=== PATIENT | male | born 1955 | race Caucasian/White ===

== ENCOUNTER → 2017-02-18 | Outpatient (CLI) | payer BC | END | disposition home or self-care (01) | LOC: LABPAT 14:21 | PROVIDERS: ATTEND Orthopaedic Surgery | DX: Z01.812 Encounter for preprocedural laboratory examination (principal) | CPT/HCPCS: 87070 ==

== ENCOUNTER 2017-02-24 07:05 | Inpatient (IN) | payer BC ==
[2017-02-18 17:24] VITALS: BMI 29.4
--- NOTE | 2017-02-23 17:07 | HP ---
DATE OF ADMISSION: Jerrell Johnson is a 62-year-old patient seen with symptomatic left hip osteoarthritis. After having treatment options discussed, he elected to proceed with direct anterior left total hip arthroplasty. Consent was obtained. Medical clearance was provided by Dr. Yeison Patel. Past medical history is osteoarthritis. PAST SURGICAL HISTORY: Left knee arthroscopy. Daily medications: Aleve. ALLERGIES: None reported. SOCIAL HISTORY: Patient denies tobacco use. Physical evaluation of the left hip there is diffuse tenderness about the hip girdle, limited range of motion of left hip with pain. Straight-leg raise is negative, positive hip impingement sign. Distal neurovascular exam is intact. Radiographs of the left hip revealed severe osteoarthritis. IMPRESSION: Left hip osteoarthritis. PLAN: Direct anterior left total hip arthroplasty.
[~2017-02-24 07:05] MED LIST: ACETAMINOPHEN TAB 500 MG TAB PO ONE; DEXAMETHASONE SOD PHOSPHATE 10 MG/ML 1 ML VIAL IV ONE; HYDROmorphone 1 MG/ML 1 ML SYRINGE IVP PRN; MELOXICAM 7.5 MG TAB PO ONE; MIDAZOLAM 2 MG/2 ML VIAL IV PRN; ONDANSETRON 4 MG/2 ML VIAL IVP ONE; Pre Op ABX Message 1 EACH MISC MISCELLANE ONE; SCOPOLAMINE 1.5MG/72HR PATCH TRANSDERM ONE; TRANEXAMIC ACID 1,000 MG in SODIUM CHLORIDE 0.9% 100 ML IVPB ONE; VANCOMYCIN 1,500 MG in SODIUM CHLORIDE 0.9% 250 ML IVPB NR
[2017-02-24] MEDS: LACTATED RINGERS 1,000 ML IV SCH ×2 (07:30→13:18)
[2017-02-24] MEDS ORDERED: ROPIVACAINE 246.25 MG, EPINEPHrine 0.5 MG, KETOROLAC 30 MG, cloNIDine HCL/PF 80 MCG, WA... MISCELLANE ONE ×5 (10:07)
[2017-02-24] MEDS ORDERED: ceFAZolin 3,000 MG in SODIUM CHLORIDE 0.9% IRRIGATIO 3,000 ML IRRIGATION ONE (11:24)
[2017-02-24] MEDS ORDERED: NALOXONE 0.4 MG/ML 1 ML VIAL IV PRN (13:01)
[2017-02-24] MEDS ORDERED: HYDROmorphone 1 MG/ML 1 ML SYRINGE IVP PRN ×3 (13:01)
--- NOTE | 2017-02-24 13:01 | P.OP ---
Date of Procedure: 02/24/17 Preoperative Diagnosis: Left hip osteoarthritis Postoperative Diagnosis: Left hip osteoarthritis Procedure(s) Performed: Direct anterior left total hip arthroplasty Implants: 1. Depuy Corail cementless femoral stem KA size 16 standard collar 2. Depuy pinnacle acetabular shell 60 mm 3. Depuy polyethylene acetabular liner +4 neutral 36 mm ID 60 mm OD 4. Biolox ceramic femoral head +1.5 36 mm Anesthesia: local, spinal Surgeon: Yehuda Harper Facilities Engineering Manager #1: Efraín Hooks Estimated Blood Loss (ml): 300 Pathology: other (Femoral head) Condition: stable Disposition: PACU Indications for Procedure: 62-year-old patient seen with symptomatic left hip osteoarthritis. After having treatment options discussed, he elected to proceed with left total hip arthroplasty. Operative Findings: See description of procedure Description of Procedure: The patient was taken to the operative suite. Patient underwent a spinal anesthetic by the department of anesthesia. Patient was then transferred to the [place] table. Patient was given preoperative IV antibiotics and TXA. Both lower extremities were placed in standard leg spars. The hip was then prepped and draped in the normal sterile orthopedic fashion. A standard anterior incision was made beginning 3 cm lateral and 1 cm distal to the ASIS extending 10 cm. Dissection was then carried down through the subcutaneous soft tissues down to the fascia overlying the tensor fascia brandyn. An incision was now made through the fascia. Careful dissection was taken down exposing the tensor fascia brandyn muscle. A Cobra retractor was now placed along the medial femoral neck and a second one along the lateral femoral neck. The venous circumflex vessels were now identified, cauterized and clipped. We identified the anterior hip capsule. An incision was made through the hip capsule along the lateral border. Tag sutures were then placed along the anterior capsule and lateral capsule. We then performed a capsulotomy. Retractors were now placed around the femoral neck itself. A Cobra retractor was now placed along the anterior acetabulum. Good exposure was now noted of the femoral head/neck complex. Residual labrum was debrided out. We placed the extremity into 3 turns of fine traction. We were then able to introduce a skid in between the femoral head and acetabulum. A placed a awl into the femoral head. We took 2 turns of traction off the extremity. Rotation was now released. The femoral head was then dislocated without difficulty. Additional releasing was performed of the capsule. The head was then reduced. All traction was released. A femoral neck cut was now made with a sagittal saw. It was completed with an osteotome at the lateral neck area. The femoral head was now removed without difficulty. There was advanced osteoarthritis of both the femoral head and acetabulum. The extremity was now rotated to 60 of external rotation. It was locked in position. Residual labrum was now debrided out. Serial reaming was performed of the acetabulum. Once we reached the appropriate size and a trial was position and fit nicely. The appropriate size was now chosen opened and made available. The wound was irrigated with pulse lavage mechanical irrigation. It was introduced into the acetabulum without difficulty. The C-arm/fluoroscopy was now brought into the operative field. We made sure we had a true AP pelvic view. We now under direct C-arm/ fluoroscopy introduced into the acetabular component with appropriate version and inclination. It was well seated and stable. The C-arm was pulled back. An appropriate liner was introduced and clicked into position. It was felt to be stable. At this point retractors were removed. The extremity was now placed into 120 external rotation with no traction. The leg was now dropped to the ground and adducted. Appropriate retractors were now positioned along the proximal femur. We also placed our femoral look into position. Additional capsular releasing was performed to gain access to the proximal femur. We now used a box osteotome. A canal finder was now utilized. Serial broaching was now performed until we reached the appropriate size with good overall rotational stability. Appropriate calcar planing was performed. A trial head/ neck was placed into position. The hip was now reduced. The C-arm/fluoroscopy was brought back into the operative field. A spot film was obtained of the nonoperative hip. A spot film was obtained of the trial components. Overlays were performed, we noted good overall alignment and positioning for determining leg length. The C-arm/fluoroscopy was pulled back. Retractors were repositioned and the hip was dislocated. The leg was again taken down to the ground and adducted. Appropriate retractors were repositioned as well as the femoral hook. All trial components were removed. The femoral implant was opened along with the femoral head. The wound was irrigated with pulse lavage mechanical irrigation. The deep soft tissues were infiltrated local analgesic. The femoral implant was introduced with good purchase and fixation noted. The femoral head was introduced with good positioning and fixation noted. Retractors were now removed. The hip was now reduced. There appeared be good positioning of the hip. The C-arm was brought in confirming good position of the components and a spot film was obtained to document that. A second gram of TXA was given. Bipolar cautery had been utilized intermittently through the procedure for hemostasis. The wound was irrigated copiously with pulse lavage mechanical irrigation. The fascia was repaired with Vicryl suture. The subcutaneous soft tissues were repaired in layers with Vicryl suture. The skin was approximated with pernio/Dermabond. [The drain was connected to Hemovac suction.] Sterile dressings were applied. Patient was then awakened, transferred to a bed and taken to recovery in stable condition. Terence BOWMAN assisted with the procedure.
[2017-02-24] MEDS: HYDROcodone/APAP 7.5-325MG 1 EACH TAB PO PRN (15:44)
--- NOTE | 2017-02-24 16:16 | XR ---
EXAMINATION TYPE: XR Hip Limited single view LT, FL guidance operating room DATE OF EXAM: 02/24/2017 1:02 PM COMPARISON: NONE HISTORY: 62-year-old male anterior left hip replacement FINDINGS: Single intraoperative fluoroscopic image of the left hip showing total hip arthroplasty. FLUOROSCOPY Fluoroscopy time of 28 seconds was used during hip replacement surgery. 1 image/s document/s the pro cedure. IMPRESSION: Intraoperative fluoroscopy during anterior left hip replacement as above.
[2017-02-24] MEDS: traMADol 50 MG TAB PO SCH ×2 (17:38→21:04)
[2017-02-24] MEDS: SENNOSIDES-DOCUSATE SODIUM 1 EACH TAB PO SCH (21:04)
[2017-02-25] MEDS ORDERED: MELATONIN 3 MG TABLET PO PRN (00:27)
[2017-02-25] MEDS: LACTATED RINGERS 1,000 ML IV SCH ×6 (00:42→23:34)
[2017-02-25] MEDS: HYDROcodone/APAP 7.5-325MG 1 EACH TAB PO PRN ×3 (00:43→15:24)
[2017-02-25] MEDS: hydrOXYzine PAMOATE 25 MG CAP PO PRN ×2 (00:43→06:11)
[2017-02-25] MEDS: ONDANSETRON 4 MG/2 ML VIAL IVP PRN (00:53)
[2017-02-25] MEDS ORDERED: SODIUM CHLORIDE 0.9% 1,000 ML IV ONE (07:41)
[2017-02-25 08:05] LABS: Basophils % (A) 0 %; CH 32.3; CHCM 32.9; Eosinophils % (A) 0 %; HCT 36.1 % (39.0-53.0); HDW 2.45; HGB 11.4 gm/dL (13.0-17.5); Luc # (Auto) 0.13; Luc % (Auto) 2; Lymphocytes # (A) 1.6 k/uL (1.0-4.8); Lymphocytes % (A) 20 %; MCH 31.3 pg (25.0-35.0); MCHC 31.7 g/dL (31.0-37.0); MCV 98.6 fL (80.0-100.0); Mean Platelet Volume 6.4; Monocytes # (A) 0.6 k/uL (0-1.0); Monocytes % (A) 7 %; Neutrophils # (A) 5.8 k/uL (1.3-7.7); Neutrophils % (A) 71 %; RBC 3.66 m/uL (4.30-5.90); RDW 13.3 % (11.5-15.5); WBC 8.1 k/uL (3.8-10.6); WBC (Perox) 8.86
[2017-02-25] MEDS: traMADol 50 MG TAB PO SCH ×4 (09:07→23:33)
[2017-02-25] MEDS: ENOXAPARIN 40 MG/0.4 ML SYRINGE SQ SCH (09:08)
[2017-02-25] MEDS: FAMOTIDINE 20 MG TAB PO SCH (09:08)
[2017-02-25] MEDS: MELOXICAM 7.5 MG TAB PO SCH (09:08)
--- NOTE | 2017-02-25 10:36 | CONS ---
DATE OF CONSULTATION: 02/24/2017 REASON FOR CONSULTATION: Medical management requested by Dr. Harper. CONSULTATION: This is a very pleasant 62-year-old patient of Dr. Patel who has undergone a left total hip arthroplasty. Postprocedure, sitting on the bed. No chest pain or shortness of breath. No nausea or vomiting. Did tolerate his supper. Pain is controlled. Patient's chronic stable medical conditions include GERD, osteoarthritis including the ( ) shoulder and right hip, chronic tinnitus. The patient denies any cardiac history. Rather comfortable currently. REVIEW OF SYSTEMS: CONSTITUTIONAL: None. HEENT: None. RESPIRATORY: None. CARDIOVASCULAR: None. GASTROINTESTINAL: Heartburn. GENITOURINARY: None. MUSCULOSKELETAL: Arthritic pain in the right shoulder and right hip, also. DERMATOLOGIC: None. HEMATOLOGIC: None. LYMPHATIC: None. PSYCHIATRY: None. NEUROLOGICAL: None. HEENT: Chronic tinnitus. Past medical history of GERD, osteoarthritis, tinnitus. PAST SURGICAL HISTORY: Skin lesion removed, left knee arthroplasty. SOCIAL HISTORY: The patient smoked on and off for about 24 years; stopped in 1998. Alcohol occasionally. 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 FAMILY HISTORY: Cancer. HOME MEDICATIONS: 1. Protonix 40 mg p.o. daily. 2. Naproxen 440 mg p.o. b.i.d. p.r.n. 3. Zyrtec 10 mg p.o. daily. 4. Tylenol arthritis 2 tablets p.o. as directed p.r.n. ALLERGIES: None. On examination, temperature 97, pulse 93, respirations 14, blood pressure ( ), pulse ox 97% on room air. GENERAL APPEARANCE: Average build, BMI 29.4, sitting on bed, comfortable. EYES: Pupils equal. Conjunctivae normal. HENT: Oral cavity normal. NECK: JVD not raised. Mass not palpable. RESPIRATORY: Effort normal. Lungs are clear. CARDIOVASCULAR: First and second sounds normal. No edema. ABDOMEN: Soft, nontender. Liver and spleen not palpable. LYMPHATIC: No lymph node palpable in the neck or axillae. PSYCHIATRY: Alert and oriented x3. Mood and affect normal. NEUROLOGICAL: Pupils equal. Cranial nerves grossly intact. Power and sensation grossly intact. MUSCULOSKELETAL: Dressing over the left hip. INVESTIGATIONS: No blood work is done. ASSESSMENT: 1. Left total hip arthroplasty for advancing osteoarthritis. 2. Primary osteoarthritis of the right shoulder, right hip. 3. Chronic tinnitus. 4. Gastroesophageal reflux disease. PLAN: Patient's Protonix and ( ) can be resumed. Patient is getting Lovenox for DVT prophylaxis per Dr. Harper and pain is controlled. Care was discussed with the patient. Patient should follow with Dr. Patel upon discharge. Thank you, Dr. Harper.
--- NOTE | 2017-02-25 10:48 | P.PN ---
Subjective Principal diagnosis: Status post left total hip arthroplasty Patient is seen today resting in his hospital chair. He just got up with therapy, he ambulated well. The urinary cath was discontinued. Patient did have a little nausea this morning. His pain is controlled, wrist stiffness in the hip when moving. He denies any headaches, lightheadedness, chest pain, shortness of breath. Objective - Vital Signs Vital signs: Vital Signs Temp 97.1 F L 02/25/17 07:34 Pulse 60 02/25/17 07:34 Resp 16 02/25/17 07:34 BP 98/54 02/25/17 09:13 Pulse Ox 99 02/25/17 07:34 Intake & Output 02/24/17 02/25/17 02/25/17 18:59 06:59 18:59 Intake Total 1751 590 Output Total 550 400 300 Balance 1201 190 -300 Weight 99.79 kg Intake: IV 1751 Oral 590 Output: Urine 250 400 300 Uretheral ([place]) 300 Estimated Blood Loss 300 - Exam Left lower extremity: Incision is clean, dry, and intact. Minimal soft tissue swelling present on the anterior and lateral aspects of the hip. Calf is soft, no tenderness with palpation. Plantar flexion, dorsiflexion, EHL, FHL are intact. Sensory exam to light touch throughout the extremities intact, he does no paresthesias in the bottom of his bilateral feet, this is chronic. Cap refills less than 2 seconds. - Labs CBC & Chem 7: 02/25/17 07:18 Labs: Abnormal Lab Results - Last 24 Hours (Table) 02/25/17 Range/Units 07:18 RBC 3.66 L (4.30-5.90) m/uL Hgb 11.4 L (13.0-17.5) gm/dL Hct 36.1 L (39.0-53.0) % Assessment and Plan Plan: Assessment: 1. Postop day #1 status post left total hip arthroplasty Plan: 1. Pain control, continue use of oral medication 2. Continue work with therapy 3. Daily dressing changes/ice and elevate 4. GI and DVT prophylaxis, continue Lovenox during inpatient stay 5. Medical recommendations 6. Discharge planning: Patient may possibly be discharged home today Time with Patient: Less than 30
[2017-02-25] MEDS: MULTIVITAMINS, THERA 1 EACH TAB PO SCH (13:16)
--- NOTE | 2017-02-25 22:13 | PN ---
DATE OF SERVICE: 02/25/2017 PRESENTING COMPLAINT: Left hip surgery. INTERVAL HISTORY: Patient is status post left total hip arthroplasty this morning. Patient is rather hypertensive and dizzy. I ordered 1 liter of fluid to be bolused. No chest pain or shortness of breath, some pain is present. Review of systems done for constitutional, cardiovascular, GI, pulmonary; relevant findings as above. Current medications are reviewed. On examination, temperature 97.1, pulse 60, respiration 16, blood pressure down to 74/49, pulse ox 99% on room air. GENERAL APPEARANCE: Sitting up, tired -appearing. EYES: Pupils equal. Conjunctivae pale. NECK: JVD not raised. Mass not palpable. RESPIRATORY: Effort normal. Lungs are clear. CARDIOVASCULAR: First and second sounds normal. No edema. ABDOMEN: Soft, nontender. Liver and spleen not palpable. PSYCHIATRY: Alert and oriented x3. Mood and affect normal. INVESTIGATIONS: Hemoglobin 11.4. ASSESSMENT: 1. Left total hip arthroplasty for advancing osteoarthritis. 2. Primary osteoarthritis of right shoulder, right hip. 3. Chronic tinnitus. 4. Gastroesophageal reflux disease. 5. Acute hypertension from blood loss, symptomatic. 6. Acute blood loss anemia as expected from surgery. PLAN: Give patient a bolus of IV fluid, for hypertension, told the patient remain in bed, hemoglobin from this morning, hemoglobin 11.4. We will recheck one tomorrow. Care was discussed with the patient. Will follow.
[2017-02-25] MEDS: SENNOSIDES-DOCUSATE SODIUM 1 EACH TAB PO SCH (23:33)
[2017-02-26] MEDS: HYDROcodone/APAP 7.5-325MG 1 EACH TAB PO PRN (01:45)
[2017-02-26 08:00] LABS: Basophils % (A) 0 %; CH 31.4; CHCM 33.3; Eosinophils % (A) 0 %; HCT 33.9 % (39.0-53.0); HDW 2.48; HGB 11.7 gm/dL (13.0-17.5); Luc # (Auto) 0.14; Luc % (Auto) 2; Lymphocytes # (A) 1.3 k/uL (1.0-4.8); Lymphocytes % (A) 19 %; MCH 32.8 pg (25.0-35.0); MCHC 34.6 g/dL (31.0-37.0); MCV 94.8 fL (80.0-100.0); Mean Platelet Volume 6.5; Monocytes # (A) 0.5 k/uL (0-1.0); Monocytes % (A) 7 %; Neutrophils # (A) 4.9 k/uL (1.3-7.7); Neutrophils % (A) 71 %; RBC 3.57 m/uL (4.30-5.90); RDW 12.8 % (11.5-15.5); WBC 6.9 k/uL (3.8-10.6)
[2017-02-26] MEDS: ONDANSETRON 4 MG/2 ML VIAL IVP PRN (08:56)
[2017-02-26] MEDS: FAMOTIDINE 20 MG TAB PO SCH (08:59)
[2017-02-26] MEDS: MELOXICAM 7.5 MG TAB PO SCH (08:59)
[2017-02-26] MEDS: MULTIVITAMINS, THERA 1 EACH TAB PO SCH (08:59)
[2017-02-26] MEDS: ENOXAPARIN 40 MG/0.4 ML SYRINGE SQ SCH (09:00)
[2017-02-26] MEDS ORDERED: SODIUM CHLORIDE 0.9% 1,000 ML IV ONE ×2 (09:30→09:33)
[2017-02-26] MEDS: traMADol 50 MG TAB PO SCH ×4 (09:31→21:01)
[2017-02-26] MEDS: SODIUM CHLORIDE 0.9% 1,000 ML IV SCH ×3 (09:33→21:01)
--- NOTE | 2017-02-26 11:50 | P.PN ---
Subjective Principal diagnosis: Status post left total hip arthroplasty Patient is seen today resting in his hospital chair. He just got up with therapy, he ambulated well. Patient had another episode of hypotension when first getting out of bed this morning. He denies any headaches, lightheadedness , chest pain, shortness of breath. Objective - Vital Signs Vital signs: Vital Signs Temp 98.5 F 02/26/17 07:00 Pulse 99 02/26/17 07:00 Resp 16 02/26/17 07:00 BP 116/75 02/26/17 09:22 Pulse Ox 95 02/26/17 07:00 Intake & Output 02/25/17 02/26/17 02/26/17 18:59 06:59 18:59 Intake Total 100 Output Total 300 1280 650 Balance -200 -1280 -650 Intake: Intake, IV Titration 100 Amount Sodium Chloride 0.9% 1, 100 000 ml @ 500 mls/hr IV . Q2H ONE Rx#:[id number] Output: Urine 300 1050 650 Uretheral (Salas) 300 450 Post Void Residual 230 - Exam Left lower extremity: Incision is clean, dry, and intact. Minimal soft tissue swelling present on the anterior and lateral aspects of the hip. Calf is soft, no tenderness with palpation. Plantar flexion, dorsiflexion, EHL, FHL are intact. Sensory exam to light touch throughout the extremities intact, he does no paresthesias in the bottom of his bilateral feet, this is chronic. Cap refills less than 2 seconds. - Labs CBC & Chem 7: 02/26/17 07:14 Labs: Abnormal Lab Results - Last 24 Hours (Table) 02/26/17 Range/Units 07:14 RBC 3.57 L (4.30-5.90) m/uL Hgb 11.7 L (13.0-17.5) gm/dL Hct 33.9 L (39.0-53.0) % Assessment and Plan Plan: Assessment: 1. Postop day #2 status post left total hip arthroplasty Plan: 1. Pain control, will decrease oral pain medication with help of improving hypotension episode 2. Continue work with therapy 3. Daily dressing changes/ice and elevate 4. GI and DVT prophylaxis, continue Lovenox during inpatient stay 5. Medical recommendations 6. Discharge planning: Patient will likely be discharged home tomorrow Time with Patient: Less than 30
--- NOTE | 2017-02-26 11:52 | P.DS ---
Providers Date of admission: 02/24/17 07:05 Expected date of discharge: 02/27/17 Attending physician: Yehuda Harper Consults: 02/24/17 13:01 Consult Physician Routine Consulting Provider: Rell Harrington Consult Reason/Comments: Medical management Do you want consulting provider notified?: Yes Primary care physician: [facility] Course: Date of admission: 02/24/2017 Date of discharge: 02/27/2017 Admission diagnosis: Status post left total hip arthroplasty Discharge diagnosis: Same Attending physician: Dr. Harper Surgical procedures: Left total hip arthroplasty Brief history: Patient is a 62-year-old male with a history of with progressive primary left hip osteoarthritis. At this point patient has failed conservative treatment measures and has opted to proceed with a elective total hip arthroplasty. Hospital course: Details of patient's surgery can be found in operative report. Patient tolerated the procedure well and was subsequently transported to orthopedic floor. Patient's orthopeidc and medical care was provided daily. Patient had daily laboratory tests performed for evaluation of overall blood counts. Patient had daily physical therapy to include strengthening range of motion as well as education with walker ambulation. Patient was treated with Lovenox for their postoperative DVT prophylaxis during their inpatient stay. Patient was noted to have a relatively uneventful postoperative course. Patient reported satisfactory pain control with oral pain medications by postoperative day 0. Patient showed satisfactory progress with physical therapy. Patient moved steadily through the program and had no difficulty meeting the goals by postoperative day 3. Given patient's otherwise satisfactory course and having met physical therapy goals, plan is to discharge patient home on postoperative day 3. Discharge condition/disposition: Patient will be discharged home in stable condition. Discharge medications: Instructions are given on resumption of patient's normal daily medications per primary care recommendation, in addition patient will be prescribed [place] 7.5 mg/325 mg, tramadol 50 mg, Colace 100 mg, aspirin 325 mg. Discharge instructions: 1. Wound care and infection precautions, keep incision dry and covered while showering, no lotions, creams, moisturizers. No soaking, tubs, pools, hottubs. Do not scrub over the incision. 2. Weight-bear as tolerated with walker / cane until follow-up. 3. Ice and elevate when necessary. Do not exceed 20 minutes per hour with ice pack. 4. Utilize compression sleeve until seen at first follow up appointment. 5. Visiting nursing care. 6. Home physical therapy . 7. Pain meds and anticoagulants per prescription. 8. Pain medication has potential to cause constipation. Increase oral fluid and fiber intake. Contact primary care provider if you have not had a bowel movement within 48 hours after discharge 9. No anti-inflammatory medication until discussed at first post operative visit, this including Motrin, Aleve, Mobic, Diclofenac. 10. Follow up in office at 2 weeks postop with Terence Hooks PA-C 11. Follow up with your primary care doctor 7-10 days after discharge. 12. Contact [facility] with any questions, . Procedures: Left total hip arthroplasty Patient Condition at Discharge: Good Plan - Discharge Summary New Discharge Prescriptions: Aspirin 325 mg PO BID #60 tab Docusate [Colace] 100 mg PO DAILY #30 capsule HYDROcodone/APAP 7.5-325MG [[place] 7.5] 1 each PO Q6HR PRN #60 tab PRN Reason: Pain traMADol HCl [Ultram] 50 mg PO Q6H PRN #30 tab PRN Reason: Pain Discharge Medication List Pantoprazole Sodium [Protonix] 40 mg PO DAILY 03/29/15 [History] Acetaminophen [Tylenol Arthritis] 2 tab PO DIRECTED PRN 02/18/17 [History] Cetirizine HCl [Zyrtec] 10 mg PO DAILY 02/18/17 [History] Aspirin 325 mg PO BID #60 tab 02/27/17 [Rx] Docusate [Colace] 100 mg PO DAILY #30 capsule 02/27/17 [Rx] HYDROcodone/APAP 7.5-325MG [[place] 7.5] 1 each PO Q6HR PRN #60 tab 02/27/17 [Rx] traMADol HCl [Ultram] 50 mg PO Q6H PRN #30 tab 02/27/17 [Rx] Follow up Appointment(s)/Referral(s): [facility], [NON-STAFF] - As Needed Efraín Hooks PAC [PHYSICIAN [employer]ER] - 2 Weeks Activity/Diet/Wound Care/Special Instructions: Orthopedic Discharge Instructions: 1. Wound care and infection precautions, keep incision dry and covered while showering, no lotions, creams, moisturizers. No soaking, pools, hot tubs. Do not scrub over incision. 2. Weight-bear as tolerated with walker / cane until follow-up. 3. Ice and elevate when necessary. Do not exceed 20 minutes per hour with ice pack. 4. Utilize compression sleeve until seen at first follow up appointment. 5. Visiting nursing care. 6. Home physical therapy. 7. Pain meds and anticoagulants per prescription. 8. Pain medication has potential to cause constipation. Increase oral fluid and fiber intake. Contact primary care provider if you have not had a bowel movement within 48 hours after discharge. 9. No anti-inflammatory medication until discussed at first post operative visit, this including Motrin, Aleve, Mobic, Diclofenac. 10. Follow up in office at 2 weeks postop with Terence Hooks PA-C 11. Follow up with your primary care doctor 7-10 days after discharge. 12. Contact [facility] with any questions, . Discharge Disposition: HOME WITH HOME HEALTH SERVICES
--- NOTE | 2017-02-26 15:18 | PN ---
DATE OF SERVICE: 02/26/2017 CHIEF COMPLAINT: Left hip surgery. INTERVAL HISTORY: Patient is status post left total hip arthroplasty. Patient was hypotensive again this morning. I gave a bolus of fluid, does feel a bit tired. Hemoglobin has been stable. Otherwise some pain in operative site. Did tolerate his meal. Review of systems done for constitutional, cardiovascular, GI, pulmonary; relevant findings as above. Current medications are reviewed. On examination, temperature 98.5, pulse 99, respirations 16, blood pressure 105/71, pulse ox 95% on room air. GENERAL APPEARANCE: Sitting up on a chair. Tired -appearing. EYES: Pupils equal. Conjunctivae normal. NECK: JVD not raised. Mass not palpable. RESPIRATORY: Effort normal. Lungs are clear. CARDIOVASCULAR: First and second sounds normal. No edema. ABDOMEN: Soft, liver and spleen not palpable. PSYCHIATRY: Alert and oriented x3. Mood and affect feels a bit low. INVESTIGATIONS: Hemoglobin 7.7. ASSESSMENT: 1. Left total hip arthroplasty for advancing osteoarthritis. 2. Primary osteoarthritis of the right shoulder and right hip. 3. Chronic tinnitus. 4. Gastroesophageal reflux disease. 5. Acute hypotension from blood loss, symptomatic. 6. Acute blood loss anemia expected from surgery. PLAN: Continue current care. Give patient IV fluids. Patient reassured. Hemoglobin still decent, not for blood transfusion. Care was discussed with the patient.
[2017-02-26] MEDS: LACTATED RINGERS 1,000 ML IV SCH ×3 (16:41→21:44)
[2017-02-26] MEDS: SENNOSIDES-DOCUSATE SODIUM 1 EACH TAB PO SCH (20:34)
[2017-02-27] MEDS: HYDROcodone/APAP 7.5-325MG 1 EACH TAB PO PRN ×3 (00:30→12:00)
[2017-02-27] MEDS: SODIUM CHLORIDE 0.9% 1,000 ML IV SCH (04:01)
[2017-02-27 07:17] VITALS: BP 126/77; PULSE 99; RESP 16; TEMP 98.3
[2017-02-27 07:53] LABS: Basophils % (A) 0 %; CH 32.2; CHCM 33.4; Eosinophils % (A) 1 %; HDW 2.43; HGB 10.1 gm/dL (13.0-17.5); Luc # (Auto) 0.14; Luc % (Auto) 2; Lymphocytes # (A) 1.2 k/uL (1.0-4.8); Lymphocytes % (A) 17 %; MCH 31.5 pg (25.0-35.0); MCHC 32.6 g/dL (31.0-37.0); MCV 96.8 fL (80.0-100.0); Mean Platelet Volume 6.7; Monocytes # (A) 0.5 k/uL (0-1.0); Monocytes % (A) 7 %; Neutrophils # (A) 5.2 k/uL (1.3-7.7); Neutrophils % (A) 74 %; RDW 13.2 % (11.5-15.5); WBC (Perox) 7.03
[2017-02-27] MEDS: MELOXICAM 7.5 MG TAB PO SCH (09:18)
[2017-02-27] MEDS: ENOXAPARIN 40 MG/0.4 ML SYRINGE SQ SCH (09:18)
[2017-02-27] MEDS: FAMOTIDINE 20 MG TAB PO SCH (09:18)
[2017-02-27] MEDS: traMADol 50 MG TAB PO SCH ×2 (09:18→13:51)
--- NOTE | 2017-02-27 09:32 | P.PN ---
Subjective Principal diagnosis: Status post left total hip arthroplasty Patient is seen today resting in his hospital chair. His blood pressure is improved, he's feeling a lot better today. He denies any headaches, lightheadedness, chest pain, shortness of breath. Objective - Vital Signs Vital signs: Vital Signs Temp 98.3 F 02/27/17 07:00 Pulse 99 02/27/17 07:00 Resp 16 02/27/17 07:00 BP 126/77 02/27/17 07:00 Pulse Ox 94 L 02/27/17 07:00 Intake & Output 02/26/17 02/27/17 02/27/17 18:59 06:59 18:59 Output Total 1000 650 Balance -1000 -650 Output: Urine 1000 650 Other: Voiding Method Urinal # Voids 1 - Exam Left lower extremity: Incision is clean, dry, and intact. Minimal soft tissue swelling present on the anterior and lateral aspects of the hip. Calf is soft, no tenderness with palpation. Plantar flexion, dorsiflexion, EHL, FHL are intact. Sensory exam to light touch throughout the extremities intact, he does no paresthesias in the bottom of his bilateral feet, this is chronic. Cap refills less than 2 seconds. - Labs CBC & Chem 7: 02/27/17 06:49 Labs: Abnormal Lab Results - Last 24 Hours (Table) 02/27/17 Range/Units 06:49 RBC 3.20 L (4.30-5.90) m/uL Hgb 10.1 L (13.0-17.5) gm/dL Hct 31.0 L (39.0-53.0) % Assessment and Plan Plan: Assessment: 1. Postop day #3 status post left total hip arthroplasty Plan: 1. Pain control, we'll discharge home on oral medication 2. Continue work with therapy 3. Daily dressing changes/ice and elevate 4. GI and DVT prophylaxis, we'll discharge home on aspirin 325 mg twice a day 5. Medical recommendations 6. Discharge planning: Patient will be discharged home today Time with Patient: Less than 30
[2017-02-27] MEDS: MULTIVITAMINS, THERA 1 EACH TAB PO SCH (12:00)
[2017-02-27] MEDS: LACTATED RINGERS 1,000 ML IV SCH (13:49)
--- NOTE | 2017-02-27 21:25 | PN ---
DATE OF SERVICE: 02/27/2017 PRESENTING COMPLAINT: Left hip surgery. INTERVAL HISTORY: Patient is status post left hip surgery. Hypotension is gone. Symptoms are greatly improved; feeling much better. Happy actually about going home. Pain is controlled. No chest pain. Review of systems done for constitutional, cardiovascular, GI, pulmonary; relevant findings as above. Current medications are reviewed. On examination, temperature 98.3, pulse 99, respiration 16, blood pressure 126/77, pulse ox 94% on room air. GENERAL APPEARANCE: Sitting up. More cheerful today. EYES: Pupils equal. Conjunctivae normal. NECK: JVD not raised. Mass not palpable. RESPIRATORY: Effort normal. Lungs are clear. CARDIOVASCULAR: First and second sounds normal. No edema. ABDOMEN: Soft, nontender. Liver and spleen not palpable. PSYCHIATRY: Alert and oriented x3. Mood and affect normal. INVESTIGATIONS: White count 7. Hemoglobin 10.1. ASSESSMENT: 1. Left total hip arthroplasty for advancing osteoarthritis. 2. Primary osteoarthritis of the right shoulder and right hip. 3. Chronic tinnitus. 4. Gastroesophageal reflux disease. 5. Acute hypotension blood loss, symptomatic. 6. Acute blood loss anemia as expected from surgery. PLAN: Continue current medication and treatment plan. Care was discussed with the patient. Patient should follow up with his family doctor.
--- NOTE | 2017-04-09 22:32 | PN ---
DATE OF SERVICE: 02/25/2017 ADDENDUM/CORRECTION Assessment #5 should read: Acute hypotension from blood loss, symptomatic.
== END 2017-02-27 13:50 | disposition home health service (06) | DRG 470 ==
LOC: 2ORMAIN 07:05 → 3SUR 13:13
PROVIDERS: ADMIT Orthopaedic Surgery; ATTEND Orthopaedic Surgery
PROC: 0SRB04A Replacement of Left Hip Joint with Ceramic on Polyethylene Synthetic Substitute, Uncemented, Open Approach (ICD-10-PCS; principal; 2017-02-24 10:10)
DX: M16.12 Unilateral primary osteoarthritis, left hip (principal); I95.9 Hypotension, unspecified; D62 Acute posthemorrhagic anemia; H93.19 Tinnitus, unspecified ear; Z87.891 Personal history of nicotine dependence; K21.9 Gastro-esophageal reflux disease without esophagitis; M19.011 Primary osteoarthritis, right shoulder; Z79.1 Long term (current) use of non-steroidal anti-inflammatories (NSAID)
CPT/HCPCS: 36415; 73501; 85025; 86850; 86900; 86901; 87070; 88300

== ENCOUNTER → 2019-09-13 | Outpatient (CLI) | payer BC | END | disposition home or self-care (01) | LOC: LABPAT 11:42 | PROVIDERS: ATTEND Orthopaedic Surgery Orthopaedic Surgery of the Spine | DX: Z01.812 Encounter for preprocedural laboratory examination (principal) | CPT/HCPCS: 87070 ==

== ENCOUNTER 2019-09-22 07:32 | Inpatient (IN) | payer BC ==
[2019-09-15 15:25] VITALS: BMI 27.7
[~2019-09-22 07:32] MED LIST changes: -ACETAMINOPHEN TAB 500 MG TAB PO ONE; +BACITRACIN 50,000 UNIT, POLYMYXIN B 500,000 UNIT in SODIUM CHLORIDE 0.9% IRRIGATIO 1,00... IRRIGATION ONE; -DEXAMETHASONE SOD PHOSPHATE 10 MG/ML 1 ML VIAL IV ONE; -HYDROmorphone 1 MG/ML 1 ML SYRINGE IVP PRN; +LIDOCAINE 1% 20 ML VIAL (10MG/ML) FOR IV START INTRADERMA PRN; -MELOXICAM 7.5 MG TAB PO ONE; -MIDAZOLAM 2 MG/2 ML VIAL IV PRN; -Pre Op ABX Message 1 EACH MISC MISCELLANE ONE; -SCOPOLAMINE 1.5MG/72HR PATCH TRANSDERM ONE; -TRANEXAMIC ACID 1,000 MG in SODIUM CHLORIDE 0.9% 100 ML IVPB ONE; -VANCOMYCIN 1,500 MG in SODIUM CHLORIDE 0.9% 250 ML IVPB NR
[2019-09-22] MEDS: LACTATED RINGERS 1,000 ML IV SCH ×2 (08:00→23:22)
[2019-09-22] MEDS ORDERED: NEOSTIGMINE 1 MG/ML 10 ML VIAL ONE (08:25)
[2019-09-22] MEDS ORDERED: PHENYLEPHRINE-0.9% NACL SYG 1 MG/10 ML SYRINGE ONE (08:25)
[2019-09-22] MEDS ORDERED: PROPOFOL 10 MG/ML 20 ML VIAL IV ONE (08:25)
[2019-09-22] MEDS ORDERED: HEPARIN SODIUM,PORCINE 10,000 UNIT/ML 1 ML VIAL ONE (08:25)
[2019-09-22] MEDS ORDERED: ePHEDrine SULFATE/0.9% NACL/PF 50 MG/5 ML SYRINGE IV ONE (08:25)
[2019-09-22] MEDS ORDERED: SUCCINYLCHOLINE CHLORIDE 100 MG/5 ML SYR IV ONE (08:25)
[2019-09-22] MEDS ORDERED: ROCURONIUM BROMIDE 10 MG/ML 10 ML VIAL IV ONE (08:25)
[2019-09-22] MEDS ORDERED: fentaNYL (PF) 50 MCG/ML 2 ML AMP ONE (08:25)
[2019-09-22] MEDS ORDERED: GLYCOPYRROLATE 0.2 MG/ML 2 ML VIAL ONE (08:25)
[2019-09-22] MEDS ORDERED: LIDOCAINE 1% INJ 10MG/ML (20 ML MDV) ONE (08:25)
[2019-09-22] MEDS ORDERED: MIDAZOLAM 2 MG/2 ML VIAL ONE (08:25)
[2019-09-22] MEDS ORDERED: SODIUM CHLORIDE 0.9% IRRIG 1,000 ML BTL IRRIGATION ONE (08:25)
[2019-09-22] MEDS ORDERED: LIDOCAINE 1%-EPI 1:100,000 20 ML VIAL SQ ONE (09:11)
[2019-09-22] MEDS ORDERED: BUPIVACAINE (PF) 0.25% 30 ML VIAL SQ ONE (09:11)
[2019-09-22] MEDS ORDERED: GELATIN SPONGE,ABSORB (SMALL) 1 EACH SPONGE TOPICAL ONE ×2 (09:33)
[2019-09-22] MEDS ORDERED: THROMBIN (BOVINE) 5,000 UNIT VIAL TOPICAL ONE ×2 (09:33)
[2019-09-22] MEDS ORDERED: LACTATED RINGERS 1,000 ML IV ONE ×2 (11:00)
--- NOTE | 2019-09-22 12:26 | XR ---
EXAMINATION TYPE: XR lumbar spine 2 or 3V, FL guidance operating room DATE OF EXAM: 09/22/2019 CLINICAL HISTORY: Low back pain. TECHNIQUE: Fluoroscopy. COMPARISON: None. FINDINGS: Fluoroscopic guidance was provided during pain relief procedure performed by Dr. Boss. A total of 2 minutes and 5 seconds of fluoroscopic time was utilized during the procedure and 6 spot i mages are acquired. Images acquired shows needle localization of the lumbar spine at multiple levels and lumbar spine fusion postsurgical change. IMPRESSION: As Above.
[2019-09-22] MEDS ORDERED: MAGNESIUM HYDROXIDE 2,400 MG/10 ML CUP PO PRN (12:27)
[2019-09-22] MEDS ORDERED: HYDROmorphone 0.5 MG/0.5 ML SYRINGE IVP PRN (12:27)
[2019-09-22] MEDS ORDERED: BENZOCAINE/MENTHOL LOZENG 1 EACH LOZENGE MUCOUS MEM PRN (12:27)
[2019-09-22] MEDS: HYDROmorphone 0.5 MG/0.5 ML SYRINGE IVP PRN ×4 (12:44→13:17)
--- NOTE | 2019-09-22 12:45 | P.OP ---
Date of Procedure: 09/22/19 Preoperative Diagnosis: Spondylolisthesis L3 4 L4 5, lower extremity radiculopathy low back pain, spinal stenosis L3 4 L4 5, degenerative disc disease Postoperative Diagnosis: Same Anesthesia: GETA Pathology: none sent Condition: stable Disposition: PACU Description of Procedure: DESCRIPTION OF PROCEDURE(S): BRIEF OPERATIVE NOTE Preoperative Diagnosis:Spondylolisthesis L3 4 L4 5, degenerative scoliosis, degenerative scoliosis, lower extremity radiculopathy low back pain, spinal stenosis L3 4 L4 5, degenerative disc disease Postoperative Diagnosis:Spondylolisthesis L3 4 L4 5, lower extremity radiculopathy low back pain, spinal stenosis L3 4 L4 5, degenerative disc disease Procedure: Laminectomy and decompression L3 4 L4 5 Minimally invasive Posterior lateral decompression and facet fusion L3 4 L4 5 Minimally invasive Transforaminal lumbar interbody fusion for a 360 fusion L3 4 L4 5 Discectomy for decompression L3 4 L4 5 Placement of interbody graft L3 4 L4 5 Local autogenous bone grafting Harvesting of bone marrow aspirate via the pedicle and vertebral body of L3 Use of Cell Saver Use of bone graft extenders Surgeon: Dr. Boss Plastic Welder: Anastacio Delarosa is present throughout the entire the case persistence during positioning, dissection, exposure, visualization, and all crucial elements of the case as well as closure. Anesthesia: General anesthesia Estimated blood loss: Approximately 450 mL with 200 given back through Cell Saver Complications: None apparent Components implanted: K2M minimally invasive [place] pedicle screw system with 6 screws measuring 6.5 x 50 mm with 2 [place] interbody cages 30 mL of DBX bone fibers 10 mL of bio4 bone graft to supplement the local autogenous bone graft and bone marrow aspirate Disposition: To recovery room in good stable condition. OPERATIVE INDICATIONS The patient has had long-standing issues in their lower back and lower extremities. He's been having worsening symptoms his back and his bilateral lower extremity is worse on the left than the right. His been having severe pain in his back despite aggressive conservative care. Imaging showed spondylolisthesis which was dynamic L3 4 and L4 5 with spinal stenosis and degenerative disc disease which correlated well with his low back and lower extremity symptoms. The patient has been through conservative treatment. We discussed various treatment options including surgery, and the patient wishes to proceed with surgery We discussed the risk, patient's alternatives and benefits of surgery including but not limited to, risk of bleeding risk of infection, ri sk of need for further surgery, risk of decreased, loss of motion, muscle function, malunion nonunion, hardware failure, nerve damage, paralysis, heart attack, blindness and . OPERATIVE SUMMARY After discussing all the risks, patient alternatives and benefits at length, the patient elected to proceed with surgical intervention, signed informed consent, and presented for their procedure. The patient was seen and examined in the preoperative holding area and the surgical site was marked. The patient was given antibiotics and brought to the operating room. The patient was sedated and intubated by anesthesia in standard fashion. The patient was positioned on to the operating room table in a prone position on the appropriate frame which was well-padded and well molded. We were careful to pad any bony prominences and pressure points. We were careful to maintain the patient's cervical spine and good neutral alignment and position throughout. The patient was prepped and draped in a normal standard fashion. An appropriate timeout and keystone protocol performed. We were able to proceed with the surgery. The local wound area was infiltrated with local anesthetic. I was able utilize C-arm guidance to establish appropriate position over the pedicles bilaterally at the appropriate levels at L3 4 and 5. With the appropriate levels confirmed was able to make small stab incisions over the appropriate pedicle sites bilaterally. Utilizing C-arm in his house able to establish a Jamshidi needle over the lateral aspect of the pedicle and advanced the trocar into the pedicle being careful not to breech superiorly inferiorly medially or laterally. Position was confirmed regularly with AP and lateral images on C-arm. I was able to establish the trocar into the pedicle milagros ropriately into the posterior aspect of the vertebral body bilaterally at the appropriate levels. This was done at each of the pedicle positions and each of the vertebrae. At L3 on the right I withdrew approximately 30 mL of bone marrow aspirate to be used for supplementation for the bone graft. I was able place the guidewire into the trocar and into the vertebral body appropriately under C-arm guidance. Dissection was taken down over the wire to the appropriate starting position for the screw placed. The appropriate length screw was chosen, threaded over the guidewire and screwed appropriately into the pedicle and vertebral body under C-arm guidance in excellent alignment and position with good bony purchase. This is done at each of the screw sites at the appropriate levels at L3-L4 and L5 bilaterally. With the screws intact I extended the incision to connect the screw hole sites on the most symptomatic side on the left. I dissected down to establish access over the pars and lamina to the base of the spinous process. I was able to expose the facet joint. The capsule the facet was taken down and showed some severe facet arthrosis at the joint. I was able to use a combination of curettes and [place] rongeurs and a high-speed drill to take down the facet joint and do a facetectomy. Partial laminectomy was also performed. I was able get excellent foraminal decompression and central decompression with undermining across midline to perform a laminectomy centrally and contralaterally. As able get good central decompression. This is done first at L4 5 and then at L3 4 . The ligamentum flavum was taken down to further decompress centrally and at bilateral neural foramen. I was able to expose the disc space and visualize the traversing nerve root. Note was made of some disc protrusion at the level causing further compression of the nerve root. I was able to establish a annulotomy at the appropriate level protecting soft tissue and neural structures. Note was made of some disc desiccation at the disc. I performed a complete discectomy with accommodation of curettes and rasps and scrapers. The disc had some protrusion and the discectomy provided some further decompression. I was able get good endplate preparation at the disc space. I sized for the appropriate size interbody spacer protecting the soft tissue and neural structures. The wound was copiously irrigated and suctioned dry. There is no evidence of any dural tear or leak. I was able to pack the disc space with local autogenous bone graft as well as a small amount of bone graft which was also placed into the interbody cage itself. Protecting the soft tissue structures and neural structures I was able place the interbody cage in good alignment and good position with good fit and fill at the interbody space. Position was confirmed with C-arm guidance at L3 4 and L4 5. Good hemostasis maintained. There is no evidence of any dural tear or leak. The wound was irrigated and suctioned dry. With the hardware intact, intraoperative C-arm imaging was again taken which showed good alignment and position of the hardware at the appropriate levels at L3 4 and 5. We were then able to measure, contour and place the rods and appropriate hardware bilaterally. I was able to get good correction of the scoliosis as well. I was able to place capcrews, tighten them down, and torque them with the torque screwdriver appropriately. With this intact I was able to place the local autogenous bone graft with additional bone graft enhancer as necessary into the posterior lateral gutters over the decorticated transverse processes. The remainder of the bone graft was placed over the facet joint on the contralateral side after taking down the facet joint capsule. With the bone graft intact, a stable construct, and good decompression at the appropriate levels, we were able to proceed with closure. Good hemostasis was maintained. There is no evidence of dural tear or leak. The fascia was closed for a watertight closure. he subcuticular tissue was closed with absorbable suture. The wound was cleaned and dried and dressed with the appropriate dressing. The drapes were broken down. The patient was gently rolled back onto their hospital bed being careful to maintain their cervical spine and good neutral alignment and position. They were woken up by anesthesia, extubated, and brought to the recovery room in good stable condition. The patient will be admitted to the hospital for appropriate postoperative care, medical management and monitoring. We will continue to follow them closely about the postoperative course.
[2019-09-22] MEDS ORDERED: ONDANSETRON 4 MG/2 ML VIAL IVP ONE (13:06)
[2019-09-22] MEDS ORDERED: METOCLOPRAMIDE 5 MG/ML 2 ML VIAL IVP ONE (13:18)
[2019-09-22] MEDS ORDERED: PROMETHAZINE INJ 25 MG/ML 1 ML VIAL IVPB ONE (13:29)
[2019-09-22] MEDS: SODIUM CHLORIDE 0.9% 1,000 ML IV SCH (14:56)
[2019-09-22] MEDS: HYDROmorphone 1 MG/ML 1 ML SYRINGE IVP PRN ×2 (16:36→20:32)
--- NOTE | 2019-09-22 20:46 | P.CONS ---
History of Present Illness - Reason for Consult Consult date: 09/22/19 Medical management Requesting physician: Gary Boss - Chief Complaint Back surgery - History of Present Illness Consultation: This is a pleasant [address] Patel. Long-standing problem with the lower back in the lumbar area. Patient had radical pain in both the legs more so on the right leg posteriorly. It was worse with activity and better with rest patient had tried different medications without any benefit. It is progressively getting worse. Finally decided to proceed with surgery. Patient did under go surgery this afternoon. Postprocedure laying in bed. Some pain is present. No nausea no vomiting. No chest pain or shortness of breath. Has Venodyne boots for DVT prophylaxis. No fever no chills. Chronic stable medical conditions include GERD, osteoarthritis of the joints, BPH. Review of systems: GEN.: None EYES: None HEENT: None NECK: None RESPIRATORY: None CARDIOVASCULAR: None GASTROINTESTINAL: None GENITOURINARY: BPH symptoms MUSCULOSKELETAL: As above LYMPHATICS: None HEMATOLOGICAL: None PSYCHIATRY: None NEUROLOGICAL: [Radicular. Pain in both legs Past medical history to include: Lumbar pain, GERD, or strength redness, BPH Social history: *Smoking in 1998. . 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 EYES: Pupils equal. Conjunctiva normal. HEENT: External appearance of nose and ears normal, oral cavity grossly normal. NECK: JVD not raised; masses not palpable. HEART: First and second heart sounds are normal; no edema. LUNGS: Respiratory rate normal; clear to auscultation. ABDOMEN: Soft, nontender, liver spleen not palpable, no masses palpable. PSYCH: Alert and oriented x3; mood and affect normal. NEUROLOGICAL: Cranial nerves grossly intact; no facial asymmetry, power and sensation grossly intact. LYMPHATICS: No lymph nodes palpable in the axilla and neck MUSCULOSKELETAL: Evidence of OA in the hands. Dressing over the surgical site. Venodyne boots Investigations: No labs currently Assessment: -Decompression fusion, laminectomy to include L3 L4 L5 for spondylolisthesis and lower extremity radiculopathy and spinal stenosis and DJD -GERD -BPH Plan: Pain control is in place. Patient can Venodyne boots in place. IV fluids in place. Did get IV Ancef for surgical prophylaxis. Did tolerate her meals this evening. Care was discussed with the patient. Questions answered. Thank you Dr. Boss Past Medical History Past Medical History: Cancer, GERD/Reflux, Osteoarthritis (OA) Additional Past Medical History / Comment(s): HISTORY OF COLON POLYPS, HX SKIN CANCER -BASAL CELL. History of Any Multi-Drug Resistant Organisms: None Reported Past Surgical History: Joint Replacement, Orthopedic Surgery Additional Past Surgical History / Comment(s): SKIN LESIONS REMOVED, LEFT KNEE ARTHROSCOPY, left hip replacement. Past Anesthesia/Blood Transfusion Reactions: No Reported Reaction Past Psychological History: No Psychological Hx Reported Smoking Status: Former smoker Past Alcohol Use History: Occasional Additional Past Alcohol Use History / Comment(s): QUIT SMOKING IN 1998. Past Drug Use History: None Reported - Past Family History Father Family Medical History: Cancer Medications and Allergies Home Medications Medication Instructions Recorded Confirmed Type Pantoprazole Sodium [Protonix] 40 mg PO QAM 03/29/15 09/22/19 History Acetaminophen [Tylenol] 1,000 mg PO Q4-6H PRN 09/15/19 09/22/19 History Allergies Allergy/AdvReac Type Severity Reaction Status Date / Time No Known Allergies Allergy Verified 09/22/19 08:01 Physical Exam Vitals: Vital Signs Temp Pulse Resp BP Pulse Ox 09/22/19 20:02 98.1 F 89 18 136/82 98 09/22/19 16:30 106 H 138/90 09/22/19 16:15 80 136/83 09/22/19 16:00 97 120/77 09/22/19 15:45 87 127/82 09/22/19 15:30 93 119/66 09/22/19 15:15 79 117/76 09/22/19 15:00 79 122/74 09/22/19 14:48 100 09/22/19 14:45 96 123/77 09/22/19 14:33 98.3 F 79 17 120/76 98 09/22/19 14:00 82 18 123/78 97 09/22/19 13:45 80 18 127/81 97 09/22/19 13:30 82 18 128/80 97 09/22/19 13:16 80 18 131/86 96 09/22/19 13:00 85 18 138/89 100 09/22/19 12:45 80 18 146/96 98 09/22/19 12:31 97.1 F L 94 18 151/95 98 09/22/19 07:50 98.0 F 86 18 141/91 96 Intake and Output 09/22/19 09/22/19 09/22/19 06:59 14:59 22:59 Intake Total 2151 Output Total 850 Balance 1301 Intake: IV 2151 Output: Urine 400 Estimated Blood Loss 450 Other: Weight 94.347 kg
[2019-09-22] MEDS: HYDROcodone/APAP 5-325MG 1 EACH TAB PO PRN (21:42)
[2019-09-23] MEDS: HYDROmorphone 1 MG/ML 1 ML SYRINGE IVP PRN ×3 (00:38→22:45)
[2019-09-23] MEDS: SODIUM CHLORIDE 0.9% 1,000 ML IV SCH ×2 (00:47→14:08)
[2019-09-23] MEDS: HYDROcodone/APAP 5-325MG 1 EACH TAB PO PRN ×4 (02:06→17:55)
[2019-09-23 07:29] LABS: Basophils % (A) 0 %; Eosinophils % (A) 1 %; HCT 36.9 % (39.0-53.0); HGB 12.5 gm/dL (13.0-17.5); Lymphocytes # (A) 1.5 k/uL (1.0-4.8); Lymphocytes % (A) 20 %; MCH 32.3 pg (25.0-35.0); MCHC 33.8 g/dL (31.0-37.0); MCV 95.5 fL (80.0-100.0); Mean Platelet Volume 6.1; Monocytes # (A) 0.6 k/uL (0-1.0); Monocytes % (A) 8 %; Neutrophils # (A) 5.2 k/uL (1.3-7.7); Neutrophils % (A) 69 %; Platelet Count 208 k/uL (150-450); RBC 3.86 m/uL (4.30-5.90); WBC 7.6 k/uL (3.8-10.6)
[2019-09-23] MEDS: PANTOPRAZOLE 40 MG TABLET PO SCH (08:00)
[2019-09-23] MEDS: SENNOSIDES-DOCUSATE SODIUM 1 EACH TAB PO SCH (08:00)
--- NOTE | 2019-09-23 08:26 | P.PN ---
Progress Note - Text Progress Note Date: 09/23/19 Postoperative day #1 Patient is seen and examined today at bedside. The patient has some pain around the surgical site as expected. Pain is being controlled with medication. We were able to get him up to a chair that was difficult for him. He continues to have severe weakness at his left lower extremity which is essentially unchanged from prior to his surgery. Physical Exam Afebrile with stable vital signs his blood pressure did decrease some into the mid 70s upon sitting up in a chair but seems to be stabilizing appropriately with him getting back. Abdomen is soft nontender. Chest has good excursion deep and space expiration The incision site is clean dry and intact. No erythema there is no purulence. Extremities have not had neurologic change from prior to surgery. Left lower extremity has diffuse weakness which is unchanged from prior to surgery Calves and thighs were soft nontender without evidence of DVT. Assessment/Plan Postoperative day #1 status post minimally invasive decompression and fusion L3 4 L4 5 for his spinal stenosis with spondylolisthesis and degenerative disc and lower extremity radiculopathy with weakness Patient is progressing as expected from the surgery thus far. He has significant changes and will have slower recovery overall particularly given his lower extremity changes and weakness. We have been able to start to mobilize him but he did have some sensitivity with his blood pressure and this was seen that prior intervention with him in his hip surgeries. I think this will stabilize and we'll continue her medicine follow them closely. We will continue to increase the patient's mobilization with therapy. We will continue pain control with oral or IV medications. We'll continue to follow patient closely.
--- NOTE | 2019-09-23 23:11 | P.PN ---
Progress Note - Text Progress Note Date: 09/23/19 - Chief Complaint Back surgery Consultation: This is a pleasant [address] Patel. Long-standing problem with the lower back in the lumbar area. Patient had radical pain in both the legs more so on the right leg posteriorly. It was worse with activity and better with rest patient had tried different medications without any benefit. It is progressively getting worse. Finally decided to proceed with surgery. Patient did under go surgery this afternoon. Postprocedure laying in bed. Some pain is present. No nausea no vomiting. No chest pain or shortness of breath. Has Venodyne boots for DVT prophylaxis. No fever no chills. Chronic stable medical conditions include GERD, osteoarthritis of the joints, BPH. today-patient having trouble urinating. Back pain is better controlled. Did walk a current therapy. Did tolerate her diet. Review of systems: Was done for constitutional, cardiovascular, GI, pulmonary. relevant finding as above Active Medications Acetaminophen (Tylenol Tab) 1,000 mg PO Q4H PRN PRN Reason: Mild pain Hydrocodone Bitart/Acetaminophen ([place] 5-325) 1 each PO Q4HR PRN PRN Reason: Moderate Pain Hydrocodone Bitart/Acetaminophen ([place] 5-325) 2 each PO Q4HR PRN PRN Reason: Moderate Pain Last Admin: 09/23/19 17:55 Dose: 2 each Documented by: Benzocaine/Menthol (Cepacol Lozenge) 1 each MUCOUS MEM Q4HR PRN PRN Reason: Sore Throat Hydromorphone HCl (Dilaudid) 0.5 mg IVP Q4HR PRN PRN Reason: Pain Hydromorphone HCl (Dilaudid) 1 mg IVP Q4HR PRN PRN Reason: Pain Last Admin: 09/23/19 22:45 Dose: 1 mg Documented by: Lactated Ringer's (Lactated Ringers) 1,000 mls @ 20 mls/hr IV .Q24H [facility] Last Admin: 09/22/19 23:22 Dose: Not Given Documented by: Sodium Chloride (Saline 0.9%) 1,000 mls @ 75 mls/hr IV .[id number] [facility] Last Admin: 09/23/19 14:08 Dose: Not Given Documented by: Lidocaine HCl (.Xylocaine 1% Inj (10mg/Ml) For Iv Start) 0.1 ml INTRADERMA PER PROTOCOL PRN PRN Reason: IV Start Last Admin: 09/22/19 08:00 Dose: 0.1 ml Documented by: Magnesium Hydroxide (Milk Of Magnesia) 2,400 mg PO DAILY PRN PRN Reason: Constipation Ondansetron HCl (Zofran) 4 mg IVP Q6HR PRN PRN Reason: Nausea Pantoprazole Sodium (Protonix) 40 mg PO AC-BRKFST [facility] Last Admin: 09/23/19 08:00 Dose: 40 mg Documented by: Senna/Docusate Sodium (Senokot-S) 1 each PO DAILY [facility] Last Admin: 09/23/19 08:00 Dose: 1 each Documented by: Tamsulosin HCl (Flomax) 0.4 mg PO PC-SUPPER [facility] Physical examination: VITAL SIGNS: 98.8, 80, 16, 120/71, 96% room air GENERAL: BMI 27.4, laying in bed awake. EYES: Pupils equal. Conjunctiva normal. HEENT: External appearance of nose and ears normal, oral cavity grossly normal. NECK: JVD not raised; masses not palpable. HEART: First and second heart sounds are normal; no edema. LUNGS: Respiratory rate normal; clear to auscultation. ABDOMEN: Soft, nontender, liver spleen not palpable, no masses palpable. PSYCH: Alert and oriented x3; mood and affect normal. NEUROLOGICAL: Cranial nerves grossly intact; no facial asymmetry, power and sensation grossly intact. LYMPHATICS: No lymph nodes palpable in the axilla and neck MUSCULOSKELETAL: Evidence of OA in the hands. Dressing over the surgical site. Venodyne boots Investigations: white count 7.6 hemoglobin 12.5 platelets 208 Assessment: -Decompression fusion, laminectomy to include L3 L4 L5 for spondylolisthesis and lower extremity radiculopathy and spinal stenosis and DJD -GERD -BPH, causing acute urinary retention Plan: bladder scanning was done. If need be patient me to be straight caths.. Flomax be added this evening. Care was discussed with the patient. Increase activity. Thank you Dr. Boss
[2019-09-23] MEDS: TAMSULOSIN 0.4 MG CAP.ER.24H PO SCH (23:49)
[2019-09-24] MEDS: HYDROmorphone 1 MG/ML 1 ML SYRINGE IVP PRN (05:40)
[2019-09-24] MEDS: SODIUM CHLORIDE 0.9% 1,000 ML IV SCH ×2 (05:44→17:40)
[2019-09-24] MEDS: LACTATED RINGERS 1,000 ML IV SCH (07:41)
[2019-09-24] MEDS: PANTOPRAZOLE 40 MG TABLET PO SCH (07:41)
[2019-09-24] MEDS: SENNOSIDES-DOCUSATE SODIUM 1 EACH TAB PO SCH (07:41)
--- NOTE | 2019-09-24 07:58 | P.PN ---
Progress Note - Text Progress Note Date: 09/24/19 Postoperative day #2 Patient is seen and examined today at bedside. The patient has some pain around the surgical site as expected but is somewhat more comfortable today. He feels that his legs have not made much change from prior to surgery as he still has weakness in his lower extremities. We discussed that this will likely take quite some time to make improvement in terms of his neurologic function. Pain is being controlled with medication. Physical Exam Afebrile with stable vital signs Abdomen is soft nontender. Chest has good excursion deep and space expiration The incision site is clean dry and intact. No erythema there is no purulence. There is no active drainage Extremities have not had neurologic change from prior to surgery. He has weakness of his left lower extremity particularly dorsiflexion Calves and thighs were soft nontender without evidence of DVT. Assessment/Plan Postoperative day #2 status post minimally invasive decompression and fusion L3 4 L4 5 for his spinal stenosis spondylolisthesis lower extremity radiculopathy and weakness Patient is progressing as expected from the surgery thus far in terms of his pain. We will continue to increase the patient's mobilization with therapy. He has significant copiously with his mobilization before his surgery and continues to have difficulty at this point. Hopefully he'll continue make progress with his mobility. I would like to have case management see him to make sure that he is safe after discharge. He would consider the possibility of home with home health versus self-care versus the possibility of rehab or usp. They will discuss this with him. We will continue pain control with oral or IV medications. We'll continue to follow patient closely.
[2019-09-24 08:04] LABS: African American GFR (CKD) >90 (>60 ml/min/1.73 sqM); Anion Gap 7 mmol/L; Blood Urea Nitrogen 6 mg/dL (9-20); Calcium 8.2 mg/dL (8.4-10.2); Carbon Dioxide 23 mmol/L (22-30); Chloride 109 mmol/L (98-107); Glucose 94 mg/dL (74-99); Potassium 3.8 mmol/L (3.5-5.1); Sodium 139 mmol/L (137-145)
[2019-09-24 08:07] LABS: Basophils # (A) 0.2 k/uL (0-0.2); Basophils % (A) 2 %; Eosinophils % (A) 0 %; HGB 13.1 gm/dL (13.0-17.5); Lymphocytes # (A) 0.6 k/uL (1.0-4.8); Lymphocytes % (A) 6 %; MCHC 31.9 g/dL (31.0-37.0); MCV 100.3 fL (80.0-100.0); Mean Platelet Volume 6.3; Monocytes # (A) 0.7 k/uL (0-1.0); Monocytes % (A) 7 %; Neutrophils # (A) 8.4 k/uL (1.3-7.7); Neutrophils % (A) 84 %; Platelet Count 219 k/uL (150-450); RBC 4.09 m/uL (4.30-5.90); RDW 13.1 % (11.5-15.5)
[2019-09-24] MEDS: HYDROcodone/APAP 5-325MG 1 EACH TAB PO PRN ×3 (09:53→21:17)
[2019-09-24 13:49] LABS: Appearance,Urine Clear (Clear); Bilirubin,Urine Negative (Negative); Blood,Urine Trace (Negative); Color,Urine Yellow; Glucose,Urine (UA) Negative (Negative); Ketones,Urine 2+ (Negative); Leukocyte Esterase,Urine Negative (Negative); Mucus,Urine Rare /hpf; Nitrite,Urine Negative (Negative); Protein,Urine 1+ (Negative); RBC,Urine 4 /hpf (0-5); Specific Gravity,Urine 1.017 (1.001-1.035); Sperm,Urine Rare /hpf; Squamous Epithelial Cell,Urine 1 /hpf (0-4); Urobilinogen,Urine <2.0 mg/dL (<2.0)
[2019-09-24] MEDS: ACETAMINOPHEN TAB 500 MG TAB PO PRN (14:31)
--- NOTE | 2019-09-24 16:44 | P.PN ---
Progress Note - Text Progress Note Date: 09/24/19 - Chief Complaint Back surgery Consultation: This is a pleasant [address] Patel. Long-standing problem with the lower back in the lumbar area. Patient had radical pain in both the legs more so on the right leg posteriorly. It was worse with activity and better with rest patient had tried different medications without any benefit. It is progressively getting worse. Finally decided to proceed with surgery. Patient did under go surgery this afternoon. Postprocedure laying in bed. Some pain is present. No nausea no vomiting. No chest pain or shortness of breath. Has Venodyne boots for DVT prophylaxis. No fever no chills. Chronic stable medical conditions include GERD, osteoarthritis of the joints, BPH. today-yesterday evening patient spiked a fever 2. Hard urine culture, blood culture was ordered. No further fevers today. Patient is having so more weakness of the left leg. Seen by Dr. Boss only today. To continue with therapy. Patient has been making urine. Review of systems: Was done for constitutional, cardiovascular, GI, pulmonary. Musculoskeletal, relevant finding as above A Active Medications Acetaminophen (Tylenol Tab) 1,000 mg PO Q4H PRN PRN Reason: Mild pain Last Admin: 09/24/19 14:31 Dose: 1,000 mg Documented by: Hydrocodone Bitart/Acetaminophen (Roche[place] 5-325) 1 each PO Q4HR PRN PRN Reason: Moderate Pain Last Admin: 09/24/19 09:53 Dose: 1 each Documented by: Hydrocodone Bitart/Acetaminophen ([place] 5-325) 2 each PO Q4HR PRN PRN Reason: Moderate Pain Last Admin: 09/23/19 17:55 Dose: 2 each Documented by: Benzocaine/Menthol (Cepacol Lozenge) 1 each MUCOUS MEM Q4HR PRN PRN Reason: Sore Throat Hydromorphone HCl (Dilaudid) 0.5 mg IVP Q4HR PRN PRN Reason: Pain Hydromorphone HCl (Dilaudid) 1 mg IVP Q4HR PRN PRN Reason: Pain Last Admin: 09/24/19 05:40 Dose: 1 mg Documented by: Lactated Ringer's (Lactated Ringers) 1,000 mls @ 20 mls/hr IV .Q24H DARLENE Last Admin: 09/24/19 07:41 Dose: Not Given Documented by: Sodium Chloride (Saline 0.9%) 1,000 mls @ 75 mls/hr IV .L21X80H [facility] Last Admin: 09/24/19 05:44 Dose: 75 mls/hr Documented by: Lidocaine HCl (.Xylocaine 1% Inj (10mg/Ml) For Iv Start) 0.1 ml INTRADERMA PER PROTOCOL PRN PRN Reason: IV Start Last Admin: 09/22/19 08:00 Dose: 0.1 ml Documented by: Magnesium Hydroxide (Milk Of Magnesia) 2,400 mg PO DAILY PRN PRN Reason: Constipation Ondansetron HCl (Zofran) 4 mg IVP Q6HR PRN PRN Reason: Nausea Pantoprazole Sodium (Protonix) 40 mg PO AC-BRKFST [facility] Last Admin: 09/24/19 07:41 Dose: 40 mg Documented by: Senna/Docusate Sodium (Senokot-S) 1 each PO DAILY [facility] Last Admin: 09/24/19 07:41 Dose: 1 each Documented by: Tamsulosin HCl (Flomax) 0.4 mg PO PC-SUPPER [facility] Last Admin: 09/23/19 23:49 Dose: 0.4 mg Documented by: Physical examination: VITAL SIGNS: 98.8, 96, 16, 163/95, 96% room air GENERAL: BMI 27.4, laying in bed awake. EYES: Pupils equal. Conjunctiva normal. HEENT: External appearance of nose and ears normal, oral cavity grossly normal. NECK: JVD not raised; masses not palpable. HEART: First and second heart sounds are normal; no edema. LUNGS: Respiratory rate normal; clear to auscultation. ABDOMEN: Soft, nontender, liver spleen not palpable, no masses palpable. PSYCH: Alert and oriented x3; mood and affect normal. NEUROLOGICAL: Cranial nerves grossly intact; no facial asymmetry, some decrease in power the left leg. No hyperreflexia. Investigations: White count 10 hemoglobin 13.1 potassium 3.8 creatinine 0.62 Previous testing UA negative for leukoesterase and nitrite white count 7.6 hemoglobin 12.5 platelets 208 Assessment: -Decompression fusion, laminectomy to include L3 L4 L5 for spondylolisthesis and lower extremity radiculopathy and spinal stenosis and DJD -Left leg weakness likely from radiculopathy -GERD -BPH, causing acute urinary retention, improved Plan: Patient's had no further fever. Blood cultures are pending. Expect left leg weakness to get better with therapy. Follow up with Thank you Dr. Boss
[2019-09-24] MEDS: TAMSULOSIN 0.4 MG CAP.ER.24H PO SCH (17:09)
[2019-09-25] MEDS: HYDROcodone/APAP 5-325MG 1 EACH TAB PO PRN ×3 (06:13→20:20)
[2019-09-25] MEDS: ONDANSETRON 4 MG/2 ML VIAL IVP PRN ×2 (06:13→23:10)
[2019-09-25] MEDS: PANTOPRAZOLE 40 MG TABLET PO SCH (07:28)
[2019-09-25] MEDS: SENNOSIDES-DOCUSATE SODIUM 1 EACH TAB PO SCH (07:28)
[2019-09-25] MEDS: LACTATED RINGERS 1,000 ML IV SCH (07:29)
[2019-09-25] MEDS: SODIUM CHLORIDE 0.9% 1,000 ML IV SCH ×2 (07:29→20:21)
[2019-09-25 07:34] LABS: African American GFR (CKD) >90 (>60 ml/min/1.73 sqM); Anion Gap 9 mmol/L; Blood Urea Nitrogen 9 mg/dL (9-20); Carbon Dioxide 20 mmol/L (22-30); Chloride 107 mmol/L (98-107); Glucose 130 mg/dL (74-99); Potassium 3.4 mmol/L (3.5-5.1); Sodium 136 mmol/L (137-145)
--- NOTE | 2019-09-25 08:46 | P.PN ---
Subjective This is a 64-year-old male who is status post minimally invasive decompression and fusion L3-L4, L4-L5. This is postoperative day #3 and patient is seen and evaluated at bedside. Patient states that his pain control has improved since yesterday and he was able to sit up in a chair and walk around his room. Patient denies any new complaints today. Objective - Vital Signs Vital signs: Vital Signs Temp 99.5 F 09/25/19 07:00 Pulse 102 H 09/25/19 07:00 Resp 18 09/25/19 07:00 BP 116/71 09/25/19 07:00 Pulse Ox 95 09/25/19 07:00 Intake & Output 09/24/19 09/25/19 09/25/19 18:59 06:59 18:59 Intake Total 118 640 Output Total 300 Balance 118 340 Intake: Intake, IV Titration 240 Amount Lactated Ringers 1,000 ml 240 @ 20 mls/hr IV .Q24H DARLENE Rx#:[id number] Oral 118 400 Output: Urine 300 Other: Voiding Method Urinal # Voids 3 1 - Exam On exam patient is sitting up comfortably in bed in no acute distress. Patient is alert and oriented 3. Dressing is clean, dry and intact. Patient has good range of motion of bilateral lower extremities. Calves are soft and nontender to palpation bilaterally. Neurovascular status circulatory status are intact. - Labs CBC & Chem 7: 09/24/19 06:32 09/25/19 06:52 Labs: Abnormal Lab Results - Last 24 Hours (Table) 09/24/19 09/25/19 Range/Units 12:57 06:52 Sodium 136 L (137-145) mmol/L Potassium 3.4 L (3.5-5.1) mmol/L Carbon Dioxide 20 L (22-30) mmol/L Creatinine 0.57 L (0.66-1.25) mg/dL Glucose 130 H (74-99) mg/dL Calcium 8.0 L (8.4-10.2) mg/dL Urine Protein 1+ H (Negative) Urine Ketones 2+ H (Negative) Urine Blood Trace H (Negative) Urine Mucus Rare H (None) /hpf Microbiology - Last 24 Hours (Table) 09/23/19 23:31 Blood Culture - Preliminary Blood No Growth after 24 hours Assessment and Plan (1) S/P lumbar fusion Current Visit: Yes Status: Acute Code(s): Z98.1 - ARTHRODESIS STATUS SNOMED Code(s): 70893092989417 (2) Spondylolisthesis, lumbar region Current Visit: Yes Status: Acute Code(s): M43.16 - SPONDYLOLISTHESIS, LUMBAR REGION SNOMED Code(s): 468672233025724 Plan: 1. Continue routine postoperative care and pain control. 2. Physical therapy for mobilization today. 3. Planning for discharge home versus rehab in the next 24-48 hours.
[2019-09-25] MEDS: HYDROmorphone 1 MG/ML 1 ML SYRINGE IVP PRN ×2 (09:46→16:39)
--- NOTE | 2019-09-25 13:14 | P.PN ---
Subjective [address] Patel. Long-standing problem with the lower back in the lumbar area. Patient had radical pain in both the legs more so on the right leg posteriorly. It was worse with activity and better with rest patient had tried different medications without any benefit. It is progressively getting worse. Finally decided to proceed with surgery. Patient did under go surgery this afternoon. Postprocedure laying in bed. Some pain is present. No nausea no vomiting. No chest pain or shortness of breath. Has Venodyne boots for DVT prophylaxis. No fever no chills. Chronic stable medical conditions include GERD, osteoarthritis of the joints, BPH. today-yesterday evening patient spiked a fever 2. Hard urine culture, blood culture was ordered. No further fevers today. Patient is having so more weakness of the left leg. Seen by Dr. Boss only today. To continue with therapy. Patient has been making urine. 09/25/2019 Patient is otherwise clinically doing well at this time3. Patient had couple bowel movements but still has sluggish bowel sounds. Has casts complaining of pain in the back.no fevers at this time. Constitutional: Denied any fatigue denied any fever. Cardio vascular: denied any chest pain, palpitations Gastrointestinal denied any nausea vomiting Pulmonary: Denied any shortness of breath cough Neurologic denied any new focal deficits All inpatient medications were reviewed and appropriate changes in these medications as dictated in the interval history and assessment and plan. Objective - Vital Signs Vital signs: Vital Signs Temp 99.5 F 09/25/19 07:00 Pulse 102 H 09/25/19 07:00 Resp 18 09/25/19 07:00 BP 116/71 09/25/19 07:00 Pulse Ox 95 09/25/19 07:00 Intake & Output 09/24/19 09/25/19 09/25/19 18:59 06:59 18:59 Intake Total 118 640 Output Total 300 Balance 118 340 Intake: Intake, IV Titration 240 Amount Lactated Ringers 1,000 ml 240 @ 20 mls/hr IV .Q24H DARLENE Rx#:[id number] Oral 118 400 Output: Urine 300 Other: Voiding Method Urinal Urinal # Voids 3 1 - Exam PHYSICAL EXAMINATION: GENERAL: The patient is alert and oriented x3, not in any acute distress. Well developed, well nourished. HEENT: Pupils are round and equally reacting to light. EOMI. No scleral icterus. No conjunctival pallor. Normocephalic, atraumatic. No pharyngeal erythema. No thyromegaly. CARDIOVASCULAR: S1 and S2 present. No murmurs, rubs, or gallops. PULMONARY: good air entry bilateral lung villanueva mild expiratory wheezing ABDOMEN: Soft, nontender, nondistended, normoactive bowel sounds. No palpable organomegaly. MUSCULOSKELETAL: No joint swelling or deformity. EXTREMITIES: No cyanosis, clubbing, or pedal edema. NEUROLOGICAL: Gross neurological examination did not reveal any focal deficits. SKIN: No rashes. - Labs CBC & Chem 7: 09/24/19 06:32 09/25/19 06:52 Labs: Abnormal Lab Results - Last 24 Hours (Table) 09/24/19 09/25/19 Range/Units 12:57 06:52 Sodium 136 L (137-145) mmol/L Potassium 3.4 L (3.5-5.1) mmol/L Carbon Dioxide 20 L (22-30) mmol/L Creatinine 0.57 L (0.66-1.25) mg/dL Glucose 130 H (74-99) mg/dL Calcium 8.0 L (8.4-10.2) mg/dL Urine Protein 1+ H (Negative) Urine Ketones 2+ H (Negative) Urine Blood Trace H (Negative) Urine Mucus Rare H (None) /hpf Microbiology - Last 24 Hours (Table) 09/23/19 23:31 Blood Culture - Preliminary Blood No Growth after 24 hours Assessment and Plan Plan: -Decompression fusion, laminectomy to include L3 L4 L5 for spondylolisthesis and lower extremity radiculopathy and spinal stenosis and DJD -Left leg weakness likely from radiculopathystatus post back surgery Mild expiratory wheezing continue with inhalational therapy as needed patient does have smoking history in the past. -GERD -BPH, causing acute urinary retention, improved -leukocytosis reactive without any clinical evidence of infection
[2019-09-25] MEDS: TAMSULOSIN 0.4 MG CAP.ER.24H PO SCH (16:37)
[2019-09-25] MEDS: ACETAMINOPHEN TAB 500 MG TAB PO PRN (23:10)
[2019-09-26] MEDS: LACTATED RINGERS 1,000 ML IV SCH ×2 (00:06→19:25)
[2019-09-26] MEDS: HYDROcodone/APAP 5-325MG 1 EACH TAB PO PRN ×5 (01:45→20:53)
[2019-09-26] MEDS: SENNOSIDES-DOCUSATE SODIUM 1 EACH TAB PO SCH (06:47)
[2019-09-26] MEDS: SODIUM CHLORIDE 0.9% 1,000 ML IV SCH ×2 (06:47→19:25)
[2019-09-26] MEDS: PANTOPRAZOLE 40 MG TABLET PO SCH (06:47)
[2019-09-26 07:44] LABS: African American GFR (CKD) >90 (>60 ml/min/1.73 sqM); Anion Gap 7 mmol/L; Blood Urea Nitrogen 10 mg/dL (9-20); Carbon Dioxide 25 mmol/L (22-30); Chloride 105 mmol/L (98-107); Glucose 110 mg/dL (74-99); Potassium 3.5 mmol/L (3.5-5.1); Sodium 137 mmol/L (137-145)
--- NOTE | 2019-09-26 08:04 | P.PN ---
Subjective Progress Note Date: 09/26/19 This is a 64-year-old male who is status post minimally invasive decompression and fusion L3-L4, L4-L5. This is postoperative day #4 and patient is seen and evaluated at bedside. Patient states that he has been out of bed and up and walking. Patient states that his pain and strength in the left lower extremity are improving. Patient states that he has not tried using his back brace yet because he received it late last night. Patient denies any new complaints today. Objective - Vital Signs Vital signs: Vital Signs Temp 98.3 F 09/26/19 06:45 Pulse 79 09/26/19 06:45 Resp 17 09/26/19 06:45 BP 131/84 09/26/19 06:45 Pulse Ox 94 L 09/26/19 06:45 Intake & Output 09/25/19 09/26/19 09/26/19 18:59 06:59 18:59 Intake Total 720 Balance 720 Intake: Oral 720 Other: Voiding Method Urinal Urinal # Voids 2 4 - Exam On exam patient is sitting up comfortably in bed in no acute distress. Patient is alert and oriented 3. Dressing is clean, dry and intact. Patient has good range of motion of bilateral lower extremities. Patient is able to perform active straight leg raise bilaterally. EHL intact bilaterally. Patient has full range of motion of bilateral feet and ankles. Calves are soft and nontender to palpation bilaterally. Neurovascular status circulatory status are intact. - Labs CBC & Chem 7: 09/24/19 06:32 09/26/19 07:14 Labs: Abnormal Lab Results - Last 24 Hours (Table) 09/26/19 Range/Units 07:14 Creatinine 0.57 L (0.66-1.25) mg/dL Glucose 110 H (74-99) mg/dL Calcium 8.0 L (8.4-10.2) mg/dL Microbiology - Last 24 Hours (Table) 09/23/19 23:31 Blood Culture - Preliminary Blood No Growth after 48 hours Assessment and Plan (1) S/P lumbar fusion Current Visit: Yes Status: Acute Code(s): Z98.1 - ARTHRODESIS STATUS SNOMED Code(s): 07575127949868 (2) Spondylolisthesis, lumbar region Current Visit: Yes Status: Acute Code(s): M43.16 - SPONDYLOLISTHESIS, LUMBAR REGION SNOMED Code(s): 365555979267813 Plan: 1. Continue routine postoperative care and pain control. 2. Physical therapy for mobilization today. 3. Planning for discharge home versus rehab in the next 24-48 hours.
[2019-09-26] MEDS: ONDANSETRON 4 MG/2 ML VIAL IVP PRN (08:26)
[2019-09-26] MEDS ORDERED: IPRATROPIUM-ALBUTEROL 3 ML NEB INHALATION PRN (10:06)
--- NOTE | 2019-09-26 11:18 | P.PN ---
Subjective [address] Patel. Long-standing problem with the lower back in the lumbar area. Patient had radical pain in both the legs more so on the right leg posteriorly. It was worse with activity and better with rest patient had tried different medications without any benefit. It is progressively getting worse. Finally decided to proceed with surgery. Patient did under go surgery this afternoon. Postprocedure laying in bed. Some pain is present. No nausea no vomiting. No chest pain or shortness of breath. Has Venodyne boots for DVT prophylaxis. No fever no chills. Chronic stable medical conditions include GERD, osteoarthritis of the joints, BPH. today-yesterday evening patient spiked a fever 2. Hard urine culture, blood culture was ordered. No further fevers today. Patient is having so more weakness of the left leg. Seen by Dr. Boss only today. To continue with therapy. Patient has been making urine. 09/25/2019 Patient is otherwise clinically doing well at this time3. Patient had couple bowel movements but still has sluggish bowel sounds. Has casts complaining of pain in the back.no fevers at this time. 09/26/2019 Patient back pain is much better today sitting in the chair, did move his bowels Constitutional: Denied any fatigue denied any fever. Cardio vascular: denied any chest pain, palpitations Gastrointestinal denied any nausea vomiting Pulmonary: Denied any shortness of breath cough Neurologic denied any new focal deficits All inpatient medications were reviewed and appropriate changes in these medications as dictated in the interval history and assessment and plan. Objective - Vital Signs Vital signs: Vital Signs Temp 98.3 F 09/26/19 06:45 Pulse 79 09/26/19 06:45 Resp 17 09/26/19 06:45 BP 131/84 09/26/19 06:45 Pulse Ox 94 L 09/26/19 06:45 Intake & Output 09/25/19 09/26/19 09/26/19 18:59 06:59 18:59 Intake Total 720 Balance 720 Intake: Oral 720 Other: Voiding Method Urinal Urinal # Voids 2 4 - Exam PHYSICAL EXAMINATION: GENERAL: The patient is alert and oriented x3, not in any acute distress. Well developed, well nourished. HEENT: Pupils are round and equally reacting to light. EOMI. No scleral icterus. No conjunctival pallor. Normocephalic, atraumatic. No pharyngeal erythema. No thyromegaly. CARDIOVASCULAR: S1 and S2 present. No murmurs, rubs, or gallops. PULMONARY: good air entry bilateral lung villanueva mild expiratory wheezing ABDOMEN: Soft, nontender, nondistended, normoactive bowel sounds. No palpable organomegaly. MUSCULOSKELETAL: No joint swelling or deformity. EXTREMITIES: No cyanosis, clubbing, or pedal edema. NEUROLOGICAL: Gross neurological examination did not reveal any focal deficits. SKIN: No rashes. - Labs CBC & Chem 7: 09/24/19 06:32 09/26/19 07:14 Labs: Abnormal Lab Results - Last 24 Hours (Table) 09/26/19 Range/Units 07:14 Creatinine 0.57 L (0.66-1.25) mg/dL Glucose 110 H (74-99) mg/dL Calcium 8.0 L (8.4-10.2) mg/dL Microbiology - Last 24 Hours (Table) 09/23/19 23:31 Blood Culture - Preliminary Blood No Growth after 48 hours Assessment and Plan Plan: -Decompression fusion, laminectomy to include L3 L4 L5 for spondylolisthesis and lower extremity radiculopathy and spinal stenosis and DJD, back pain is much better topical be discharged to subacute rehab or home tomorrow -Left leg weakness likely from radiculopathystatus post back surgery Mild expiratory wheezing continue with inhalational therapy as needed patient does have smoking history in the past.patient was started on inhalational treatments -GERD -BPH, causing acute urinary retention, improved -leukocytosis reactive without any clinical evidence of infection
[2019-09-26] MEDS: TAMSULOSIN 0.4 MG CAP.ER.24H PO SCH (16:53)
[2019-09-27 03:24] VITALS: TEMP 98.1
[2019-09-27] MEDS: HYDROcodone/APAP 5-325MG 1 EACH TAB PO PRN (06:00)
[2019-09-27] MEDS: PANTOPRAZOLE 40 MG TABLET PO SCH (07:36)
[2019-09-27] MEDS: SENNOSIDES-DOCUSATE SODIUM 1 EACH TAB PO SCH (07:36)
[2019-09-27 08:31] VITALS: BP 133/87; PULSE 87; RESP 16
--- NOTE | 2019-09-27 08:50 | P.DS ---
Providers Date of admission: 09/22/19 07:32 Expected date of discharge: 09/27/19 Attending physician: Gary Boss Consults: 09/22/19 12:27 Consult Physician Routine Consulting Provider: Rell Harrington Consult Reason/Comments: Medical management Do you want consulting provider notified?: Yes Primary care physician: Louie Patel - Discharge Diagnosis(es) (1) Lumbar spinal stenosis Current Visit: Yes Status: Acute (2) Low back pain Current Visit: Yes Status: Acute (3) Lumbar back pain with radiculopathy affecting left lower extremity Current Visit: Yes Status: Acute (4) S/P lumbar fusion Current Visit: Yes Status: Acute (5) Spondylolisthesis, lumbar region Current Visit: Yes Status: Acute Hospital Course: This is a pleasant 64-year-old male who presented with L3 4 and L4-5 spondylolisthesis and spinal canal stenosis, low back pain with lower extremity radiculopathy and lumbar degenerative disc disease failed outpatient conservative therapy. He was admitted for an L3-4 and L4-5 minimally invasive posterior lateral decompression and fusion with transforaminal lumbar interbody fusion. He initially was progressing slowly in terms of pain postoperative. He has continued to make progress over the weekend. He has been able to ambulate better. He is oozing a walker to aid in ambulation. A walker for home use has been prescribed and delivered to the room. He feels his pain is been better controlled in regards to his low back and left lower extremity. He feels he is ready for discharge home today and would like to be discharged home today. He states he did feel more comfortable at home. He has not had a bowel movement but continues to pass gas. He is not expecting any abdominal pain. He is eating and voiding without difficulty. Condition on day of discharge stable. Patient will be discharged home. Patient was cleared preoperatively for surgery by Dr. Patel. Patient currently denies any nausea, vomiting, fever, or chills. Dressing has been removed during physical examination. Incision sites are clean and dry with no drainage. Patient may shower without a dressing over the incision sites at this time. Patient should refrain from driving until at least after their first follow-up appointment in the office. Patient should avoid excessive bending, lifting, and twisting; no lifting greater than 10 pounds. MAPS has been reviewed. An "Opiod Start Talking" Form has been signed and placed in the patient's chart. A prescription has been written for Desdemona 5 mg/325 mg 1-2 tab every 6 hours as needed for pain, dispensed #56. Patient is also given a prescription for Senokot-S 1 tab by mouth twice a day as needed for constipation, dispensed #60. Patient may resume other previously prescribed home medications while avoiding anti-inflammatories over the next 6 weeks postoperatively. Physical Exam on day of discharge: Patient is awake, alert, and oriented 3 Vital signs stable Good chest excursion with deep inspiration and expiration Abdomen soft nontender No signs or symptoms of DVT; no calf pain Extensor hallucis longus, plantarflexion, and dorsiflexion positive sustained bilateral lower extremities Incision is clean, dry, and intact; no erythema, purulence, or signs of infection Dressing is removed during physical examination; no drainage from the surgical sites No significant bruising around the surgical sites Evidence of erythema ab-igne over the lumbar spine Procedures: L3-4 and L4-5 minimally invasive posterior lateral decompression and fusion with transforaminal lumbar interbody fusion. Patient Condition at Discharge: Stable Plan - Discharge Summary Discharge Rx Participant: Yes New Discharge Prescriptions: New HYDROcodone/APAP 5-325MG [Desdemona 5-325] 1 - 2 tab PO Q6HR PRN #56 tab PRN Reason: Pain Sennosides-Docusate Sodium [Senokot-S] 1 tab PO BID PRN #60 tablet PRN Reason: Constipation No Action Pantoprazole Sodium [Protonix] 40 mg PO QAM Acetaminophen [Tylenol] 1,000 mg PO Q4-6H PRN PRN Reason: Pain Discharge Medication List Pantoprazole Sodium [Protonix] 40 mg PO QAM 03/29/15 [History] Acetaminophen [Tylenol] 1,000 mg PO Q4-6H PRN 09/15/19 [History] HYDROcodone/APAP 5-325MG [Desdemona 5-325] 1 - 2 tab PO Q6HR PRN #56 tab 09/24/19 [Rx] Sennosides-Docusate Sodium [Senokot-S] 1 tab PO BID PRN #60 tablet 09/27/19 [Rx] Follow up Appointment(s)/Referral(s): Ruslan Patel MD [Primary Care Provider] - 1 Week (office will call with the appointment time) Gary Boss, [Doctor of Osteopathic Medicine] - 10/05/19 9:45 am [facility] [NON-STAFF] - As Needed Bridget Mcmillan [NON-STAFF] - As Needed (LSO back brace) Activity/Diet/Wound Care/Special Instructions: 1. Patient may use walker to aid in ambulation as needed; longer has been delivered to the bedside by [facility] 2. Keep site clean. 3. May shower without a dressing at this time. Do not soak in a tub. 4. May ambulate as tolerated. 5. Avoid heavy or rigorous activity. 6. No repetitive bending twisting or lifting. 7. No overhead work. 8. Take medications as prescribed. Discharge Disposition: HOME SELF-CARE
--- NOTE | 2019-09-28 13:06 | CDI ---
Documentation Clarification Form Date: 09/28/2019 12:51:00 PM From: Geovanna Gasca Phone: If you have a question about this query, please contact Nicky Chaudhari Stenciling Machine Tender at [phone] between 8am and 5pm. Admit Date: 09/22/2019 7:32:00 AM Patient Name: Jerrell Johnson Visit Number: [id number] Discharge Date: 09/27/2019 10:59:00 AM ATTENTION: The Clinical Documentation Specialists (CDI) and [facility] Coding Staff appreciate your assistance in clarifying documentation. Please respond to the clarification below the line at the bottom and electronically sign. The CDI & [facility] Coding staff will review the response and follow-up if needed. Please note: Queries are made part of the Legal Health Record. If you have any questions, please contact the author of this message via ITS. Dr. Gary Boss Documentation in the Operative Report included: Some disc protrusion at the level causing further compression of the nerve root. Please clarify if nerve root compression was performed. History/Risk factors: disc protrusion causing compression of nerve root Pre-Operative Diagnosis: DDD, spondylosis, radiculpathy, spinal stenosis Postoperative Diagnosis: Same Treatment: Fusion In order to capture the severity of condition, please specify the following: Nerve Root Decompression performed Nerve Root Decompression not performed During the case there was significant stenosis around the nerve root and decompression of the nerve root was performed with the laminectomy foraminotomy and discectomy. GENEVIEVE
== END 2019-09-27 10:59 | disposition home health service (06) | DRG 455 ==
LOC: 2ORMAIN 07:32 → 4SSUR 14:24
PROVIDERS: ADMIT Orthopaedic Surgery Orthopaedic Surgery of the Spine; ATTEND Orthopaedic Surgery Orthopaedic Surgery of the Spine
PROC: 0SG1071 Fusion of 2 or more Lumbar Vertebral Joints with Autologous Tissue Substitute, Posterior Approach, Posterior Column, Open Approach (ICD-10-PCS; 2019-09-22)
PROC: 0ST20ZZ Resection of Lumbar Vertebral Disc, Open Approach (ICD-10-PCS; 2019-09-22)
PROC: 07DS0ZZ Extraction of Vertebral Bone Marrow, Open Approach (ICD-10-PCS; 2019-09-22)
PROC: 0SG10AJ Fusion of 2 or more Lumbar Vertebral Joints with Interbody Fusion Device, Posterior Approach, Anterior Column, Open Approach (ICD-10-PCS; principal; 2019-09-22 08:30)
DX: M48.061 Spinal stenosis, lumbar region without neurogenic claudication (principal); M51.16 Intervertebral disc disorders with radiculopathy, lumbar region; M43.16 Spondylolisthesis, lumbar region; M47.26 Other spondylosis with radiculopathy, lumbar region; K21.9 Gastro-esophageal reflux disease without esophagitis; M41.50 Other secondary scoliosis, site unspecified; N40.1 Benign prostatic hyperplasia with lower urinary tract symptoms; R33.8 Other retention of urine; Z85.828 Personal history of other malignant neoplasm of skin; Z86.010 Personal history of colon polyps; Z87.891 Personal history of nicotine dependence; Z96.642 Presence of left artificial hip joint; R06.2 Wheezing; D72.828 Other elevated white blood cell count
CPT/HCPCS: 72100; 80048; 81001; 85025; 87040

== ENCOUNTER 2019-11-03 09:00 | Inpatient (IN) | payer BC ==
[2019-11-03] MEDS ORDERED: SUCCINYLCHOLINE CHLORIDE VIAL 200 MG/10 ML VIAL IV STA (09:07)
[2019-11-03] MEDS ORDERED: DEXTROSE 5% IN WATER 100 ML with AMIODARONE 150 MG IV ONE (09:12)
[2019-11-03] MEDS ORDERED: CHLORHEXIDINE GLUCONATE 15 ML CUP MUCOUS MEM ONE (09:15)
[2019-11-03] MEDS ORDERED: ASPIRIN 300 MG SUPP RECTAL STA ×2 (09:20→09:21)
[2019-11-03] MEDS ORDERED: SODIUM CHLORIDE 0.9% 1,000 ML IV STA (09:20)
[2019-11-03] MEDS ORDERED: HEPARIN SODIUM,PORCINE 5,000 UNIT/ML 1 ML VIAL IV STA (09:20)
[2019-11-03] MEDS: AMIODARONE 360 MG in DEXTROSE 5% IN WATER 200 ML IV ONE ×4 (09:20→09:34)
[2019-11-03] MEDS ORDERED: IV FLUID CONTINUATION 950 ML IV ONE (09:20)
[2019-11-03] MEDS ORDERED: EPINEPHrine 1 MG/ML 1 ML AMP IV STA (09:24)
[2019-11-03] MEDS ORDERED: LIDOCAINE 1% INJ 10MG/ML (20 ML MDV) SQ ONE ×2 (09:28→09:29)
--- NOTE | 2019-11-03 09:30 | ED ---
CPR HPI - General Chief Complaint: Cardiac Arrest/CPR Stated Complaint: STEMI Time Seen by Provider: 11/03/19 09:00 Source: EMS Mode of arrival: EMS Limitations: altered mental status - History of Present Illness Initial Comments: The patient is a 64-year-old male with past history of spondylolisthesis and spinal canal stenosis who presents to the emergency department after a witnessed cardiac arrest. does present to the hospital and helps provide the history. She states the patient had back surgery in September. He has been at home for rehab. He was leaving for work today when she heard a noise in the other room. She went in to find her making gurgling noises. His eyes were open however he was unresponsive. He was laying on the couch. She immediately called EMS. It was approximately 7 minutes before EMS arrives her house. They found patient in a V. fib rhythm. CPR was initiated. He received 4 defibrillations, 3 doses of epi and 300 mg of amiodarone. They had return of spontaneous circulation after 18 minutes. A 12-lead EKG was performed which demonstrated ST elevation in the anterior lateral leads. reports that the patient was well at home last night. No recent illnesses. He does not have a cardiac history. The remainder of the HPI is limited as the patient's current condition. He does arrive unresponsive but not intubated - Related Data Home Medications Medication Instructions Recorded Confirmed Pantoprazole Sodium [Protonix] 40 mg PO QAM 03/29/15 11/03/19 Acetaminophen [Tylenol] 1,000 mg PO Q4-6H PRN 09/15/19 11/03/19 Sennosides-Docusate Sodium 1 tab PO BID 11/03/19 11/03/19 [Senokot-S] Tamsulosin HCl [Flomax] 0.4 mg PO DAILY 11/03/19 11/03/19 Previous Rx's Medication Instructions Recorded HYDROcodone/APAP 5-325MG [[place] 1 - 2 tab PO Q6HR PRN #56 tab 09/24/19 5-325] Allergies Allergy/AdvReac Type Severity Reaction Status Date / Time No Known Allergies Allergy Verified 11/03/19 09:38 Review of Systems ROS Statement: Those systems with pertinent positive or pertinent negative responses have been documented in the HPI. ROS Other: All systems not noted in ROS Statement are negative. Past Medical History Past Medical History: Cancer, GERD/Reflux, Osteoarthritis (OA) Additional Past Medical History / Comment(s): HISTORY OF COLON POLYPS, HX SKIN CANCER -BASAL CELL. History of Any Multi-Drug Resistant Organisms: None Reported Past Surgical History: Joint Replacement, Orthopedic Surgery Additional Past Surgical History / Comment(s): SKIN LESIONS REMOVED, LEFT KNEE ARTHROSCOPY, left hip replacement. Past Anesthesia/Blood Transfusion Reactions: No Reported Reaction Past Psychological History: No Psychological Hx Reported Smoking Status: Former smoker Past Alcohol Use History: Occasional Past Drug Use History: None Reported - Past Family History Father Family Medical History: Cancer Mother History Unknown: Yes General Exam Limitations: altered mental status General appearance: obtunded, in distress Head exam: Present: atraumatic, normocephalic Eye exam: Present: normal appearance ENT exam: Present: normal exam, normal oropharynx, mucous membranes moist Neck exam: Present: normal inspection Respiratory exam: Present: other (patient arrives breathing assisted by bag mask ventilation. No spontanous respirations) Cardiovascular Exam: Present: regular rate, normal rhythm GI/Abdominal exam: Present: soft. Absent: distended Extremities exam: Present: other (no spontanous movement of his extremities) Neurological exam: Present: other (obtunded) Skin exam: Present: diaphoretic, pallor Course Vital Signs 11/03/19 09:04 Pulse Rate 62 Respiratory 18 Rate Blood Pressure 65/55 O2 Sat by Pulse 100 Oximetry Procedures - Intubation Paralytic: Succinylcholine Mg Given: 100 (mg) Laryngoscope: other (glidescope) Size: 4 ET Tube Size: 7.5 ET Tube Uncuffed: No Tube Secured Depth (cm): 24 Tube Secured Location: lips Tube Placement Confirmation: visualized tube passing through cords, equal breath sounds bilaterally, no breath sounds over epigastrium, confirmation by capnometry Patient Tolerated Procedure: well Intubation Complications: none Medical Decision Making - Medical Decision Making Because of the patient's prehospital EKG I did activate a NORY. Amanda Mess is at bedside when patient arrives. Upon arrival the patient was properly placed into trauma bay 2. Evaluation demonstrates an unresponsive male with pulses. He is not intubated. Vital signs are obtained and the patient is hypotensive. He is given a dose of push dose pressors of epinephrine. Rapid sequence intubation is then performed. We did get a 12-lead EKG offer the patient. Vitals begin to improve. 2 peripheral IVs are established and the patient is started on fluids. EKG continues to demonstrate ST elevation. Patient is given rectal aspirin and 4000 units of heparin. The patient was then transferred to the Communications Agent in critical condition - Lab Data Result diagrams: 11/07/19 04:55 11/07/19 13:00 Critical Care Time Critical Care Time: Yes Total Critical Care Time: 15 (mins) Disposition Clinical Impression: Cardiac arrest, STEMI (ST elevation myocardial infarction), Ventilator dependent Disposition: ADMITTED IP TO THIS HOSP Condition: Serious Is patient prescribed a controlled substance at d/c from ED?: No Decision to Admit Reason: Admit from EC Decision Date: 11/03/19 Decision Time: 09:30
[2019-11-03] MEDS ORDERED: TICAGRELOR 90 MG TAB ONE (09:31)
[2019-11-03] MEDS ORDERED: SODIUM CHLORIDE 0.9% 1,000 ML IV ONE ×3 (09:32→16:40)
[2019-11-03] MEDS ORDERED: TICAGRELOR 90 MG TAB OG-TUBE ONE (09:36)
[2019-11-03] MEDS ORDERED: BIVALIRUDIN 250 MG in SODIUM CHLORIDE 0.9% 50 ML IV ONE (09:38)
[2019-11-03] MEDS ORDERED: BIVALIRUDIN BOLUS 250 MG/50 ML IV ONE ×2 (09:39→09:43)
--- NOTE | 2019-11-03 09:47 | P.CRDCN ---
History of Present Illness Consult date: 11/03/19 Reason for Consult (text): STEMI Chief complaint: unresponsiveness History of present illness: This is a 64-year-old gentleman with history of acid reflux,who was recently in the hospital in September, underwent L3 to 4 and 4-5 minimally invasive posterior lateral decompression and fusion with transforaminal lumbar interbody fusion. This morning patient was sitting in a chair at home, according to the , she had just given in the chest and was ready to go to work, subsequent to that she heard a gurgling noise, went back into the living room, found her unresponsive, she states that his eyes were open, but he was staring out into space, he did slide down off of the chair, she could not feel a pulse and EMS was called immediately. Unsure exactly of what his down time was. On EMS arrival patient was found to be in ventricular fibrillation, he was shocked a total of 3 times, the patient was given 2 doses of epi, 300 mg of amiodarone with subsequent 150 mg of amiodarone. He did recover a normal sinus rhythm but remained to be unresponsive. his EKG showed normal sinus rhythm with ST elevation in the anterior lateral leads. On arrival to the emergency room,continued to be unresponsive, blood pressure in the 80 range. He was intubated in the emergency room. Patient was given an additional appendectomy in the emergency room as well as aspirin by suppository. Patient is also recei ving IV fluids. He was taken directly to the cardiac catheterization lab for an emergent cardiac catheterization.. Past Medical History Past Medical History: Cancer, GERD/Reflux, Osteoarthritis (OA) Additional Past Medical History / Comment(s): HISTORY OF COLON POLYPS, HX SKIN CANCER -BASAL CELL. History of Any Multi-Drug Resistant Organisms: None Reported Past Surgical History: Joint Replacement, Orthopedic Surgery Additional Past Surgical History / Comment(s): SKIN LESIONS REMOVED, LEFT KNEE ARTHROSCOPY, left hip replacement. Past Anesthesia/Blood Transfusion Reactions: No Reported Reaction Past Psychological History: No Psychological Hx Reported Smoking Status: Former smoker Past Alcohol Use History: Occasional Past Drug Use History: None Reported - Past Family History Father Family Medical History: Cancer Medications and Allergies Home Medications Medication Instructions Recorded Confirmed Type Pantoprazole Sodium [Protonix] 40 mg PO QAM 03/29/15 09/22/19 History Acetaminophen [Tylenol] 1,000 mg PO Q4-6H PRN 09/15/19 09/22/19 History HYDROcodone/APAP 5-325MG [[place] 1 - 2 tab PO Q6HR PRN #56 tab 09/24/19 Rx 5-325] Sennosides-Docusate Sodium 1 tab PO BID PRN #60 tablet 09/27/19 Rx [Senokot-S] Allergies Allergy/AdvReac Type Severity Reaction Status Date / Time No Known Allergies Allergy Verified 11/03/19 09:38 Physical Exam Vitals: Vital Signs Pulse Resp BP Pulse Ox 11/03/19 09:04 62 18 65/55 100 Intake and Output 11/02/19 11/03/19 11/03/19 22:59 06:59 14:59 Other: Weight 104.326 kg PHYSICAL EXAMINATION: GENERAL:64-year-old gentleman, unresponsive on arrival, hypotensive, normal sinus rhythm with a heart rate in the 60s HEENT: Head is atraumatic, normocephalic. Pupils equal, round. Sclera anicteric. Conjunctiva are clear. Mucous membranes of the mouth are moist. Neck is supple. There is no elevated jugular venous pressure.no carotid bruit is heard. HEART EXAMINATION: [Heart S1, S2 normal. No murmur or gallop heard.] CHEST EXAMINATION:[ Lungs are clear to auscultation and precussion. No chest wall tenderness is noted on palpation or with deep breathing.] ABDOMEN: [ Soft, nontender. Bowel sounds are heard. No organomegaly noted]. EXTREMITIES:[ 2+ peripheral pulses with 1+ evidence of peripheral edema to the left lower extremity, trace to the right lower extremity]. NEUROLOGIC patient is intubated, sedated Results Current Medications Generic Name Dose Route Start Last Admin Trade Name Freq PRN Reason Stop Dose Admin Amiodarone HCl 360 mg/ 200 mls @ 33.333 mls/hr 11/03/19 09:12 11/03/19 09:34 Dextrose/Water IV 11/03/19 15:11 0 mls .Q6H ONE Administration Protocol 1 MG/MIN Sodium Chloride 1,000 mls @ 999 mls/hr 11/03/19 09:20 Saline 0.9% IV 11/03/19 10:20 .Q1H1M STA Intake and Output 1211/03/19 11/03/19 22:59 06:59 14:59 Other: Weight 104.326 kg Patient Weight 11/04/19 06:59 Weight 104.326 kg EKG Interpretations (text) EKG on arrival here showed normal sinus rhythm with ST elevation in the anterior lateral leads Assessment and Plan Plan: assessment and plan #1 cardiac arrest with evidence of ventricular fibrillation requiring 3 shocks, appendectomy, and amiodarone prior to arrival EKG anterior lateral ST elevation myocardial infarction, #2.GERD #3 recent spinal surgery in September of this year Plan Patient was taken emergently to the cardiac catheterization lab, the risks and the benefits of the procedure were explained to the in detail who gave co nsent for the procedure. Further recommendations will be based on these findings and the patient's clinical course. DNP note has been reviewed, I agree with a documented findings and plan of care. Patient was seen and examined.
[2019-11-03] MEDS ORDERED: IOPAMIDOL-370 125ML BTL INJ ONE (09:48)
[2019-11-03 09:53] LABS: Basophils # (A) 0.2 k/uL (0-0.2); Basophils % (A) 1 %; Eosinophils # (A) 0.1 k/uL (0-0.7); Eosinophils % (A) 1 %; HCT 40.7 % (39.0-53.0); HGB 13.3 gm/dL (13.0-17.5); Lymphocytes # (A) 1.8 k/uL (1.0-4.8); Lymphocytes % (A) 11 %; MCH 31.6 pg (25.0-35.0); MCHC 32.7 g/dL (31.0-37.0); MCV 96.6 fL (80.0-100.0); Mean Platelet Volume 6.9; Monocytes # (A) 0.4 k/uL (0-1.0); Monocytes % (A) 2 %; Neutrophils % (A) 83 %; Platelet Count 238 k/uL (150-450); RBC 4.22 m/uL (4.30-5.90); RDW 12.8 % (11.5-15.5); WBC 15.6 k/uL (3.8-10.6)
[2019-11-03] MEDS ORDERED: MIDAZOLAM 2 MG/2 ML VIAL IV ONE (09:57)
[2019-11-03] MEDS ORDERED: IOPAMIDOL-370 100ML BTL INJ ONE (10:04)
[2019-11-03 10:14] LABS: INR 1.1 (<1.2); Partial Thromboplastin Time 36.8 sec (22.0-30.0); Prothrombin Time 11.5 sec (9.0-12.0)
[2019-11-03] MEDS ORDERED: MAG HYDROX/AL HYDROX/SIMETH 30 ML CUP PO PRN (10:14)
[2019-11-03] MEDS ORDERED: RX INFO: IV CONTRAST WAS GIVEN 1 EACH MISC MISCELLANE PRN (10:14)
[2019-11-03] MEDS ORDERED: ZOLPIDEM 5 MG TAB PO PRN (10:14)
[2019-11-03] MEDS ORDERED: ATROPINE SULFATE 0.1 MG/ML 10ML SYRINGE IV PRN (10:14)
[2019-11-03] MEDS ORDERED: NITROGLYCERIN SL TABS 0.4 MG TAB SUBLINGUAL PRN (10:14)
[2019-11-03 10:17] LABS: ALT 90 U/L (4-49); AST 155 U/L (17-59); African American GFR (CKD) >90 (>60 ml/min/1.73 sqM); Albumin 2.9 g/dL (3.5-5.0); Alkaline Phosphatase 113 U/L (38-126); Anion Gap 12 mmol/L; Blood Urea Nitrogen 13 mg/dL (9-20); Calcium 7.8 mg/dL (8.4-10.2); Carbon Dioxide 16 mmol/L (22-30); Chloride 108 mmol/L (98-107); Glucose 222 mg/dL (74-99); Non-African American GFR(CKD) >90 (>60 ml/min/1.73 sqM); Potassium 3.5 mmol/L (3.5-5.1); Sodium 136 mmol/L (137-145); Total Bilirubin 0.5 mg/dL (0.2-1.3); Total Protein 5.7 g/dL (6.3-8.2)
--- NOTE | 2019-11-03 10:30 | PTCA ---
PERCUTANEOUSTRANS CORORONARY ANGIOGRAPHY Mr. Johnson is a 64-year-old male who presented with a sudden cardiac arrest with ST- segment elevation in the anterolateral leads, underwent cardiac catheterization by Dr. VC Carranza, was found to have a totally occluded mid LAD. In view of that, recommendation was made regarding angioplasty and stenting. The procedures, risks, and complication were discussed with the patient who is in full understanding and agreement. PROCEDURE: A6-Belgian FR4 guiding catheter in the system after cannulating the left main, a 0.014 balanced medium weight J-wire was advanced across the lesion, positioned distally, then a 2.5 x 12 mm Trek balloon was advanced and multiple inflations at maximum of 10 atmospheres was done. Following that, the balloon was removed and a 3.0 x 23 mm Xience Meenu stent was deployed, postdilated at 16 atmospheres. Following that, the balloon was removed and a 3.5 x 12 mm NC Trek balloon was advanced and inflation in the proximal segment were done at a maximum of 12 atmospheres. After the last inflation, after appropriate wait, the balloon and the guidewire were withdrawn back in the guiding catheter. Images were obtained and repeated. Those images reveal stable successful stenting. At that point, the guiding catheter, the balloon and the guidewire were removed. The sheath was removed. Hemostasis was obtained with deployment of an Angio-Seal there was no immediate complication. The patient was returned to his room in stable condition. FINDING: Successful stenting of the mid LAD with reduction of stenosis from 100% to 0%. RECOMMENDATION: Patient will be continued on aspirin, Brilinta, HALLEY inhibitor, and statin as well as beta sara. The importance of dual antiplatelet treatment were discussed with the patient. The patient will be evaluated regarding his possible anoxic encephalopathy. The prognosis unfortunately remains guarded. Those findings and recommendation were discussed with the family and they are in full understanding and agreement. MMODL / IJN: [id number] /
[2019-11-03 10:51] LABS: Glucose,Whole Blood 162 mg/dL (75-99)
--- NOTE | 2019-11-03 10:51 | CC ---
CARDIAC CATHETERIZATION REPORT Mr. Johnson is a 64-year-old gentleman who was brought to the emergency room after sustaining cardiac arrest at home. The patient had a VFib cardiac arrest and EMS arrived within 5-10 minutes and the patient received 3 shocks and subsequently was brought to the emergency room. The patient also received a 1 or 2 amps of epi on the way and amiodarone. The patient was intubated in the emergency room and was brought here. Initial blood pressure in the emergency room was 65 subsequently while he was brought to the wharf labourer, his blood pressure was 90-100 systolic. Patient was intubated. PROCEDURE: The right groin was prepped and draped in the usual manner and the skin was infiltrated with 2% Xylocaine. The right femoral artery was entered using Seldinger technique. A #6- Italian sheath was placed in. Selective coronary angiography was then performed in multiple projections and the left ventricular pressures were obtained. Patient tolerated the procedure well. HEMODYNAMICS: Left ventricular end-diastolic pressure was 16 mmHg prior to angiography. No gradient is noted across the aortic valve. SELECTIVE CORONARY ANGIOGRAPHY: Left main coronary artery is normal and patent. LAD is 100% occluded after the origin of the good size septal child protective services specialist. There is slow filling of the distal LAD by antegrade flow is noted. The circumflex coronary artery is normal. Right coronary artery is dominant distribution is normal. IMPRESSION: A 100% occlusion of the mid LAD with slow filling of the distal LAD noted. Circumflex and right coronary arteries are normal. RECOMMENDATIONS: We will proceed with a stent to the LAD. MMODL / IJN: [id number] /
[2019-11-03] MEDS: PROPOFOL 1,000 MG in EMPTY BAG 1 BAG IV SCH ×4 (11:00→23:50)
[2019-11-03] MEDS ORDERED: NALOXONE 0.4 MG/ML 1 ML VIAL IV PRN (11:00)
[2019-11-03] MEDS: SODIUM CHLORIDE 0.9% 1,000 ML IV SCH ×2 (11:24→23:53)
--- NOTE | 2019-11-03 11:33 | XR ---
EXAMINATION TYPE: XR chest 1V portable DATE OF EXAM: 11/03/2019 COMPARISON: None HISTORY: Chest pain, intubated TECHNIQUE: Single frontal view of the chest is obtained. FINDINGS: Endotracheal tube is superimposed over the tracheal air column, there is an NG tube presen t in the distal tip is not included on exam and courses caudal to the left hemidiaphragm. Perihilar i ncreased density is present. Interstitium is prominent. Retrocardiac density is present left hemidiap hragm. Likely there is a chondroid lesion in the proximal right humerus. Heart size may be accentuate d by rotation. IMPRESSION: No evident complication status post intubation. Correlate for congestive heart failure. Possible an chondroma or bone infarct proximal right humerus, follow-up can be performed for better e valuation.
[2019-11-03 11:38] LABS: Magnesium 1.7 mg/dL (1.6-2.3)
[2019-11-03 11:42] LABS: ABG Base Excess -5.4 mmol/L; ABG HCO3 20 mmol/L (21-25); ABG Oxygen Saturation 94.6 % (94-97); ABG PCO2 32 mmHg (35-45); ABG PO2 74 mmHg (83-108); ABG TCO2 21 mmol/L (19-24); Allen Test Performed? Yes
--- NOTE | 2019-11-03 12:52 | P.CNPUL ---
History of Present Illness Consult date: 11/03/19 Requesting physician: Ricky Rodriguez Reason for consult: other (Cardiac arrest) Chief complaint: Unresponsive History of present illness: This is a 64-year-old gentleman who follows with Dr. Patel as his primary care provider. He has a known history of gastroesophageal reflux disease, basal cell skin cancer, colon polyps, osteoarthritis with previous left hip replacement, left knee arthroscopically chronic back pain with recent laminectomy and decompression of L3 4 and 5 on 09/22/2019. He had been doing well. According to his earlier this morning she was just leaving for work when she heard a gurgle from the other room. She went back to check on her and found him unresponsive slumped over from the couch. 911 was called immediately. She had a difficult time getting him in a position for CPR. She states it was approximately 8 minutes until EMS arrived. He was found to be in V. fib and was defibrillated 3 and received epinephrine in the field. He did obtain return of spontaneous circulation. He was intubated with a 7.5 cm ETT and seen here in the emergency room urgently by cardiology and the patient was taken directly to the [facility]. EKG showed ST segment elevation myocardial infarction. He had undergone successful stenting of a 100% occlusion of the mid LAD down to 0%. He was subsequently admitted here to the intensive care unit where he was seen and evaluated by Dr. Ha. Current vent settings include respiratory rate of 16, tidal volume 450, FiO2 100% and a PEEP of 5. Chest x-ray shows good position of the ETT. There is some evidence of congestive heart failure. Questionable chondroma or bone infarct in the proximal right humerus. Arterial blood glucose tests revealed a pO2 of 74, pCO2 32, pH 7.40. White count 15.6. Hemoglobin 13.3. Sodium 136. Potassium 3.5. Bicarb 16. Creatinine 0.84. Troponin 4.24. He is currently on amiodarone at 1 mg/m, propofol at 20 mcg/kg/m. 0.9 normal saline at 75 ML's per hour. He has been initiated on aspirin and Brilinta. Current blood pressure 97/70 with a mean of 79. O2 saturations at 96% and 100 percent FiO2. Review of Systems ROS unobtainable: due to endotracheal tube Past Medical History Past Medical History: Cancer, GERD/Reflux, Osteoarthritis (OA) Additional Past Medical History / Comment(s): HISTORY OF COLON POLYPS, HX SKIN CANCER -BASAL CELL. History of Any Multi-Drug Resistant Organisms: None Reported Past Surgical History: Joint Replacement, Orthopedic Surgery Additional Past Surgical History / Comment(s): SKIN LESIONS REMOVED, LEFT KNEE ARTHROSCOPY, left hip replacement. Past Anesthesia/Blood Transfusion Reactions: No Reported Reaction Past Psychological History: No Psychological Hx Reported Smoking Status: Former smoker Past Alcohol Use History: Occasional Past Drug Use History: None Reported - Past Family History Father Family Medical History: Cancer Medications and Allergies Home Medications Medication Instructions Recorded Confirmed Type Pantoprazole Sodium [Protonix] 40 mg PO QAM 03/29/15 11/03/19 History Acetaminophen [Tylenol] 1,000 mg PO Q4-6H PRN 09/15/19 11/03/19 History HYDROcodone/APAP 5-325MG [[place] 1 - 2 tab PO Q6HR PRN #56 tab 09/24/19 11/03/19 Rx 5-325] Sennosides-Docusate Sodium 1 tab PO BID 11/03/19 11/03/19 History [Senokot-S] Tamsulosin HCl [Flomax] 0.4 mg PO DAILY 11/03/19 11/03/19 History Allergies Allergy/AdvReac Type Severity Reaction Status Date / Time No Known Allergies Allergy Verified 11/03/19 09:38 Physical Exam Vitals: Vital Signs Temp Pulse Resp BP Pulse Ox 11/03/19 11:30 75 22 97/70 96 11/03/19 11:15 79 21 129/105 98 11/03/19 11:00 98 23 118/83 97 11/03/19 10:45 97.6 F 30 H 145/89 96 11/03/19 10:37 98 31 H 96 11/03/19 09:04 62 18 65/55 100 Intake and Output 11/02/19 11/03/19 11/03/19 22:59 06:59 14:59 Intake Total 359 Output Total 625 Balance -266 Intake: IV 359 Sodium Chloride 0.9% 1, 150 000 ml @ 75 mls/hr IV . [id number] [facility] Rx#:[id number] Output: Urine 625 Other: Weight 104.326 kg GENERAL EXAM: 64-year-old gentleman, intubated, sedated on mechanical ventilator, in no apparent distress. HEAD: Normocephalic. EYES: Normal reaction of pupils, equal size. NOSE: Clear with pink turbinates. THROAT: No erythema or exudates. NECK: No masses, no JVD. CHEST: No chest wall deformity. LUNGS: Equal air entry with crackles in the posterior bases. CVS: S1 and S2 normal with no audible murmur, regular rhythm. ABDOMEN: No hepatosplenomegaly, normal bowel sounds, no guarding or rigidity. SPINE: No scoliosis or deformity SKIN: No rashes CENTRAL NERVOUS SYSTEM: Sedated, tone is normal in all 4 extremities. EXTREMITIES: There is no peripheral edema. No clubbing, no cyanosis. Peripheral pulses are intact. Results - Laboratory Findings CBC and BMP: 11/03/19 09:40 11/03/19 09:40 ABG ABG pH 7.40 (7.35-7.45) 11/03/19 11:40 ABG pCO2 32 mmHg (35-45) L 11/03/19 11:40 ABG pO2 74 mmHg (83-108) L 11/03/19 11:40 ABG O2 Saturation 94.6 % (94-97) 11/03/19 11:40 PT/INR, D-dimer PT 11.5 sec (9.0-12.0) 11/03/19 09:40 INR 1.1 (<1.2) 11/03/19 09:40 Abnormal lab findings: Abnormal Labs 11/03/19 11/03/19 11/03/19 09:40 09:40 09:40 WBC 15.6 H RBC 4.22 L Neutrophils # 13.0 H APTT 36.8 H ABG pCO2 ABG pO2 ABG HCO3 Sodium 136 L Chloride 108 H Carbon Dioxide 16 L Glucose 222 H POC Glucose (mg/dL) Calcium 7.8 L AST 155 H ALT 90 H Troponin I Total Protein 5.7 L Albumin 2.9 L LDL Cholesterol, Calc HDL Cholesterol 11/03/19 11/03/19 11/03/19 09:40 09:40 10:39 WBC RBC Neutrophils # APTT ABG pCO2 ABG pO2 ABG HCO3 Sodium Chloride Carbon Dioxide Glucose POC Glucose (mg/dL) 162 H Calcium AST ALT Troponin I 4.240 H* Total Protein Albumin LDL Cholesterol, Calc 119 H HDL Cholesterol 30 L 11/03/19 11:40 WBC RBC Neutrophils # APTT ABG pCO2 32 L ABG pO2 74 L ABG HCO3 20 L Sodium Chloride Carbon Dioxide Glucose POC Glucose (mg/dL) Calcium AST ALT Troponin I Total Protein Albumin LDL Cholesterol, Calc HDL Cholesterol - Diagnostic Findings Chest x-ray: image reviewed Assessment and Plan Assessment: 1 Cardiac arrest with approximate downtime of 8 minutes requiring defibrillation 3, epinephrine, amiodarone secondary to ST segment elevation myocardial infarction. 2 Coronary artery disease with 100% occlusion of the LAD with subsequent stenting down to 0%. 3 Acute hypoxemic respiratory failure secondary to above, currently intubated on mechanical ventilator. 4 Remote history of smoking quit in 1998. 5 Recent laminectomy 09/22/2019. 6 Chronic back pain. 7 Osteoarthritis with previous left hip replacement left knee arthroplasty. 8 Gastroesophageal reflux disease. 9 History of basal cell carcinoma. 10 History esophageal reflux disease. Plan: The patient was seen and evaluated by Dr. Ha. Chest x-ray, ABGs and labs all reviewed. We'll continue with sedation and mechanical ventilatory support for now. Allow him to recover from his acute TX and cardiac arrest. He did have a lengthy discussion with the and family who are at the bedside. W e'll plan for daily interruption of sedation and weaning parameters in the a.m. Continued on amiodarone drip. On aspirin and Brilinta. Echocardiogram pending. Repeat chest x-ray ABGs in the a.m. We'll continue to follow and make further recommendations based on his clinical status. I, the cosigning physician, performed a history & physical examination of the patient. Lungs sounds crackles in the posterior bases. Maintaining good O2 saturations in the 90s on 100% percent FiO2 on the mechanical ventilator. I discussed the assessment and plan of care with my nurse practitioner, Jolly Apodaca. I attest to the above consultation as dictated by her. Time with Patient: Greater than 30
[2019-11-03 13:00] LABS: Appearance,Urine Clear (Clear); Bacteria,Urine Many /hpf; Bilirubin,Urine Negative (Negative); Blood,Urine Small (Negative); Color,Urine Light Yellow; Glucose,Urine (UA) 2+ (Negative); Ketones,Urine Negative (Negative); Leukocyte Esterase,Urine Negative (Negative); Mucus,Urine Rare /hpf; Nitrite,Urine Negative (Negative); PH, Urine 7.5 (5.0-8.0); Protein,Urine 1+ (Negative); RBC,Urine 1 /hpf (0-5); Sperm,Urine Few /hpf; Urobilinogen,Urine <2.0 mg/dL (<2.0); WBC,Urine 4 /hpf (0-5)
[2019-11-03] MEDS ORDERED: CISATRACURIUM 2 MG/ML 5 ML VIAL IV ONE ×4 (13:25→16:40)
[2019-11-03] MEDS ORDERED: Potassium Replacement Protocol 1 EACH MISC MISCELLANE PRN (14:07)
[2019-11-03] MEDS ORDERED: Magnesium Replacement Protocol 1 EACH MISC MISCELLANE PRN (14:08)
--- NOTE | 2019-11-03 14:09 | XR ---
EXAMINATION TYPE: XR chest 1V confirm line [facility] DATE OF EXAM: 11/03/2019 CLINICAL HISTORY: Central line placement. TECHNIQUE: Single AP portable supine view of the chest is obtained. COMPARISON: Chest x-ray from earlier today. FINDINGS: New Left internal jugular central venous catheter terminates in SVC. Stable endotracheal a nd orogastric tube. Persistent cardiomegaly and Central vascular congestion with bibasilar opacities. Upper lungs are clear without pneumothorax. Right glenohumeral joint arthropathy redemonstrated. IMPRESSION: New left internal jugular central venous catheter terminating in the SVC. No pneumothorax . Persistent CHF exacerbation as there is cardiomegaly with moderate central vascular congestion and small bilateral pleural effusions all redemonstrated.
[2019-11-03] MEDS: MORPHINE SULFATE 2 MG/ML SYRINGE IVP PRN (14:17)
[2019-11-03] MEDS ORDERED: METOPROLOL TARTRATE 5 MG/5 ML VIAL IVP ONE (14:25)
[2019-11-03 14:39] LABS: ABG Base Excess -6.3 mmol/L; ABG HCO3 19 mmol/L (21-25); ABG Oxygen Saturation 94.3 % (94-97); ABG PCO2 33 mmHg (35-45); ABG PH 7.36 (7.35-7.45); ABG PO2 72 mmHg (83-108); ABG TCO2 20 mmol/L (19-24)
[2019-11-03 14:40] LABS: Allen Test Performed? no
[2019-11-03] MEDS: MAGNESIUM SULFATE-D5W PMX 1 GM in DEXTROSE/WATER 1 100ML.BAG IVPB SCH ×2 (14:42→17:47)
[2019-11-03] MEDS: CLEVIDIPINE BUTYRATE 25 MG in EMPTY BAG 1 BAG IV SCH (14:42)
[2019-11-03] MEDS: NOREPINEPHRINE 4 MG in SODIUM CHLORIDE 0.9% 250 ML IV SCH ×2 (14:42→15:15)
[2019-11-03] MEDS: POTASSIUM BICARBONATE/CIT AC 20 MEQ TABLET.EFF NG-TUBE SCH ×2 (14:43→17:49)
[2019-11-03] MEDS ORDERED: AMIODARONE 300 MG in DEXTROSE 5% IN WATER 250 ML IV SCH ×2 (16:00)
[2019-11-03] MEDS: IPRATROPIUM-ALBUTEROL 3 ML NEB INHALATION SCH ×2 (16:08→20:48)
[2019-11-03] MEDS ORDERED: CISATRACURIUM 200 MG in SODIUM CHLORIDE 0.9% 180 ML IV SCH (16:45)
[2019-11-03 17:37] LABS: ABG Base Excess -8.9 mmol/L; ABG HCO3 19 mmol/L (21-25); ABG Oxygen Saturation 98.6 % (94-97); ABG PCO2 45 mmHg (35-45); ABG PH 7.23 (7.35-7.45); ABG PO2 147 mmHg (83-108); ABG TCO2 20 mmol/L (19-24)
[2019-11-03 17:39] LABS: Allen Test Performed? no
[2019-11-03] MEDS: PIPERACILLIN-TAZOBACTAM 3.375 GM in SODIUM CHLORIDE 0.9% 100 ML IVPB SCH ×2 (17:47→23:45)
[2019-11-03 18:15] LABS: Glucose,Whole Blood 171 mg/dL (75-99)
[2019-11-03] MEDS: INSULIN ASPART (NovoLOG) 100 UNIT/ML VIAL SQ SCH (18:21)
[2019-11-03] MEDS: NOREPINEPHRINE 32 MG in SODIUM CHLORIDE 0.9% 218 ML IV SCH ×2 (19:39→21:44)
--- NOTE | 2019-11-03 19:42 | P.HPIM ---
History of Present Illness H&P Date: 11/03/19 Chief Complaint: witnessed cardiac arrest History of presenting complaint: This is a 64-year-old patient who follows with Dr. Patel. Chronic stable medical conditions include GERD, basal cell skin cancer, osteoarthritis, chronic low back pain with recent laminectomy and decompression in September of this year.. Patient was leaving for work when the heard him fall in the other room from the room. She found the patient unresponsive slumped over the couch. The downtime was about 8 minutes. EMS found to be in V. fib and was defibrillated 3 times and received epinephrine. He pulse did return. Patient was intubated and patient was presented to the ER showed ST segment elevation myocardial infarction. Patient had 100% occlusion of the mid LAD and was succe ssfully stented. Patient was then brought out of the ICU and was on the ventilator with FiO2 100% and PEEP of 5. Patient also getting IV amiodarone and IV propofol. Also getting saline. 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 EYES: Pupils equal. Conjunctiva normal. HEENT: External appearance of nose and ears normal, oral cavity endotracheal tube. NECK: JVD unable to assess, masses not palpable. HEART: First and second heart sounds are normal; no edema. LUNGS: Respiratory rate increased, diminished breath sounds. ABDOMEN: Soft, nontender, liver spleen not palpable, no masses palpable. PSYCH: Unable to assess, intubated]l. NEUROLOGICAL: [Cranial nerves grossly intact; no facial asymmetry, intubated LYMPHATICS: No lymph nodes palpable in the axilla and neck INVESTIGATIONS, reviewed in the clinical context: White count 15.6 1113.3 potassium 3.5 creatinine 0.84 AST 155 ALT 90 troponin I 4.2 LDL 119 EKG tracing personally reviewed by me-ST elevation in anterior leads Chest x-ray film personally reviewed by me-some cardiomegaly some venous prominence ET tube Assessment: -Acute ST elevation myocardial infarction of the anterior wall, leading to cardiac arrest -Emergent cardiac catheterization leading to angioplasty stenting of the LAD -Acute congestive heart failure exacerbation from underlying acute UT -GERD -BPH Recent laminectomy L3 L4 L5 for spondylolisthesis and lower extremity radiculopathy and spinal stenosis and DJD -Acute hypoxic respiratory failure requiring ventilator support Plan: -Patient status post emergent intervention to LAD. On the ventilator. Medications include aspirin, Lipitor, V depression, IV Zosyn, propofol, Brilinta no saline.patient was seen with Dr. Rodriguez from cardiology and Dr. Leland gordon critical care Past Medical History Past Medical History: Cancer, GERD/Reflux, Osteoarthritis (OA) Additional Past Medical History / Comment(s): HISTORY OF COLON POLYPS, HX SKIN CANCER -BASAL CELL. History of Any Multi-Drug Resistant Organisms: None Reported Past Surgical History: Joint Replacement, Orthopedic Surgery Additional Past Surgical History / Comment(s): SKIN LESIONS REMOVED, LEFT KNEE ARTHROSCOPY, left hip replacement. Past Anesthesia/Blood Transfusion Reactions: No Reported Reaction Past Psychological History: No Psychological Hx Reported Smoking Status: Former smoker Past Alcohol Use History: Occasional Past Drug Use History: None Reported - Past Family History Father Family Medical History: Cancer Mother History Unknown: Yes Medications and Allergies Home Medications Medication Instructions Recorded Confirmed Type Pantoprazole Sodium [Protonix] 40 mg PO QAM 03/29/15 11/03/19 History Acetaminophen [Tylenol] 1,000 mg PO Q4-6H PRN 09/15/19 11/03/19 History HYDROcodone/APAP 5-325MG [Naylor 1 - 2 tab PO Q6HR PRN #56 tab 09/24/19 11/03/19 Rx 5-325] Sennosides-Docusate Sodium 1 tab PO BID 11/03/19 11/03/19 History [Senokot-S] Tamsulosin HCl [Flomax] 0.4 mg PO DAILY 11/03/19 11/03/19 History Allergies Allergy/AdvReac Type Severity Reaction Status Date / Time No Known Allergies Allergy Verified 11/03/19 09:38 Physical Exam Vitals: Vital Signs Temp Pulse Resp BP Pulse Ox 11/03/19 13:45 101 H 16 159/106 94 L 11/03/19 13:30 84 22 122/85 87 L 11/03/19 13:15 85 23 84/64 96 11/03/19 13:00 74 22 109/78 100 11/03/19 12:45 86 20 97/67 98 11/03/19 12:30 98.2 F 78 27 H 95/69 98 11/03/19 12:15 82 24 89/64 98 11/03/19 12:00 90 32 H 91/71 96 11/03/19 11:45 71 23 75/56 96 11/03/19 11:30 75 22 97/70 96 11/03/19 11:15 79 21 129/105 98 11/03/19 11:00 98 23 118/83 97 11/03/19 10:45 97.6 F 30 H 145/89 96 11/03/19 10:37 98 31 H 96 11/03/19 09:04 62 18 65/55 100 Intake and Output 11/02/19 11/03/19 11/03/19 22:59 06:59 14:59 Intake Total 1474.947 Output Total 775 Balance 699.947 Intake: IV 1434 Sodium Chloride 0.9% 1, 225 000 ml @ 75 mls/hr IV . [id number] [facility] Rx#:[id number] Sodium Chloride 0.9% 1, 1000 000 ml @ 999 mls/hr IV . Q1H1M [facility] Rx#:[id number] Intake, IV Titration 40.947 Amount Propofol 1,000 mg In 40.947 Empty Bag 1 bag @ Titrate IV .Q0M [facility] Rx#: [id number] Output: Urine 775 Other: Weight 104.326 kg Results CBC & Chem 7: 11/03/19 09:40 11/03/19 09:40 Labs: Abnormal Lab Results - Last 24 Hours (Table) 11/03/19 11/03/19 11/03/19 Range/Units 09:40 09:40 09:40 WBC 15.6 H (3.8-10.6) k/uL RBC 4.22 L (4.30-5.90) m/uL Neutrophils # 13.0 H (1.3-7.7) k/uL APTT 36.8 H (22.0-30.0) sec ABG pCO2 (35-45) mmHg ABG pO2 (83-108) mmHg ABG HCO3 (21-25) mmol/L Sodium 136 L (137-145) mmol/L Chloride 108 H (98-107) mmol/L Carbon Dioxide 16 L (22-30) mmol/L Glucose 222 H (74-99) mg/dL POC Glucose (mg/dL) (75-99) mg/dL Calcium 7.8 L (8.4-10.2) mg/dL AST 155 H (17-59) U/L ALT 90 H (4-49) U/L Troponin I (0.000-0.034) ng/mL Total Protein 5.7 L (6.3-8.2) g/dL Albumin 2.9 L (3.5-5.0) g/dL LDL Cholesterol, Calc (0-99) mg/dL HDL Cholesterol (40-60) mg/dL Urine Protein (Negative) Urine Glucose (UA) (Negative) Urine Blood (Negative) Urine Bacteria (None) /hpf Urine Mucus (None) /hpf Urine Sperm (None) /hpf 11/03/19 11/03/19 11/03/19 Range/Units 09:40 09:40 10:39 WBC (3.8-10.6) k/uL RBC (4.30-5.90) m/uL Neutrophils # (1.3-7.7) k/uL APTT (22.0-30.0) sec ABG pCO2 (35-45) mmHg ABG pO2 (83-108) mmHg ABG HCO3 (21-25) mmol/L Sodium (137-145) mmol/L Chloride (98-107) mmol/L Carbon Dioxide (22-30) mmol/L Glucose (74-99) mg/dL POC Glucose (mg/dL) 162 H (75-99) mg/dL Calcium (8.4-10.2) mg/dL AST (17-59) U/L ALT (4-49) U/L Troponin I 4.240 H* (0.000-0.034) ng/mL Total Protein (6.3-8.2) g/dL Albumin (3.5-5.0) g/dL LDL Cholesterol, Calc 119 H (0-99) mg/dL HDL Cholesterol 30 L (40-60) mg/dL Urine Protein (Negative) Urine Glucose (UA) (Negative) Urine Blood (Negative) Urine Bacteria (None) /hpf Urine Mucus (None) /hpf Urine Sperm (None) /hpf 11/03/19 11/03/19 Range/Units 11:40 11:45 WBC (3.8-10.6) k/uL RBC (4.30-5.90) m/uL Neutrophils # (1.3-7.7) k/uL APTT (22.0-30.0) sec ABG pCO2 32 L (35-45) mmHg ABG pO2 74 L (83-108) mmHg ABG HCO3 20 L (21-25) mmol/L Sodium (137-145) mmol/L Chloride (98-107) mmol/L Carbon Dioxide (22-30) mmol/L Glucose (74-99) mg/dL POC Glucose (mg/dL) (75-99) mg/dL Calcium (8.4-10.2) mg/dL AST (17-59) U/L ALT (4-49) U/L Troponin I (0.000-0.034) ng/mL Total Protein (6.3-8.2) g/dL Albumin (3.5-5.0) g/dL LDL Cholesterol, Calc (0-99) mg/dL HDL Cholesterol (40-60) mg/dL Urine Protein 1+ H (Negative) Urine Glucose (UA) 2+ H (Negative) Urine Blood Small H (Negative) Urine Bacteria Many H (None) /hpf Urine Mucus Rare H (None) /hpf Urine Sperm Few H (None) /hpf
[2019-11-03] MEDS: ATORVASTATIN 80 MG TAB PO SCH (20:59)
[2019-11-03] MEDS ORDERED: METOPROLOL TARTRATE 25 MG TAB PO SCH (21:00)
[2019-11-03] MEDS: CHLORHEXIDINE GLUCONATE 15 ML CUP MUCOUS MEM SCH (21:03)
[2019-11-03] MEDS: TICAGRELOR 90 MG TAB PO SCH (21:03)
--- NOTE | 2019-11-03 23:06 | PCN ---
PROCEDURE NOTE PROCEDURE: Left radial arterial line placement. PREOPERATIVE DIAGNOSIS: Cardiogenic shock. POSTOPERATIVE DIAGNOSIS: Cardiogenic shock. Indications: Hemodynamic monitoring. A time-out was completed verifying correct patient, procedure, site, positioning, and implant(s) or special equipment if applicable. Satish's test was performed to ensure adequate perfusion. The patient's left wrist was prepped and draped in sterile fashion. Lidocaine 1% was used to anesthetize the area. An 18G Arrow arterial line was introduced into the radial artery. The catheter was threaded over the guide wire and the needle was removed with appropriate pulsatile blood return. Blood loss was minimal. The catheter was then sutured in place to the skin and a sterile dressing applied. Perfusion to the extremity distal to the point of catheter insertion was checked and found to be adequate. The patient tolerated the procedure very well and there were no immediate complications. Good waveform was noted. Line was flushed and sutured in place. A sterile dressing was applied. MMODL / IJN: [id number] /
[2019-11-04] MEDS: IPRATROPIUM-ALBUTEROL 3 ML NEB INHALATION SCH ×7 (00:14→23:17)
[2019-11-04 00:23] LABS: Glucose,Whole Blood 121 mg/dL (75-99)
[2019-11-04] MEDS: INSULIN ASPART (NovoLOG) 100 UNIT/ML VIAL SQ SCH ×5 (01:18→23:54)
[2019-11-04] MEDS: PROPOFOL 1,000 MG in EMPTY BAG 1 BAG IV SCH ×6 (03:52→21:09)
[2019-11-04 03:58] LABS: Basophils % (A) 0 %; Eosinophils # (A) 0.1 k/uL (0-0.7); Eosinophils % (A) 0 %; HCT 43.2 % (39.0-53.0); HGB 14.2 gm/dL (13.0-17.5); Lymphocytes # (A) 0.9 k/uL (1.0-4.8); Lymphocytes % (A) 6 %; MCHC 32.9 g/dL (31.0-37.0); Mean Platelet Volume 6.7; Monocytes # (A) 0.8 k/uL (0-1.0); Monocytes % (A) 6 %; Neutrophils # (A) 12.2 k/uL (1.3-7.7); Neutrophils % (A) 87 %; Platelet Count 273 k/uL (150-450); RBC 4.45 m/uL (4.30-5.90); WBC 14.1 k/uL (3.8-10.6)
[2019-11-04 04:06] LABS: African American GFR (CKD) >90 (>60 ml/min/1.73 sqM); Anion Gap 4 mmol/L; Blood Urea Nitrogen 10 mg/dL (9-20); Calcium 8.4 mg/dL (8.4-10.2); Carbon Dioxide 24 mmol/L (22-30); Chloride 106 mmol/L (98-107); Glucose 131 mg/dL (74-99); Magnesium 2.1 mg/dL (1.6-2.3); Non-African American GFR(CKD) >90 (>60 ml/min/1.73 sqM); Sodium 134 mmol/L (137-145)
[2019-11-04 05:07] LABS: ABG Base Excess -4.1 mmol/L; ABG HCO3 23 mmol/L (21-25); ABG PCO2 49 mmHg (35-45); ABG PH 7.27 (7.35-7.45); ABG PO2 217 mmHg (83-108); ABG TCO2 24 mmol/L (19-24); Allen Test Performed? Yes
[2019-11-04 06:27] LABS: Glucose,Whole Blood 115 mg/dL (75-99)
--- NOTE | 2019-11-04 07:35 | XR ---
EXAMINATION TYPE: XR chest 1V portable DATE OF EXAM: 11/04/2019 COMPARISON: 11/03/2019 HISTORY: Enteric and endotracheal tube placement. TECHNIQUE: Single frontal view of the chest is obtained. FINDINGS: Endotracheal tube and enteric tube appear similar in placement. Distal tip of the enteric tube is not visualized. Improved aeration of the lung bases in comparison the prior. Pleural effusion s have resolved. Cardia mediastinal silhouette is stable. IMPRESSION: Resolved pleural effusions and improved bibasilar airspace disease with minimal probable atelectasis remaining.
[2019-11-04] MEDS: PIPERACILLIN-TAZOBACTAM 3.375 GM in SODIUM CHLORIDE 0.9% 100 ML IVPB SCH ×3 (08:31→23:57)
[2019-11-04] MEDS: TICAGRELOR 90 MG TAB PO SCH ×2 (08:32→21:00)
[2019-11-04] MEDS: CHLORHEXIDINE GLUCONATE 15 ML CUP MUCOUS MEM SCH ×2 (08:32→20:59)
[2019-11-04] MEDS: ASPIRIN 81 MG PO SCH (08:32)
[2019-11-04] MEDS: ARTIFICIAL TEARS-HYPROMELLOSE DROPS 15 ML BTL BOTH EYES SCH ×5 (08:47→23:57)
[2019-11-04] MEDS ORDERED: PANTOPRAZOLE 40 MG/10 ML VIAL IVP SCH (09:00)
[2019-11-04] MEDS ORDERED: SPIRONOLACTONE 25 MG TAB PO SCH (09:00)
--- NOTE | 2019-11-04 10:57 | PN ---
PROGRESS NOTE This patient is status post anterior wall myocardial infarction. This patient had a problem with labile blood pressure yesterday evening. After the patient was paralyzed, his blood pressure stabilized. During the night, the patient required minimal dose of Levophed. The patient remains sedated with propofol and Nimbex. The blood pressure is 100 to 110 mmHg. First and second heart sounds are heard. Lungs are clinically clear to auscultation and percussion. Chest x-ray does not show any significant failure. Patient's creatinine is 0.63. Maximum troponin was 11.9. Arterial blood gases shows probably combination of respiratory as well as metabolic acidosis. The patient's condition was discussed with the family members. The patient's neurological status at present is difficult to assess. Neurology consultation would be obtained. The patient remains stable cardiac- goodson at present. His ejection fraction was in the range of 30%. We will continue the current medications. MMODL / IJN: [id number] /
--- NOTE | 2019-11-04 11:26 | P.PN ---
Subjective Progress Note Date: 11/04/19 On today's evaluation of 11/04/2019 the patient is being seen in follow-up. Is post cardiac arrest. He is post acute myocardial infarction requiring emergent cardiac catheterization and stenting of the LAD. He remains intubated on a mechanical ventilator. After arriving to the ICU, the patient had significant fluctuations in his blood pressure. At times his found to be hypertensive and other times he was having significant hypotension. He was a stomach combination of fluids at the rate of 75 mL an hours and norepinephrine infusion was being used for blood pressure support. He was requiring higher dose of pressors and at one point his present dose was running at 40 g per minute. He ultimately improved. He was kept sedated. he was also paralyzed to maintain synchrony with the mechanical ventilator. This morning he still sedated with paralyzed. He is receiving propofol at a dose of 45 g per KG per minute. He fco Nimbex infusion effusion and he is on assist control of 24 with a tidal volume of 450 and FiO2 of 50% with a PEEP of 8. The blood gases from this morning shows a pH of 7.27 with a pCO2 of 49 and pO2 of 217 and this was done and FiO2 of 60%. The chest x-ray from today shows some mild cardiomegaly. ET tube is in a good location. There is resolution of the pleural effusion and improved bibasilar airspace disease. He is afebrile. He is on IV Zosyn. His cardiac rhythm is sinus. He is producing adequate amount of urine output. CAT scan of the brain is to follow.the patient is a triple-lumen catheter in his left IJ. A narcotic catheter was also inserted in the left radial artery. He is off amiodarone drip for now. His cardiac rhythm is sinus. Troponin peaked at 13. Echocardiogram showed impaired LV function with an ejection fraction of around 25% and significant wall motion abnormalities involving the apical and the septal area. Objective - Vital Signs Vital signs: Vital Signs Temp 98.6 F 11/04/19 08:00 Pulse 82 11/04/19 11:00 Resp 24 11/04/19 11:00 BP 95/62 11/04/19 10:15 Pulse Ox 98 11/04/19 11:00 Intake & Output 11/03/19 11/04/19 11/04/19 18:59 06:59 18:59 Intake Total 3139.691 1275.690 670.129 Output Total 1375 1280 475 Balance 1764.691 -4.310 195.129 Weight 95.4 kg 98 kg Intake: IV 2734 900 450 Piperacillin-Tazobactam 3 75 .375 gm In Sodium Chloride 0.9% 100 ml @ 25 mls/hr IVPB Q8HR [facility] Rx# :[id number] Sodium Chloride 0.9% 1, 525 900 375 000 ml @ 75 mls/hr IV . [id number] [facility] Rx#:[id number] Sodium Chloride 0.9% 1, 2000 000 ml @ 999 mls/hr IV . Q1H1M [facility] Rx#:[id number] Intake, IV Titration 285.691 375.690 160.129 Amount Norepinephrine 32 mg In 5.094 Sodium Chloride 0.9% 218 ml @ 0.05 MCG/KG/MIN 2. 236 mls/hr IV .Q24H [facility] Rx#:[id number] Norepinephrine 4 mg In 204.370 Sodium Chloride 0.9% 250 ml @ 0.05 MCG/KG/MIN 19. 874 mls/hr IV .[id number] [facility] Rx#:[id number] Piperacillin-Tazobactam 3 100 .375 gm In Sodium Chloride 0.9% 100 ml @ 25 mls/hr IVPB Q8HR [facility] Rx# :[id number] Propofol 1,000 mg In 81.321 270.596 160.129 Empty Bag 1 bag @ Titrate IV .Q0M [facility] Rx#: [id number] Other 120 60 Output: Gastric Drainage 200 200 Urine 1375 1080 275 Other: Voiding Method Indwelling Catheter Indwelling Catheter Indwelling Catheter ABP, PAP, CO, CI - Last Documented Arterial Blood Pressure 108/55 - Exam GENERAL EXAM: 64-year-old gentleman, intubated, sedated on mechanical ventilator, in no apparent distress.the patient is sedated. The patient is paralyzed. The patient's cyclical a mechanical ventilator. HEAD: Normocephalic. EYES: Normal reaction of pupils, equal size. NOSE: Clear with pink turbinates. THROAT: No erythema or exudates. NECK: No masses, no JVD. CHEST: No chest wall deformity. LUNGS: Equal air entry with crackles in the posterior bases. CVS: S1 and S2 normal with no audible murmur, regular rhythm. ABDOMEN: No hepatosplenomegaly, normal bowel sounds, no guarding or rigidity. SPINE: No scoliosis or deformity SKIN: No rashes CENTRAL NERVOUS SYSTEM: Sedated,and paralyzed and the patient's neurologic exam is somewhat limited on today's evaluation. EXTREMITIES: There is no peripheral edema. No clubbing, no cyanosis. Peripheral pulses are intact. - Labs CBC & Chem 7: 11/04/19 03:40 11/04/19 03:40 Labs: Abnormal Lab Results - Last 24 Hours (Table) 11/03/19 11/03/19 11/03/19 Range/Units 09:40 11:40 11:45 WBC (3.8-10.6) k/uL Neutrophils # (1.3-7.7) k/uL Lymphocytes # (1.0-4.8) k/uL ABG pH (7.35-7.45) ABG pCO2 32 L (35-45) mmHg ABG pO2 74 L (83-108) mmHg ABG HCO3 20 L (21-25) mmol/L ABG O2 Saturation (94-97) % Sodium (137-145) mmol/L Creatinine (0.66-1.25) mg/dL Glucose (74-99) mg/dL POC Glucose (mg/dL) (75-99) mg/dL Troponin I (0.000-0.034) ng/mL LDL Cholesterol, Calc 119 H (0-99) mg/dL HDL Cholesterol 30 L (40-60) mg/dL Urine Protein 1+ H (Negative) Urine Glucose (UA) 2+ H (Negative) Urine Blood Small H (Negative) Urine Bacteria Many H (None) /hpf Urine Mucus Rare H (None) /hpf Urine Sperm Few H (None) /hpf 11/03/19 11/03/19 11/03/19 Range/Units 14:37 15:53 17:36 WBC (3.8-10.6) k/uL Neutrophils # (1.3-7.7) k/uL Lymphocytes # (1.0-4.8) k/uL ABG pH 7.23 L (7.35-7.45) ABG pCO2 33 L (35-45) mmHg ABG pO2 72 L 147 H (83-108) mmHg ABG HCO3 19 L 19 L (21-25) mmol/L ABG O2 Saturation 98.6 H (94-97) % Sodium (137-145) mmol/L Creatinine (0.66-1.25) mg/dL Glucose (74-99) mg/dL POC Glucose (mg/dL) (75-99) mg/dL Troponin I 13.000 H* (0.000-0.034) ng/mL LDL Cholesterol, Calc (0-99) mg/dL HDL Cholesterol (40-60) mg/dL Urine Protein (Negative) Urine Glucose (UA) (Negative) Urine Blood (Negative) Urine Bacteria (None) /hpf Urine Mucus (None) /hpf Urine Sperm (None) /hpf 11/03/19 11/03/19 11/04/19 Range/Units 18:03 22:10 00:11 WBC (3.8-10.6) k/uL Neutrophils # (1.3-7.7) k/uL Lymphocytes # (1.0-4.8) k/uL ABG pH (7.35-7.45) ABG pCO2 (35-45) mmHg ABG pO2 (83-108) mmHg ABG HCO3 (21-25) mmol/L ABG O2 Saturation (94-97) % Sodium (137-145) mmol/L Creatinine (0.66-1.25) mg/dL Glucose (74-99) mg/dL POC Glucose (mg/dL) 171 H 121 H (75-99) mg/dL Troponin I 11.900 H* (0.000-0.034) ng/mL LDL Cholesterol, Calc (0-99) mg/dL HDL Cholesterol (40-60) mg/dL Urine Protein (Negative) Urine Glucose (UA) (Negative) Urine Blood (Negative) Urine Bacteria (None) /hpf Urine Mucus (None) /hpf Urine Sperm (None) /hpf 11/04/19 11/04/19 11/04/19 Range/Units 03:40 03:40 05:04 WBC 14.1 H (3.8-10.6) k/uL Neutrophils # 12.2 H (1.3-7.7) k/uL Lymphocytes # 0.9 L (1.0-4.8) k/uL ABG pH 7.27 L (7.35-7.45) ABG pCO2 49 H (35-45) mmHg ABG pO2 217 H (83-108) mmHg ABG HCO3 (21-25) mmol/L ABG O2 Saturation 100.0 H (94-97) % Sodium 134 L (137-145) mmol/L Creatinine 0.63 L (0.66-1.25) mg/dL Glucose 131 H (74-99) mg/dL POC Glucose (mg/dL) (75-99) mg/dL Troponin I (0.000-0.034) ng/mL LDL Cholesterol, Calc (0-99) mg/dL HDL Cholesterol (40-60) mg/dL Urine Protein (Negative) Urine Glucose (UA) (Negative) Urine Blood (Negative) Urine Bacteria (None) /hpf Urine Mucus (None) /hpf Urine Sperm (None) /hpf 11/04/19 Range/Units 06:15 WBC (3.8-10.6) k/uL Neutrophils # (1.3-7.7) k/uL Lymphocytes # (1.0-4.8) k/uL ABG pH (7.35-7.45) ABG pCO2 (35-45) mmHg ABG pO2 (83-108) mmHg ABG HCO3 (21-25) mmol/L ABG O2 Saturation (94-97) % Sodium (137-145) mmol/L Creatinine (0.66-1.25) mg/dL Glucose (74-99) mg/dL POC Glucose (mg/dL) 115 H (75-99) mg/dL Troponin I (0.000-0.034) ng/mL LDL Cholesterol, Calc (0-99) mg/dL HDL Cholesterol (40-60) mg/dL Urine Protein (Negative) Urine Glucose (UA) (Negative) Urine Blood (Negative) Urine Bacteria (None) /hpf Urine Mucus (None) /hpf Urine Sperm (None) /hpf Microbiology - Last 24 Hours (Table) 11/03/19 21:10 Gram Stain - Preliminary Sputum Sputum Culture - Preliminary Assessment and Plan Plan: 1 acute STEMI with secondary acute ventricular fibrillation and secondary Cardiac arrest requiring defibrillation 3, epinephrine, amiodarone secondary to ST segment elevation myocardial infarction.the patient underwent emergent cardiac catheterization and stenting of the LAD. There was resuscitation performed out of the hospital. My understanding that the patient did not receive any CPR status, visit cardiac arrest and the initial 8 minutes past without any intervention. Following that the patient required resuscitation as mentioned the EMS and the exact downtime is at least 17 minutes prior to obtaining rhythm. As such the patient was down for more than 25 minutes raising the concern for hypoxic encephalopathy. The patient was unresponsive at a time of arrival. 2 Coronary artery disease with 100% occlusion of the LAD with subsequent stenting down to 0%. 3 Acute hypoxemic respiratory failure secondary to above, currently intubated on mechanical ventilator.there is evidence of pulmonary vessel congestion/edema in addition to a right lower lobe pulmonary infiltrate raising the concern for an underlying right lower lobe pneumonia and the patient is currently on IV Zosyn 4 Remote history of smoking quit in 1998. 5 Recent laminectomy 09/22/2019. 6 Chronic back pain. 7 Osteoarthritis with previous left hip replacement left knee arthroplasty. 8 Gastroesophageal reflux disease. 9 History of basal cell carcinoma. 10 History esophageal reflux disease. 11 unresponsiveness, with high likelihood for anoxic encephalopathy. Currently, he is sedated and paralyzed 12 labile blood pressure, likely secondary to hypoxic encephalopathy and likely of a central origin. Echocardiogram was also done that showed impaired LV function and consideration needs to be given for his son myocardium. In any rate, the patient's blood pressure improved and currently is off pressors patient after being placed on a combination of pressors and paralysis. Plan Is a critically ill male patient post cardiac arrest Consider hypoxic/anoxic encephalopathy. Obtain a CAT scan of the brain. Consult neurology. Take this patient off paralytics and keep the sedation for now With propofol. IV fluids at 75 mL an hour of normal saline Continue aspirin and Brilinta Hold on beta blockers of the patient's blood pressures under better control IV Zosyn as empiric antibiotic coverage initiate tube feeds discussed the case with the family. We'll continue to follow make further re commendations based on his progress. Critically care evaluation that was done and more than 30 minutes. Time with Patient: Greater than 30
--- NOTE | 2019-11-04 11:44 | ECHOF ---
Referral Reason:mi MEASUREMENTS -------- HEIGHT: 188.0 cm WEIGHT: 104.3 kg BP: 133/74 IVSd: 1.3 cm (0.6 - 1.1) LVIDd: 4.3 cm (3.9 - 5.3) LVPWd: 1.2 cm (0.6 - 1.1) IVSs: 1.5 cm LVIDs: 3.2 cm LVPWs: 1.3 cm LAESV Index (A-L): 14.40 ml/m Ao Diam: 3.4 cm (2.0 - 3.7) AV Cusp: 2.3 cm (1.5 - 2.6) MV EXCURSION: 14.924 mm (> 18.000) MV EF SLOPE: 119 mm/s (70 - 150) EPSS: 1.6 cm MV E Josh: 0.80 m/s MV DecT: 218 ms MV A Josh: 0.70 m/s MV E/A Ratio: 1.13 RAP: 5.00 mmHg RVSP: 16.53 mmHg FINDINGS -------- Sinus rhythm. This was a technically difficult study with suboptimal views. Pt. on a vent. The left ventricular size is normal. There is mild concentric left ventricular hypertrophy. Overa ll left ventricular systolic function is severely impaired with, an EF between 25 - 30 %. Cannot de termine Lap and Diastolic Dysfunction Grade. Apical anterior LV wall motion is hypokinetic. Apic al lateral LV wall motion is hypokinetic. Apical inferior LV wall motion is hypokinetic. Apical septum LV wall motion is hypokinetic. Chester Hypokinesis. The RV was not well visualized. Normal LA size by volume 22+/-6 ml/m2. The right atrium was not well visualized. 5.0mg of Lumason was utilized for enhancement of images Interatrial and interventricular septum intact. There is no evidence of aortic regurgitation. There is no evidence of aortic stenosis. Mild mitral regurgitation is present. Mild tricuspid regurgitation present. There is no evidence of pulmonary hypertension. The right v entricular systolic pressure, as measured by Doppler, is 16.53mmHg. There is no pulmonic regurgitation present. The aortic root, ascending aorta and aortic arch are normal. IVC Not well visulized. There is a trivial pericardial effusion present. CONCLUSIONS -------- 1. Sinus rhythm. 2. This was a technically difficult study with suboptimal views. 3. Pt. on a vent. 4. The left ventricular size is normal. 5. There is mild concentric left ventricular hypertrophy. 6. Overall left ventricular systolic function is severely impaired with, an EF between 25 - 30 %. 7. Cannot determine Lap and Diastolic Dysfunction Grade. 8. Apical anterior LV wall motion is hypokinetic. 9. Apical lateral LV wall motion is hypokinetic. 10. Apical inferior LV wall motion is hypokinetic. 11. Apical septum LV wall motion is hypokinetic. 12. Chester Hypokinesis. 13. The RV was not well visualized. 14. Normal LA size by volume 22+/-6 ml/m2. 15. The right atrium was not well visualized. 16. 5.0mg of Lumason was utilized for enhancement of images 17. Interatrial and interventricular septum intact. 18. There is no evidence of aortic regurgitation. 19. There is no evidence of aortic stenosis. 20. Mild mitral regurgitation is present. 21. Mild tricuspid regurgitation present. 22. There is no evidence of pulmonary hypertension. 23. The right ventricular systolic pressure, as measured by Doppler, is 16.53mmHg. 24. There is no pulmonic regurgitation present. 25. The aortic root, ascending aorta and aortic arch are normal. 26. IVC Not well visulized. 27. There is a trivial pericardial effusion present. [employer]: Lily Siu RDCS
[2019-11-04 12:00] LABS: Glucose,Whole Blood 106 mg/dL (75-99)
--- NOTE | 2019-11-04 12:49 | CT ---
EXAMINATION TYPE: CT brain wo con DATE OF EXAM: 11/04/2019 HISTORY: Anoxic encephalopathy CT DLP: 1095.2 mGycm. Automated Exposure Control for Dose Reduction was Utilized. TECHNIQUE: CT scan of the head is performed without contrast. COMPARISON: None. FINDINGS: There is no acute intracranial hemorrhage or midline shift identified. There is diffuse v entricular and sulcal prominence consistent with mild diffuse age-related cerebral atrophy. Some vagu e area of low attenuation right parietal occipital level near axial image 32 is suspicious for develo ping acute ischemia. The globes are intact and the visualized sinuses are clear. ET tube noted on web feeder image. Nasal septum deviated to right of midline. IMPRESSION: No acute intracranial hemorrhage or midline shift. There is possible area of acute isch emia right parietal occipital region, consider progress CT in 12 to 24 hours if MRI cannot be perform ed
[2019-11-04] MEDS: SODIUM CHLORIDE 0.9% 1,000 ML IV SCH ×2 (12:50→23:58)
[2019-11-04] MEDS: CLEVIDIPINE BUTYRATE 25 MG in EMPTY BAG 1 BAG IV SCH (12:50)
[2019-11-04] MEDS ORDERED: CISATRACURIUM 2 MG/ML 5 ML VIAL IV ONE (14:09)
[2019-11-04] MEDS: MORPHINE SULFATE 2 MG/ML SYRINGE IVP PRN (16:28)
[2019-11-04 18:10] LABS: Glucose,Whole Blood 92 mg/dL (75-99)
[2019-11-04] MEDS: ACETAMINOPHEN IV (For NPO) 1,000 MG in EMPTY BAG 1 BAG IVPB PRN (18:42)
[2019-11-04 18:48] LABS: ABG Base Excess 0.1 mmol/L; ABG HCO3 24 mmol/L (21-25); ABG Oxygen Saturation 99.6 % (94-97); ABG PCO2 34 mmHg (35-45); ABG PH 7.46 (7.35-7.45); ABG PO2 124 mmHg (83-108); ABG TCO2 25 mmol/L (19-24); Allen Test Performed? Yes
[2019-11-04 19:06] LABS: Basophils % (A) 0 %; Eosinophils % (A) 0 %; HCT 37.4 % (39.0-53.0); HGB 12.4 gm/dL (13.0-17.5); Lymphocytes % (A) 8 %; MCH 32.1 pg (25.0-35.0); MCHC 33.2 g/dL (31.0-37.0); MCV 96.6 fL (80.0-100.0); Monocytes # (A) 0.8 k/uL (0-1.0); Monocytes % (A) 6 %; Neutrophils % (A) 85 %; Platelet Count 238 k/uL (150-450); RBC 3.87 m/uL (4.30-5.90); RDW 13.1 % (11.5-15.5)
--- NOTE | 2019-11-04 19:55 | PCN ---
PROCEDURE NOTE PREOPERATIVE DIAGNOSIS: Acute cardiac arrest and acute hypoxic respiratory failure. POSTOPERATIVE DIAGNOSIS: Acute cardiac arrest and acute hypoxic respiratory failure. PROCEDURE: Insertion of a triple-lumen catheter, left internal jugular vein. Indication: Hemodynamic monitoring/Intravenous access. PROCEDURE DESCRIPTION: A time-out was completed verifying correct patient, procedure, site, positioning, and implant(s) or special equipment if applicable. The patient was placed in a dependent position appropriate for triple-lumen catheter placement based on the vein to be cannulated. The patient's left neck was prepped and draped in sterile fashion. 1% Lidocaine was used to anesthetize the surrounding skin area. A triple-lumen 9F Cordis catheter was introduced into the left internal jugular vein using Seldinger technique. The catheter was threaded smoothly over the guide wire and appropriate blood return was obtained. Each lumen of the catheter was evacuated of air and flushed with sterile saline. The catheter was then sutured in place to the skin and a sterile dressing applied. Perfusion to the extremity distal to the point of catheter insertion was checked and found to be adequate. No complications or bleeding. MMODL / IJN: [id number] /
--- NOTE | 2019-11-04 19:57 | PCN ---
PROCEDURE NOTE ARTERIAL LINE PLACEMENT, RIGHT RADIAL ARTERY: PREOPERATIVE DIAGNOSIS: Acute cardiac arrest and acute hypoxic respiratory failure. POSTOPERATIVE DIAGNOSIS: Acute cardiac arrest and acute hypoxic respiratory failure. INDICATIONS: Hemodynamic monitoring. A time-out was completed verifying correct patient, procedure, site, positioning, and implant(s) or special equipment if applicable. Satish's test was performed to ensure adequate perfusion. The patient's right wrist was prepped and draped in sterile fashion. 1% Lidocaine was used to anesthetize the area. An 18G Arrow arterial line was introduced into the right radial artery. The catheter was threaded over the guide wire and the needle was removed with appropriate pulsatile blood return. Blood loss was minimal. The catheter was then sutured in place to the skin and a sterile dressing applied. Perfusion to the extremity distal to the point of catheter insertion was checked and found to be adequate. The patient tolerated the procedure well and there were no bedside complications or bleeding. MMODL / IJN: [id number] /
[2019-11-04] MEDS: ATORVASTATIN 80 MG TAB PO SCH (20:59)
[2019-11-04] MEDS: PANTOPRAZOLE 40 MG/10 ML VIAL IVP SCH (21:00)
[2019-11-04 23:54] LABS: Glucose,Whole Blood 115 mg/dL (75-99)
[2019-11-05] MEDS: PROPOFOL 1,000 MG in EMPTY BAG 1 BAG IV SCH ×6 (00:01→23:12)
[2019-11-05] MEDS: ACETAMINOPHEN IV (For NPO) 1,000 MG in EMPTY BAG 1 BAG IVPB PRN ×2 (00:36→11:51)
[2019-11-05] MEDS: IPRATROPIUM-ALBUTEROL 3 ML NEB INHALATION SCH ×6 (03:24→23:11)
[2019-11-05] MEDS: ARTIFICIAL TEARS-HYPROMELLOSE DROPS 15 ML BTL BOTH EYES SCH ×5 (03:47→20:44)
[2019-11-05 04:54] LABS: Basophils # (A) 0.1 k/uL (0-0.2); Basophils % (A) 0 %; Eosinophils % (A) 0 %; HCT 37.7 % (39.0-53.0); HGB 12.5 gm/dL (13.0-17.5); Lymphocytes % (A) 7 %; MCH 31.9 pg (25.0-35.0); MCHC 33.2 g/dL (31.0-37.0); MCV 96.2 fL (80.0-100.0); Monocytes # (A) 0.9 k/uL (0-1.0); Monocytes % (A) 6 %; Neutrophils # (A) 11.9 k/uL (1.3-7.7); Neutrophils % (A) 85 %; Platelet Count 248 k/uL (150-450); RBC 3.91 m/uL (4.30-5.90); RDW 13.2 % (11.5-15.5)
[2019-11-05 05:07] LABS: ABG Base Excess 0.1 mmol/L; ABG HCO3 24 mmol/L (21-25); ABG Oxygen Saturation 99.5 % (94-97); ABG PCO2 36 mmHg (35-45); ABG PH 7.44 (7.35-7.45); ABG PO2 169 mmHg (83-108); ABG TCO2 25 mmol/L (19-24); Allen Test Performed? Yes
[2019-11-05 05:11] LABS: African American GFR (CKD) >90 (>60 ml/min/1.73 sqM); Anion Gap 4 mmol/L; Blood Urea Nitrogen 10 mg/dL (9-20); Calcium 8.4 mg/dL (8.4-10.2); Carbon Dioxide 24 mmol/L (22-30); Chloride 110 mmol/L (98-107); Glucose 125 mg/dL (74-99); Non-African American GFR(CKD) >90 (>60 ml/min/1.73 sqM); Potassium 4.3 mmol/L (3.5-5.1); Sodium 138 mmol/L (137-145)
[2019-11-05 06:07] LABS: Glucose,Whole Blood 114 mg/dL (75-99)
[2019-11-05] MEDS: INSULIN ASPART (NovoLOG) 100 UNIT/ML VIAL SQ SCH ×3 (06:42→18:46)
--- NOTE | 2019-11-05 07:08 | XR ---
EXAMINATION TYPE: XR chest 1V portable DATE OF EXAM: 11/05/2019 COMPARISON: 11/04/2019 INDICATION: Tube placement TECHNIQUE: Single frontal view of the chest is obtained. FINDINGS: The heart size is normal. The pulmonary vasculature is normal. Mild right lower lobe infiltrate is developing. Correlate for atelectasis or pneumonia. An endotracheal tube is present with tip above rachel. Nasogastric tube transverses the thorax. Left central venous catheter is present with tip in the superior vena cava region. IMPRESSION: 1. Developing mild right lower lobe infiltrate. Correlate for atelectasis and pneumonia. 2. Lines and catheters discussed above
[2019-11-05] MEDS: ASPIRIN 81 MG PO SCH (08:08)
[2019-11-05] MEDS: TICAGRELOR 90 MG TAB PO SCH ×2 (08:08→20:44)
[2019-11-05] MEDS: PIPERACILLIN-TAZOBACTAM 3.375 GM in SODIUM CHLORIDE 0.9% 100 ML IVPB SCH ×2 (08:08→16:42)
[2019-11-05] MEDS: CHLORHEXIDINE GLUCONATE 15 ML CUP MUCOUS MEM SCH ×2 (08:08→20:44)
[2019-11-05] MEDS: PANTOPRAZOLE 40 MG/10 ML VIAL IVP SCH ×2 (08:08→20:44)
--- NOTE | 2019-11-05 11:08 | P.PN ---
Subjective Progress Note Date: 11/05/19 on 11/05/2019, I'm seeing this patient for a follow-up in the intensive care unit. He is post cardiac arrest. He is post emergent cardiac catheterization and stenting of the LAD. He was taken off the paralytics yesterday. He was taken off the sedation this morning. I'm quite happy to see that the patient is following some simple commands. He was able to squeeze my fingers using his hands on both sides and he was able to wiggle his toes upon demand. He opens his eyes spontaneously. He is calm and comfortable as he is being taken off the sedation for now. Hemodynamically, the patient is still on nnorepinephrine infusion at 8 mcg/m. He is on IV fluids at the rate of75 mL an hour. His urine output is order of the cc an hour.The patient is on assist control mode at the rate of 20 with a tidal volume of 550 with an FiO2 of 50% and a PEEP of 5. The blood gas showed a pH of 7.44 with a pCO2 of 36 and pO2 of 69. His chest x-ray shows some mild cardiomegaly with mild pulmonary vascular congestion. He has moderate amount of rest or secretions being suctioned with orotracheal tube. Hi s T-max was 11.6 from yesterday and currently is afebrile. He is still on IV Zosyn. The white cell count from today's at 14. Hemoglobin was at 12.5. The electrolytes are all within normal including the renal functions. He remains on aspirin. His underlying to. Orogastric tube is in place and there was some minimal amount of coffee-ground material this morning. We have not initiated any form of enteral feeding due to concerns of an upper GI bleed with seems to have subsided with a stable hemoglobin on today's evaluation. Objective - Vital Signs Vital signs: Vital Signs Temp 99.5 F 11/05/19 08:00 Pulse 86 11/05/19 10:00 Resp 22 11/05/19 10:00 BP 123/79 11/05/19 09:00 Pulse Ox 97 11/05/19 10:00 Intake & Output 11/04/19 11/05/19 11/05/19 18:59 06:59 18:59 Intake Total 8474.407 2206.221 537.581 Output Total 1000 1340 260 Balance 622.288 283.221 277.581 Weight 98 kg 98.5 kg 98.5 kg Intake: IV 1075 1225 393 .9NS Pressure BAg 18 ACETAMINOPHEN IV (For NPO 200 ) 1,000 mg In Empty Bag 1 bag @ 400 mls/hr IVPB Q6HR PRN Rx#:[id number] Piperacillin-Tazobactam 3 175 125 75 .375 gm In Sodium Chloride 0.9% 100 ml @ 25 mls/hr IVPB Q8HR DARLENE Rx# :[id number] Sodium Chloride 0.9% 1, 900 900 300 000 ml @ 75 mls/hr IV . [id number] DARLENE Rx#:[id number] Intake, IV Titration 487.288 398.221 144.581 Amount Cisatracurium 200 mg In 128.017 Sodium Chloride 0.9% 180 ml @ 1 MCG/KG/MIN 6.26 mls/hr IV .Q24H DARLENE Rx#: [id number] Norepinephrine 32 mg In 7.245 35.091 52.691 Sodium Chloride 0.9% 218 ml @ 0.05 MCG/KG/MIN 2. 236 mls/hr IV .Q24H DARLENE Rx#:[id number] Propofol 1,000 mg In 352.026 363.13 91.890 Empty Bag 1 bag @ Titrate IV .Q0M DARLENE Rx#: [id number] Other 60 Output: Gastric Drainage 200 Urine 800 1340 260 Other: Voiding Method Indwelling Catheter Indwelling Catheter Indwelling Catheter ABP, PAP, CO, CI - Last Documented Arterial Blood Pressure 121/61 - Exam GENERAL EXAM: 64-year-old gentleman, intubated, sedated on mechanical ventilator, in no apparent distress.the patient is sedated. The patient's cyclical a mechanical ventilator. HEAD: Normocephalic. EYES: Normal reaction of pupils, equal size. NOSE: Clear with pink turbinates. THROAT: No erythema or exudates. NECK: No masses, no JVD. CHEST: No chest wall deformity. LUNGS: Equal air entry with crackles in the posterior bases. CVS: S1 and S2 normal with no audible murmur, regular rhythm. ABDOMEN: No hepatosplenomegaly, normal bowel sounds, no guarding or rigidity. SPINE: No scoliosis or deformity SKIN: No rashes CENTRAL NERVOUS SYSTEM: the patient is being given a sedation holiday. Is able to follow some simple commands as mentioned in my dictation. EXTREMITIES: There is no peripheral edema. No clubbing, no cyanosis. Peripheral pulses are intact. - Labs CBC & Chem 7: 11/05/19 04:40 11/05/19 04:40 Labs: Abnormal Lab Results - Last 24 Hours (Table) 11/04/19 11/04/19 11/04/19 Range/Units 11:48 18:30 18:43 WBC 13.0 H (3.8-10.6) k/uL RBC 3.87 L (4.30-5.90) m/uL Hgb 12.4 L (13.0-17.5) gm/dL Hct 37.4 L (39.0-53.0) % Neutrophils # 11.0 H (1.3-7.7) k/uL ABG pH 7.46 H (7.35-7.45) ABG pCO2 34 L (35-45) mmHg ABG pO2 124 H (83-108) mmHg ABG Total CO2 25 H (19-24) mmol/L ABG O2 Saturation 99.6 H (94-97) % Chloride (98-107) mmol/L Glucose (74-99) mg/dL POC Glucose (mg/dL) 106 H (75-99) mg/dL 11/04/19 11/05/19 11/05/19 Range/Units 23:41 04:40 04:40 WBC 14.0 H (3.8-10.6) k/uL RBC 3.91 L (4.30-5.90) m/uL Hgb 12.5 L (13.0-17.5) gm/dL Hct 37.7 L (39.0-53.0) % Neutrophils # 11.9 H (1.3-7.7) k/uL ABG pH (7.35-7.45) ABG pCO2 (35-45) mmHg ABG pO2 (83-108) mmHg ABG Total CO2 (19-24) mmol/L ABG O2 Saturation (94-97) % Chloride 110 H (98-107) mmol/L Glucose 125 H (74-99) mg/dL POC Glucose (mg/dL) 115 H (75-99) mg/dL 11/05/19 11/05/19 Range/Units 04:52 05:56 WBC (3.8-10.6) k/uL RBC (4.30-5.90) m/uL Hgb (13.0-17.5) gm/dL Hct (39.0-53.0) % Neutrophils # (1.3-7.7) k/uL ABG pH (7.35-7.45) ABG pCO2 (35-45) mmHg ABG pO2 169 H (83-108) mmHg ABG Total CO2 25 H (19-24) mmol/L ABG O2 Saturation 99.5 H (94-97) % Chloride (98-107) mmol/L Glucose (74-99) mg/dL POC Glucose (mg/dL) 114 H (75-99) mg/dL Microbiology - Last 24 Hours (Table) 11/05/19 05:19 Sputum Culture - Preliminary Sputum Assessment and Plan Plan: 1 acute STEMI with secondary acute ventricular fibrillation and secondary Cardiac arrest requiring defibrillation 3, epinephrine, amiodarone secondary to ST segment elevation myocardial infarction.the patient underwent emergent cardiac catheterization and stenting of the LAD. There was resuscitation performed out of the hospital. My understanding that the patient did not receive any CPR status, visit cardiac arrest and the initial 8 minutes past without any intervention. Following that the patient required resuscitation as mentioned the EMS and the exact downtime is at least 17 minutes prior to obtaining rhythm. As such the patient was down for more than 25 minutes raising the concern for hypoxic encephalopathy. the patient currently is requiring low-dose pressors and norepinephrine infusion is running at 7 g per minute. His has adequate urine output. there was a concern for hypoxic/anoxic encephalopathy due to prolonged downtime. I'm pleased to report that on today's evaluation as the patient is getting a sedation holiday he seems to be responding to simple commands. He opens his eyes spontaneously. I'm happy with the neurological recovery for the time being. 2 Coronary artery disease with 100% occlusion of the LAD with subsequent stenting down to 0%. 3 Acute hypoxemic respiratory failure secondary to above, currently intubated on mechanical ventilator.there is evidence of pulmonary vessel congestion/edema in addition to a right lower lobe pulmonary infiltrate raising the concern for an underlying right lower lobe pneumonia and the patient is currently on IV Zosyn. The chest x-ray from today shows mild pulmonary vascular congestion. His oxygenation is improved. He is doing well on a mechanical ventilator. 4 Remote history of smoking quit in 1998. 5 Recent laminectomy 09/22/2019. 6 Chronic back pain. 7 Osteoarthritis with previous left hip replacement left knee arthroplasty. 8 Gastroesophageal reflux disease. 9 History of basal cell carcinoma. 10 History esophageal reflux disease. 11 unresponsiveness, improving and the patient has regained some consciousness as his taken off sedation. 12 labile blood pressure, Plan Is a critically ill male patient post cardiac arrest, hemodynamically improved. Neurologically improved on today's evaluation. the patient off sedation and monitored his neurological exam on an hourly basis. IV fluids at 75 mL an hour of normal saline Continue aspirin and Brilinta, and watch for any signs of upper GI bleeding Hold on beta blockers of the patient's blood pressures under better control IV Zosyn as empiric antibiotic coverage CAT scan of the brain was noted and there may be some early ischemic changes. discussed the case with the family. We'll continue to follow make further recommendations based on his progress. Critically care evaluation that was done and more than 30 minutes. Time with Patient: Greater than 30
[2019-11-05 12:07] LABS: Glucose,Whole Blood 97 mg/dL (75-99)
--- NOTE | 2019-11-05 13:21 | PN ---
PROGRESS NOTE This patient is status post anterior wall myocardial infarction and anoxic encephalopathy. The patient currently remains intubated and sedated. The patient is hemodynamically stable. CAT scan done yesterday showed evidence of ischemia in the right frontal and parietal lobe. The patient is going to have a repeat CAT scan today. The patient is afebrile. The patient has a temperature of 99.5, blood pressure is 123/79 mmHg, oxygen saturation is 97%. First and second heart sounds are normal. Lungs reveal few scattered wheezes. Electrolytes are normal. Creatinine is 0.7. Arterial blood gases shows pH of 7.46, pCO2 is 34, and pO2 is 34. FINAL IMPRESSION: This patient is acute anterior wall myocardial infarction with cardiac arrest. The patient most likely has a significant hypoxic and ischemic encephalopathy. We will continue the current medications. Neurologic consultation is awaited and the patient is going to have a repeat CAT scan done today. Patient's condition was discussed with the patient's . MMMALAIKA / KAYLANN: [id number] /
[2019-11-05] MEDS: SODIUM CHLORIDE 0.9% 1,000 ML IV SCH (16:45)
[2019-11-05 18:21] LABS: Glucose,Whole Blood 102 mg/dL (75-99)
--- NOTE | 2019-11-05 18:28 | P.CNNES ---
History of Present Illness Consult date: 11/05/19 Reason for Consult: cardiac arrest, CT Head finding Chief complaint: cardiac arrest History of Present Illness: HISTORY OF PRESENT ILLNESS: Thank you for allowing me to evaluate Mr. Jerrell Johnson. Mr. Johnson is a 64 year-old man with PMhx of basal cell carcinoma, GERD, osteoarthritis, who presented to [facility] after cardiac arrest. is at bedside. States that she found him slumped over on a couch, she called 911 right away and while waiting for 911, she tried to place patient on the floor to try giving CPR but it was too difficult to move him around as he was basically weight. EMS came and it took about 15-20 minutes to get his pulses back. Patient had been on sedation until today, patient having difficulty tolerating CPAP, patient was placed back on sedation. Patient was examined while off sedation. PAST MEDICAL HISTORY: basal cell carcinoma, GERD, osteoarthritis PAST SURGICAL HISTORY: L knee arthroscopy, L hip replacement HOME MEDICATIONS: Pantoprazole, tamsulosin, senokot ALLERGIES: NKDA SOCIAL HISTORY: Former smoker FAMILY HISTORY: Father with cancer REVIEW OF SYSTEMS: The 14 systems are reviewed and no additional points are identified compared to the review of systems documented history and physical PHYSICAL EXAMINATION: VITAL SIGNS: T 99.5 HR 85 RR 23 BP 121/70 O2 sat 97% on mechanical ventilation GEN.: intubated, not on any sedation HEENT: NCAT, sclera without icterus NECK: Supple SKIN AND EXTREMITIES: Warm to touch, no edema NEURO: MENTAL STATUS: eyes open, follow commands to open and close eyes, show 2 fingers with both R and L hands. CRANIAL NERVES II THROUGH XII: II: Pupils are equal and reactive to light symmetrically. III, IV, : No ptosis. Patient noted to only look straight. VII. No clear facial asymmetry. MOTOR: Normal bulk/tone. b/l UE antigravity. b/l LE no spontaneous movement SENSORY: grimaces to pain in all 4 extremities. at times lifts up his head during noxious stimuli REFLEXES: 2+ in b/l UE. 1+ in b/l LE. Toes are upgoing bilaterally (but patient with recent history of back surgery) COORDINATION/GAIT: deferred DIAGNOSTIC TESTING: LABORATORY: WBC 14.0 Hgb 12.5 Plaetlet 248 NA 138 K 4.3 Cl 110 CO2 24 BUN 10 Cr 0.70 glucose 125 Troponin 13->11.900 A1C 5.0 LDL 119 IMAGING: CT Head w/o contrast 11/04/19: No acute intracranial hemorrhage or midline shift. There is possible area of acute ischemia R parietal occipital region. I am also seeing blurred white-early differentiation in R frontal lobe ASSESSMENT: 64 year-old R-handed man with PMhx of basal cell carcinoma, GERD, osteoarthritis, who presented to [facility] after cardiac arrest. On exam, difficult to find any one-sided deficit but possibly weaker LUE but both LE with no spontaneous movement. Patient also with upgoing toes bilaterally. Of note, patient had back surgery about 6 weeks ago. Patient was following commands while off sedation. Prognosis is guarded at this time. RECOMMENDATIONS: 1. MRI brain w/o contrast when patient stable 2. Repeat TTE when patient stable 3. Please contact neurology again when MRI has been obtained and also with additional questions or concerns. Past Medical History Past Medical History: Cancer, GERD/Reflux, Osteoarthritis (OA) Additional Past Medical History / Comment(s): HISTORY OF COLON POLYPS, HX SKIN CANCER -BASAL CELL. Last Myocardial Infarction Date:: 11/03/19 History of Any Multi-Drug Resistant Organisms: None Reported Past Surgical History: Joint Replacement, Orthopedic Surgery Additional Past Surgical History / Comment(s): SKIN LESIONS REMOVED, LEFT KNEE ARTHROSCOPY, left hip replacement. Past Anesthesia/Blood Transfusion Reactions: No Reported Reaction Date of Last Stent Placement:: 11/03/19 Past Psychological History: No Psychological Hx Reported Smoking Status: Former smoker Past Alcohol Use History: Occasional Past Drug Use History: None Reported - Past Family History Father Family Medical History: Cancer Mother History Unknown: Yes Medications and Allergies Home Medications Medication Instructions Recorded Confirmed Type Pantoprazole Sodium [Protonix] 40 mg PO QAM 03/29/15 11/03/19 History Acetaminophen [Tylenol] 1,000 mg PO Q4-6H PRN 09/15/19 11/03/19 History HYDROcodone/APAP 5-325MG [Letcher 1 - 2 tab PO Q6HR PRN #56 tab 09/24/19 11/03/19 Rx 5-325] Sennosides-Docusate Sodium 1 tab PO BID 11/03/19 11/03/19 History [Senokot-S] Tamsulosin HCl [Flomax] 0.4 mg PO DAILY 11/03/19 11/03/19 History Allergies Allergy/AdvReac Type Severity Reaction Status Date / Time No Known Allergies Allergy Verified 11/03/19 09:38 Physical Examination - Vital Signs Vital Signs: Vital Signs Temp Pulse Resp BP Pulse Ox 11/05/19 10:00 86 22 97 11/05/19 09:00 89 23 123/79 97 11/05/19 08:18 86 11/05/19 08:06 86 11/05/19 08:00 99.5 F 85 23 121/70 97 11/05/19 07:30 86 22 97 11/05/19 07:15 85 23 96 11/05/19 07:00 87 22 97 11/05/19 06:45 89 24 118/71 97 11/05/19 06:30 86 22 97 11/05/19 06:15 86 25 H 86/52 98 11/05/19 06:00 92 21 108/68 11/05/19 05:45 85 23 108/68 98 11/05/19 05:30 87 23 98 11/05/19 05:15 85 26 H 98 11/05/19 05:00 90 24 98 11/05/19 04:45 90 24 98 11/05/19 04:30 89 24 98 11/05/19 04:15 89 23 98 11/05/19 04:01 88 11/05/19 04:00 100 F H 90 23 98 11/05/19 03:45 84 22 97 11/05/19 03:30 91 24 97 11/05/19 03:27 90 11/05/19 03:15 92 23 96/63 97 11/05/19 03:00 93 23 96/63 97 11/05/19 02:45 94 23 97 11/05/19 02:30 95 24 97 11/05/19 02:15 96 30 H 96/63 97 11/05/19 02:00 96 20 117/73 97 11/05/19 01:45 96 24 97 11/05/19 01:30 96 23 117/73 97 11/05/19 01:15 98 23 117/73 97 11/05/19 01:00 98 24 117/73 97 11/05/19 00:45 105 H 21 117/73 97 11/05/19 00:30 103 H 24 97 11/05/19 00:15 106 H 25 H 117/73 97 11/05/19 00:00 100.8 F H 99 23 97 11/04/19 23:45 13 98 11/04/19 23:41 101 H 11/04/19 23:30 99 20 97 11/04/19 23:29 101 H 20 97 11/04/19 23:20 104 H 11/04/19 23:15 98 24 98 11/04/19 23:00 99 23 97 11/04/19 22:45 98 21 97 11/04/19 22:30 98 24 97 11/04/19 22:15 98 22 103/68 97 11/04/19 22:00 99 20 97 11/04/19 21:45 99 21 97 11/04/19 21:30 97 20 97 11/04/19 21:15 96 21 97 11/04/19 21:00 95 20 98 11/04/19 20:45 80 43 H 101/64 97 11/04/19 20:30 95 20 97 11/04/19 20:15 95 21 101/64 97 11/04/19 20:00 101.6 F H 97 20 96 11/04/19 19:45 95 20 96 11/04/19 19:33 92 11/04/19 19:30 93 20 90/62 97 11/04/19 19:16 95 11/04/19 19:15 96 21 97 11/04/19 19:00 101 H 21 97 11/04/19 18:45 101 H 22 97 11/04/19 18:30 102.0 F H 101 H 21 96 19 18:15 103 H 24 98 11/04/19 18:00 103 H 26 H 98 19 17:45 101 H 24 99 19 17:30 98 25 H 98 19 17:15 96 22 98 11/04/19 17:00 98 25 H 97 19 16:45 99 25 H 97 11/04/19 16:30 98 27 H 98 19 16:15 93 24 98 11/04/19 16:14 92 11/04/19 16:01 98 11/04/19 16:00 99.7 F H 94 24 99 12/19/19 15:45 92 26 H 99 11/04/19 15:30 92 24 99 11/04/19 15:15 92 24 99 11/04/19 15:00 92 25 H 98 11/04/19 14:45 90 25 H 99 11/04/19 14:30 89 25 H 99 11/04/19 14:15 85 26 H 99 11/04/19 14:00 83 24 99 11/04/19 13:45 88 24 99 11/04/19 13:30 80 24 97 11/04/19 13:15 84 24 99 11/04/19 13:02 85 11/04/19 13:00 88 25 H 99 11/04/19 12:50 85 11/04/19 12:45 84 25 H 11/04/19 12:15 81 25 H 97 11/04/19 12:00 98.6 F 80 24 98 11/04/19 11:45 85 24 98 11/04/19 11:30 83 24 97 11/04/19 11:15 82 24 97 11/04/19 11:00 82 24 98 Intake and Output 11/04/19 11/05/19 11/05/19 22:59 06:59 14:59 Intake Total 313.973 6360.695 537.581 Output Total 885 835 260 Balance 112.905 263.695 277.581 Intake: IV 800 800 393 .9NS Pressure BAg 18 ACETAMINOPHEN IV (For NPO 100 100 ) 1,000 mg In Empty Bag 1 bag @ 400 mls/hr IVPB Q6HR PRN Rx#:[id number] Piperacillin-Tazobactam 3 100 100 75 .375 gm In Sodium Chloride 0.9% 100 ml @ 25 mls/hr IVPB Q8HR [facility] Rx# :[id number] Sodium Chloride 0.9% 1, 600 600 300 000 ml @ 75 mls/hr IV . [id number] [facility] Rx#:[id number] Intake, IV Titration 197.905 298.695 144.581 Amount Norepinephrine 32 mg In 10.420 28.175 52.691 Sodium Chloride 0.9% 218 ml @ 0.05 MCG/KG/MIN 2. 236 mls/hr IV .Q24H [facility] Rx#:[id number] Propofol 1,000 mg In 187.485 270.52 91.890 Empty Bag 1 bag @ Titrate IV .Q0M [facility] Rx#: [id number] Output: Urine 885 835 260 Other: Voiding Method Indwelling Catheter Indwelling Catheter Indwelling Catheter Weight 98.5 kg 98.5 kg ABP, PAP, CO, CI - Last 8 Hours Arterial Blood Pressure 121/61 Arterial Blood Pressure 123/63 Arterial Blood Pressure 125/63 Arterial Blood Pressure 114/58 Arterial Blood Pressure 115/56 Arterial Blood Pressure 105/54 Arterial Blood Pressure 111/56 Arterial Blood Pressure 132/64 Arterial Blood Pressure 135/65 Arterial Blood Pressure 101/50 Arterial Blood Pressure 121/60 Arterial Blood Pressure 130/65 Arterial Blood Pressure 122/60 Arterial Blood Pressure 109/59 Arterial Blood Pressure 109/59 Arterial Blood Pressure 114/61 Arterial Blood Pressure 153/76 Arterial Blood Pressure 111/61 Arterial Blood Pressure 107/58 Arterial Blood Pressure 105/59 Results - Laboratory Findings CBC and BMP: 11/05/19 04:40 11/05/19 04:40 Abnormal Lab Findings: Abnormal Labs 11/03/19 11/03/19 11/03/19 09:40 09:40 09:40 WBC 15.6 H RBC 4.22 L Hgb Hct Neutrophils # 13.0 H Lymphocytes # APTT 36.8 H ABG pH ABG pCO2 ABG pO2 ABG HCO3 ABG Total CO2 ABG O2 Saturation Sodium 136 L Chloride 108 H Carbon Dioxide 16 L Creatinine Glucose 222 H POC Glucose (mg/dL) Calcium 7.8 L AST 155 H ALT 90 H Troponin I Total Protein 5.7 L Albumin 2.9 L LDL Cholesterol, Calc HDL Cholesterol Urine Protein Urine Glucose (UA) Urine Blood Urine Bacteria Urine Mucus Urine Sperm 11/03/19 11/03/19 11/03/19 09:40 09:40 10:39 WBC RBC Hgb Hct Neutrophils # Lymphocytes # APTT ABG pH ABG pCO2 ABG pO2 ABG HCO3 ABG Total CO2 ABG O2 Saturation Sodium Chloride Carbon Dioxide Creatinine Glucose POC Glucose (mg/dL) 162 H Calcium AST ALT Troponin I 4.240 H* Total Protein Albumin LDL Cholesterol, Calc 119 H HDL Cholesterol 30 L Urine Protein Urine Glucose (UA) Urine Blood Urine Bacteria Urine Mucus Urine Sperm 11/03/19 11/03/19 11/03/19 11:40 11:45 14:37 WBC RBC Hgb Hct Neutrophils # Lymphocytes # APTT ABG pH ABG pCO2 32 L 33 L ABG pO2 74 L 72 L ABG HCO3 20 L 19 L ABG Total CO2 ABG O2 Saturation Sodium Chloride Carbon Dioxide Creatinine Glucose POC Glucose (mg/dL) Calcium AST ALT Troponin I Total Protein Albumin LDL Cholesterol, Calc HDL Cholesterol Urine Protein 1+ H Urine Glucose (UA) 2+ H Urine Blood Small H Urine Bacteria Many H Urine Mucus Rare H Urine Sperm Few H 11/03/19 11/03/19 11/03/19 15:53 17:36 18:03 WBC RBC Hgb Hct Neutrophils # Lymphocytes # APTT ABG pH 7.23 L ABG pCO2 ABG pO2 147 H ABG HCO3 19 L ABG Total CO2 ABG O2 Saturation 98.6 H Sodium Chloride Carbon Dioxide Creatinine Glucose POC Glucose (mg/dL) 171 H Calcium AST ALT Troponin I 13.000 H* Total Protein Albumin LDL Cholesterol, Calc HDL Cholesterol Urine Protein Urine Glucose (UA) Urine Blood Urine Bacteria Urine Mucus Urine Sperm 11/03/19 11/04/19 11/04/19 22:10 00:11 03:40 WBC RBC Hgb Hct Neutrophils # Lymphocytes # APTT ABG pH ABG pCO2 ABG pO2 ABG HCO3 ABG Total CO2 ABG O2 Saturation Sodium 134 L Chloride Carbon Dioxide Creatinine 0.63 L Glucose 131 H POC Glucose (mg/dL) 121 H Calcium AST ALT Troponin I 11.900 H* Total Protein Albumin LDL Cholesterol, Calc HDL Cholesterol Urine Protein Urine Glucose (UA) Urine Blood Urine Bacteria Urine Mucus Urine Sperm 11/04/19 11/04/19 11/04/19 03:40 05:04 06:15 WBC 14.1 H RBC Hgb Hct Neutrophils # 12.2 H Lymphocytes # 0.9 L APTT ABG pH 7.27 L ABG pCO2 49 H ABG pO2 217 H ABG HCO3 ABG Total CO2 ABG O2 Saturation 100.0 H Sodium Chloride Carbon Dioxide Creatinine Glucose POC Glucose (mg/dL) 115 H Calcium AST ALT Troponin I Total Protein Albumin LDL Cholesterol, Calc HDL Cholesterol Urine Protein Urine Glucose (UA) Urine Blood Urine Bacteria Urine Mucus Urine Sperm 11/04/19 11/04/19 11/04/19 11:48 18:30 18:43 WBC 13.0 H RBC 3.87 L Hgb 12.4 L Hct 37.4 L Neutrophils # 11.0 H Lymphocytes # APTT ABG pH 7.46 H ABG pCO2 34 L ABG pO2 124 H ABG HCO3 ABG Total CO2 25 H ABG O2 Saturation 99.6 H Sodium Chloride Carbon Dioxide Creatinine Glucose POC Glucose (mg/dL) 106 H Calcium AST ALT Troponin I Total Protein Albumin LDL Cholesterol, Calc HDL Cholesterol Urine Protein Urine Glucose (UA) Urine Blood Urine Bacteria Urine Mucus Urine Sperm 11/04/19 11/05/19 11/05/19 23:41 04:40 04:40 WBC 14.0 H RBC 3.91 L Hgb 12.5 L Hct 37.7 L Neutrophils # 11.9 H Lymphocytes # APTT ABG pH ABG pCO2 ABG pO2 ABG HCO3 ABG Total CO2 ABG O2 Saturation Sodium Chloride 110 H Carbon Dioxide Creatinine Glucose 125 H POC Glucose (mg/dL) 115 H Calcium AST ALT Troponin I Total Protein Albumin LDL Cholesterol, Calc HDL Cholesterol Urine Protein Urine Glucose (UA) Urine Blood Urine Bacteria Urine Mucus Urine Sperm 11/05/19 11/05/19 04:52 05:56 WBC RBC Hgb Hct Neutrophils # Lymphocytes # APTT ABG pH ABG pCO2 ABG pO2 169 H ABG HCO3 ABG Total CO2 25 H ABG O2 Saturation 99.5 H Sodium Chloride Carbon Dioxide Creatinine Glucose POC Glucose (mg/dL) 114 H Calcium AST ALT Troponin I Total Protein Albumin LDL Cholesterol, Calc HDL Cholesterol Urine Protein Urine Glucose (UA) Urine Blood Urine Bacteria Urine Mucus Urine Sperm
--- NOTE | 2019-11-05 18:39 | P.PN ---
Progress Note - Text Progress Note Date: 11/04/19 Chief Complaint: witnessed cardiac arrest History of presenting complaint: This is a 64-year-old patient who follows with Dr. Patel. Chronic stable medical conditions include GERD, basal cell skin cancer, osteoarthritis, chronic low back pain with recent laminectomy and decompression in September of this year.. Patient was leaving for work when the heard him fall in the other room from the room. She found the patient unresponsive slumped over the couch. The downtime was about 8 minutes. EMS found to be in V. fib and was defibrillated 3 times and received epinephrine. He pulse did return. Patient was intubated and patient was presented to the ER showed ST segment elevation myocardial infarction. Patient had 100% occlusion of the mid LAD and was successfully stented. Patient was then brought to the ICU and was on the ventilator. Today-remains on the ventilator. FiO2 50 and PEEP of 5. OG tube put out dark aspirate. Had a fever of 101.6, . Drips include Levophed, Diprivan, Nimbex. Some endotracheal secretions. Computed tomography scan showing acute ischemia right parietal occipital region Review of systems as above in the history cannot be obtained as patient intubated Current medications are reviewed in today's electronic records Physical examination: VITAL SIGNS: T-max 101.6, 97, 20, 102/56, 96% on the ventilator GENERAL: Laying in bed, intubated with OG tube EYES: Pupils equal. Conjunctiva normal. HEENT: External appearance of nose and ears normal, oral cavity endotracheal tube. NECK: JVD unable to assess, masses not palpable. HEART: First and second heart sounds are normal; no edema. LUNGS: Respiratory rate increased, diminished breath sounds. ABDOMEN: Soft, nontender, liver spleen not palpable, no masses palpable. PSYCH: Unable to assess, intubated]l. NEUROLOGICAL: Does have a sluggish pupils, does have a gag with moving endotracheal tube INVESTIGATIONS, reviewed in the clinical context: White count 13 hemoglobin 12.4 platelets 238 bun 10 creatinine 0.63 Sputum-presumptive staph aureus Chest [id number]-[id number] infiltrates 2-D echo-EF 20-30%, multiple wall motion abnormality Computed tomography scan-idiopathic acute ischemia possibly in the right parietal occipital region Previous testing White count 15.6 potassium 3.5 creatinine 0.84 AST 155 ALT 90 troponin I 4.2 LDL 119 EKG tracing personally reviewed by me-ST elevation in anterior leads Chest x-ray film personally reviewed by me-some cardiomegaly some venous prominence ET tube Assessment: -Acute ST elevation myocardial infarction of the anterior wall, leading to cardiac arrest -Emergent cardiac catheterization leading to angioplasty stenting of the LAD -Suspect acute upper GI bleed, combination of antiplatelet agents, acute stress -Acute congestive heart failure exacerbation from underlying acute [place], from systolic dysfunction EF 20-25% -Right lower lobe pneumonia, aspiration, POA, slow to respond -GERD -BPH -Recent laminectomy L3 L4 L5 for spondylolisthesis and lower extremity radiculopathy and spinal stenosis and DJD: September 2019 -Acute hypoxic respiratory failure requiring ventilator support, slow to respond Plan: Patient remains critically ill. Neurology was consulted. Patient remains on drips including low-fat, Diprivan, Nimbex. Neurology was consulted. GI was consulted. Family the bedside. Did talk to them. and daughter.
[2019-11-05 19:00] LABS: ABG Base Excess 1.7 mmol/L; ABG HCO3 26 mmol/L (21-25); ABG Oxygen Saturation 99.5 % (94-97); ABG PCO2 37 mmHg (35-45); ABG PH 7.46 (7.35-7.45); ABG PO2 152 mmHg (83-108); ABG TCO2 27 mmol/L (19-24); Allen Test Performed? Yes
--- NOTE | 2019-11-05 19:08 | P.PN ---
Progress Note - Text Progress Note Date: 11/05/19 Chief Complaint: witnessed cardiac arrest History of presenting complaint: This is a 64-year-old patient who follows with Dr. Patel. Chronic stable medical conditions include GERD, basal cell skin cancer, osteoarthritis, chronic low back pain with recent laminectomy and decompression in September of this year.. Patient was leaving for work when the heard him fall in the other room from the room. She found the patient unresponsive slumped over the couch. The downtime was about 8 minutes. EMS found to be in V. fib and was defibrillated 3 times and received epinephrine. He pulse did return. Patient was intubated and patient was presented to the ER showed ST segment elevation myocardial infarction. Patient had 100% occlusion of the mid LAD and was successfully stented. Patient was then brought to the ICU and was on the ventilator.Computed tomography scan showing acute ischemia right parietal occipital region. Patient also had dark aspirate from the stomach suggestive of GI bleed. Also felt to have aspiration pneumonia. Today-ICU. Given a drug holiday earlier today. Did open his eyes. To squeeze fingers. Found to be a bit because of the left side. Telemetry shows sinus rhythm. On the ventilator with FiO2 50 and PEEP of 5. From the endotracheal tube getting creamy yellow secretions. 2 feeding running at 20 mL an hour. Drips include levo fed him to prevent. Review of systems as above in the history cannot be obtained as patient intubated Active Medications Al Hydroxide/Mg Hydroxide (Maalox) 30 ml PO Q4HR PRN PRN Reason: Heartburn Albuterol/Ipratropium (Duoneb 0.5 Mg-3 Mg/3 Ml Soln) 3 ml INHALATION RT-Q4H [facility] Last Admin: 11/05/19 15:58 Dose: 3 ml Documented by: Artificial Tears (Artificial Tear Drops) 2 drops BOTH EYES Q4HR [facility] Last Admin: 11/05/19 16:41 Dose: Not Given Documented by: Aspirin (Aspirin) 81 mg PO DAILY [facility] Last Admin: 11/05/19 08:08 Dose: 81 mg Documented by: Atorvastatin Calcium (Lipitor) 80 mg PO HS [facility] Last Admin: 11/04/19 20:59 Dose: 80 mg Documented by: Atropine Sulfate (Atropine) 0.5 mg IV ONCE PRN PRN Reason: Symptomatic Bradycardia Chlorhexidine Gluconate (Peridex) 15 ml MUCOUS MEM BID [facility] Last Admin: 11/05/19 08:08 Dose: 15 ml Documented by: Sodium Chloride (Saline 0.9%) 1,000 mls @ 75 mls/hr IV .[id number] [facility] Last Admin: 11/05/19 16:45 Dose: 75 mls/hr Documented by: Propofol 1,000 mg/ IV Solution 100 mls @ 0 mls/hr IV .Q0M [facility]; Protocol Last Titration: 11/05/19 15:30 Dose: 35 mcg/kg/min, 20.685 mls/hr Documented by: Piperacillin Sod/Tazobactam (Sod 3.375 gm/ Sodium Chloride) 100 mls @ 25 mls/hr IVPB Q8HR [facility] Last Admin: 11/05/19 16:42 Dose: 25 mls/hr Documented by: Norepinephrine Bitartrate 32 (mg/ Sodium Chloride) 250 mls @ 2.236 mls/hr IV .Q24H [facility]; Protocol Last Titration: 11/05/19 14:00 Dose: 0.06 mcg/kg/min, 2.683 mls/hr Documented by: Insulin Aspart (Novolog) 0 unit SQ Q6H [facility]; Protocol Last Admin: 11/05/19 18:46 Dose: Not Given Documented by: Miscellaneous Information (Potassium Per Protocol) 1 each MISCELLANE DAILY PRN; Protocol PRN Reason: Per Protocol Miscellaneous Information (Magnesium Per Protocol) 1 each MISCELLANE DAILY PRN; Protocol PRN Reason: Per Protocol Morphine Sulfate (Morphine Sulfate (Inj)) 2 mg IVP Q4H PRN PRN Reason: SEVERE Pain/Discomfort Last Admin: 11/04/19 16:28 Dose: 2 mg Documented by: Naloxone HCl (Narcan) 0.2 mg IV Q2M PRN PRN Reason: Opioid Reversal Nitroglycerin (Nitrostat) 0.4 mg SUBLINGUAL Q5M PRN PRN Reason: Chest Pain Pantoprazole Sodium (Protonix) 40 mg IVP BID [facility] Last Admin: 11/05/19 08:08 Dose: 40 mg Documented by: Ticagrelor (Brilinta) 90 mg PO BID [facility] Last Admin: 11/05/19 08:08 Dose: 90 mg Documented by: Zolpidem Tartrate (Ambien) 5 mg PO HS PRN PRN Reason: Insomnia Physical examination: VITAL SIGNS: 100, 90, 23, 11 4/61, 98% on the ventilator GENERAL: Laying in bed, intubated with OG tube EYES: Pupils equal. Conjunctiva normal. HEENT: External appearance of nose and ears normal, oral cavity endotracheal tube. NECK: JVD unable to assess, masses not palpable. HEART: First and second heart sounds are normal; no edema. LUNGS: Respiratory rate increased, diminished breath sounds. ABDOMEN: Soft, nontender, liver spleen not palpable, no masses palpable. PSYCH: Unable to assess, intubated]l. NEUROLOGICAL: Does have a sluggish pupils, does have a gag with moving endotracheal tube, earlier with a drug holiday was more responsive, left-sided weakness INVESTIGATIONS, reviewed in the clinical context: White count 14, hemoglobin 12.5 potassium 4.3 creatinine 0.7 Sputum-presumptive staph aureus Chest a-smi-ywafwcol infiltrates Previous testing White count 15.6 potassium 3.5 creatinine 0.84 AST 155 ALT 90 troponin I 4.2 LDL 119 EKG tracing personally reviewed by me-ST elevation in anterior leads Chest x-ray film personally reviewed by me-some cardiomegaly some venous prominence ET tube 2-D echo-EF 20-30%, multiple wall motion abnormality Computed tomography scan-idiopathic acute ischemia possibly in the right parietal occipital region Assessment: -Acute ST elevation myocardial infarction of the anterior wall, leading to cardiac arrest -Emergent cardiac catheterization leading to angioplasty stenting of the LAD -Suspect acute upper GI bleed, combination of antiplatelet agents, acute stress -Acute congestive heart failure exacerbation from underlying acute [place], from systolic dysfunction EF 20-25%, improved -acute ischemia right parietal occipital, stroke causing left-sided weakness, new onset -Right lower lobe pneumonia, aspiration, POA, -GERD -BPH -Recent laminectomy L3 L4 L5 for spondylolisthesis and lower extremity radiculopathy and spinal stenosis and DJD: September 2019 -Acute hypoxic respiratory failure requiring ventilator support, slow to respond Plan: Patient to resume levo fed, depression. Also on antiplatelet agents including aspirin and Brilinta. Antibiotics including IV Zosyn. Ventilator support. Spoke to and the daughter the bedside.
--- NOTE | 2019-11-05 19:56 | P.CONS ---
History of Present Illness - Reason for Consult Consult date: 11/05/19 GI bleed Requesting physician: Aruna Ha - Chief Complaint Cardiac arrest - History of Present Illness 64-year-old male with medical history significant for osteoarthritis, chronic back pain, basal cell skin cancer and GERD who presented to the hospital after being found unresponsive by his . The patient subsequently was found to be in ventricular fibrillation and underwent cardiopulmonary resuscitation with EMS. In the emergency department the patient was found to have an ST segment elevation myocardial infarction and subsequently underwent cardiac cath eterization with successful placement of a stent to the LAD. The patient was brought to the intensive care unit for continued management and was found to have coffee-ground output after placement of an orogastric tube. No signs of other GI bleeding with no melena or hematochezia reported. The patient's hemoglobin remained stable at 12.5 today from 12.4 yesterday. He has been initiated on tube feeds. Review of Systems ROS unobtainable: due to endotracheal tube Past Medical History Past Medical History: Cancer, GERD/Reflux, Osteoarthritis (OA) Additional Past Medical History / Comment(s): HISTORY OF COLON POLYPS, HX SKIN CANCER -BASAL CELL. Last Myocardial Infarction Date:: 11/03/19 History of Any Multi-Drug Resistant Organisms: None Reported Past Surgical History: Joint Replacement, Orthopedic Surgery Additional Past Surgical History / Comment(s): SKIN LESIONS REMOVED, LEFT KNEE ARTHROSCOPY, left hip replacement. Past Anesthesia/Blood Transfusion Reactions: No Reported Reaction Date of Last Stent Placement:: 11/03/19 Past Psychological History: No Psychological Hx Reported Smoking Status: Former smoker Past Alcohol Use History: Occasional Past Drug Use History: None Reported - Past Family History Father Family Medical History: Cancer Mother History Unknown: Yes Medications and Allergies Home Medications Medication Instructions Recorded Confirmed Type Pantoprazole Sodium [Protonix] 40 mg PO QAM 03/29/15 11/03/19 History Acetaminophen [Tylenol] 1,000 mg PO Q4-6H PRN 09/15/19 11/03/19 History HYDROcodone/APAP 5-325MG [Lyman 1 - 2 tab PO Q6HR PRN #56 tab 09/24/19 11/03/19 Rx 5-325] Sennosides-Docusate Sodium 1 tab PO BID 11/03/19 11/03/19 History [Senokot-S] Tamsulosin HCl [Flomax] 0.4 mg PO DAILY 11/03/19 11/03/19 History Allergies Allergy/AdvReac Type Severity Reaction Status Date / Time No Known Allergies Allergy Verified 11/03/19 09:38 Physical Exam Vitals: Vital Signs Temp Pulse Resp BP Pulse Ox 11/05/19 16:12 82 11/05/19 16:00 100.5 F H 78 21 97 11/05/19 15:58 81 11/05/19 15:00 86 22 97 11/05/19 14:00 87 23 98 11/05/19 13:30 89 20 98 11/05/19 13:00 93 22 100/68 98 11/05/19 12:30 101 H 50 H 179/91 98 11/05/19 12:00 90 23 97 11/05/19 11:30 86 31 H 96 11/05/19 11:00 99.5 F 93 23 96 11/05/19 10:00 86 22 97 11/05/19 09:00 89 23 123/79 97 11/05/19 08:18 86 11/05/19 08:06 86 11/05/19 08:00 99.5 F 85 23 121/70 97 11/05/19 07:30 86 22 97 11/05/19 07:15 85 23 96 11/05/19 07:00 87 22 97 11/05/19 06:45 89 24 118/71 97 11/05/19 06:30 86 22 97 11/05/19 06:15 86 25 H 86/52 98 11/05/19 06:00 92 21 108/68 11/05/19 05:45 85 23 108/68 98 11/05/19 05:30 87 23 98 11/05/19 05:15 85 26 H 98 11/05/19 05:00 90 24 98 11/05/19 04:45 90 24 98 11/05/19 04:30 89 24 98 11/05/19 04:15 89 23 98 11/05/19 04:01 88 11/05/19 04:00 100 F H 90 23 98 11/05/19 03:45 84 22 97 11/05/19 03:30 91 24 97 11/05/19 03:27 90 11/05/19 03:15 92 23 96/63 97 11/05/19 03:00 93 23 96/63 97 20/19 02:45 94 23 97 2019 02:30 95 24 97 11/05/19 02:15 96 30 H 96/63 97 11/05/19 02:00 96 20 117/73 97 20/ 01:45 96 24 97 20/ 01:30 96 23 117/73 97 11/05/19 01:15 98 23 117/73 97 11/05/19 01:00 98 24 117/73 97 11/05/19 00:45 105 H 21 117/73 97 11/05/19 00:30 103 H 24 97 11/05/19 00:15 106 H 25 H 117/73 97 11/05/19 00:00 100.8 F H 99 23 97 11/04/19 23:45 13 98 11/04/19 23:41 101 H 11/04/19 23:30 99 20 97 19 23:29 101 H 20 97 11/04/19 23:20 104 H 11/04/19 23:15 98 24 98 11/04/19 23:00 99 23 97 11/04/19 22:45 98 21 97 11/04/19 22:30 98 24 97 11/04/19 22:15 98 22 103/68 97 11/04/19 22:00 99 20 97 11/04/19 21:45 99 21 97 11/04/19 21:30 97 20 97 11/04/19 21:15 96 21 97 11/04/19 21:00 95 20 98 19 20:45 80 43 H 101/64 97 19/19 20:30 95 20 97 19/19 20:15 95 21 101/64 97 11/04/19 20:00 101.6 F H 97 20 96 19/19 19:45 95 20 96 19/19 19:33 92 11/04/19 19:30 93 20 90/62 97 19/19 19:16 95 11/04/19 19:15 96 21 97 11/04/19 19:00 101 H 21 97 19/19 18:45 101 H 22 97 19 18:30 102.0 F H 101 H 21 96 19 18:15 103 H 24 98 11/04/19 18:00 103 H 26 H 98 11/04/19 17:45 101 H 24 99 11/04/19 17:30 98 25 H 98 11/04/19 17:15 96 22 98 11/04/19 17:00 98 25 H 97 11/04/19 16:45 99 25 H 97 Intake and Output 11/05/19 11/05/19 11/05/19 06:59 14:59 22:59 Intake Total 4513.513 2974.227 106.216 Output Total 835 450 50 Balance 263.695 569.227 56.216 Intake: IV 800 842 81 .9NS Pressure BAg 42 6 ACETAMINOPHEN IV (For NPO 100 100 ) 1,000 mg In Empty Bag 1 bag @ 400 mls/hr IVPB Q6HR PRN Rx#:[id number] Piperacillin-Tazobactam 3 100 100 .375 gm In Sodium Chloride 0.9% 100 ml @ 25 mls/hr IVPB Q8HR [facility] Rx# :[id number] Sodium Chloride 0.9% 1, 600 600 75 000 ml @ 75 mls/hr IV . [id number] [facility] Rx#:[id number] Intake, IV Titration 298.695 177.227 25.216 Amount Norepinephrine 32 mg In 28.175 64.357 Sodium Chloride 0.9% 218 ml @ 0.05 MCG/KG/MIN 2. 236 mls/hr IV .Q24H [facility] Rx#:[id number] Propofol 1,000 mg In 270.52 112.870 25.216 Empty Bag 1 bag @ Titrate IV .Q0M [facility] Rx#: [id number] Output: Urine 835 450 50 Other: Voiding Method Indwelling Catheter Indwelling Catheter Indwelling Catheter Weight 98.5 kg 98.5 kg ABP, PAP, CO, CI - Last 8 Hours Arterial Blood Pressure 113/60 Arterial Blood Pressure 108/57 Arterial Blood Pressure 120/62 Arterial Blood Pressure 108/58 Arterial Blood Pressure 103/56 Arterial Blood Pressure 125/63 Arterial Blood Pressure 120/60 Arterial Blood Pressure 111/58 Arterial Blood Pressure 121/61 Arterial Blood Pressure 123/63 On physical examination, patient appears comfortable in no apparent distress. HEAD: Normocephalic, atraumatic. EYES: No scleral icterus. No conjunctival injection. MOUTH: No lesions, tongue midline, endotracheal tube in place. NECK: Trachea midline, no gross abnormalities. CHEST: Course respiratory noises in all lung villanueva secondary to mechanical ventilation. HEART: Regular rate and rhythm. ABDOMEN: Soft, nontender to palpation. Bowel sounds are positive. No organomegaly. No guarding or rigidity. EXTREMITIES: No pedal edema. SKIN: No rashes, no jaundice. NEUROLOGIC: Intubated and sedated. Results CBC & Chem 7: 11/05/19 04:40 11/05/19 04:40 Labs: Abnormal Lab Results - Last 24 Hours (Table) 11/04/19 11/04/19 11/04/19 Range/Units 18:30 18:43 23:41 WBC 13.0 H (3.8-10.6) k/uL RBC 3.87 L (4.30-5.90) m/uL Hgb 12.4 L (13.0-17.5) gm/dL Hct 37.4 L (39.0-53.0) % Neutrophils # 11.0 H (1.3-7.7) k/uL ABG pH 7.46 H (7.35-7.45) ABG pCO2 34 L (35-45) mmHg ABG pO2 124 H (83-108) mmHg ABG Total CO2 25 H (19-24) mmol/L ABG O2 Saturation 99.6 H (94-97) % Chloride (98-107) mmol/L Glucose (74-99) mg/dL POC Glucose (mg/dL) 115 H (75-99) mg/dL 11/05/19 11/05/19 11/05/19 Range/Units 04:40 04:40 04:52 WBC 14.0 H (3.8-10.6) k/uL RBC 3.91 L (4.30-5.90) m/uL Hgb 12.5 L (13.0-17.5) gm/dL Hct 37.7 L (39.0-53.0) % Neutrophils # 11.9 H (1.3-7.7) k/uL ABG pH (7.35-7.45) ABG pCO2 (35-45) mmHg ABG pO2 169 H (83-108) mmHg ABG Total CO2 25 H (19-24) mmol/L ABG O2 Saturation 99.5 H (94-97) % Chloride 110 H (98-107) mmol/L Glucose 125 H (74-99) mg/dL POC Glucose (mg/dL) (75-99) mg/dL 11/05/19 Range/Units 05:56 WBC (3.8-10.6) k/uL RBC (4.30-5.90) m/uL Hgb (13.0-17.5) gm/dL Hct (39.0-53.0) % Neutrophils # (1.3-7.7) k/uL ABG pH (7.35-7.45) ABG pCO2 (35-45) mmHg ABG pO2 (83-108) mmHg ABG Total CO2 (19-24) mmol/L ABG O2 Saturation (94-97) % Chloride (98-107) mmol/L Glucose (74-99) mg/dL POC Glucose (mg/dL) 114 H (75-99) mg/dL Microbiology - Last 24 Hours (Table) 11/05/19 05:19 Gram Stain - Preliminary Sputum Sputum Culture - Preliminary 11/03/19 21:10 Gram Stain - Preliminary Sputum Sputum Culture - Preliminary Presumptive Staph aureus Assessment and Plan (1) GI bleed Narrative/Plan: 64-year-old male who presented to the hospital after being found unresponsive by his , subsequently found to be interventricular defibrillation by EMS the patient underwent CPR and was found to have AST elevation AL on presentation to the ER. Subsequently the patient has undergone cardiac catheterization with stenting of the LAD. In the ICU and orogastric tube was placed and coffee- ground output was noted. However no further signs or symptoms of GI bleeding since that time. Hemoglobin has remained stable at 12.5 from 12.4 yesterday. Suspicion is for trauma from tube insertion, with differential also including peptic ulcer disease, Annabel-Bruner tear, AVM or other etiology. Current Visit: Yes Status: Acute Code(s): K92.2 - GASTROINTESTINAL HEMORRHAGE, UNSPECIFIED SNOMED Code(s): 98198346 (2) Cardiac arrest Current Visit: Yes Status: Acute Code(s): I46.9 - CARDIAC ARREST, CAUSE UNSPECIFIED SNOMED Code(s): 871154159 (3) STEMI (ST elevation myocardial infarction) Current Visit: Yes Status: Acute Code(s): I21.3 - ST ELEVATION (STEMI) MYOCARDIAL INFARCTION OF [facility] SITE SNOMED Code(s): 38269116 Plan: Supportive care Okay for tube feeds, and regular diet after extubation Continue Protonix therapy Continue to monitor hemoglobin and hematocrit and transfuse as needed No plans for endoscopic evaluation at this time Continue other medical management per cardiology, greige goods examiner service and primary team Thank you for allowing us to be in the care of the patient, the GI service will stand by, please call us back with any questions or concerns
[2019-11-05] MEDS: ATORVASTATIN 80 MG TAB PO SCH (20:44)
[2019-11-06 00:04] LABS: Glucose,Whole Blood 110 mg/dL (75-99)
[2019-11-06] MEDS: INSULIN ASPART (NovoLOG) 100 UNIT/ML VIAL SQ SCH ×4 (00:11→17:45)
[2019-11-06] MEDS: ARTIFICIAL TEARS-HYPROMELLOSE DROPS 15 ML BTL BOTH EYES SCH ×2 (00:11→08:49)
[2019-11-06] MEDS: PROPOFOL 1,000 MG in EMPTY BAG 1 BAG IV SCH ×2 (02:50→06:26)
[2019-11-06] MEDS: IPRATROPIUM-ALBUTEROL 3 ML NEB INHALATION SCH ×5 (03:06→20:58)
[2019-11-06 05:11] LABS: African American GFR (CKD) >90 (>60 ml/min/1.73 sqM); Anion Gap 1 mmol/L; Blood Urea Nitrogen 12 mg/dL (9-20); Carbon Dioxide 26 mmol/L (22-30); Chloride 112 mmol/L (98-107); Glucose 109 mg/dL (74-99); Non-African American GFR(CKD) >90 (>60 ml/min/1.73 sqM); Potassium 3.7 mmol/L (3.5-5.1); Sodium 139 mmol/L (137-145)
[2019-11-06 05:42] LABS: ABG Base Excess 1.3 mmol/L; ABG HCO3 25 mmol/L (21-25); ABG PCO2 35 mmHg (35-45); ABG PH 7.46 (7.35-7.45); ABG PO2 184 mmHg (83-108); ABG TCO2 26 mmol/L (19-24); Allen Test Performed? Yes
[2019-11-06 06:03] LABS: Glucose,Whole Blood 114 mg/dL (75-99)
--- NOTE | 2019-11-06 06:09 | XR ---
EXAMINATION TYPE: XR chest 1V portable DATE OF EXAM: 11/06/2019 HISTORY: Tube placement. REFERENCE: Previous study dated 11/05/2019. FINDINGS: The patient is ET tube, NG tube and left internal jugular catheter remain in place, unchang ed in appearance. Heart size is within normal limits. There is minimal left basilar atelectasis and also some right bas ilar atelectasis. I suspect small effusions. Note is made of previous bone infarct neck on the right. IMPRESSION: BIBASILAR ATELECTASIS WITH SMALL, BILATERAL EFFUSIONS.
[2019-11-06] MEDS: SODIUM CHLORIDE 0.9% 1,000 ML IV SCH ×2 (06:30→17:50)
[2019-11-06 07:05] LABS: Basophils % (A) 0 %; Eosinophils # (A) 0.1 k/uL (0-0.7); Eosinophils % (A) 1 %; HGB 10.5 gm/dL (13.0-17.5); Lymphocytes # (A) 1.3 k/uL (1.0-4.8); Lymphocytes % (A) 16 %; MCH 32.6 pg (25.0-35.0); MCHC 33.7 g/dL (31.0-37.0); MCV 96.8 fL (80.0-100.0); Mean Platelet Volume 7.3; Monocytes # (A) 0.4 k/uL (0-1.0); Monocytes % (A) 5 %; Neutrophils # (A) 5.9 k/uL (1.3-7.7); Neutrophils % (A) 77 %; Platelet Count 243 k/uL (150-450); RDW 13.1 % (11.5-15.5); WBC 7.7 k/uL (3.8-10.6)
[2019-11-06] MEDS ORDERED: Potassium Replacement Protocol 1 EACH MISC MISCELLANE PRN (07:34)
[2019-11-06] MEDS ORDERED: POTASSIUM BICARBONATE/CIT AC 20 MEQ TABLET.EFF NG-TUBE SCH (08:00)
[2019-11-06] MEDS: PIPERACILLIN-TAZOBACTAM 3.375 GM in SODIUM CHLORIDE 0.9% 100 ML IVPB SCH ×4 (08:55→15:11)
[2019-11-06] MEDS: NOREPINEPHRINE 32 MG in SODIUM CHLORIDE 0.9% 218 ML IV SCH ×2 (08:55→16:02)
[2019-11-06] MEDS: CHLORHEXIDINE GLUCONATE 15 ML CUP MUCOUS MEM SCH (08:56)
[2019-11-06] MEDS: PANTOPRAZOLE 40 MG/10 ML VIAL IVP SCH ×2 (08:56→20:52)
[2019-11-06] MEDS: TICAGRELOR 90 MG TAB PO SCH ×3 (08:58→20:53)
[2019-11-06] MEDS: ASPIRIN 81 MG PO SCH ×2 (08:58→10:25)
[2019-11-06] MEDS ORDERED: FUROSEMIDE 10 MG/ML 4 ML VIAL IV STA (10:26)
--- NOTE | 2019-11-06 10:35 | P.PN ---
Subjective Progress Note Date: 11/06/19 On 11/06/2019 I'm seeing the patient for a follow-up. The patient this morning has received a sedation holiday. At the time of my evaluation this morning he was awake although somewhat weak on the left side yet he was able to follow simple commands. When the process of getting some weaning parameters and given the patient spontaneous breathing trial and preparation for possible extubation today. In terms of vent support, the patient was an assist-control mode of ventilation at the rate of 24 with a tidal volume of 550 and FiO2 of 50% with a PEEP of 5. The blood. From this morning showed a pH of 7.46 with a pCO2 of 35 and pO2 of 184. Chest x-ray shows mild pulmonary congestion. He is afebrile this morning. His sputum analysis was collected on 11/03/2019 showing presumptive staph aureus and the patient is still on IV Zosyn. Hemodynamically he is stable. His innominate sinus rhythm. He is not receiving any pressors. He is receiving IV fluids at the rate of 50 mL an hour. There is a drop in hemoglobin as the patient had some limited upper GI bleed and current hemoglobin is at 10.5. Overall energy output is low at this point in time. Urine output is adequate. The patient is still On a combination of aspirin and Alimta. He is also on high-dose statins with Lipitor. He was taken off the levo fed this morning. Metoprolol or beta blockers have not been initiated yet. In terms of his neurologic evaluation, the patient was seen by neurology and the patient was scheduled to have some deficits in the left upper and left lower extremity. He has upgoing toes bilaterally and there is signs of acute CVA post cardiac arrest. Nevertheless, he is not completely flaccid in the left side. Objective - Vital Signs Vital signs: Vital Signs Temp 98.3 F 11/06/19 08:00 Pulse 85 11/06/19 10:00 Resp 19 11/06/19 10:00 BP 97/62 11/06/19 06:00 Pulse Ox 98 11/06/19 10:00 Intake & Output 11/05/19 11/06/19 11/06/19 18:59 06:59 18:59 Intake Total 9320.463 6636.160 700.272 Output Total 675 386 135 Balance 7129.851 4221.160 565.272 Weight 98.5 kg 99 kg Intake: IV 1322 854 371 .9NS Pressure BAg 72 54 21 ACETAMINOPHEN IV (For NPO 100 ) 1,000 mg In Empty Bag 1 bag @ 400 mls/hr IVPB Q6HR PRN Rx#:[id number] Piperacillin-Tazobactam 3 175 125 50 .375 gm In Sodium Chloride 0.9% 100 ml @ 25 mls/hr IVPB Q8HR [facility] Rx# :[id number] Sodium Chloride 0.9% 1, 975 675 300 000 ml @ 75 mls/hr IV . [id number] [facility] Rx#:[id number] Intake, IV Titration 256.247 206.160 119.272 Amount Norepinephrine 32 mg In 64.357 51.320 Sodium Chloride 0.9% 218 ml @ 0.05 MCG/KG/MIN 2. 236 mls/hr IV .Q24H [facility] Rx#:[id number] Propofol 1,000 mg In 191.890 206.160 67.952 Empty Bag 1 bag @ Titrate IV .Q0M [facility] Rx#: [id number] Tube Feeding 80 280 140 Other 30 90 70 Output: Urine 675 386 135 Other: Voiding Method Indwelling Catheter Indwelling Catheter Indwelling Catheter ABP, PAP, CO, CI - Last Documented Arterial Blood Pressure 127/65 - Exam GENERAL EXAM: 64-year-old gentleman, intubated, sedated on mechanical ventilator, the patient's is currently receiving a spontaneous breathing trial. He is off sedation and was given a sedation holiday with adequate recovery and adequate level of alertness. HEAD: Normocephalic. EYES: Normal reaction of pupils, equal size. NOSE: Clear with pink turbinates. THROAT: No erythema or exudates. NECK: No masses, no JVD. CHEST: No chest wall deformity. LUNGS: Equal air entry with crackles in the posterior bases. CVS: S1 and S2 normal with no audible murmur, regular rhythm. ABDOMEN: No hepatosplenomegaly, normal bowel sounds, no guarding or rigidity. SPINE: No scoliosis or deformity SKIN: No rashes CENTRAL NERVOUS SYSTEM: the patient is being given a sedation holiday. Is able to follow some simple commands as mentioned in my dictation. EXTREMITIES: There is no peripheral edema. No clubbing, no cyanosis. Peripheral pulses are intact. - Labs CBC & Chem 7: 12/21/19 04:40 11/06/19 04:40 Labs: Abnormal Lab Results - Last 24 Hours (Table) 11/05/19 11/05/19 11/05/19 Range/Units 18:20 18:56 23:54 RBC (4.30-5.90) m/uL Hgb (13.0-17.5) gm/dL Hct (39.0-53.0) % ABG pH 7.46 H (7.35-7.45) ABG pO2 152 H (83-108) mmHg ABG HCO3 26 H (21-25) mmol/L ABG Total CO2 27 H (19-24) mmol/L ABG O2 Saturation 99.5 H (94-97) % Chloride (98-107) mmol/L Creatinine (0.66-1.25) mg/dL Glucose (74-99) mg/dL POC Glucose (mg/dL) 102 H 110 H (75-99) mg/dL Calcium (8.4-10.2) mg/dL 11/06/19 11/06/19 11/06/19 Range/Units 04:40 04:40 05:25 RBC 3.20 L (4.30-5.90) m/uL Hgb 10.5 L (13.0-17.5) gm/dL Hct 31.0 L (39.0-53.0) % ABG pH 7.46 H (7.35-7.45) ABG pO2 184 H (83-108) mmHg ABG HCO3 (21-25) mmol/L ABG Total CO2 26 H (19-24) mmol/L ABG O2 Saturation 100.0 H (94-97) % Chloride 112 H (98-107) mmol/L Creatinine 0.53 L (0.66-1.25) mg/dL Glucose 109 H (74-99) mg/dL POC Glucose (mg/dL) (75-99) mg/dL Calcium 8.0 L (8.4-10.2) mg/dL 11/06/19 Range/Units 05:51 RBC (4.30-5.90) m/uL Hgb (13.0-17.5) gm/dL Hct (39.0-53.0) % ABG pH (7.35-7.45) ABG pO2 (83-108) mmHg ABG HCO3 (21-25) mmol/L ABG Total CO2 (19-24) mmol/L ABG O2 Saturation (94-97) % Chloride (98-107) mmol/L Creatinine (0.66-1.25) mg/dL Glucose (74-99) mg/dL POC Glucose (mg/dL) 114 H (75-99) mg/dL Calcium (8.4-10.2) mg/dL Microbiology - Last 24 Hours (Table) 11/04/19 19:42 Blood Culture - Preliminary Blood No Growth after 24 hours 11/04/19 18:30 Blood Culture - Preliminary Blood No Growth after 24 hours 11/05/19 05:19 Gram Stain - Preliminary Sputum Sputum Culture - Preliminary 11/03/19 21:10 Gram Stain - Preliminary Sputum Sputum Culture - Preliminary Presumptive Staph aureus Assessment and Plan Plan: 1 acute STEMI with secondary acute ventricular fibrillation and secondary Cardiac arrest requiring defibrillation 3, epinephrine, amiodarone secondary to ST segment elevation myocardial infarction.the patient underwent emergent cardiac catheterization and stenting of the LAD. There was resuscitation performed out of the hospital. My understanding that the patient did not receive any CPR status, visit cardiac arrest and the initial 8 minutes past without any intervention. Following that the patient required resuscitation as mentioned the EMS and the exact downtime is at least 17 minutes prior to obtaining rhythm. As such the patient was down for more than 25 minutes raising the concern for hypoxic encephalopathy. This morning, the patient is hemodynamically stable. Pressors were discontinued earlier this morning. He is currently maintaining his own blood pressure. He remains on a combination of aspirin and Brilinta. He is awake. Is the process of undergoing a spontaneous breathing trial. There are signs of a left-sided weakness consistent with CVA as the patient is weak on the left upper and left lower extremity compared to right. Please refer to the neurology evaluation done earlier. 2 Coronary artery disease with 100% occlusion of the LAD with subsequent stenting down to 0%. 3 Acute hypoxemic respiratory failure secondary to above, currently intubated on mechanical ventilator.there is evidence of pulmonary vessel congestion/edema in addition to a right lower lobe pulmonary infiltrate raising the concern for an underlying right lower lobe pneumonia and the patient is currently on IV Zosyn. The chest x-ray from today shows mild pulmonary vascular congestion. His oxygenation is improved. He is doing well on a mechanical ventilator. The patient was found to have presumptive staph in his sputum. He is currently on IV Zosyn. We'll not make any antibiotic adjustments still final cultures and sensitivities are available. Meanwhile his chest x-rays improved. There is some mild pulmonary vascular congestion and he will be given a dose of Lasix. 4 Remote history of smoking quit in 1998. 5 Recent laminectomy 09/22/2019. 6 Chronic back pain. 7 Osteoarthritis with previous left hip replacement left knee arthroplasty. 8 Gastroesophageal reflux disease. 9 History of basal cell carcinoma. 10 History esophageal reflux disease. 11 unresponsiveness, improving and the patient has regained some consciousness as his taken off sedation. 12 labile blood pressure, Plan Is a critically ill male patient post cardiac arrest, hemodynamically improved. Neurologically improved on today's evaluation. IV fluids at 75 mL an hour Discontinue pressors Given Lasix 40 mg IV push Sedation holiday Spontaneous breathing trial with a pressure support of 5 and a PEEP of 5 Weaning parameters checked Awaiting final cultures and sensitivities on his sputum culture showed presumptive staph Continue the bronchodilators Monitor hemoglobin on watch for any signs of upper GI bleed Drop in hemoglobin was noted No enteral feeding for now IV Protonix Possible extubation today Condition remains critical and will continue to follow make further recommendations based on his progress. Evaluation was done and more than 30 minutes. Time with Patient: Greater than 30
--- NOTE | 2019-11-06 11:11 | P.PN ---
Progress Note - Text Progress Note Date: 11/06/19 This is a 64-year-old gentleman who was admitted to the hospital with cardiac arrest and anterior wall myocardial infarction. Patient was just extubated. Patient seemed to be alert and able to follow commands, though seemed to be lethargic. Patient appears that there maybe some left-sided weakness, and computed tomography scan is also showed findings suggestive of CVA. His blood pressure in the range of 159/60. Heart rate is about 96. Undergone initiated him on by mouth Coreg and also lisinopril. We'll may use IV Lopressor when necessary as long as patient is nothing by mouth. Patient will get physical therapy. Continue rest of the medication. Physical examination: Patient is alert, in no acute distress. No JVD. Lungs show few scattered rhonchi. Heart is regular. No seemed edema. Final impression: #1. Status post acute anterolateral wall MN #2. Status post cardiac arrest #3. Possible CVA #4. Ischemic cardio myopathy. Plan we'll continue with beta blockers, HALLEY inhibitor, aspirin, and also Brillinta. Physical therapy and speech therapy.
[2019-11-06 11:40] LABS: Glucose,Whole Blood 103 mg/dL (75-99)
[2019-11-06] MEDS ORDERED: METOPROLOL TARTRATE 5 MG/5 ML VIAL IVP PRN (11:46)
[2019-11-06] MEDS ORDERED: VANCOMYCIN IV PER PHARMACY 1 EACH MISC MISCELLANE PRN (12:26)
[2019-11-06] MEDS ORDERED: VANCOMYCIN 2,000 MG in SODIUM CHLORIDE 0.9% 500 ML 500 ML IVPB ONE (13:00)
[2019-11-06 17:44] LABS: African American GFR (CKD) >90 (>60 ml/min/1.73 sqM); Anion Gap 6 mmol/L; Blood Urea Nitrogen 13 mg/dL (9-20); Calcium 8.1 mg/dL (8.4-10.2); Carbon Dioxide 26 mmol/L (22-30); Chloride 111 mmol/L (98-107); Glucose 99 mg/dL (74-99); Magnesium 1.8 mg/dL (1.6-2.3); Non-African American GFR(CKD) >90 (>60 ml/min/1.73 sqM); Potassium 3.1 mmol/L (3.5-5.1); Sodium 143 mmol/L (137-145)
[2019-11-06 17:56] LABS: Glucose,Whole Blood 100 mg/dL (75-99)
[2019-11-06] MEDS: MAGNESIUM SULFATE-D5W PMX 1 GM in DEXTROSE/WATER 1 100ML.BAG IVPB SCH ×2 (18:20→20:53)
[2019-11-06] MEDS: POTASSIUM BICARBONATE/CIT AC 20 MEQ TABLET.EFF NG-TUBE SCH ×2 (18:21→20:56)
[2019-11-06] MEDS: CARVEDILOL 3.125 MG TAB PO SCH (19:27)
[2019-11-06] MEDS: ATORVASTATIN 80 MG TAB PO SCH (20:53)
[2019-11-06] MEDS ORDERED: IPRATROPIUM-ALBUTEROL 3 ML NEB INHALATION PRN (21:15)
--- NOTE | 2019-11-06 23:14 | P.PN ---
Progress Note - Text Progress Note Date: 11/06/19 Chief Complaint: witnessed cardiac arrest History of presenting complaint: This is a 64-year-old patient who follows with Dr. Patel. Chronic stable medical conditions include GERD, basal cell skin cancer, osteoarthritis, chronic low back pain with recent laminectomy and decompression in September of this year.. Patient was leaving for work when the heard him fall in the other room from the room. She found the patient unresponsive slumped over the couch. The downtime was about 8 minutes. EMS found to be in V. fib and was defibrillated 3 times and received epinephrine. He pulse did return. Patient was intubated and patient was presented to the ER showed ST segment elevation myocardial infarction. Patient had 100% occlusion of the mid LAD and was successfully stented. Patient was then brought to the ICU and was on the ventilator.Computed tomography scan showing acute ischemia right parietal occipital region. Patient also had dark aspirate from the stomach suggestive of GI bleed. Also felt to have aspiration pneumonia. Today-ICU. extubated this morning. Following some simple commands. at the bedside. On nasal cannula. Review of systems as above in the history cannot be obtained as patient lethargic Active Medications Al Hydroxide/Mg Hydroxide (Maalox) 30 ml PO Q4HR PRN PRN Reason: Heartburn Albuterol/Ipratropium (Duoneb 0.5 Mg-3 Mg/3 Ml Soln) 3 ml INHALATION RT-QID [facility] Albuterol/Ipratropium (Duoneb 0.5 Mg-3 Mg/3 Ml Soln) 3 ml INHALATION RT-Q2H PRN PRN Reason: Shortness Of Breath Or Wheezing Aspirin (Aspirin) 81 mg PO DAILY [facility] Last Admin: 11/06/19 10:25 Dose: 81 mg Documented by: Atorvastatin Calcium (Lipitor) 80 mg PO HS [facility] Last Admin: 11/06/19 20:53 Dose: 80 mg Documented by: Atropine Sulfate (Atropine) 0.5 mg IV ONCE PRN PRN Reason: Symptomatic Bradycardia Carvedilol (Coreg) 3.125 mg PO BID-W/MEALS [facility] Last Admin: 11/06/19 19:27 Dose: Not Given Documented by: Haloperidol Lactate (Haldol) 1 mg IVP Q2HR PRN PRN Reason: Agitation or Acute Psychosis Sodium Chloride (Saline 0.9%) 1,000 mls @ 75 mls/hr IV .[id number] [facility] Last Admin: 11/06/19 17:50 Dose: 75 mls/hr Documented by: Piperacillin Sod/Tazobactam (Sod 3.375 gm/ Sodium Chloride) 100 mls @ 25 mls/hr IVPB Q8HR [facility] Last Admin: 11/06/19 15:11 Dose: 25 mls/hr Documented by: Norepinephrine Bitartrate 32 (mg/ Sodium Chloride) 250 mls @ 2.236 mls/hr IV .Q24H [facility]; Protocol Last Admin: 11/06/19 16:02 Dose: Not Given Documented by: Vancomycin HCl 1,750 mg/ (Sodium Chloride) 500 mls @ 167 mls/hr IVPB Q8H [facility] Insulin Aspart (Novolog) 0 unit SQ Q6H [facility]; Protocol Last Admin: 11/06/19 17:45 Dose: Not Given Documented by: Lisinopril (Zestril) 5 mg PO DAILY [facility] Metoprolol Tartrate (Lopressor) 5 mg IVP Q8HR PRN PRN Reason: Blood Pressure - High Last Admin: 11/06/19 16:48 Dose: 5 mg Documented by: Miscellaneous Information (Magnesium Per Protocol) 1 each MISCELLANE DAILY PRN; Protocol PRN Reason: Per Protocol Miscellaneous Information (Potassium Per Protocol) 1 each MISCELLANE DAILY PRN; Protocol PRN Reason: Per Protocol Morphine Sulfate (Morphine Sulfate (Inj)) 2 mg IVP Q4H PRN PRN Reason: SEVERE Pain/Discomfort Last Admin: 11/04/19 16:28 Dose: 2 mg Documented by: Naloxone HCl (Narcan) 0.2 mg IV Q2M PRN PRN Reason: Opioid Reversal Nitroglycerin (Nitrostat) 0.4 mg SUBLINGUAL Q5M PRN PRN Reason: Chest Pain Pantoprazole Sodium (Protonix) 40 mg IVP BID [facility] Last Admin: 11/06/19 20:52 Dose: 40 mg Documented by: Ticagrelor (Brilinta) 90 mg PO BID [facility] Last Admin: 11/06/19 20:53 Dose: 90 mg Documented by: Zolpidem Tartrate (Ambien) 5 mg PO HS PRN PRN Reason: Insomnia Physical examination: VITAL SIGNS: 97.8, 87, 17, 128/84, 97% on 3 L GENERAL: Laying in bed, lethargic but following simple commands EYES: Pupils equal. Conjunctiva normal. HEENT: External appearance of nose and ears normal, NECK: JVD unable to assess, masses not palpable. HEART: First and second heart sounds are normal; no edema. LUNGS: Respiratory rate increased, diminished breath sounds. ABDOMEN: Soft, nontender, liver spleen not palpable, no masses palpable. PSYCH: Unable to assess,. NEUROLOGICAL: moved his head,.did attempt to say hello to me.some left-sided weakness INVESTIGATIONS, reviewed in the clinical context: potassium 3.1 crit 0.62 Previous testing White count 15.6 potassium 3.5 creatinine 0.84 AST 155 ALT 90 troponin I 4.2 LDL 119 EKG tracing personally reviewed by me-ST elevation in anterior leads Chest x-ray film personally reviewed by me-some cardiomegaly some venous prominence ET tube 2-D echo-EF 20-30%, multiple wall motion abnormality Computed tomography scan-idiopathic acute ischemia possibly in the right parietal occipital region sputum-MRSA Assessment: -Acute ST elevation myocardial infarction of the anterior wall, leading to cardiac arrest, POA -Emergent cardiac catheterization leading to angioplasty stenting of the LAD -Suspect acute upper GI bleed, combination of antiplatelet agents, acute stress -Acute congestive heart failure exacerbation from underlying acute WI, from systolic dysfunction EF 20-25%, improved -acute ischemia right parietal occipital, stroke causing left-sided weakness, new onset -Right lower lobe pneumonia,growing MRSA aspiration, POA, -GERD -BPH -Recent laminectomy L3 L4 L5 for spondylolisthesis and lower extremity radiculopathy and spinal stenosis and DJD: September 2019 -Acute hypoxic respiratory failure status post ventilator support, extubated today on November 06 Plan: continue with IV antibiotics. Nasal cannula. Prognosis is guarded. Discuss with the at the bedside.
[2019-11-07 00:19] LABS: Glucose,Whole Blood 87 mg/dL (75-99)
[2019-11-07] MEDS: PIPERACILLIN-TAZOBACTAM 3.375 GM in SODIUM CHLORIDE 0.9% 100 ML IVPB SCH ×3 (00:42→15:42)
[2019-11-07] MEDS: VANCOMYCIN 1,750 MG in SODIUM CHLORIDE 0.9% 500 ML 500 ML IVPB SCH ×4 (00:42→23:04)
[2019-11-07] MEDS: INSULIN ASPART (NovoLOG) 100 UNIT/ML VIAL SQ SCH ×2 (00:43→06:43)
[2019-11-07] MEDS: SODIUM CHLORIDE 0.9% 1,000 ML IV SCH ×2 (03:37→20:43)
[2019-11-07 05:10] LABS: Basophils % (A) 0 %; Eosinophils # (A) 0.1 k/uL (0-0.7); Eosinophils % (A) 1 %; HGB 11.2 gm/dL (13.0-17.5); Lymphocytes # (A) 1.3 k/uL (1.0-4.8); Lymphocytes % (A) 16 %; MCH 32.1 pg (25.0-35.0); MCV 94.5 fL (80.0-100.0); Mean Platelet Volume 7.5; Monocytes # (A) 0.5 k/uL (0-1.0); Monocytes % (A) 7 %; Neutrophils # (A) 5.8 k/uL (1.3-7.7); Neutrophils % (A) 74 %; Platelet Count 254 k/uL (150-450); RBC 3.49 m/uL (4.30-5.90); WBC 7.8 k/uL (3.8-10.6)
[2019-11-07 05:18] LABS: ALT 33 U/L (4-49); AST 36 U/L (17-59); African American GFR (CKD) >90 (>60 ml/min/1.73 sqM); Albumin 2.7 g/dL (3.5-5.0); Alkaline Phosphatase 126 U/L (38-126); Anion Gap 7 mmol/L; Blood Urea Nitrogen 13 mg/dL (9-20); Calcium 7.8 mg/dL (8.4-10.2); Carbon Dioxide 22 mmol/L (22-30); Chloride 113 mmol/L (98-107); Glucose 97 mg/dL (74-99); Non-African American GFR(CKD) >90 (>60 ml/min/1.73 sqM); Potassium 3.3 mmol/L (3.5-5.1); Sodium 142 mmol/L (137-145); Total Bilirubin 1.1 mg/dL (0.2-1.3); Total Protein 5.4 g/dL (6.3-8.2)
[2019-11-07] MEDS ORDERED: DILTIAZEM DRIP BOLUS FROM BAG 1 MG SOLN IV ONE (05:41)
[2019-11-07] MEDS ORDERED: DILTIAZEM 125 MG in SODIUM CHLORIDE 0.9% 100 ML IV SCH (05:45)
[2019-11-07 06:10] LABS: Glucose,Whole Blood 90 mg/dL (75-99)
--- NOTE | 2019-11-07 06:31 | XR ---
EXAMINATION TYPE: XR chest 1V portable DATE OF EXAM: 11/07/2019 HISTORY: Tube placement. REFERENCE: Previous study dated 11/06/2019. FINDINGS: The patient has been extubated. Patient is NG tube is been removed. A left internal jugular catheter remains in place, unchanged in appearance. The heart is upper limits of normal in size. There are small, bilateral effusions. There is bibasilar airspace disease, likely representing atelectasis. IMPRESSION: NO SIGNIFICANT INTERVAL CHANGE IN THE APPEARANCE THE CHEST.
[2019-11-07] MEDS: POTASSIUM BICARBONATE/CIT AC 20 MEQ TABLET.EFF NG-TUBE SCH ×2 (06:33→09:35)
[2019-11-07] MEDS: MAGNESIUM SULFATE-D5W PMX 1 GM in DEXTROSE/WATER 1 100ML.BAG IVPB SCH ×2 (06:34→09:34)
[2019-11-07] MEDS ORDERED: HEPARIN SODIUM,PORCINE 5,000 UNIT/ML 1 ML VIAL IV PRN (08:53)
[2019-11-07] MEDS ORDERED: HEPARIN SODIUM,PORCINE 5,000 UNIT/ML 1 ML VIAL IV ONE (09:00)
[2019-11-07] MEDS ORDERED: DEXTROSE 5% IN WATER 100 ML with AMIODARONE 150 MG IV ONE (09:20)
[2019-11-07] MEDS: IPRATROPIUM-ALBUTEROL 3 ML NEB INHALATION SCH ×4 (09:23→20:18)
[2019-11-07] MEDS ORDERED: AMIODARONE 360 MG in DEXTROSE 5% IN WATER 200 ML IV ONE ×2 (09:30)
[2019-11-07] MEDS: CARVEDILOL 3.125 MG TAB PO SCH ×2 (09:31→16:49)
[2019-11-07] MEDS: TICAGRELOR 90 MG TAB PO SCH ×2 (09:31→20:29)
[2019-11-07] MEDS: ASPIRIN 81 MG PO SCH (09:31)
[2019-11-07] MEDS: LISINOPRIL 5 MG TAB PO SCH (09:31)
[2019-11-07] MEDS: PANTOPRAZOLE 40 MG/10 ML VIAL IVP SCH ×2 (09:36→20:30)
[2019-11-07] MEDS: HEPARIN SOD,PORK IN 0.45% NACL 25,000 UNIT in 0.45% NACL 1 250ML.BAG IV SCH (10:25)
--- NOTE | 2019-11-07 10:45 | P.PN ---
Subjective Progress Note Date: 11/07/19 on 11/07/2019 the patient is extubated awake and a 2. Left upper extremity is weak in the left lower extremity is weaker. He still has a positive Babinski in the left lower extremity. Nevertheless, he is alert and his communicating and is answering questions. He did have a good sense of humor this morning. The patient overnight went into atrial fibrillation with rapid ventricular response. Currently is on amiodarone drip. He was started also on IV heparin. He remains on a combination of aspirin and Brilinta. His rhythm is back to normal sinus rhythm. Note that the A. fib did not affect his hemodynamics. He is afebrile. Chest x-ray from today shows some mild pulmonary vascular congestion. Sputum sample was collected showed MRSA and I added vancomycin to go along with the Zosyn that he was already on. He is afebrile. No nausea. No emesis.No pressors for now. He was started on Coreg a dose of 3.125 mg 1 tablet twice a day. He has adequate urine output. Adequate pulses in lower extremities bilaterally. No signs of any GI bleeding. Hemoglobin stable at 11.2. No other significant events overnight otherwise. Objective - Vital Signs Vital signs: Vital Signs Temp 98 F 11/07/19 04:00 Pulse 146 H 11/07/19 09:00 Resp 18 11/07/19 09:00 BP 113/87 11/07/19 09:00 Pulse Ox 93 L 11/07/19 09:00 Intake & Output 11/06/19 11/07/19 11/07/19 18:59 06:59 18:59 Intake Total 5545.192 3117.4 352.7 Output Total 3425 1235 70 Balance -1447.728 466.4 282.7 Weight 98.8 kg Intake: IV 1648 1701.4 352.7 .9NS Pressure BAg 72 72 6 Diltiazem 125 mg In 5 5 Sodium Chloride 0.9% 100 ml @ 5 MG/HR 5 mls/hr IV .Q24H [facility] Rx#:[id number] Magnesium Sulfate-D5w Pmx 100 100 1 gm In Dextrose/Water 1 100ml.bag @ 100 mls/hr IVPB Q1H [facility] Rx#: [id number] Piperacillin-Tazobactam 3 175 125 .375 gm In Sodium Chloride 0.9% 100 ml @ 25 mls/hr IVPB Q8HR [facility] Rx# :[id number] Sodium Chloride 0.9% 1, 900 900 75 000 ml @ 75 mls/hr IV . [id number] [facility] Rx#:[id number] Vancomycin 2,000 mg In 501 499.4 166.7 Sodium Chloride 0.9% 500 ml 500 ml @ 167 mls/hr IVPB ONCE ONE Rx#: [id number] Intake, IV Titration 119.272 Amount Norepinephrine 32 mg In 51.320 Sodium Chloride 0.9% 218 ml @ 0.05 MCG/KG/MIN 2. 236 mls/hr IV .Q24H [facility] Rx#:[id number] Propofol 1,000 mg In 67.952 Empty Bag 1 bag @ Titrate IV .Q0M [facility] Rx#: [id number] Tube Feeding 140 Other 70 Output: Urine 3425 1235 70 Other: Voiding Method Indwelling Catheter Indwelling Catheter ABP, PAP, CO, CI - Last Documented Arterial Blood Pressure 146/85 - Exam GENERAL EXAM: he is on 2 L about 2 by nasal cannula and alert and opening his eyes and communicating. HEAD: Normocephalic. EYES: Normal reaction of pupils, equal size. NOSE: Clear with pink turbinates. THROAT: No erythema or exudates. NECK: No masses, no JVD. CHEST: No chest wall deformity. LUNGS: Equal air entry with crackles in the posterior bases. CVS: S1 and S2 normal with no audible murmur, regular rhythm. ABDOMEN: No hepatosplenomegaly, normal bowel sounds, no guarding or rigidity. SPINE: No scoliosis or deformity SKIN: No rashes CENTRAL NERVOUS SYSTEM: the patient is being given a sedation holiday. Is able to follow some simple commands as mentioned in my dictation.the patient has left-sided weakness per left lower extremity is weaker than the left upper extremity. He is able to raise his left arm is gravity. No significant facial asymmetry. Swallow evaluation has not been done yet. He is or oa2. He still is a possibility skin lower extremities bilaterally. No clonus. EXTREMITIES: There is no peripheral edema. No clubbing, no cyanosis. Peripheral pulses are intact. - Labs CBC & Chem 7: 11/07/19 04:55 11/07/19 04:55 Labs: Abnormal Lab Results - Last 24 Hours (Table) 1211/06/19 11/06/19 Range/Units 11:29 17:00 17:44 RBC (4.30-5.90) m/uL Hgb (13.0-17.5) gm/dL Hct (39.0-53.0) % Potassium 3.1 L (3.5-5.1) mmol/L Chloride 111 H (98-107) mmol/L Creatinine 0.62 L (0.66-1.25) mg/dL POC Glucose (mg/dL) 103 H 100 H (75-99) mg/dL Calcium 8.1 L (8.4-10.2) mg/dL Total Protein (6.3-8.2) g/dL Albumin (3.5-5.0) g/dL 11/07/19 11/07/19 Range/Units 04:55 04:55 RBC 3.49 L (4.30-5.90) m/uL Hgb 11.2 L (13.0-17.5) gm/dL Hct 33.0 L (39.0-53.0) % Potassium 3.3 L (3.5-5.1) mmol/L Chloride 113 H (98-107) mmol/L Creatinine 0.56 L (0.66-1.25) mg/dL POC Glucose (mg/dL) (75-99) mg/dL Calcium 7.8 L (8.4-10.2) mg/dL Total Protein 5.4 L (6.3-8.2) g/dL Albumin 2.7 L (3.5-5.0) g/dL Microbiology - Last 24 Hours (Table) 11/04/19 19:42 Blood Culture - Preliminary Blood No Growth after 48 hours 11/04/19 18:30 Blood Culture - Preliminary Blood No Growth after 48 hours 11/05/19 05:19 Gram Stain - Preliminary Sputum Sputum Culture - Preliminary Presumptive Staph aureus Gram Neg Bacilli 11/03/19 21:10 Gram Stain - Final Sputum Sputum Culture - Final Methicillin resist S. aureus Assessment and Plan Plan: 1 acute STEMI with secondary acute ventricular fibrillation and secondary Cardiac arrest requiring defibrillation 3, epinephrine, amiodarone secondary to ST segment elevation myocardial infarction.the patient underwent emergent ca rdiac catheterization and stenting of the LAD. There was resuscitation performed out of the hospital. My understanding that the patient did not receive any CPR status, visit cardiac arrest and the initial 8 minutes past without any intervention. Following that the patient required resuscitation as mentioned the EMS and the exact downtime is at least 17 minutes prior to obtaining rhythm. As such the patient was down for more than 25 minutes raising the concern for hypoxic encephalopathy. This morning, the patient is hemodynamically stable. Pressors were discontinued and the patient is currently on a combination of aspirin and Brilinta in addition to Coreg 2 Coronary artery disease with 100% occlusion of the LAD with subsequent stenting down to 0%. 3 Acute hypoxemic respiratory failure secondary to above, currently intubated on mechanical ventilator.there is evidence of pulmonary vessel congestion/edema in addition to a right lower lobe pulmonary infiltrate raising the concern for an underlying right lower lobe pneumonia and the patient is currently on IV Zosyn. The chest x-ray from today shows mild pulmonary vascular congestion. sputum sample showed MRSA and vancomycin was added. The patient was weaned off the mechanical ventilator and the patient was extubated yesterday and currently is on 2 L of oxygen by nasal cannula. 4 Remote history of smoking quit in 1998. 5 Recent laminectomy 09/22/2019. 6 Chronic back pain. 7 Osteoarthritis with previous left hip replacement left knee arthroplasty. 8 Gastroesophageal reflux disease. 9 History of basal cell carcinoma. 10 History esophageal reflux disease. 11 Paroxysmal atrial fibrillation currently on amiodarone drip in addition to IV heparin. Rate is controlled for now 12 left-sided weakness secondary to a CVA post cardiac arrest. We'll need an MRI once more stable. Plan continue aspirin and Alimta on Coreg Continue IV heparin Continue amiodarone drip Continue Zosyn and vancomycin Aggressive pulmonary toileting Monitor neuro functions MRI of the brain was stable Swallow evaluation the morning Monitor hemoglobin on watch for any signs of upper GI bleed
[2019-11-07 10:47] LABS: INR 0.9 (<1.2); Partial Thromboplastin Time 25.1 sec (22.0-30.0)
--- NOTE | 2019-11-07 11:48 | P.PN ---
Subjective Progress Note Date: 11/07/19 This is a 63-year-old gentleman with history of cardiac arrest and an anterior wall myocardial infarction. Patient was extubated yesterday. Patient is communicative. Doesn't appear to be in acute distress. He went back into atrial fibrillation with rapid ventricular response. Patient was initiated on IV heparin and amiodarone. His also started on Coreg and lisinopril. Chest x- ray showed mild CHF. Lungs. P diplopia. Heart is regular. Irregular and fast. We'll continue current medical therapy. Patient has some weakness on the left side from CVA. May need from physical therapy Objective - Vital Signs Vital signs: Vital Signs Temp 97.3 F L 11/07/19 10:00 Pulse 84 11/07/19 11:00 Resp 16 11/07/19 11:00 BP 111/88 11/07/19 11:00 Pulse Ox 97 11/07/19 11:00 Intake & Output 11/06/19 11/07/19 11/07/19 18:59 06:59 18:59 Intake Total 1451.722 3211.4 1519.7 Output Total 3425 1235 520 Balance -1447.728 466.4 999.7 Weight 98.8 kg Intake: IV 1648 1701.4 1279.7 .9NS Pressure BAg 72 72 24 Dextrose 5% in Water 100 100 ml @ 618 mls/hr IV .Q10M ONE with Amiodarone 150 mg Rx#:[id number] Diltiazem 125 mg In 5 5 Sodium Chloride 0.9% 100 ml @ 5 MG/HR 5 mls/hr IV .Q24H [facility] Rx#:[id number] Magnesium Sulfate-D5w Pmx 100 200 1 gm In Dextrose/Water 1 100ml.bag @ 100 mls/hr IVPB Q1H [facility] Rx#: [id number] Piperacillin-Tazobactam 3 175 125 75 .375 gm In Sodium Chloride 0.9% 100 ml @ 25 mls/hr IVPB Q8HR [facility] Rx# :[id number] Sodium Chloride 0.9% 1, 900 900 375 000 ml @ 75 mls/hr IV . [id number] [facility] Rx#:[id number] Vancomycin 2,000 mg In 501 499.4 500.7 Sodium Chloride 0.9% 500 ml 500 ml @ 167 mls/hr IVPB ONCE ONE Rx#: [id number] Intake, IV Titration 119.272 Amount Norepinephrine 32 mg In 51.320 Sodium Chloride 0.9% 218 ml @ 0.05 MCG/KG/MIN 2. 236 mls/hr IV .Q24H [facility] Rx#:[id number] Propofol 1,000 mg In 67.952 Empty Bag 1 bag @ Titrate IV .Q0M [facility] Rx#: [id number] Oral 240 Tube Feeding 140 Other 70 Output: Urine 3425 1235 520 Other: Voiding Method Indwelling Catheter Indwelling Catheter Indwelling Catheter ABP, PAP, CO, CI - Last Documented Arterial Blood Pressure 146/85 - Exam GENERAL EXAM: Patient is alert and oriented and doesn't appear to be in any acute distress HEENT: Normocephalic. Normal reaction of pupils, equal size, normal range of extraocular motion. No erythema or exudates in the throat. NECK: No masses, no nuchal rigidity. CHEST: No chest wall deformity. LUNGS: Equal air entry with no crackles or wheeze. HEART: S1 and S2 normal with no audible mumurs or gallops. Regular rhythm, femorals equal on both sides.. ABDOMEN: No hepatosplenomegaly, normal bowel sounds, no guarding or rigidity. SKIN: No rashes CENTRAL NERVOUS SYSTEM: Left-sided weakness EXTREMITIES: No cyanosis, clubbing or edema. - Labs CBC & Chem 7: 11/07/19 04:55 11/07/19 04:55 Labs: Abnormal Lab Results - Last 24 Hours (Table) 11/06/19 11/06/19 11/07/19 Range/Units 17:00 17:44 04:55 RBC 3.49 L (4.30-5.90) m/uL Hgb 11.2 L (13.0-17.5) gm/dL Hct 33.0 L (39.0-53.0) % Potassium 3.1 L (3.5-5.1) mmol/L Chloride 111 H (98-107) mmol/L Creatinine 0.62 L (0.66-1.25) mg/dL POC Glucose (mg/dL) 100 H (75-99) mg/dL Calcium 8.1 L (8.4-10.2) mg/dL Total Protein (6.3-8.2) g/dL Albumin (3.5-5.0) g/dL 11/07/19 Range/Units 04:55 RBC (4.30-5.90) m/uL Hgb (13.0-17.5) gm/dL Hct (39.0-53.0) % Potassium 3.3 L (3.5-5.1) mmol/L Chloride 113 H (98-107) mmol/L Creatinine 0.56 L (0.66-1.25) mg/dL POC Glucose (mg/dL) (75-99) mg/dL Calcium 7.8 L (8.4-10.2) mg/dL Total Protein 5.4 L (6.3-8.2) g/dL Albumin 2.7 L (3.5-5.0) g/dL Microbiology - Last 24 Hours (Table) 11/05/19 05:19 Gram Stain - Preliminary Sputum Sputum Culture - Preliminary Methicillin resist S. aureus Gram Neg Bacilli 11/03/19 21:10 Gram Stain - Final Sputum Sputum Culture - Final Methicillin resist S. aureus 11/04/19 19:42 Blood Culture - Preliminary Blood No Growth after 48 hours 11/04/19 18:30 Blood Culture - Preliminary Blood No Growth after 48 hours Assessment and Plan (1) Paroxysmal atrial fibrillation Current Visit: Yes Status: Acute Code(s): I48.0 - PAROXYSMAL ATRIAL FIBRILLATION SNOMED Code(s): 781162691 (2) Cardiac arrest Current Visit: Yes Status: Acute Code(s): I46.9 - CARDIAC ARREST, CAUSE UNSPECIFIED SNOMED Code(s): 264909837 (3) STEMI (ST elevation myocardial infarction) Current Visit: Yes Status: Acute Code(s): I21.3 - ST ELEVATION (STEMI) MYOCARDIAL INFARCTION OF [facility] [place] [facility] SNOMED Code(s): 59806737 (4) Ischemic cardiomyopathy Current Visit: Yes Status: Acute Code(s): I25.5 - ISCHEMIC CARDIOMYOPATHY SNOMED Code(s): 399240265 (5) Heart failure, acute systolic Current Visit: Yes Status: Acute Code(s): I50.21 - ACUTE SYSTOLIC (CONGESTIVE) HEART FAILURE SNOMED Code(s): 985920771 Plan: Continue with IV amiodarone. Will switch to by mouth amiodarone. Continue with heparin, aspirin, and alsoBrillinta. Also initiated on Coreg and lisinopril along with diuretics. Prognosis still guarded. We'll repeat the echocardiogram tomorrow
[2019-11-07] MEDS ORDERED: POTASSIUM BICARBONATE/CIT AC 20 MEQ TABLET.EFF NG-TUBE SCH (15:00)
[2019-11-07] MEDS: NOREPINEPHRINE 32 MG in SODIUM CHLORIDE 0.9% 218 ML IV SCH (15:25)
[2019-11-07] MEDS: AMIODARONE 300 MG in DEXTROSE 5% IN WATER 250 ML IV SCH ×2 (15:42)
[2019-11-07] MEDS ORDERED: LACTULOSE 20 GM/30 ML CUP PO ONE (17:00)
[2019-11-07] MEDS: HALOPERIDOL LACTATE 5 MG/ML 1 ML VIAL IVP PRN (19:03)
[2019-11-07] MEDS: ATORVASTATIN 80 MG TAB PO SCH (20:29)
--- NOTE | 2019-11-07 21:14 | P.PN ---
Progress Note - Text Progress Note Date: 11/07/19 Chief Complaint: witnessed cardiac arrest interval history: This is a 64-year-old patient who follows with Dr. Patel. Chronic stable medical conditions include GERD, basal cell skin cancer, osteoarthritis, chronic low back pain with recent laminectomy and decompression in September of this year.. Patient was leaving for work when the heard him fall in the other room from the room. She found the patient unresponsive slumped over the couch. The downtime was about 8 minutes. EMS found to be in V. fib and was defibrillated 3 times and received epinephrine. He pulse did return. Patient was intubated and patient was presented to the ER showed ST segment elevation myocardial infarction. Patient had 100% occlusion of the mid LAD and was successfully stented. Patient was then brought to the ICU and was on the ventilator.Computed tomography scan showing acute ischemia right parietal occipital region. Patient also had dark aspirate from the stomach suggestive of GI bleed. Also felt to have aspiration pneumonia.patient was extubated November 06. Today-ICU. this morning went into atrial fibrillation. Was started on IV Cardizem. Went back into sinus rhythm. IV Cardizem was discontinued. Also started on IV amiodarone. cardiology also only started the patient on IV heparin.patient is awake following commands still slightly slow. Remains a bit weak on the left side. Able to answer questions slowly. Review of systems: Was done for constitutional, cardiovascular, GI, pulmonary. relevant finding as above Active Medications Al Hydroxide/Mg Hydroxide (Maalox) 30 ml PO Q4HR PRN PRN Reason: Heartburn Last Admin: 11/07/19 03:36 Dose: 30 ml Documented by: Albuterol/Ipratropium (Duoneb 0.5 Mg-3 Mg/3 Ml Soln) 3 ml INHALATION RT-QID [facility] Last Admin: 11/07/19 20:18 Dose: Not Given Documented by: Albuterol/Ipratropium (Duoneb 0.5 Mg-3 Mg/3 Ml Soln) 3 ml INHALATION RT-Q2H PRN PRN Reason: Shortness Of Breath Or Wheezing Aspirin (Aspirin) 81 mg PO DAILY [facility] Last Admin: 11/07/19 09:31 Dose: 81 mg Documented by: Atorvastatin Calcium (Lipitor) 80 mg PO HS [facility] Last Admin: 11/07/19 20:29 Dose: 80 mg Documented by: Atropine Sulfate (Atropine) 0.5 mg IV ONCE PRN PRN Reason: Symptomatic Bradycardia Carvedilol (Coreg) 3.125 mg PO BID-W/MEALS [facility] Last Admin: 11/07/19 16:49 Dose: 3.125 mg Documented by: Furosemide (Lasix) 20 mg PO DAILY [facility] Haloperidol Lactate (Haldol) 1 mg IVP Q2HR PRN PRN Reason: Agitation or Acute Psychosis Last Admin: 11/07/19 19:03 Dose: 1 mg Documented by: Heparin Sodium (Porcine) (Heparin) 0 unit IV PER PROTOCOL PRN; Protocol PRN Reason: Low PTT Last Admin: 11/07/19 16:49 Dose: 4,000 unit Documented by: Sodium Chloride (Saline 0.9%) 1,000 mls @ 75 mls/hr IV .[id number] [facility] Last Admin: 11/07/19 20:43 Dose: 75 mls/hr Documented by: Piperacillin Sod/Tazobactam (Sod 3.375 gm/ Sodium Chloride) 100 mls @ 25 mls/hr IVPB Q8HR [facility] Last Admin: 11/07/19 15:42 Dose: 25 mls/hr Documented by: Norepinephrine Bitartrate 32 (mg/ Sodium Chloride) 250 mls @ 2.236 mls/hr IV .Q24H [facility]; Protocol Last Admin: 11/07/19 15:25 Dose: Not Given Documented by: Vancomycin HCl 1,750 mg/ (Sodium Chloride) 500 mls @ 167 mls/hr IVPB Q8H [facility] Last Admin: 11/07/19 13:17 Dose: 167 mls/hr Documented by: Amiodarone HCl 300 mg/ (Dextrose/Water) 250 mls @ 25 mls/hr IV .Q10H [facility]; Protocol Stop: 11/08/19 09:29 Last Admin: 11/07/19 15:42 Dose: 0.5 mg/min, 25 mls/hr Documented by: Heparin Sodium/Sodium Chloride (25,000 unit/ Sodium Chloride) 250 mls @ 9.9 mls/hr IV .Q24H [facility]; Protocol Last Titration: 11/07/19 16:49 Dose: 13 units/kg/hr, 12.87 mls/hr Documented by: Lisinopril (Zestril) 5 mg PO DAILY [facility] Last Admin: 11/07/19 09:31 Dose: 5 mg Documented by: Metoprolol Tartrate (Lopressor) 5 mg IVP Q8HR PRN PRN Reason: Blood Pressure - High Last Admin: 11/06/19 16:48 Dose: 5 mg Documented by: Miscellaneous Information (Magnesium Per Protocol) 1 each MISCELLANE DAILY PRN; Protocol PRN Reason: Per Protocol Miscellaneous Information (Potassium Per Protocol) 1 each MISCELLANE DAILY PRN; Protocol PRN Reason: Per Protocol Miscellaneous Information (Vancomycin Trough Due) 0 each MISCELLANE DIRECTED ONE Stop: 11/08/19 05:01 Morphine Sulfate (Morphine Sulfate (Inj)) 2 mg IVP Q4H PRN PRN Reason: SEVERE Pain/Discomfort Last Admin: 11/04/19 16:28 Dose: 2 mg Documented by: Naloxone HCl (Narcan) 0.2 mg IV Q2M PRN PRN Reason: Opioid Reversal Nitroglycerin (Nitrostat) 0.4 mg SUBLINGUAL Q5M PRN PRN Reason: Chest Pain Pantoprazole Sodium (Protonix) 40 mg IVP BID [facility] Last Admin: 11/07/19 20:30 Dose: 40 mg Documented by: Spironolactone (Aldactone) 25 mg PO DAILY [facility] Ticagrelor (Brilinta) 90 mg PO BID [facility] Last Admin: 11/07/19 20:29 Dose: 90 mg Documented by: Zolpidem Tartrate (Ambien) 5 mg PO HS PRN PRN Reason: Insomnia Physical examination: VITAL SIGNS: 97.3, 101, 20, 120/87, medicine percent on 2 L GENERAL: propped up in bed, awake, answering questions slowly EYES: Pupils equal. Conjunctiva normal. HEENT: External appearance of nose and ears normal, NECK: JVD unable to assess, masses not palpable. HEART: First and second heart sounds are normal; no edema. LUNGS: Respiratory rate normal,, diminished breath sounds. ABDOMEN: Soft, nontender, liver spleen not palpable, no masses palpable. PSYCH: answering questions NEUROLOGICAL: following commands, power left side 4/5 INVESTIGATIONS, reviewed in the clinical context: white count 7.8 hemoglobin 11.2 potassium 3.3 creatinine 0.56 Previous testing White count 15.6 potassium 3.5 creatinine 0.84 AST 155 ALT 90 troponin I 4.2 LDL 119 EKG tracing personally reviewed by me-ST elevation in anterior leads Chest x-ray film personally reviewed by me-some cardiomegaly some venous prominence ET tube 2-D echo-EF 20-30%, multiple wall motion abnormality Computed tomography scan-idiopathic acute ischemia possibly in the right parietal occipital region sputum-MRSA Assessment: -Acute ST elevation myocardial infarction of the anterior wall, leading to cardiac arrest, POA -Emergent cardiac catheterization leading to angioplasty stenting of the LAD -Suspect acute upper GI bleed, combination of antiplatelet agents, acute stress -Acute congestive heart failure exacerbation from underlying acute VT, from systolic dysfunction EF 20-25%, improved -acute ischemia right parietal occipital, stroke causing left-sided weakness, -Right lower lobe pneumonia,growing MRSA aspiration, POA, -GERD -BPH -Recent laminectomy L3 L4 L5 for spondylolisthesis and lower extremity radiculopathy and spinal stenosis and DJD: September 2019 -Acute hypoxic respiratory failure status post ventilator support, extubated on November 06 -Paroxysmal atrial fibrillation today. Back in sinus rhythm. Getting IV amiodarone Plan: care was discussed with the patient. Continue current medication treatment plan. Patient getting IV amiodarone and IV heparin per cardiology. continue current antibiotics for at least 24 hours.PT and OT to continue. Care was discussed with the patient's and daughter.patient is following with neurology, pulmonary, cardiology
[2019-11-08] MEDS: HALOPERIDOL LACTATE 5 MG/ML 1 ML VIAL IVP PRN ×3 (01:21→20:13)
[2019-11-08] MEDS: AMIODARONE 300 MG in DEXTROSE 5% IN WATER 250 ML IV SCH ×2 (01:23)
[2019-11-08] MEDS: PIPERACILLIN-TAZOBACTAM 3.375 GM in SODIUM CHLORIDE 0.9% 100 ML IVPB SCH ×4 (01:25→23:49)
[2019-11-08] MEDS ORDERED: VANCOMYCIN TROUGH DUE 1 EACH MISC MISCELLANE ONE (05:00)
[2019-11-08 05:13] LABS: Basophils % (A) 1 %; Eosinophils # (A) 0.2 k/uL (0-0.7); Eosinophils % (A) 3 %; HCT 34.9 % (39.0-53.0); HGB 11.6 gm/dL (13.0-17.5); Lymphocytes # (A) 1.5 k/uL (1.0-4.8); Lymphocytes % (A) 18 %; MCH 32.2 pg (25.0-35.0); MCHC 33.4 g/dL (31.0-37.0); MCV 96.5 fL (80.0-100.0); Mean Platelet Volume 7.1; Monocytes # (A) 0.6 k/uL (0-1.0); Monocytes % (A) 7 %; Neutrophils # (A) 5.7 k/uL (1.3-7.7); Neutrophils % (A) 70 %; Platelet Count 295 k/uL (150-450); RBC 3.61 m/uL (4.30-5.90); RDW 13.2 % (11.5-15.5); WBC 8.2 k/uL (3.8-10.6)
[2019-11-08 05:32] LABS: ALT 35 U/L (4-49); AST 44 U/L (17-59); African American GFR (CKD) >90 (>60 ml/min/1.73 sqM); Albumin 2.9 g/dL (3.5-5.0); Alkaline Phosphatase 141 U/L (38-126); Anion Gap 8 mmol/L; Blood Urea Nitrogen 13 mg/dL (9-20); Calcium 8.2 mg/dL (8.4-10.2); Carbon Dioxide 18 mmol/L (22-30); Chloride 114 mmol/L (98-107); Glucose 101 mg/dL (74-99); Non-African American GFR(CKD) >90 (>60 ml/min/1.73 sqM); Potassium 3.6 mmol/L (3.5-5.1); Sodium 140 mmol/L (137-145); Total Bilirubin 1.1 mg/dL (0.2-1.3); Total Protein 5.6 g/dL (6.3-8.2)
[2019-11-08] MEDS: HEPARIN SOD,PORK IN 0.45% NACL 25,000 UNIT in 0.45% NACL 1 250ML.BAG IV SCH (05:38)
[2019-11-08] MEDS: VANCOMYCIN 1,750 MG in SODIUM CHLORIDE 0.9% 500 ML 500 ML IVPB SCH ×3 (05:55→23:49)
[2019-11-08] MEDS: CARVEDILOL 3.125 MG TAB PO SCH ×2 (05:55→17:37)
[2019-11-08] MEDS: IPRATROPIUM-ALBUTEROL 3 ML NEB INHALATION SCH ×4 (07:19→20:54)
--- NOTE | 2019-11-08 07:25 | XR ---
EXAMINATION TYPE: XR chest 1V portable DATE OF EXAM: 11/08/2019 Comparison: 11/07/2019 Clinical History: 64-year-old male Tube placement Findings: Heart normal size. Relative upper lobe lucencies. Patchy right greater than left bibasilar opacities similar to slightly increased. Probable chondroid lesion redemonstrated right humeral head. Impression: Suspect background of emphysema. Some patchy right greater than left bibasilar areas of atelectasis a nd/or consolidation are slightly increased.
[2019-11-08] MEDS: FUROSEMIDE 20 MG TAB PO SCH (08:11)
[2019-11-08] MEDS: PANTOPRAZOLE 40 MG/10 ML VIAL IVP SCH ×2 (08:11→20:13)
[2019-11-08] MEDS: TICAGRELOR 90 MG TAB PO SCH ×2 (08:12→20:13)
[2019-11-08] MEDS: LISINOPRIL 5 MG TAB PO SCH (08:12)
[2019-11-08] MEDS: ASPIRIN 81 MG PO SCH (08:12)
[2019-11-08] MEDS: SPIRONOLACTONE 25 MG TAB PO SCH (08:12)
--- NOTE | 2019-11-08 09:26 | P.PN ---
Subjective Progress Note Date: 11/08/19 This is a 63-year-old gentleman with history of cardiac arrest and an anterior wall myocardial infarction. Patient was extubated yesterday. Patient is communicative. Doesn't appear to be in acute distress. He went back into atrial fibrillation with rapid ventricular response. Patient was initiated on IV heparin and amiodarone. His also started on Coreg and lisinopril. Chest x- ray showed mild CHF. Lungs. P diplopia. Heart is regular. Irregular and fast. We'll continue current medical therapy. Patient has some weakness on the left side from CVA. May need from physical therapy. 11/08/2019: This patient is status post cardiac arrest and stent placement of the LAD in the setting of anterior wall myocardial infarction. Patient is clinically doing well. Alert and doesn't appear to be in acute distress. Has some weakness on the left side. He is back in sinus rhythm with frequent APCs. He is on IV amiodarone, which is being discontinued. Patient will be started on by mouth amiodarone 600 mg a day. Patient will also be initiated on Eliquis 2.5 mg by mouth twice a day. Will discontinue heparin. Increase his activity. Patient could be transferred to [facility] care. Echocardiogram to be repeated Objective - Vital Signs Vital signs: Vital Signs Temp 98.7 F 11/08/19 08:00 Pulse 75 11/08/19 09:00 Resp 29 H 11/08/19 09:00 BP 132/91 11/08/19 09:00 Pulse Ox 91 L 11/08/19 09:00 Intake & Output 11/07/19 11/08/19 11/08/19 18:59 06:59 18:59 Intake Total 3112.76 1969.458 805.888 Output Total 965 945 435 Balance 2147.76 1024.458 370.888 Weight 97.1 kg Intake: IV 2089.4 1450 775 .9NS Pressure BAg 42 Dextrose 5% in Water 100 100 ml @ 618 mls/hr IV .Q10M ONE with Amiodarone 150 mg Rx#:[id number] Diltiazem 125 mg In 5 Sodium Chloride 0.9% 100 ml @ 5 MG/HR 5 mls/hr IV .Q24H [facility] Rx#:[id number] Magnesium Sulfate-D5w Pmx 200 1 gm In Dextrose/Water 1 100ml.bag @ 100 mls/hr IVPB Q1H [facility] Rx#: [id number] Piperacillin-Tazobactam 3 175 125 50 .375 gm In Sodium Chloride 0.9% 100 ml @ 25 mls/hr IVPB Q8HR [facility] Rx# :[id number] Sodium Chloride 0.9% 1, 900 825 225 000 ml @ 75 mls/hr IV . [id number] [facility] Rx#:[id number] Vancomycin 1,750 mg In 166.7 500 500 Sodium Chloride 0.9% 500 ml 500 ml @ 167 mls/hr IVPB Q8H [facility] Rx#: [id number] Vancomycin 2,000 mg In 500.7 Sodium Chloride 0.9% 500 ml 500 ml @ 167 mls/hr IVPB ONCE ONE Rx#: [id number] Intake, IV Titration 63.36 419.458 30.888 Amount Amiodarone 300 mg In 242.083 Dextrose 5% in Water 250 ml @ 0.5 MG/MIN 25 mls/hr IV .Q10H [facility] Rx#: [id number] Heparin Sod,Pork in 0.45% 63.36 177.375 30.888 NaCl 25,000 unit In 0.45 % NaCl 1 250ml.bag @ 10 UNITS/KG/HR 9.9 mls/hr IV .Q24H [facility] Rx#:[id number] Oral 960 100 Output: Urine 965 945 435 Other: Voiding Method Indwelling Catheter Indwelling Catheter Indwelling Catheter ABP, PAP, CO, CI - Last Documented Arterial Blood Pressure 119/55 - Exam GENERAL EXAM: Patient is alert and oriented and doesn't appear to be in any acute distress HEENT: Normocephalic. Normal reaction of pupils, equal size, normal range of extraocular motion. No erythema or exudates in the throat. NECK: No masses, no nuchal rigidity. CHEST: No chest wall deformity. LUNGS: Equal air entry with no crackles or wheeze. HEART: S1 and S2 normal with no audible mumurs or gallops. Regular rhythm, femorals equal on both sides.. ABDOMEN: No hepatosplenomegaly, normal bowel sounds, no guarding or rigidity. SKIN: No rashes CENTRAL NERVOUS SYSTEM: Left-sided weakness EXTREMITIES: No cyanosis, clubbing or edema. - Labs CBC & Chem 7: 11/08/19 05:00 11/08/19 05:00 Labs: Abnormal Lab Results - Last 24 Hours (Table) 11/08/19 11/08/19 11/08/19 Range/Units 05:00 05:00 07:05 RBC 3.61 L (4.30-5.90) m/uL Hgb 11.6 L (13.0-17.5) gm/dL Hct 34.9 L (39.0-53.0) % APTT 33.2 H (22.0-30.0) sec Chloride 114 H (98-107) mmol/L Carbon Dioxide 18 L (22-30) mmol/L Creatinine 0.58 L (0.66-1.25) mg/dL Glucose 101 H (74-99) mg/dL Calcium 8.2 L (8.4-10.2) mg/dL Alkaline Phosphatase 141 H (38-126) U/L Total Protein 5.6 L (6.3-8.2) g/dL Albumin 2.9 L (3.5-5.0) g/dL Microbiology - Last 24 Hours (Table) 11/04/19 19:42 Blood Culture - Preliminary Blood No Growth after 72 hours 11/04/19 18:30 Blood Culture - Preliminary Blood No Growth after 72 hours 11/05/19 05:19 Gram Stain - Final Sputum Sputum Culture - Final Methicillin resist S. aureus Stenotrophomonas maltophilia 11/03/19 21:10 Gram Stain - Final Sputum Sputum Culture - Final Methicillin resist S. aureus Assessment and Plan (1) Paroxysmal atrial fibrillation Current Visit: Yes Status: Acute Code(s): I48.0 - PAROXYSMAL ATRIAL FIBRILLATION SNOMED Code(s): 843081375 (2) Cardiac arrest Current Visit: Yes Status: Acute Code(s): I46.9 - CARDIAC ARREST, CAUSE UNSPECIFIED SNOMED Code(s): 754406289 (3) STEMI (ST elevation myocardial infarction) Current Visit: Yes Status: Acute Code(s): I21.3 - ST ELEVATION (STEMI) MYOCARDIAL INFARCTION OF [facility] SITE SNOMED Code(s): 64952553 (4) Ischemic cardiomyopathy Current Visit: Yes Status: Acute Code(s): I25.5 - ISCHEMIC CARDIOMYOPATHY SNOMED Code(s): 096770783 (5) Heart failure, acute systolic Current Visit: Yes Status: Acute Code(s): I50.21 - ACUTE SYSTOLIC (CONGESTIVE) HEART FAILURE SNOMED Code(s): 337963142 Plan: Discontinue heparin and initiate patient on Eliquis. We'll also start him on the way amiodarone. Increase activity. May be transferred to [facility] care unit.
[2019-11-08] MEDS ORDERED: AMIODARONE 200 MG TAB PO STA (09:59)
[2019-11-08] MEDS: SODIUM CHLORIDE 0.9% 1,000 ML IV SCH (10:15)
[2019-11-08] MEDS ORDERED: APIXABAN 2.5 MG TABLET PO ONE (10:26)
--- NOTE | 2019-11-08 12:10 | ECHOF ---
Referral Reason:Reassess heart function MEASUREMENTS -------- HEIGHT: 157.5 cm WEIGHT: 97.1 kg BP: FINDINGS -------- Sinus rhythm. Echo done 11/03/19: Limited Study for LV Function. Overall left ventricular systolic function is moderately impaired with, an EF between 35 - 40 %. Mi d anterior LV wall motion is hypokinetic. Mid lateral LV wall motion is hypokinetic. Mid heide septal LV wall motion is hypokinetic. Apical anterior LV wall motion is akinetic. Apical latera l LV wall motion is akinetic. Apical septum LV wall motion is akinetic. There is no pericardial effusion. CONCLUSIONS -------- 1. Sinus rhythm. 2. Echo done 11/03/19: Limited Study for LV Function. 3. Overall left ventricular systolic function is moderately impaired with, an EF between 35 - 40 %. 4. Mid anterior LV wall motion is hypokinetic. 5. Mid lateral LV wall motion is hypokinetic. 6. Mid anteroseptal LV wall motion is hypokinetic. 7. Apical anterior LV wall motion is akinetic. 8. Apical lateral LV wall motion is akinetic. 9. Apical septum LV wall motion is akinetic. 10. There is no pericardial effusion. [employer]: Grisel Hein RDCS
--- NOTE | 2019-11-08 13:09 | P.PN ---
Subjective Progress Note Date: 11/08/19 Principal diagnosis: Acute ST elevation myocardial infarction , and cardiac arrest requiring defibrillation 3. on 11/07/2019 the patient is extubated awake and a 2. Left upper extremity is weak in the left lower extremity is weaker. He still has a positive Babinski in the left lower extremity. Nevertheless, he is alert and his communicating and is answering questions. He did have a good sense of humor this morning. The patient overnight went into atrial fibrillation with rapid ventricular response. Currently is on amiodarone drip. He was started also on IV heparin. He remains on a combination of aspirin and Brilinta. His rhythm is back to normal sinus rhythm. Note that the A. fib did not affect his hemodynamics. He is afebrile. Chest x-ray from today shows some mild pulmonary vascular congestion. Sputum sample was collected showed MRSA and I added vancomycin to go along with the Zosyn that he was already on. He is afebrile. No nausea. No emesis.No pressors for now. He was started on Coreg a dose of 3.125 mg 1 tablet twice a day. He has adequate urine output. Adequate pulses in lower extremities bilaterally. No signs of any GI bleeding. Hemoglobin stable at 11.2. No other significant events overnight otherwise. Patient was reevaluated today on 11/08/2019, remains in the ICU, patient is presently on room air, remains on heparin drip and amiodarone and these are about to be discontinued by cardiology. Chest x-ray showed minimal bibasilar infiltrates/atelectasis. Patient is doing well overall, asymptomatic, mental status is a bit slow, and he is scheduled to have MRI of the brain. His electrodes are normal BUN is normal creatinine is normal, CBC is relatively normal. Echocardiogram this morning showed LV dysfunction and ejection fraction of 35-40%. Objective - Vital Signs Vital signs: Vital Signs Temp 97.4 F L 11/08/19 12:00 Pulse 82 11/08/19 12:00 Resp 14 11/08/19 12:00 BP 138/99 11/08/19 12:00 Pulse Ox 92 L 11/08/19 12:00 Intake & Output 11/07/19 11/08/19 11/08/19 18:59 06:59 18:59 Intake Total 3112.76 1969.458 905.888 Output Total 965 945 570 Balance 2147.76 1024.458 335.888 Weight 97.1 kg Intake: IV 2089.4 1450 875 .9NS Pressure BAg 42 Dextrose 5% in Water 100 100 ml @ 618 mls/hr IV .Q10M ONE with Amiodarone 150 mg Rx#:[id number] Diltiazem 125 mg In 5 Sodium Chloride 0.9% 100 ml @ 5 MG/HR 5 mls/hr IV .Q24H [facility] Rx#:[id number] Magnesium Sulfate-D5w Pmx 200 1 gm In Dextrose/Water 1 100ml.bag @ 100 mls/hr IVPB Q1H [facility] Rx#: [id number] Piperacillin-Tazobactam 3 175 125 75 .375 gm In Sodium Chloride 0.9% 100 ml @ 25 mls/hr IVPB Q8HR [facility] Rx# :[id number] Sodium Chloride 0.9% 1, 900 825 300 000 ml @ 75 mls/hr IV . [id number] [facility] Rx#:[id number] Vancomycin 1,750 mg In 166.7 500 500 Sodium Chloride 0.9% 500 ml 500 ml @ 167 mls/hr IVPB Q8H [facility] Rx#: [id number] Vancomycin 2,000 mg In 500.7 Sodium Chloride 0.9% 500 ml 500 ml @ 167 mls/hr IVPB ONCE ONE Rx#: [id number] Intake, IV Titration 63.36 419.458 30.888 Amount Amiodarone 300 mg In 242.083 Dextrose 5% in Water 250 ml @ 0.5 MG/MIN 25 mls/hr IV .Q10H [facility] Rx#: [id number] Heparin Sod,Pork in 0.45% 63.36 177.375 30.888 NaCl 25,000 unit In 0.45 % NaCl 1 250ml.bag @ 10 UNITS/KG/HR 9.9 mls/hr IV .Q24H [facility] Rx#:[id number] Oral 960 100 Output: Urine 965 945 570 Other: Voiding Method Indwelling Catheter Indwelling Catheter Urinal ABP, PAP, CO, CI - Last Documented Arterial Blood Pressure 119/55 - Exam GENERAL EXAM: Revealed 64-year-old white male in no distress, on room air. HEAD: Normocephalic. Atraumatic. ENT: PERRLA, EOMI, no active. CHEST: No chest wall deformity. LUNGS: Symmetrical chest expansion,minimal crackles at the bases. No rhonchi no wheezes. CVS: Normal S1 and S2, no S3 gallop. No murmur. ABDOMEN: Soft nontender no megaly no rebound no guarding. SPINE: No scoliosis or deformity SKIN: No rashes CENTRAL NERVOUS SYSTEM: Alert and oriented 3, mental status seems to be a bit slow, minimal left-sided weakness is noted. EXTREMITIES: There is no peripheral edema. No clubbing, no cyanosis. Peripheral pulses are intact. Psychiatric: Normal mood, normal affect, and normal mental status examination except for slightly slow mentation. Slightly off baseline according to family - Labs CBC & Chem 7: 11/08/19 05:00 11/08/19 05:00 Labs: Abnormal Lab Results - Last 24 Hours (Table) 11/08/19 11/08/19 11/08/19 Range/Units 05:00 05:00 07:05 RBC 3.61 L (4.30-5.90) m/uL Hgb 11.6 L (13.0-17.5) gm/dL Hct 34.9 L (39.0-53.0) % APTT 33.2 H (22.0-30.0) sec Chloride 114 H (98-107) mmol/L Carbon Dioxide 18 L (22-30) mmol/L Creatinine 0.58 L (0.66-1.25) mg/dL Glucose 101 H (74-99) mg/dL Calcium 8.2 L (8.4-10.2) mg/dL Alkaline Phosphatase 141 H (38-126) U/L Total Protein 5.6 L (6.3-8.2) g/dL Albumin 2.9 L (3.5-5.0) g/dL Microbiology - Last 24 Hours (Table) 11/04/19 19:42 Blood Culture - Preliminary Blood No Growth after 72 hours 11/04/19 18:30 Blood Culture - Preliminary Blood No Growth after 72 hours 11/05/19 05:19 Gram Stain - Final Sputum Sputum Culture - Final Methicillin resist S. aureus Stenotrophomonas maltophilia 11/03/19 21:10 Gram Stain - Final Sputum Sputum Culture - Final Methicillin resist S. aureus Assessment and Plan Assessment: Impression: Acute ST elevation myocardial infarction and cardiac arrest requiring defibrillation 3. Coronary artery disease, with 100% occlusion of the LAD requiring stenting. Acute hypoxic respiratory failure secondary to above, possibility of aspiration pneumonia is not entirely ruled out, but felt to be less likely. Chest x-ray is pointing mostly to atelectasis. Remote smoking history, quit in 1998. Degenerative joint disease and previous left hip replacement and left knee arthroplasty. History of basal cell carcinoma. Paroxysmal atrial fibrillation, presently on heparin and amiodarone being addressed by cardiology. Minimal left-sided weakness, possible small CVA, MRI is pending. Recommendation: Continue present supportive care measures. Continue cardiac meds as per cardiology. Continue antibiotics. Continue incentive spirometry and aggressive pulmonary toileting. Continue to monitor neuro status. MRI of the brain is pending. Swallow evaluation today. Continue GI and DVT prophylaxis. Updated his family on his condition, we'll continue to follow. Transferred to monitor bed today on selective. Time with Patient: Less than 30
--- NOTE | 2019-11-08 14:25 | P.PN ---
Subjective on-call hospitalist covering Dr. alejandre starting approximately 01/09/2019 this is a pleasant 64 years old male with past medical history of GERD, osteoarthritis, skin cancer with basal cell carcinoma.chronic low back pain with recent laminectomy and decompression in September of this year. patient presents on 11/03/2019 with unresponsiveness where he dropped on to home in the down time was 8 minutes. EMS found to be in V. fib and was defibrillated 3 times and received epinephrine. He pulse did return. Patient was intubated and patient was presented to the ER showed ST segment elevation myocardial infarction.patient underwent emergent cardiac cath with stent placed in the LAD, patient also found to have acute congestive heart failure with systolic decompensation shown ejection fraction of 20-25%. This hospital course was complicated with possible upper GI bleed however his hemoglobin remains stable, he had acute right parieto-occipital ischemic stroke with left hemiparesis and right lower lobe pneumonia with MRSA suspected to be aspirated. Patient also developed paroxysmal atrial fibrillation. Eventually patient got extubated however he remains in the ICU for further management Review of systems CONSTITUTIONAL: No fever, no malaise, no fatigue. HEENT: No recent visual problems or hearing problems. Denied any sore throat. CARDIOVASCULAR: No orthopnea, PND, no palpitations, no syncope. PULMONARY: No shortness of breath, no cough, no hemoptysis. GASTROINTESTINAL: No diarrhea, no nausea, no vomiting, no abdominal pain. Normoactive bowel sounds. NEUROLOGICAL: No headaches, no weakness, no numbness. HEMATOLOGICAL: Denies any bleeding or petechiae. GENITOURINARY: Denies any burning micturition, frequency, or urgency. MUSCULOSKELETAL/RHEUMATOLOGICAL: Denies any joint pain, swelling, or any muscle pain. ENDOCRINE: Denies any polyuria or polydipsia. Active Medications Generic Name Dose Route Start Last Admin Trade Name Freq PRN Reason Stop Dose Admin Al Hydroxide/Mg Hydroxide 30 ml 11/03/19 10:14 11/07/19 03:36 Maalox PO 30 ml Q4HR PRN Administration Heartburn Albuterol/Ipratropium 3 ml 11/07/19 08:00 11/08/19 11:23 Duoneb 0.5 Mg-3 Mg/3 Ml Soln INHALATION 3 ml RT-QID DARLENE Administration Albuterol/Ipratropium 3 ml 11/06/19 21:15 Duoneb 0.5 Mg-3 Mg/3 Ml Soln INHALATION RT-Q2H PRN Shortness Of Breath Or Wheezing Amiodarone HCl 200 mg 11/08/19 16:00 Cordarone PO TID DARLENE Apixaban 2.5 mg 11/08/19 21:00 Eliquis PO BID DARLENE Aspirin 81 mg 11/04/19 09:00 11/08/19 08:12 Aspirin PO 81 mg DAILY DARLENE Administration Atorvastatin Calcium 80 mg 11/03/19 21:00 11/07/19 20:29 Lipitor PO 80 mg HS DARLENE Administration Atropine Sulfate 0.5 mg 11/03/19 10:14 Atropine IV ONCE PRN Symptomatic Bradycardia Carvedilol 3.125 mg 11/06/19 17:30 11/08/19 05:55 Coreg PO 3.125 mg BID-W/MEALS DARLENE Administration Furosemide 20 mg 11/08/19 09:00 11/08/19 08:11 Lasix PO 20 mg DAILY DARLENE Administration Haloperidol Lactate 1 mg 11/06/19 19:58 11/08/19 01:21 Haldol IVP 1 mg Q2HR PRN Administration Agitation or Acute Psychosis Sodium Chloride 1,000 mls @ 75 mls/hr 11/03/19 10:15 11/08/19 10:15 Saline 0.9% IV 75 mls/hr .[id number] DARLENE Administration Piperacillin Sod/Tazobactam 100 mls @ 25 mls/hr 11/03/19 16:00 11/08/19 08:12 Sod 3.375 gm/ Sodium Chloride IVPB 25 mls/hr Q8HR DARLENE Administration Vancomycin HCl 1,750 mg/ 500 mls @ 167 mls/hr 11/06/19 22:00 11/08/19 14:02 Sodium Chloride IVPB 167 mls/hr Q8H DARLENE Administration Lisinopril 5 mg 11/07/19 09:00 11/08/19 08:12 Zestril PO 5 mg DAILY DARLENE Administration Metoprolol Tartrate 5 mg 11/06/19 11:46 11/06/19 16:48 Lopressor IVP 5 mg Q8HR PRN Administration Blood Pressure - High Miscellaneous Information 1 each 11/03/19 14:08 Magnesium Per Protocol MISCELLANE DAILY PRN Per Protocol Protocol Miscellaneous Information 1 each 11/06/19 07:34 Potassium Per Protocol MISCELLANE DAILY PRN Per Protocol Protocol Morphine Sulfate 2 mg 11/03/19 14:07 11/04/19 16:28 Morphine Sulfate (Inj) IVP 2 mg Q4H PRN Administration SEVERE Pain/Discomfort Naloxone HCl 0.2 mg 11/03/19 11:00 Narcan IV Q2M PRN Opioid Reversal Nitroglycerin 0.4 mg 11/03/19 10:14 Nitrostat SUBLINGUAL Q5M PRN Chest Pain Pantoprazole Sodium 40 mg 11/04/19 21:00 11/08/19 08:11 Protonix IVP 40 mg BID DARLENE Administration Spironolactone 25 mg 11/08/19 09:00 11/08/19 08:12 Aldactone PO 25 mg DAILY DARLENE Administration Ticagrelor 90 mg 11/03/19 21:00 11/08/19 08:12 Brilinta PO 90 mg BID DARLENE Administration Zolpidem Tartrate 5 mg 11/03/19 10:14 Ambien PO HS PRN Insomnia Objective - Vital Signs Vital signs: Vital Signs Temp 97.4 F L 11/08/19 12:00 Pulse 82 11/08/19 12:00 Resp 14 11/08/19 12:00 BP 138/99 11/08/19 12:00 Pulse Ox 92 L 11/08/19 12:00 Intake & Output 11/07/19 11/08/19 11/08/19 18:59 06:59 18:59 Intake Total 3112.76 1969.458 905.888 Output Total 965 945 570 Balance 2147.76 1024.458 335.888 Weight 97.1 kg 97.1 kg Intake: IV 2089.4 1450 875 .9NS Pressure BAg 42 Dextrose 5% in Water 100 100 ml @ 618 mls/hr IV .Q10M ONE with Amiodarone 150 mg Rx#:[id number] Diltiazem 125 mg In 5 Sodium Chloride 0.9% 100 ml @ 5 MG/HR 5 mls/hr IV .Q24H [facility] Rx#:[id number] Magnesium Sulfate-D5w Pmx 200 1 gm In Dextrose/Water 1 100ml.bag @ 100 mls/hr IVPB Q1H [facility] Rx#: [id number] Piperacillin-Tazobactam 3 175 125 75 .375 gm In Sodium Chloride 0.9% 100 ml @ 25 mls/hr IVPB Q8HR [facility] Rx# :[id number] Sodium Chloride 0.9% 1, 900 825 300 000 ml @ 75 mls/hr IV . [id number] [facility] Rx#:[id number] Vancomycin 1,750 mg In 166.7 500 500 Sodium Chloride 0.9% 500 ml 500 ml @ 167 mls/hr IVPB Q8H [facility] Rx#: [id number] Vancomycin 2,000 mg In 500.7 Sodium Chloride 0.9% 500 ml 500 ml @ 167 mls/hr IVPB ONCE ONE Rx#: [id number] Intake, IV Titration 63.36 419.458 30.888 Amount Amiodarone 300 mg In 242.083 Dextrose 5% in Water 250 ml @ 0.5 MG/MIN 25 mls/hr IV .Q10H [facility] Rx#: [id number] Heparin Sod,Pork in 0.45% 63.36 177.375 30.888 NaCl 25,000 unit In 0.45 % NaCl 1 250ml.bag @ 10 UNITS/KG/HR 9.9 mls/hr IV .Q24H [facility] Rx#:[id number] Oral 960 100 Output: Urine 965 945 570 Other: Voiding Method Indwelling Catheter Indwelling Catheter Urinal ABP, PAP, CO, CI - Last Documented Arterial Blood Pressure 119/55 - Exam GENERAL: The patient is alert and oriented x3, not in any acute distress. Well developed, well nourished. HEENT: Pupils are round and equally reacting to light. EOMI. No scleral icterus. No conjunctival pallor. Normocephalic, atraumatic. No pharyngeal erythema. No thyromegaly. CARDIOVASCULAR: S1 and S2 present. No murmurs, rubs, or gallops. PULMONARY: Chest is clear to auscultation, no wheezing or crackles. ABDOMEN: Soft, nontender, nondistended, normoactive bowel sounds. No palpable organomegaly. MUSCULOSKELETAL: No joint swelling or deformity. EXTREMITIES: No cyanosis, clubbing, or pedal edema. -NEUROLOGICAL: Gross neurological examination did not reveal any focal deficits. left hemiparesis SKIN: No rashes. no petechiae. - Labs CBC & Chem 7: 11/08/19 05:00 11/08/19 05:00 Labs: Abnormal Lab Results - Last 24 Hours (Table) 11/08/19 11/08/19 11/08/19 Range/Units 05:00 05:00 07:05 RBC 3.61 L (4.30-5.90) m/uL Hgb 11.6 L (13.0-17.5) gm/dL Hct 34.9 L (39.0-53.0) % APTT 33.2 H (22.0-30.0) sec Chloride 114 H (98-107) mmol/L Carbon Dioxide 18 L (22-30) mmol/L Creatinine 0.58 L (0.66-1.25) mg/dL Glucose 101 H (74-99) mg/dL Calcium 8.2 L (8.4-10.2) mg/dL Alkaline Phosphatase 141 H (38-126) U/L Total Protein 5.6 L (6.3-8.2) g/dL Albumin 2.9 L (3.5-5.0) g/dL Microbiology - Last 24 Hours (Table) 11/04/19 19:42 Blood Culture - Preliminary Blood No Growth after 72 hours 11/04/19 18:30 Blood Culture - Preliminary Blood No Growth after 72 hours 11/05/19 05:19 Gram Stain - Final Sputum Sputum Culture - Final Methicillin resist S. aureus Stenotrophomonas maltophilia 11/03/19 21:10 Gram Stain - Final Sputum Sputum Culture - Final Methicillin resist S. aureus Assessment and Plan Assessment: acute ST elevation myocardial infarction, status post cardiac arrest8 status post coronary angiogram and stent placement in the LAD acute systolic congestive heart failure, ejection fraction 20-25% paroxysmal atrial fibrillation Right lower lobe pneumonia with MRSA. Possible aspiration pneumonitis Acute right parieto-occipital ischemic stroke with left hemiparesis Possible upper GI bleed Recent history of cardiac arrest status post resuscitation with possible hypoxic encephalopathy Acute hypoxic respiratory failure, present on admission. Patient needed temporal intubation and mechanical ventilation status post extubation on 11/06 GERD Primary osteoarthritis chronic low back pain with recent laminectomy and decompression in September of this year. Plan: this is a pleasant 64 years old male who presents with multiple medical problems including STEMI, CHF, stroke and possible pneumonia. Continue with amiodarone and Cardizem as per cardiology's recommendation. 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 Continue with antibiotics in the form of Zosyn and IV vancomycin. Continue with IV fluids. Pain management. Follow-up recommendation by consult is occluding cardiology, pulmonary, neurology and gastroenterology. Continue with aspirin and Brillinta Labs and medication were reviewed.. Continue same treatment. Continue with symptomatic treatment. Resume home medication. Monitor lytes and vitals. DVT and GI prophylaxis. Further recommendations of the clinical course of the patient DVT prophylaxis: Eliquis GI Prophylaxis: Pepcid PT/OT: Pending Prognosis is guarded
[2019-11-08] MEDS: AMIODARONE 200 MG TAB PO SCH ×2 (17:37→20:13)
--- NOTE | 2019-11-08 17:42 | MR ---
EXAMINATION TYPE: MR brain wo con DATE OF EXAM: 11/08/2019 COMPARISON: None HISTORY: Acute CPA, AVD, assess for stroke Multiplanar multiecho imaging of the brain was performed with no contrast. There is some cerebral cortical atrophy. There is no mass effect nor midline shift. There is no sign of intracranial hemorrhage. There are punctate small foci of increased signal at the garcia-white matte r junction of both parietal lobes on the diffusion images. These could BE acute small lacunar infarct s. These measure up to 5 mm and there are proximally 5 lesions. On the FLAIR images there are multiple coalescent areas of increased signal in the periventricular wh ite matter. These measure up to 1 cm. I see no evidence of a cortical infarct. The brainstem is intac t. Cerebellum is intact. The sella turcica is normal. There is no evidence of a posterior fossa mass. There is mucosal thickening in the frontal and ethmoid sinuses. Impression diffuse white matter disease around the lateral ventricles could relate to demyelinating disease. Ch ronic small vessel ischemia is also possible. Diffusion images show punctate high signal scattered foci in the parietal lobes that could be acute l acunar infarcts. Ethmoid and frontal sinusitis.
--- NOTE | 2019-11-08 19:01 | P.PN ---
Subjective Progress Note Date: 11/08/19 Patient is a 64-year-old male, with history of witnessed cardiac arrest on 11/03/2019, in which patient had 8 minutes of cardiac arrest with no CPR and 20 minutes of CPR once EMS arrived before patient has return of spontaneous circulation. Patient was intubated, started showing signs of meani ngful response on day 2, was extubated. Patient at present is doing great, as per examination below. Patient's was also present, who states that patient short-term memory is slightly affected but long-term memory appears fine, he is well oriented, knows people around. Sometimes his mentation would fluctuate regarding orientation, as at one time he thought it was 2008 and then said was 2018. Patient had low back surgery 2 months ago. Patient underwent cardiac catheterization and underwent placement of stents 400% blockage of the LAD. Patient denies any history of diabetes hypertension or tobacco use.. Patient's 2-D echo showed EF 35-40%, mid anterior left ventricular wall motion i s hypokinetic. Mid lateral left ventricle wall motion is hypokinetic. Mid anterior septal left ventricle wall motion is hypokinetic. Apical anterior left ventricle wall motion is akinetic. Apical lateral left ventricle wall motion is akinetic. Apical septum left ventricle wall motion is akinetic. Patient had an MRI of the brain today, which revealed diffuse white matter disease around the lateral ventricles could be related to demyelinating disease. Chronic small vessel ischemia is also possible. Diffusion images show punctate high signal scattered foci in the parietal lobes that could be acute lacunar infarct. Most prominent is on the right high parietal subcortical region. Ethmoid and frontal sinusitis. Objective - Vital Signs Vital signs: Vital Signs Temp 97.7 F 11/08/19 15:57 Pulse 83 11/08/19 17:03 Resp 15 11/08/19 15:57 BP 118/81 11/08/19 15:00 Pulse Ox 97 11/08/19 15:00 Intake & Output 11/07/19 11/08/19 11/08/19 18:59 06:59 18:59 Intake Total 3112.76 1969.458 905.888 Output Total 965 945 970 Balance 2147.76 1024.458 -64.112 Weight 97.1 kg 97.1 kg Intake: IV 2089.4 1450 875 .9NS Pressure BAg 42 Dextrose 5% in Water 100 100 ml @ 618 mls/hr IV .Q10M ONE with Amiodarone 150 mg Rx#:[id number] Diltiazem 125 mg In 5 Sodium Chloride 0.9% 100 ml @ 5 MG/HR 5 mls/hr IV .Q24H [facility] Rx#:[id number] Magnesium Sulfate-D5w Pmx 200 1 gm In Dextrose/Water 1 100ml.bag @ 100 mls/hr IVPB Q1H [facility] Rx#: [id number] Piperacillin-Tazobactam 3 175 125 75 .375 gm In Sodium Chloride 0.9% 100 ml @ 25 mls/hr IVPB Q8HR [facility] Rx# :[id number] Sodium Chloride 0.9% 1, 900 825 300 000 ml @ 75 mls/hr IV . [id number] [facility] Rx#:[id number] Vancomycin 1,750 mg In 166.7 500 500 Sodium Chloride 0.9% 500 ml 500 ml @ 167 mls/hr IVPB Q8H [facility] Rx#: [id number] Vancomycin 2,000 mg In 500.7 Sodium Chloride 0.9% 500 ml 500 ml @ 167 mls/hr IVPB ONCE ONE Rx#: [id number] Intake, IV Titration 63.36 419.458 30.888 Amount Amiodarone 300 mg In 242.083 Dextrose 5% in Water 250 ml @ 0.5 MG/MIN 25 mls/hr IV .Q10H [facility] Rx#: [id number] Heparin Sod,Pork in 0.45% 63.36 177.375 30.888 NaCl 25,000 unit In 0.45 % NaCl 1 250ml.bag @ 10 UNITS/KG/HR 9.9 mls/hr IV .Q24H [facility] Rx#:[id number] Oral 960 100 Output: Urine 965 945 970 Other: Voiding Method Indwelling Catheter Indwelling Catheter Urinal ABP, PAP, CO, CI - Last Documented Arterial Blood Pressure 119/55 - Exam Patient's mental status appears fairly intact. Speech is mildly dysarthric but no aphasia. Slight stuttering noted. Patient can name, repeat very well. On cranial examination pupils are round and reacting, visual villanueva are full, extraocular muscles are intact. Face is symmetric and tongue protrudes the midline. Muscle strength testing patient has left pronator drift. The strength appears slightly weak in the left side, with deltoid 4+, corrections cadet 4+ to 5-, hip flexion and ankle is also weaker as compared to the right. Sensations are equal with no neglect. No obvious ataxia for [id number] testing. Fine motor is slightly slow on the left. - Labs CBC & Chem 7: 11/08/19 05:00 11/08/19 05:00 Labs: Abnormal Lab Results - Last 24 Hours (Table) 11/08/19 11/08/19 11/08/19 Range/Units 05:00 05:00 07:05 RBC 3.61 L (4.30-5.90) m/uL Hgb 11.6 L (13.0-17.5) gm/dL Hct 34.9 L (39.0-53.0) % APTT 33.2 H (22.0-30.0) sec Chloride 114 H (98-107) mmol/L Carbon Dioxide 18 L (22-30) mmol/L Creatinine 0.58 L (0.66-1.25) mg/dL Glucose 101 H (74-99) mg/dL Calcium 8.2 L (8.4-10.2) mg/dL Alkaline Phosphatase 141 H (38-126) U/L Total Protein 5.6 L (6.3-8.2) g/dL Albumin 2.9 L (3.5-5.0) g/dL Microbiology - Last 24 Hours (Table) 11/04/19 19:42 Blood Culture - Preliminary Blood No Growth after 72 hours 11/04/19 18:30 Blood Culture - Preliminary Blood No Growth after 72 hours Assessment and Plan Assessment: * Status post cardiac arrest with fairly long down time, but remarkable clinical improvement. Patient is fairly well oriented. Patient has mild dysarthria and mild left hemiparesis. MRI of the brain revealed small vessel ischemic change, some acute in the bilateral parietal region, possibly related to hypoperfusion related to cardiac arrest. * Acute TX, status post cardiac stenting for 100% occlusion of the LAD. * History of low back surgery 2 months ago. Plan: * Patient is showing remarkable clinical improvement. Patient at present has mild focal neurologic deficits with dysarthria and left hemiparesis, which hopefully will improve with time. * Patient currently on aspirin 81 mg daily, Brilinta 90 mg twice a day and Apixaban 2.5 mg twice a day. * Patient also on Lipitor 80 mg daily. * PT OT evaluate, when medically cleared. * Neurology will follow.
[2019-11-08] MEDS: ATORVASTATIN 80 MG TAB PO SCH (20:13)
[2019-11-08] MEDS: APIXABAN 2.5 MG TABLET PO SCH (20:13)
[2019-11-08] MEDS ORDERED: FAMOTIDINE 20 MG/2 ML VIAL IV SCH (21:00)
[2019-11-09] MEDS: HALOPERIDOL LACTATE 5 MG/ML 1 ML VIAL IVP PRN (03:16)
[2019-11-09] MEDS: VANCOMYCIN 1,750 MG in SODIUM CHLORIDE 0.9% 500 ML 500 ML IVPB SCH ×3 (05:16→21:30)
[2019-11-09] MEDS: SODIUM CHLORIDE 0.9% 1,000 ML IV SCH (05:16)
[2019-11-09 05:22] LABS: Basophils % (A) 0 %; Eosinophils # (A) 0.2 k/uL (0-0.7); Eosinophils % (A) 3 %; HCT 34.2 % (39.0-53.0); HGB 11.5 gm/dL (13.0-17.5); Lymphocytes # (A) 1.1 k/uL (1.0-4.8); Lymphocytes % (A) 15 %; MCH 31.7 pg (25.0-35.0); MCHC 33.6 g/dL (31.0-37.0); MCV 94.4 fL (80.0-100.0); Monocytes # (A) 0.6 k/uL (0-1.0); Monocytes % (A) 9 %; Neutrophils % (A) 70 %; Platelet Count 272 k/uL (150-450); RBC 3.62 m/uL (4.30-5.90); RDW 12.9 % (11.5-15.5); WBC 7.1 k/uL (3.8-10.6)
[2019-11-09 05:33] LABS: ALT 32 U/L (4-49); AST 37 U/L (17-59); African American GFR (CKD) >90 (>60 ml/min/1.73 sqM); Albumin 2.7 g/dL (3.5-5.0); Alkaline Phosphatase 121 U/L (38-126); Anion Gap 10 mmol/L; Blood Urea Nitrogen 10 mg/dL (9-20); Calcium 8.3 mg/dL (8.4-10.2); Carbon Dioxide 18 mmol/L (22-30); Chloride 113 mmol/L (98-107); Glucose 88 mg/dL (74-99); Non-African American GFR(CKD) >90 (>60 ml/min/1.73 sqM); Potassium 3.1 mmol/L (3.5-5.1); Sodium 141 mmol/L (137-145); Total Bilirubin 1.1 mg/dL (0.2-1.3); Total Protein 5.5 g/dL (6.3-8.2)
--- NOTE | 2019-11-09 06:17 | XR ---
EXAMINATION TYPE: XR chest 1V portable DATE OF EXAM: 11/09/2019 CLINICAL HISTORY: Difficulty breathing progress study. TECHNIQUE: Single AP portable upright view of the chest is obtained. COMPARISON: Chest x-ray from one day earlier and older studies. FINDINGS: Background chronic parenchymal change along with mild cardiomegaly and right greater than left bibasilar opacities. Osseous structures are intact. IMPRESSION: Overall stable findings, chronic parenchymal changes and mild cardiomegaly with right g reater than left patchy bibasilar acute atelectasis and/or infiltrate and likely tiny bilateral pleur al effusions are all redemonstrated.
[2019-11-09] MEDS: CARVEDILOL 3.125 MG TAB PO SCH ×2 (07:09→16:56)
--- NOTE | 2019-11-09 07:42 | US ---
EXAMINATION TYPE: US carotid duplex BILAT DATE OF EXAM: 11/09/2019 COMPARISON: NONE CLINICAL HISTORY: CVA, cardiac arrest, rule out stenosis. EXAM MEASUREMENTS: RIGHT: Peak Systolic Velocity (PSV) cm/sec ----- Right CCA: 75.5 ----- Right ICA: 71.1 ----- Right ECA: 79.0 ICA/CCA ratio: 0.9 RIGHT: End Diastole cm/sec ----- Right CCA: 12.9 ----- Right ICA: 24.6 ----- Right ECA: 16.0 LEFT: Peak Systolic Velocity (PSV) cm/sec ----- Left CCA: 76.6 ----- Left ICA: 86.2 ----- Left ECA: 53.2 ICA/CCA ratio: 1.1 LEFT: End Diastole cm/sec ----- Left CCA: 15.7 ----- Left ICA: 28.0 ----- Left ECA: 2.9 VERTEBRALS (direction of flow): Right Vertebral: Antegrade Left Vertebral: Antegrade Rhythm: Normal Mild amount of plaque visualized bilaterally. No elevated velocities, no significant stenosis. IMPRESSION: Mild atherosclerotic changes bilaterally without hemodynamically significant stenosis in volving either internal carotid artery. Criteria for Assigning % of Stenosis / Diameter reduction (Estimation based on the indirect measurements of the internal carotid artery velocities (ICA PSV). 1. Normal (no stenosis)=ICA PSV < 125 cm/s: ratio < 2.0: ICA EDV<40 cm/s. 2. Less than 50% stenosis=ICA PSV < 125 cm/s: ratio < 2.0: ICA EDV<40 cm/s. 3. 50 to 69% stenosis=ICA PSV of 125 to 230 cm/s: ration 2.0 ? 4.0: ICA EDV 40-100 cm/s. 4. Greater than 70% stenosis to near occlusion= ICA PSV > 230 cm/s: ratio > 4.0: ICA EDV > 100 cm/s. 5. Near occlusion= ICA PSV velocities may be low or undetectable: variable ratio and ICA EDV. 6. Total occlusion=unable to detect flow.
[2019-11-09] MEDS: IPRATROPIUM-ALBUTEROL 3 ML NEB INHALATION SCH ×4 (07:43→19:34)
--- NOTE | 2019-11-09 09:13 | P.CONS ---
History of Present Illness - Chief Complaint Medical debility - History of Present Illness I had the opportunity to see patient for inpatient rehab consultation with regard to medical debility. He was admitted to [facility] November 03 unresponsive. Found to be in V. fib and required [address] Rodriguez and pulmonary associates. Seen by Dr. Mendoza for stroke and notes left arm and leg weakness. Chest x-rays followed demonstrate cardiomegaly and bibasilar atelectasis and effusions. Head CT with possible right parietal infarct. Carotid Doppler with mild bilateral atherosclerosis. Speech therapy assess swallowing note safe and recommend regular and thin liquid. OT reports unable to assess self-care tasks in currently two-person. PT prescribed. Previous functional history as elicited patient: 64-year-old right-handed white male who is lives in one floor home with . Works full-time. does the laundry. Patient dependent with cooking, driving, standing shower and gait with quad cane which has been using a. Note that he has had recent lumbar fusion L3-S1 Dr. Boss and was previously walker now on cane. PMD Dr. Patel. Denies tobacco but admits to occasional drink. Family history of father with cancer. Review of Systems Review of systems: ENT: Denies sneezes or discharge. Eyes: Denies discharge or photophobia. Cardiac: Denies chest pain or palpitation. Pulmonary: Denies cough or shortness of breath. Gastrointestinal: Denies nausea, emesis, constipation, diarrhea. Genitourinary: Denies discharge or frequency. Musculoskeletal: Denies muscle or bone aches. Neurologic: Generalized weakness. notes left-sided weakness. Endocrine: Denies shakes or sweats. Oncology: Denies cancers. Dermatologic: Denies rash, itching, pruritus. ALLERGY/immunology: Denies sneezes, rashes. Past Medical History Past Medical History: Cancer, GERD/Reflux, Osteoarthritis (OA) Additional Past Medical History / Comment(s): HISTORY OF COLON POLYPS, HX SKIN CANCER -BASAL CELL. Last Myocardial Infarction Date:: 11/03/19 History of Any Multi-Drug Resistant Organisms: MRSA Year Discovered:: 11/05/19 MDRO Source:: Sputum Past Surgical History: Joint Replacement, Orthopedic Surgery Additional Past Surgical History / Comment(s): SKIN LESIONS REMOVED, LEFT KNEE ARTHROSCOPY, left hip replacement. Past Anesthesia/Blood Transfusion Reactions: No Reported Reaction Date of Last Stent Placement:: 11/03/19 Past Psychological History: No Psychological Hx Reported Smoking Status: Former smoker Past Alcohol Use History: Occasional Past Drug Use History: None Reported - Past Family History Father Family Medical History: Cancer Mother History Unknown: Yes Medications and Allergies Home Medications Medication Instructions Recorded Confirmed Type Pantoprazole Sodium [Protonix] 40 mg PO QAM 03/29/15 11/03/19 History Acetaminophen [Tylenol] 1,000 mg PO Q4-6H PRN 09/15/19 11/03/19 History HYDROcodone/APAP 5-325MG [Arma 1 - 2 tab PO Q6HR PRN #56 tab 09/24/19 11/03/19 Rx 5-325] Sennosides-Docusate Sodium 1 tab PO BID 11/03/19 11/03/19 History [Senokot-S] Tamsulosin HCl [Flomax] 0.4 mg PO DAILY 11/03/19 11/03/19 History Allergies Allergy/AdvReac Type Severity Reaction Status Date / Time No Known Allergies Allergy Verified 11/03/19 09:38 Physical Exam Vitals: Vital Signs Temp Pulse Resp BP Pulse Ox 11/09/19 07:55 85 11/09/19 07:43 87 11/09/19 04:00 98.5 F 77 24 133/90 92 L 11/09/19 02:00 74 24 124/81 93 L 11/09/19 00:00 99 F 79 20 132/84 93 L 11/08/19 22:00 82 16 134/91 97 11/08/19 21:03 81 11/08/19 20:54 84 11/08/19 20:39 76 97 11/08/19 20:00 98.3 F 81 20 125/94 97 11/08/19 17:03 83 11/08/19 16:52 82 11/08/19 15:57 97.7 F 15 11/08/19 15:00 97.8 F 87 15 118/81 97 11/08/19 14:00 78 29 H 135/77 94 L 11/08/19 13:00 80 29 H 139/65 97 11/08/19 12:00 97.4 F L 82 14 138/99 92 L 11/08/19 11:45 97.4 F L 11/08/19 11:43 29 H 11/08/19 11:35 80 11/08/19 11:23 77 11/08/19 11:00 79 29 H 139/89 93 L 11/08/19 10:00 72 20 133/64 98 Intake and Output 11/08/19 11/09/19 11/09/19 22:59 06:59 14:59 Intake Total 850 Output Total 400 600 Balance -400 250 Intake: IV 850 Piperacillin-Tazobactam 3 100 .375 gm In Sodium Chloride 0.9% 100 ml @ 25 mls/hr IVPB Q8HR DARLENE Rx# :[id number] Sodium Chloride 0.9% 1, 750 000 ml @ 75 mls/hr IV . [id number] DARLENE Rx#:[id number] Output: Urine 400 600 Other: Voiding Method Urinal Urinal # Voids 1 2 # Bowel Movements 1 Weight 98 kg Skin: Good color, texture, turgor. General: Medium build and comfortable appearance. Head: Normocephalic, atraumatic. Eyes: Symmetric. Pupils equal round. Ears: Symmetric. Hearing within normal limits. Mouth: Clear. Neck: Supple. Carotid without bruit. Cardiac: Regular rate and rhythm. Lungs: Clear anteriorly and posteriorly. Abdomen: Soft active nontender. Extremities: Normal tone. Neurological: Mental status: Alert, cooperative, pleasant. Cranial nerves: Symmetric facial tone and trapezius. Motor: Active movement right arm and leg but right leg less than antigravity. Weakness throughout left arm and leg, more so distally. Left leg poor to plegic. Sensation: Intact right side and diminished left. DTRs: Symmetric and equal throughout. Mobility: Requires physical assistance for bed mobility. Results CBC & Chem 7: 11/09/19 04:53 11/09/19 04:50 Labs: Abnormal Lab Results - Last 24 Hours (Table) 11/09/19 11/09/19 Range/Units 04:50 04:53 RBC 3.62 L (4.30-5.90) m/uL Hgb 11.5 L (13.0-17.5) gm/dL Hct 34.2 L (39.0-53.0) % Potassium 3.1 L (3.5-5.1) mmol/L Chloride 113 H (98-107) mmol/L Carbon Dioxide 18 L (22-30) mmol/L Creatinine 0.60 L (0.66-1.25) mg/dL Calcium 8.3 L (8.4-10.2) mg/dL Total Protein 5.5 L (6.3-8.2) g/dL Albumin 2.7 L (3.5-5.0) g/dL Microbiology - Last 24 Hours (Table) 11/04/19 19:42 Blood Culture - Preliminary Blood No Growth after 96 hours 11/04/19 18:30 Blood Culture - Preliminary Blood No Growth after 96 hours Assessment and Plan (1) Cardiac arrest Current Visit: Yes Status: Acute Code(s): I46.9 - CARDIAC ARREST, CAUSE UNSPECIFIED SNOMED Code(s): 379650911 (2) Paroxysmal atrial fibrillation Current Visit: Yes Status: Acute Code(s): I48.0 - PAROXYSMAL ATRIAL FIBRILLATION SNOMED Code(s): 966933276 (3) STEMI (ST elevation myocardial infarction) Current Visit: Yes Status: Acute Code(s): I21.3 - ST ELEVATION (STEMI) MYOCARDIAL INFARCTION OF [facility] SITE SNOMED Code(s): 59516673 (4) Ventilator dependent Current Visit: Yes Status: Acute Code(s): Z99.11 - DEPENDENCE ON RESPIRATOR [VENTILATOR] STATUS SNOMED Code(s): 934455288 (5) Low back pain Current Visit: No Status: Acute Code(s): M54.5 - LOW BACK PAIN SNOMED Code(s): 835192761 Plan: Impression: 1. Medical debility. 2. Cardiac arrest required 3 shocks. 3. Respiratory failure requiring ventilatory support. 4. History of recent lumbar fusion for last this disease and low back pain. 5. Stroke with left hemiparesthesias. 6. Osteoarthritis. Comments and plan: At this time OT and speech have initiated. Patient is really just started instead opportunity to fully per despite with therapies. We'll continue follow with yourself. Patient advised that he will be in hospital past Jc.
[2019-11-09] MEDS: APIXABAN 2.5 MG TABLET PO SCH ×2 (09:17→21:29)
[2019-11-09] MEDS: AMIODARONE 200 MG TAB PO SCH ×3 (09:17→21:30)
[2019-11-09] MEDS: PIPERACILLIN-TAZOBACTAM 3.375 GM in SODIUM CHLORIDE 0.9% 100 ML IVPB SCH ×2 (09:17→15:01)
[2019-11-09] MEDS: SPIRONOLACTONE 25 MG TAB PO SCH (09:18)
[2019-11-09] MEDS: TICAGRELOR 90 MG TAB PO SCH ×2 (09:18→21:30)
[2019-11-09] MEDS: ASPIRIN 81 MG PO SCH (09:18)
[2019-11-09] MEDS: LISINOPRIL 5 MG TAB PO SCH (09:18)
[2019-11-09] MEDS: FUROSEMIDE 20 MG TAB PO SCH (09:19)
[2019-11-09] MEDS: PANTOPRAZOLE 40 MG/10 ML VIAL IVP SCH (09:19)
[2019-11-09] MEDS: POTASSIUM CHLORIDE ER 20 MEQ TAB.ER PO SCH ×4 (09:27→16:56)
--- NOTE | 2019-11-09 13:22 | P.PN ---
Subjective on-call hospitalist covering starting approximately 01/09/2019 this is a pleasant 64 years old male with past medical history of GERD, os teoarthritis, skin cancer with basal cell carcinoma.chronic low back pain with recent laminectomy and decompression in September of this year. patient presents on 11/03/2019 with unresponsiveness where he dropped on to home in the down time was 8 minutes. EMS found to be in V. fib and was defibrillated 3 times and received epinephrine. He pulse did return. Patient was intubated and patient was presented to the ER showed ST segment elevation myocardial infarction.patient underwent emergent cardiac cath with stent placed in the LAD, patient also found to have acute congestive heart failure with systolic decompensation shown ejection fraction of 20-25%. This hospital course was complicated with possible upper GI bleed however his hemoglobin remains stable, he had acute right parieto-occipital ischemic stroke with left hemiparesis and right lower lobe pneumonia with MRSA suspected to be aspirated. Patient also developed paroxysmal atrial fibrillation. Eventually patient got extubated however he remains in the ICU for further management 11/09/2019 Patient is awake and oriented with no chest pain or dyspnea, he sitting in the chair today, distal complaining from some weakness in his left side especially left leg and mild slurred speech.is slightly tachypneic at 21-26, saturating 95% on room air and other vitals are stable. MRI of the brain done yesterday showing acute lacunar infarct with periventricular disease to rule out demyelinating disease or some chronic small vessel diseasepreoperative carotid Dopplers today showing no significant stenosis.x-ray showing chronic changes with bibasilar opacities more on the right side.patient has been evaluated by neurologist and ict customer support officer today. Patient to continue with aspirin, brilinta and , Eliquis Review of systems CONSTITUTIONAL: No fever, no malaise, no fatigue. HEENT: No recent visual problems or hearing problems. Denied any sore throat. CARDIOVASCULAR: No orthopnea, PND, no palpitations, no syncope. PULMONARY: No shortness of breath, no cough, no hemoptysis. GASTROINTESTINAL: No diarrhea, no nausea, no vomiting, no abdominal pain. Normoactive bowel sounds. NEUROLOGICAL: No headaches, no weakness, no numbness. HEMATOLOGICAL: Denies any bleeding or petechiae. GENITOURINARY: Denies any burning micturition, frequency, or urgency. MUSCULOSKELETAL/RHEUMATOLOGICAL: Denies any joint pain, swelling, or any muscle pain. ENDOCRINE: Denies any polyuria or polydipsia. Active Medications Generic Name Dose Route Start Last Admin Trade Name Freq PRN Reason Stop Dose Admin Al Hydroxide/Mg Hydroxide 30 ml 11/03/19 10:14 11/07/19 03:36 Maalox PO 30 ml Q4HR PRN Administration Heartburn Albuterol/Ipratropium 3 ml 11/07/19 08:00 11/09/19 11:20 Duoneb 0.5 Mg-3 Mg/3 Ml Soln INHALATION Not Given RT-QID DARLENE Albuterol/Ipratropium 3 ml 11/06/19 21:15 Duoneb 0.5 Mg-3 Mg/3 Ml Soln INHALATION RT-Q2H PRN Shortness Of Breath Or Wheezing Amiodarone HCl 200 mg 11/08/19 16:00 11/09/19 09:17 Cordarone PO 200 mg TID DARLENE Administration Apixaban 2.5 mg 11/08/19 21:00 11/09/19 09:17 Eliquis PO 2.5 mg BID DARLENE Administration Aspirin 81 mg 11/04/19 09:00 11/09/19 09:18 Aspirin PO 81 mg DAILY DARLENE Administration Atorvastatin Calcium 80 mg 11/03/19 21:00 11/08/19 20:13 Lipitor PO 80 mg HS DARLENE Administration Atropine Sulfate 0.5 mg 11/03/19 10:14 Atropine IV ONCE PRN Symptomatic Bradycardia Carvedilol 3.125 mg 11/06/19 17:30 11/09/19 07:09 Coreg PO 3.125 mg BID-W/MEALS DARLENE Administration Furosemide 20 mg 11/08/19 09:00 11/09/19 09:19 Lasix PO Not Given DAILY DARLENE Haloperidol Lactate 1 mg 11/06/19 19:58 11/09/19 03:16 Haldol IVP 1 mg Q2HR PRN Administration Agitation or Acute Psychosis Piperacillin Sod/Tazobactam 100 mls @ 25 mls/hr 11/03/19 16:00 11/09/19 09:17 Sod 3.375 gm/ Sodium Chloride IVPB 25 mls/hr Q8HR DARLENE Administration Vancomycin HCl 1,750 mg/ 500 mls @ 167 mls/hr 11/06/19 22:00 11/09/19 13:10 Sodium Chloride IVPB 167 mls/hr Q8H DARLENE Administration Lisinopril 5 mg 11/07/19 09:00 11/09/19 09:18 Zestril PO 5 mg DAILY DARLENE Administration Metoprolol Tartrate 5 mg 11/06/19 11:46 11/06/19 16:48 Lopressor IVP 5 mg Q8HR PRN Administration Blood Pressure - High Miscellaneous Information 1 each 11/03/19 14:08 Magnesium Per Protocol MISCELLANE DAILY PRN Per Protocol Protocol Miscellaneous Information 1 each 11/06/19 07:34 Potassium Per Protocol MISCELLANE DAILY PRN Per Protocol Protocol Miscellaneous Information 0 each 11/10/19 05:00 Vancomycin Trough Due MISCELLANE 11/10/19 05:01 DIRECTED ONE Morphine Sulfate 2 mg 11/03/19 14:07 11/04/19 16:28 Morphine Sulfate (Inj) IVP 2 mg Q4H PRN Administration SEVERE Pain/Discomfort Naloxone HCl 0.2 mg 11/03/19 11:00 Narcan IV Q2M PRN Opioid Reversal Nitroglycerin 0.4 mg 11/03/19 10:14 Nitrostat SUBLINGUAL Q5M PRN Chest Pain Pantoprazole Sodium 40 mg 11/09/19 17:30 Protonix PO AC-BID DARLENE Spironolactone 25 mg 11/08/19 09:00 11/09/19 09:18 Aldactone PO 25 mg DAILY DARLENE Administration Ticagrelor 90 mg 11/03/19 21:00 11/09/19 09:18 Brilinta PO 90 mg BID DARLENE Administration Zolpidem Tartrate 5 mg 11/03/19 10:14 Ambien PO HS PRN Insomnia Objective - Vital Signs Vital signs: Vital Signs Temp 97.6 F 11/09/19 12:00 Pulse 76 11/09/19 12:00 Resp 26 H 11/09/19 12:00 BP 124/98 11/09/19 12:00 Pulse Ox 95 11/09/19 12:00 Intake & Output 11/08/19 11/09/19 11/09/19 18:59 06:59 18:59 Intake Total 905.888 850 410 Output Total 970 600 225 Balance -64.112 250 185 Weight 97.1 kg 98 kg Intake: IV 875 850 290 Piperacillin-Tazobactam 3 75 100 100 .375 gm In Sodium Chloride 0.9% 100 ml @ 25 mls/hr IVPB Q8HR DARLENE Rx# :[id number] Sodium Chloride 0.9% 1, 300 750 190 000 ml @ 75 mls/hr IV . [id number] DARLENE Rx#:[id number] Vancomycin 1,750 mg In 500 Sodium Chloride 0.9% 500 ml 500 ml @ 167 mls/hr IVPB Q8H DARLENE Rx#: [id number] Intake, IV Titration 30.888 Amount Heparin Sod,Pork in 0.45% 30.888 NaCl 25,000 unit In 0.45 % NaCl 1 250ml.bag @ 10 UNITS/KG/HR 9.9 mls/hr IV .Q24H DARLENE Rx#:[id number] Oral 120 Output: Urine 970 600 225 Other: Voiding Method Urinal Urinal Urinal # Voids 2 # Bowel Movements 1 ABP, PAP, CO, CI - Last Documented Arterial Blood Pressure 119/55 - Exam GENERAL: The patient is alert and oriented x3, not in any acute distress. Well developed, well nourished. HEENT: Pupils are round and equally reacting to light. EOMI. No scleral icterus. No conjunctival pallor. Normocephalic, atraumatic. No pharyngeal erythema. No thyromegaly. CARDIOVASCULAR: S1 and S2 present. No murmurs, rubs, or gallops. PULMONARY: Chest is clear to auscultation, no wheezing or crackles. ABDOMEN: Soft, nontender, nondistended, normoactive bowel sounds. No palpable organomegaly. MUSCULOSKELETAL: No joint swelling or deformity. EXTREMITIES: No cyanosis, clubbing, or pedal edema. -NEUROLOGICAL: Gross neurological examination did not reveal any focal deficits. left hemiparesis SKIN: No rashes. no petechiae. - Labs CBC & Chem 7: 11/09/19 04:53 11/09/19 04:50 Labs: Abnormal Lab Results - Last 24 Hours (Table) 11/09/19 11/09/19 Range/Units 04:50 04:53 RBC 3.62 L (4.30-5.90) m/uL Hgb 11.5 L (13.0-17.5) gm/dL Hct 34.2 L (39.0-53.0) % Potassium 3.1 L (3.5-5.1) mmol/L Chloride 113 H (98-107) mmol/L Carbon Dioxide 18 L (22-30) mmol/L Creatinine 0.60 L (0.66-1.25) mg/dL Calcium 8.3 L (8.4-10.2) mg/dL Total Protein 5.5 L (6.3-8.2) g/dL Albumin 2.7 L (3.5-5.0) g/dL Microbiology - Last 24 Hours (Table) 11/04/19 19:42 Blood Culture - Preliminary Blood No Growth after 96 hours 11/04/19 18:30 Blood Culture - Preliminary Blood No Growth after 96 hours Assessment and Plan Assessment: acute ST elevation myocardial infarction, status post cardiac arrest8 status post coronary angiogram and stent placement in the LAD acute systolic congestive heart failure, ejection fraction 20-25% paroxysmal atrial fibrillation Right lower lobe pneumonia with MRSA. Possible aspiration pneumonitis Acute right parieto-occipital ischemic stroke with left hemiparesis Possible upper GI bleed Recent history of cardiac arrest status post resuscitation with possible hypoxic encephalopathy Acute hypoxic respiratory failure, present on admission. Patient needed temporal intubation and mechanical ventilation status post extubation on 11/06 GERD Primary osteoarthritis chronic low back pain with recent laminectomy and decompression in September of this year. Plan: this is a pleasant 64 years old male who presents with multiple medical problems including STEMI, CHF, stroke and possible pneumonia. Continue with amiodarone and Cardizem as per cardiology's recommendation. Continue with anticoagulation as per leaf sucker operator. Continue with antibiotics in the form of Zosyn and IV vancomycin. Continue with IV fluids. Pain management. Follow-up recommendation by consult is occluding cardiology, pulmonary, neurology and gastroenterology. Continue with aspirin and Brillinta , and eliquis Labs and medication were reviewed.. Continue same treatment. Continue with symptomatic treatment. Resume home medication. Monitor lytes and vitals. DVT and GI prophylaxis. Further recommendations of the clinical course of the patient DVT prophylaxis: Eliquis GI Prophylaxis: Pepcid PT/OT: Pending Prognosis is guarded
--- NOTE | 2019-11-09 13:39 | P.PN ---
Subjective Progress Note Date: 11/09/19 Principal diagnosis: Acute ST elevation myocardial infarction , and cardiac arrest requiring defibrillation 3. on 11/07/2019 the patient is extubated awake and a 2. Left upper extremity is weak in the left lower extremity is weaker. He still has a positive Babinski in the left lower extremity. Nevertheless, he is alert and his communicating and is answering questions. He did have a good sense of humor this morning. The patient overnight went into atrial fibrillation with rapid ventricular response. Currently is on amiodarone drip. He was started also on IV heparin. He remains on a combination of aspirin and Brilinta. His rhythm is back to normal sinus rhythm. Note that the A. fib did not affect his hemodynamics. He is afebrile. Chest x-ray from today shows some mild pulmonary vascular congestion. Sputum sample was collected showed MRSA and I added vancomycin to go along with the Zosyn that he was already on. He is afebrile. No nausea. No emesis.No pressors for now. He was started on Coreg a dose of 3.125 mg 1 tablet twice a day. He has adequate urine output. Adequate pulses in lower extremities bilaterally. No signs of any GI bleeding. Hemoglobin stable at 11.2. No other significant events overnight otherwise. Patient was reevaluated today on 11/08/2019, remains in the ICU, patient is presently on room air, remains on heparin drip and amiodarone and these are about to be discontinued by cardiology. Chest x-ray showed minimal bibasilar infiltrates/atelectasis. Patient is doing well overall, asymptomatic, mental status is a bit slow, and he is scheduled to have MRI of the brain. His electrodes are normal BUN is normal creatinine is normal, CBC is relatively normal. Echocardiogram this morning showed LV dysfunction and ejection fraction of 35-40%. Reevaluated today on 11/05/2019, patient remains in the ICU, however he is an overflow. Patient is doing quite well, asymptomatic.awake, alert oriented 3, patient denies any shortness of breath, continues to have a minimal left-sided weakness especially in the left lower extremity. He is on room air. O2 saturation is 95%. MRI of the brain yesterday showed acute lacunar infarct with periventricular disease, and that is being addressed by neurology on the case. Overall the patient is doing fairly well, remains on multiple medications for his cardiac issues. Including antiplatelet therapy and Eliquis. Objective - Vital Signs Vital signs: Vital Signs Temp 97.6 F 11/09/19 12:00 Pulse 76 11/09/19 12:00 Resp 26 H 11/09/19 12:00 BP 124/98 11/09/19 12:00 Pulse Ox 95 11/09/19 12:00 Intake & Output 11/08/19 11/09/19 11/09/19 18:59 06:59 18:59 Intake Total 905.888 850 410 Output Total 970 600 225 Balance -64.112 250 185 Weight 97.1 kg 98 kg Intake: IV 875 850 290 Piperacillin-Tazobactam 3 75 100 100 .375 gm In Sodium Chloride 0.9% 100 ml @ 25 mls/hr IVPB Q8HR [facility]E Rx# :[id number] Sodium Chloride 0.9% 1, 300 750 190 000 ml @ 75 mls/hr IV . [id number] DARLENE Rx#:[id number] Vancomycin 1,750 mg In 500 Sodium Chloride 0.9% 500 ml 500 ml @ 167 mls/hr IVPB Q8H DARLENE Rx#: [id number] Intake, IV Titration 30.888 Amount Heparin Sod,Pork in 0.45% 30.888 NaCl 25,000 unit In 0.45 % NaCl 1 250ml.bag @ 10 UNITS/KG/HR 9.9 mls/hr IV .Q24H DARLENE Rx#:[id number] Oral 120 Output: Urine 970 600 225 Other: Voiding Method Urinal Urinal Urinal # Voids 2 # Bowel Movements 1 ABP, PAP, CO, CI - Last Documented Arterial Blood Pressure 119/55 - Exam GENERAL EXAM: Revealed 64-year-old white male in no distress, on room air. HEAD: Normocephalic. Atraumatic. ENT: PERRLA, EOMI, no active. CHEST: No chest wall deformity. LUNGS: Symmetrical chest expansion,minimal crackles at the bases. No rhonchi no wheezes. CVS: Normal S1 and S2, no S3 gallop. No murmur. ABDOMEN: Soft nontender no megaly no rebound no guarding. SPINE: No scoliosis or deformity SKIN: No rashes CENTRAL NERVOUS SYSTEM: Alert and oriented 3, minimal left-sided weakness noted in the left upper extremity and left lower extremity. EXTREMITIES: There is no peripheral edema. No clubbing, no cyanosis. Peripheral pulses are intact. Psychiatric: Normal mood, normal affect, and normal mental status examination Julius seems to be improved compared to yesterday. - Labs CBC & Chem 7: 11/09/19 04:53 11/09/19 04:50 Labs: Abnormal Lab Results - Last 24 Hours (Table) 11/09/19 11/09/19 Range/Units 04:50 04:53 RBC 3.62 L (4.30-5.90) m/uL Hgb 11.5 L (13.0-17.5) gm/dL Hct 34.2 L (39.0-53.0) % Potassium 3.1 L (3.5-5.1) mmol/L Chloride 113 H (98-107) mmol/L Carbon Dioxide 18 L (22-30) mmol/L Creatinine 0.60 L (0.66-1.25) mg/dL Calcium 8.3 L (8.4-10.2) mg/dL Total Protein 5.5 L (6.3-8.2) g/dL Albumin 2.7 L (3.5-5.0) g/dL Microbiology - Last 24 Hours (Table) 11/04/19 19:42 Blood Culture - Preliminary Blood No Growth after 96 hours 11/04/19 18:30 Blood Culture - Preliminary Blood No Growth after 96 hours Assessment and Plan Assessment: Impression: Acute ST elevation myocardial infarction and cardiac arrest requiring defibrillation 3. Coronary artery disease, with 100% occlusion of the LAD requiring stenting. Acute hypoxic respiratory failure secondary to above, possibility of aspiration pneumonia is not entirely ruled out, but felt to be less likely. Chest x-ray is pointing mostly to atelectasis. Remote smoking history, quit in 1998. Degenerative joint disease and previous left hip replacement and left knee arthroplasty. History of basal cell carcinoma. Paroxysmal atrial fibrillation, presently on heparin and amiodarone being addressed by cardiology. acute CVA and left lacunar infarct, being addressed by neurology. Recommendation: Continue present supportive care measures. Continue cardiac meds as per cardiology. Continue antibiotics. Continue incentive spirometry and aggressive pulmonary toileting. Continue to monitor neuro status. MRI report was reviewed. Continue GI and DVT prophylaxis. Transfer to monitor bed today on selective.once a bed is available. Time with Patient: Less than 30
[2019-11-09] MEDS: PANTOPRAZOLE 40 MG TABLET PO SCH (16:56)
--- NOTE | 2019-11-09 17:25 | P.PN ---
Subjective Progress Note Date: 11/09/19 Patient is a 64-year-old male, with history of witnessed cardiac arrest on 11/03/2019, in which patient had 8 minutes of cardiac arrest with no CPR and 20 minutes of CPR once EMS arrived before patient has return of spontaneous circulation. Patient was intubated, started showing signs of meani ngful response on day 2, was extubated. Patient at present is doing great, as per examination below. Patient was sitting in the reclining chair, more alert and awake. Speech is less dysarthric. Offers no new complaints. Patient had low back surgery 2 months ago. Patient underwent cardiac cathet erization and underwent placement of stents for 100% blockage of the LAD. Patient denies any history of diabetes hypertension or tobacco use.. Patient's 2-D echo showed EF 35-40%, mid anterior left ventricular wall motion is hypokinetic. Mid lateral left ventricle wall motion is hypokinetic. Mid anterior septal left ventricle wall motion is hypokinetic. Apical anterior left ventricle wall motion is akinetic. Apical lateral left ventricle wall motion is akinetic. Apical septum left ventricle wall motion is akinetic. Patient had an MRI of the brain today, which revealed diffuse white matter disease around the lateral ventricles could be related to demyelinating disease. Chronic small vessel ischemia is also possible. Diffusion images show punctate high signal scattered foci in the parietal lobes that could be acute lacunar infarct. Most prominent is on the right high parietal subcortical region. Ethmoid and frontal sinusitis. Objective - Vital Signs Vital signs: Vital Signs Temp 98.1 F 11/09/19 16:00 Pulse 81 11/09/19 16:00 Resp 20 11/09/19 16:00 BP 120/87 11/09/19 16:00 Pulse Ox 96 11/09/19 16:00 Intake & Output 11/08/19 11/09/19 11/09/19 18:59 06:59 18:59 Intake Total 905.489 898 9430 Output Total 970 600 225 Balance -64.711 529 2924 Weight 97.1 kg 98 kg Intake: IV 875 850 890 Piperacillin-Tazobactam 3 75 100 200 .375 gm In Sodium Chloride 0.9% 100 ml @ 25 mls/hr IVPB Q8HR [facility] Rx# :[id number] Sodium Chloride 0.9% 1, 300 750 190 000 ml @ 75 mls/hr IV . [id number] [facility] Rx#:[id number] Vancomycin 1,750 mg In 500 500 Sodium Chloride 0.9% 500 ml 500 ml @ 167 mls/hr IVPB Q8H [facility] Rx#: [id number] Intake, IV Titration 30.888 Amount Heparin Sod,Pork in 0.45% 30.888 NaCl 25,000 unit In 0.45 % NaCl 1 250ml.bag @ 10 UNITS/KG/HR 9.9 mls/hr IV .Q24H [facility] Rx#:[id number] Oral 480 Output: Urine 970 600 225 Other: Voiding Method Urinal Urinal Urinal # Voids 2 # Bowel Movements 1 ABP, PAP, CO, CI - Last Documented Arterial Blood Pressure 119/55 - Exam Patient's mental status appears fairly intact. Speech is mildly dysarthric but no aphasia. Speech better than yesterday. Less stuttering. Patient can name, repeat very well. On cranial examination pupils are round and reacting, visual villanueva are full, extraocular muscles are intact. Face is symmetric and tongue protrudes the midline. Muscle strength testing patient has left pronation, no drift. The strength appears slightly weak in the left side, with deltoid 4+, catering staff member 4+ to 5-, hip flexion and ankle is also weaker as compared to the right. Sensations are equal with no neglect. No obvious ataxia for [id number] testing. Fine motor is slightly slow on the left. - Labs CBC & Chem 7: 11/09/19 04:53 11/09/19 14:01 Labs: Abnormal Lab Results - Last 24 Hours (Table) 11/09/19 11/09/19 Range/Units 04:50 04:53 RBC 3.62 L (4.30-5.90) m/uL Hgb 11.5 L (13.0-17.5) gm/dL Hct 34.2 L (39.0-53.0) % Potassium 3.1 L (3.5-5.1) mmol/L Chloride 113 H (98-107) mmol/L Carbon Dioxide 18 L (22-30) mmol/L Creatinine 0.60 L (0.66-1.25) mg/dL Calcium 8.3 L (8.4-10.2) mg/dL Total Protein 5.5 L (6.3-8.2) g/dL Albumin 2.7 L (3.5-5.0) g/dL Microbiology - Last 24 Hours (Table) 11/04/19 19:42 Blood Culture - Preliminary Blood No Growth after 96 hours 11/04/19 18:30 Blood Culture - Preliminary Blood No Growth after 96 hours Assessment and Plan Assessment: * Status post cardiac arrest with fairly long down time, but remarkable clinical improvement. Patient is fairly well oriented. Patient has mild dysarthria and mild left hemiparesis. MRI of the brain revealed small vessel ischemic change, some acute in the bilateral parietal region, possibly related to hypoperfusion related to cardiac arrest. * Acute TX, status post cardiac stenting for 100% occlusion of the LAD. * History of low back surgery 2 months ago. Plan: * Neurologically, patient has further improved as compared to yesterday. * Patient had normal carotid Doppler with no significant stenosis. * Patient's hemoglobin A1c 5.0, total cholesterol 176, LDL 119, HDL 30 and triglycerides 137. * Patient currently on aspirin 81 mg daily, Brilinta 90 mg twice a day and Apixaban 2.5 mg twice a day. * Patient also on Lipitor 80 mg daily. * PT OT evaluate, when medically cleared. * Patient is neurologically clear
--- NOTE | 2019-11-09 18:23 | P.PN ---
Subjective Progress Note Date: 11/09/19 This is a 63-year-old gentleman with history of cardiac arrest and an anterior wall myocardial infarction. Patient was extubated yesterday. Patient is communicative. Doesn't appear to be in acute distress. He went back into atrial fibrillation with rapid ventricular response. Patient was initiated on IV heparin and amiodarone. His also started on Coreg and lisinopril. Chest x- ray showed mild CHF. Lungs. P diplopia. Heart is regular. Irregular and fast. We'll continue current medical therapy. Patient has some weakness on the left side from CVA. May need from physical therapy. 11/08/2019: This patient is status post cardiac arrest and stent placement of the LAD in the setting of anterior wall myocardial infarction. Patient is clinically doing well. Alert and doesn't appear to be in acute distress. Has some weakness on the left side. He is back in sinus rhythm with frequent APCs. He is on IV amiodarone, which is being discontinued. Patient will be started on by mouth amiodarone 600 mg a day. Patient will also be initiated on Eliquis 2.5 mg by mouth twice a day. Will discontinue heparin. Increase his activity. [facility] Echocardiogram to be repeated. 11/09/2019: Patient is a critically stable. There is some improvement in ne urological status. Seemed to be somewhat disoriented to time. MRI scan showed findings suggestive of lacunar infarct. Patient is not complaining of any chest pain or shortness of breath. Echo Cardigan showed improvement in LV function with an ejection fraction of 35-40%. Lungs are clear. Heart is regular. Patient is maintaining sinus rhythm on amiodarone. Patient is on anticoagulation therapy along with dual antiplatelets agent. Patient to be transferred to stepdown unit. May be considered for long-term physical therapy. Objective - Vital Signs Vital signs: Vital Signs Temp 98.1 F 11/09/19 16:00 Pulse 81 11/09/19 16:00 Resp 20 11/09/19 16:00 BP 120/87 11/09/19 16:00 Pulse Ox 96 11/09/19 16:00 Intake & Output 11/08/19 11/09/19 11/09/19 18:59 06:59 18:59 Intake Total 905.280 212 1236 Output Total 970 600 225 Balance -64.764 517 5112 Weight 97.1 kg 98 kg Intake: IV 875 850 890 Piperacillin-Tazobactam 3 75 100 200 .375 gm In Sodium Chloride 0.9% 100 ml @ 25 mls/hr IVPB Q8HR [facility] Rx# :[id number] Sodium Chloride 0.9% 1, 300 750 190 000 ml @ 75 mls/hr IV . [id number] [facility] Rx#:[id number] Vancomycin 1,750 mg In 500 500 Sodium Chloride 0.9% 500 ml 500 ml @ 167 mls/hr IVPB Q8H [facility] Rx#: [id number] Intake, IV Titration 30.888 Amount Heparin Sod,Pork in 0.45% 30.888 NaCl 25,000 unit In 0.45 % NaCl 1 250ml.bag @ 10 UNITS/KG/HR 9.9 mls/hr IV .Q24H [facility] Rx#:[id number] Oral 480 Output: Urine 970 600 225 Other: Voiding Method Urinal Urinal Urinal # Voids 2 # Bowel Movements 1 ABP, PAP, CO, CI - Last Documented Arterial Blood Pressure 119/55 - Exam GENERAL EXAM: Patient is alert and oriented and doesn't appear to be in any acute distress HEENT: Normocephalic. Normal reaction of pupils, equal size, normal range of extraocular motion. No erythema or exudates in the throat. NECK: No masses, no nuchal rigidity. CHEST: No chest wall deformity. LUNGS: Equal air entry with no crackles or wheeze. HEART: S1 and S2 normal with no audible mumurs or gallops. Regular rhythm, f emorals equal on both sides.. ABDOMEN: No hepatosplenomegaly, normal bowel sounds, no guarding or rigidity. SKIN: No rashes CENTRAL NERVOUS SYSTEM: Left-sided weakness EXTREMITIES: No cyanosis, clubbing or edema. - Labs CBC & Chem 7: 11/09/19 04:53 11/09/19 14:01 Labs: Abnormal Lab Results - Last 24 Hours (Table) 11/09/19 11/09/19 Range/Units 04:50 04:53 RBC 3.62 L (4.30-5.90) m/uL Hgb 11.5 L (13.0-17.5) gm/dL Hct 34.2 L (39.0-53.0) % Potassium 3.1 L (3.5-5.1) mmol/L Chloride 113 H (98-107) mmol/L Carbon Dioxide 18 L (22-30) mmol/L Creatinine 0.60 L (0.66-1.25) mg/dL Calcium 8.3 L (8.4-10.2) mg/dL Total Protein 5.5 L (6.3-8.2) g/dL Albumin 2.7 L (3.5-5.0) g/dL Microbiology - Last 24 Hours (Table) 11/04/19 19:42 Blood Culture - Preliminary Blood No Growth after 96 hours 11/04/19 18:30 Blood Culture - Preliminary Blood No Growth after 96 hours Assessment and Plan (1) Paroxysmal atrial fibrillation Current Visit: Yes Status: Acute Code(s): I48.0 - PAROXYSMAL ATRIAL FIBRILLATION SNOMED Code(s): 144418348 (2) Cardiac arrest Current Visit: Yes Status: Acute Code(s): I46.9 - CARDIAC ARREST, CAUSE UNSPECIFIED SNOMED Code(s): 236951123 (3) STEMI (ST elevation myocardial infarction) Current Visit: Yes Status: Acute Code(s): I21.3 - ST ELEVATION (STEMI) MYOCARDIAL INFARCTION OF [facility] SITE SNOMED Code(s): 23682786 (4) Ischemic cardiomyopathy Current Visit: Yes Status: Acute Code(s): I25.5 - ISCHEMIC CARDIOMYOPATHY SNOMED Code(s): 675839559 (5) Heart failure, acute systolic Current Visit: Yes Status: Acute Code(s): I50.21 - ACUTE SYSTOLIC (CONGESTIVE) HEART FAILURE SNOMED Code(s): 257112883 Plan: Patient overall is clinically stable with some improvement in neurological status. Maintaining sinus rhythm. To be transferred to telemetry unit. Being assessed for possible rehab as an outpatient
[2019-11-09] MEDS: ATORVASTATIN 80 MG TAB PO SCH (21:29)
[2019-11-10] MEDS: PIPERACILLIN-TAZOBACTAM 3.375 GM in SODIUM CHLORIDE 0.9% 100 ML IVPB SCH ×3 (01:36→15:52)
[2019-11-10] MEDS ORDERED: VANCOMYCIN TROUGH DUE 1 EACH MISC MISCELLANE ONE (05:00)
[2019-11-10 05:12] LABS: Basophils # (A) 0.1 k/uL (0-0.2); Basophils % (A) 1 %; Eosinophils # (A) 0.2 k/uL (0-0.7); Eosinophils % (A) 3 %; HCT 36.9 % (39.0-53.0); HGB 11.9 gm/dL (13.0-17.5); Lymphocytes # (A) 1.3 k/uL (1.0-4.8); Lymphocytes % (A) 17 %; MCHC 32.3 g/dL (31.0-37.0); Mean Platelet Volume 6.9; Monocytes # (A) 0.8 k/uL (0-1.0); Monocytes % (A) 10 %; Neutrophils # (A) 5.1 k/uL (1.3-7.7); Neutrophils % (A) 66 %; Platelet Count 308 k/uL (150-450); RBC 3.84 m/uL (4.30-5.90); RDW 13.2 % (11.5-15.5); WBC 7.7 k/uL (3.8-10.6)
[2019-11-10 05:32] LABS: African American GFR (CKD) >90 (>60 ml/min/1.73 sqM); Anion Gap 8 mmol/L; Blood Urea Nitrogen 13 mg/dL (9-20); Calcium 8.7 mg/dL (8.4-10.2); Carbon Dioxide 18 mmol/L (22-30); Chloride 115 mmol/L (98-107); Glucose 100 mg/dL (74-99); Non-African American GFR(CKD) >90 (>60 ml/min/1.73 sqM); Potassium 3.6 mmol/L (3.5-5.1); Sodium 141 mmol/L (137-145)
[2019-11-10] MEDS: VANCOMYCIN 1,750 MG in SODIUM CHLORIDE 0.9% 500 ML 500 ML IVPB SCH ×3 (06:57→22:19)
[2019-11-10] MEDS: CARVEDILOL 3.125 MG TAB PO SCH (06:57)
[2019-11-10] MEDS: PANTOPRAZOLE 40 MG TABLET PO SCH ×2 (06:58→16:59)
[2019-11-10] MEDS: IPRATROPIUM-ALBUTEROL 3 ML NEB INHALATION SCH ×4 (07:56→19:21)
--- NOTE | 2019-11-10 09:36 | P.PN ---
Subjective Progress Note Date: 11/10/19 This is a 63-year-old gentleman with history of cardiac arrest and an anterior wall myocardial infarction. Patient was extubated yesterday. Patient is communicative. Doesn't appear to be in acute distress. He went back into atrial fibrillation with rapid ventricular response. Patient was initiated on IV heparin and amiodarone. His also started on Coreg and lisinopril. Chest x- ray showed mild CHF. Lungs. P diplopia. Heart is regular. Irregular and fast. We'll continue current medical therapy. Patient has some weakness on the left side from CVA. May need from physical therapy. 11/08/2019: This patient is status post cardiac arrest and stent placement of the LAD in the setting of anterior wall myocardial infarction. Patient is clinically doing well. Alert and doesn't appear to be in acute distress. Has some weakness on the left side. He is back in sinus rhythm with frequent APCs. He is on IV amiodarone, which is being discontinued. Patient will be started on by mouth amiodarone 600 mg a day. Patient will also be initiated on Eliquis 2.5 mg by mouth twice a day. Will discontinue heparin. Increase his activity. Patient could be transferred to [facility] care. Echocardiogram to be repeated. 11/09/2019: Patient is a critically stable. There is some improvement in ne urological status. Seemed to be somewhat disoriented to time. MRI scan showed findings suggestive of lacunar infarct. Patient is not complaining of any chest pain or shortness of breath. Echo Cardigan showed improvement in LV function with an ejection fraction of 35-40%. Lungs are clear. Heart is regular. Patient is maintaining sinus rhythm on amiodarone. Patient is on anticoagulation therapy along with dual antiplatelets agent. Patient to be transferred to stepdown unit. May be considered for long-term physical therapy. 11/10/2019: This patient ischemic status is stable. Denies any chest pain or shortness of breath. Patient is still not fully oriented. Wants to go home. Patient is maintaining sinus rhythm. He is being evaluated for possible transfer to a rehab center. His LV function is improved with an ejection fraction of 35-40%. Doesn't need any LifeVest. Follow-up with the Dr. Rodriguez as an outpatient Objective - Vital Signs Vital signs: Vital Signs Temp 98.7 F 11/10/19 04:00 Pulse 87 11/10/19 08:10 Resp 14 11/10/19 08:00 BP 155/91 11/10/19 08:00 Pulse Ox 96 11/10/19 08:00 Intake & Output 11/09/19 11/10/19 11/10/19 18:59 06:59 18:59 Intake Total 1610 Output Total 551 652 Balance 1059 -652 Weight 98 kg Intake: IV 890 Piperacillin-Tazobactam 3 200 .375 gm In Sodium Chloride 0.9% 100 ml @ 25 mls/hr IVPB Q8HR [facility] Rx# :[id number] Sodium Chloride 0.9% 1, 190 000 ml @ 75 mls/hr IV . [id number] [facility] Rx#:[id number] Vancomycin 1,750 mg In 500 Sodium Chloride 0.9% 500 ml 500 ml @ 167 mls/hr IVPB Q8H [facility] Rx#: [id number] Oral 720 Output: Urine 550 650 Stool 1 2 Other: Voiding Method Urinal Urinal ABP, PAP, CO, CI - Last Documented Arterial Blood Pressure 119/55 - Exam GENERAL EXAM: Patient is alert and oriented and doesn't appear to be in any acute distress HEENT: Normocephalic. Normal reaction of pupils, equal size, normal range of extraocular motion. No erythema or exudates in the throat. NECK: No masses, no nuchal rigidity. CHEST: No chest wall deformity. LUNGS: Equal air entry with no crackles or wheeze. HEART: S1 and S2 normal with no audible mumurs or gallops. Regular rhythm, femorals equal on both sides.. ABDOMEN: No hepatosplenomegaly, normal bowel sounds, no guarding or rigidity. SKIN: No rashes CENTRAL NERVOUS SYSTEM: Left-sided weakness EXTREMITIES: No cyanosis, clubbing or edema. - Labs CBC & Chem 7: 11/10/19 04:54 11/10/19 04:54 Labs: Abnormal Lab Results - Last 24 Hours (Table) 11/10/19 11/10/19 Range/Units 04:54 04:54 RBC 3.84 L (4.30-5.90) m/uL Hgb 11.9 L (13.0-17.5) gm/dL Hct 36.9 L (39.0-53.0) % Chloride 115 H (98-107) mmol/L Carbon Dioxide 18 L (22-30) mmol/L Glucose 100 H (74-99) mg/dL Microbiology - Last 24 Hours (Table) 11/04/19 19:42 Blood Culture - Preliminary Blood No Growth after 120 hours 11/04/19 18:30 Blood Culture - Preliminary Blood No Growth after 120 hours Assessment and Plan (1) Paroxysmal atrial fibrillation Current Visit: Yes Status: Acute Code(s): I48.0 - PAROXYSMAL ATRIAL FIBRILLATION SNOMED Code(s): 196988317 (2) Cardiac arrest Current Visit: Yes Status: Acute Code(s): I46.9 - CARDIAC ARREST, CAUSE UNSPECIFIED SNOMED Code(s): 251527881 (3) STEMI (ST elevation myocardial infarction) Current Visit: Yes Status: Acute Code(s): I21.3 - ST ELEVATION (STEMI) MYOCARDIAL INFARCTION OF [facility] SITE SNOMED Code(s): 22000073 (4) Ischemic cardiomyopathy Current Visit: Yes Status: Acute Code(s): I25.5 - ISCHEMIC CARDIOMYOPATHY SNOMED Code(s): 182323851 (5) Heart failure, acute systolic Current Visit: Yes Status: Acute Code(s): I50.21 - ACUTE SYSTOLIC (CONGESTIVE) HEART FAILURE SNOMED Code(s): 588468515 Plan: I will increase the dose of the Coreg to 6.25 mg by mouth twice a day. Continue the rest of the medication. Possible transfer to physical therapy facility
[2019-11-10] MEDS: ASPIRIN 81 MG PO SCH (09:40)
[2019-11-10] MEDS: AMIODARONE 200 MG TAB PO SCH ×3 (09:40→22:24)
[2019-11-10] MEDS: SPIRONOLACTONE 25 MG TAB PO SCH (09:40)
[2019-11-10] MEDS: FUROSEMIDE 20 MG TAB PO SCH (09:40)
[2019-11-10] MEDS: LISINOPRIL 5 MG TAB PO SCH (09:40)
[2019-11-10] MEDS: APIXABAN 2.5 MG TABLET PO SCH ×2 (09:40→22:15)
[2019-11-10] MEDS: TICAGRELOR 90 MG TAB PO SCH (09:40)
--- NOTE | 2019-11-10 10:19 | P.PN ---
Subjective on-call hospitalist covering starting approximately 01/09/2019 this is a pleasant 64 years old male with past medical history of GERD, os teoarthritis, skin cancer with basal cell carcinoma.chronic low back pain with recent laminectomy and decompression in September of this year. patient presents on 11/03/2019 with unresponsiveness where he dropped on to home in the down time was 8 minutes. EMS found to be in V. fib and was defibrillated 3 times and received epinephrine. He pulse did return. Patient was intubated and patient was presented to the ER showed ST segment elevation myocardial infarction.patient underwent emergent cardiac cath with stent placed in the LAD, patient also found to have acute congestive heart failure with systolic decompensation shown ejection fraction of 20-25%. This hospital course was complicated with possible upper GI bleed however his hemoglobin remains stable, he had acute right parieto-occipital ischemic stroke with left hemiparesis and right lower lobe pneumonia with MRSA suspected to be aspirated. Patient also developed paroxysmal atrial fibrillation. Eventually patient got extubated however he remains in the ICU for further management 11/09/2019 Patient is awake and oriented with no chest pain or dyspnea, he sitting in the chair today, distal complaining from some weakness in his left side especially left leg and mild slurred speech.is slightly tachypneic at 21-26, saturating 95% on room air and other vitals are stable. MRI of the brain done yesterday showing acute lacunar infarct with periventricular disease to rule out demyelinating disease or some chronic small vessel diseasepreoperative carotid Dopplers today showing no significant stenosis.x-ray showing chronic changes with bibasilar opacities more on the right side.patient has been evaluated by neurologist and rail grinder today. Patient to continue with aspirin, brilinta and , Eliquis 11/10/2019 Patient is selective overflow. He has chest pain, denies dyspnea. No other new complaints. He is hemodynamically stable. Labs are stable. Patient has been evaluated by Dr. Arellano. Patient will need ECF upon discharge for rehab, psychotherapist social worker is on consult. Patient currently on Eliquis 2.5 mg, on Zosyn and IV vancomycin. Patient to continue with aspirin and brillinta Objective - Vital Signs Vital signs: Vital Signs Temp 98.7 F 11/10/19 04:00 Pulse 87 11/10/19 08:10 Resp 14 11/10/19 08:00 BP 155/91 11/10/19 08:00 Pulse Ox 96 11/10/19 08:00 Intake & Output 11/09/19 11/10/19 11/10/19 18:59 06:59 18:59 Intake Total 1610 Output Total 551 652 Balance 1059 -652 Weight 98 kg Intake: IV 890 Piperacillin-Tazobactam 3 200 .375 gm In Sodium Chloride 0.9% 100 ml @ 25 mls/hr IVPB Q8HR [facility] Rx# :[id number] Sodium Chloride 0.9% 1, 190 000 ml @ 75 mls/hr IV . [id number] [facility] Rx#:[id number] Vancomycin 1,750 mg In 500 Sodium Chloride 0.9% 500 ml 500 ml @ 167 mls/hr IVPB Q8H [facility] Rx#: [id number] Oral 720 Output: Urine 550 650 Stool 1 2 Other: Voiding Method Urinal Urinal ABP, PAP, CO, CI - Last Documented Arterial Blood Pressure 119/55 - Exam GENERAL: The patient is alert and oriented x3, not in any acute distress. Well developed, well nourished. HEENT: Pupils are round and equally reacting to light. EOMI. No scleral icterus. No conjunctival pallor. Normocephalic, atraumatic. No pharyngeal erythema. No thyromegaly. CARDIOVASCULAR: S1 and S2 present. No murmurs, rubs, or gallops. PULMONARY: Chest is clear to auscultation, no wheezing or crackles. ABDOMEN: Soft, nontender, nondistended, normoactive bowel sounds. No palpable organomegaly. MUSCULOSKELETAL: No joint swelling or deformity. EXTREMITIES: No cyanosis, clubbing, or pedal edema. -NEUROLOGICAL: Gross neurological examination did not reveal any focal deficits. left hemiparesis SKIN: No rashes. no petechiae. - Labs CBC & Chem 7: 11/10/19 04:54 11/10/19 04:54 Labs: Abnormal Lab Results - Last 24 Hours (Table) 11/10/19 11/10/19 Range/Units 04:54 04:54 RBC 3.84 L (4.30-5.90) m/uL Hgb 11.9 L (13.0-17.5) gm/dL Hct 36.9 L (39.0-53.0) % Chloride 115 H (98-107) mmol/L Carbon Dioxide 18 L (22-30) mmol/L Glucose 100 H (74-99) mg/dL Microbiology - Last 24 Hours (Table) 11/04/19 19:42 Blood Culture - Preliminary Blood No Growth after 120 hours 11/04/19 18:30 Blood Culture - Preliminary Blood No Growth after 120 hours Assessment and Plan Assessment: acute ST elevation myocardial infarction, status post cardiac arrest8 status post coronary angiogram and stent placement in the LAD acute systolic congestive heart failure, ejection fraction 20-25% paroxysmal atrial fibrillation Right lower lobe pneumonia with MRSA. Possible aspiration pneumonitis Acute right parieto-occipital ischemic stroke with left hemiparesis Possible upper GI bleed Recent history of cardiac arrest status post resuscitation with possible hypoxic encephalopathy Acute hypoxic respiratory failure, present on admission. Patient needed temporal intubation and mechanical ventilation status post extubation on 11/06 GERD Primary osteoarthritis chronic low back pain with recent laminectomy and decompression in September of this year. Plan: this is a pleasant 64 years old male who presents with multiple medical problems including STEMI, CHF, stroke and possible pneumonia. Continue with amiodarone and Cardizem as per cardiology's recommendation. Continue with anticoagulation as per bench examiner. Continue with antibiotics in the form of Zosyn and IV v ancomycin. Continue with IV fluids. Pain management. Follow-up recommendation by consult is occluding cardiology, pulmonary, neurology and gastroenterology. Continue with aspirin and Brillinta , and eliquis Labs and medication were reviewed.. Continue same treatment. Continue with symptomatic treatment. Resume home medication. Monitor lytes and vitals. DVT and GI prophylaxis. Further recommendations of the clinical course of the patient DVT prophylaxis: Eliquis GI Prophylaxis: Pepcid PT/OT: Pending Prognosis is guarded
--- NOTE | 2019-11-10 10:40 | P.PN ---
Subjective Progress Note Date: 11/10/19 Principal diagnosis: Acute ST elevation myocardial infarction , and cardiac arrest requiring defibrillation 3. on 11/07/2019 the patient is extubated awake and a 2. Left upper extremity is weak in the left lower extremity is weaker. He still has a positive Babinski in the left lower extremity. Nevertheless, he is alert and his communicating and is answering questions. He did have a good sense of humor this morning. The patient overnight went into atrial fibrillation with rapid ventricular response. Currently is on amiodarone drip. He was started also on IV heparin. He remains on a combination of aspirin and Brilinta. His rhythm is back to normal sinus rhythm. Note that the A. fib did not affect his hemodynamics. He is afebrile. Chest x-ray from today shows some mild pulmonary vascular congestion. Sputum sample was collected showed MRSA and I added vancomycin to go along with the Zosyn that he was already on. He is afebrile. No nausea. No emesis.No pressors for now. He was started on Coreg a dose of 3.125 mg 1 tablet twice a day. He has adequate urine output. Adequate pulses in lower extremities bilaterally. No signs of any GI bleeding. Hemoglobin stable at 11.2. No other significant events overnight otherwise. Patient was reevaluated today on 11/08/2019, remains in the ICU, patient is presently on room air, remains on heparin drip and amiodarone and these are about to be discontinued by cardiology. Chest x-ray showed minimal bibasilar infiltrates/atelectasis. Patient is doing well overall, asymptomatic, mental status is a bit slow, and he is scheduled to have MRI of the brain. His electrodes are normal BUN is normal creatinine is normal, CBC is relatively normal. Echocardiogram this morning showed LV dysfunction and ejection fraction of 35-40%. Reevaluated today on 11/09/2019, patient remains in the ICU, however he is an overflow. Patient is doing quite well, asymptomatic.awake, alert oriented 3, patient denies any shortness of breath, continues to have a minimal left-sided weakness especially in the left lower extremity. He is on room air. O2 saturation is 95%. MRI of the brain yesterday showed acute lacunar infarct with periventricular disease, and that is being addressed by neurology on the case. Overall the patient is doing fairly well, remains on multiple medications for his cardiac issues. Including antiplatelet therapy and Eliquis. Reevaluated today on 11/10/2019, patient remains as an overflow in the ICU, doing well from the pulmonary perspective, he is hemodynamically stable, denies any cough wheezing or shortness of breath. Continues to have left-sided weakness. Patient is being considered for possible rehab referral sometime in the next couple of days. Remains on empiric antibiotics, remains on Eliquis, and his last chest x-ray showed some chronic parenchymal changes at the right base, suspect to be mostly atelectasis, possibility of infiltrate is not entirely ruled out but felt to be less likely based on his clinical findings. WBC count is 7.7 hemoglobin is 11.9 electrolytes are normal renal profile is normal Objective - Vital Signs Vital signs: Vital Signs Temp 98.7 F 11/10/19 04:00 Pulse 87 11/10/19 08:10 Resp 14 11/10/19 08:00 BP 155/91 11/10/19 08:00 Pulse Ox 96 11/10/19 08:00 Intake & Output 11/09/19 11/10/19 11/10/19 18:59 06:59 18:59 Intake Total 1610 Output Total 551 652 Balance 1059 -652 Weight 98 kg Intake: IV 890 Piperacillin-Tazobactam 3 200 .375 gm In Sodium Chloride 0.9% 100 ml @ 25 mls/hr IVPB Q8HR [facility] Rx# :[id number] Sodium Chloride 0.9% 1, 190 000 ml @ 75 mls/hr IV . [id number] [facility] Rx#:[id number] Vancomycin 1,750 mg In 500 Sodium Chloride 0.9% 500 ml 500 ml @ 167 mls/hr IVPB Q8H [facility] Rx#: [id number] Oral 720 Output: Urine 550 650 Stool 1 2 Other: Voiding Method Urinal Urinal ABP, PAP, CO, CI - Last Documented Arterial Blood Pressure 119/55 - Exam GENERAL EXAM: Revealed 64-year-old white male in no distress, on room air. HEAD: Normocephalic. Atraumatic. ENT: PERRLA, EOMI, no active. CHEST: No chest wall deformity. LUNGS: Symmetrical chest expansion,minimal crackles at the bases. No rhonchi no wheezes. CVS: Normal S1 and S2, no S3 gallop. No murmur. ABDOMEN: Soft nontender no megaly no rebound no guarding. SPINE: No scoliosis or deformity SKIN: No rashes CENTRAL NERVOUS SYSTEM: Alert and oriented 3, minimal left-sided weakness noted in the left upper extremity and left lower extremity. Needs lots of assistance with ambulation. EXTREMITIES: There is no peripheral edema. No clubbing, no cyanosis. Peripheral pulses are intact. Psychiatric: Normal mood, normal affect, and normal mental status examination - Labs CBC & Chem 7: 11/10/19 04:54 11/10/19 04:54 Labs: Abnormal Lab Results - Last 24 Hours (Table) 11/10/19 11/10/19 Range/Units 04:54 04:54 RBC 3.84 L (4.30-5.90) m/uL Hgb 11.9 L (13.0-17.5) gm/dL Hct 36.9 L (39.0-53.0) % Chloride 115 H (98-107) mmol/L Carbon Dioxide 18 L (22-30) mmol/L Glucose 100 H (74-99) mg/dL Microbiology - Last 24 Hours (Table) 11/04/19 19:42 Blood Culture - Preliminary Blood No Growth after 120 hours 11/04/19 18:30 Blood Culture - Preliminary Blood No Growth after 120 hours Assessment and Plan Assessment: Impression: Acute ST elevation myocardial infarction and cardiac arrest requiring defibrillation 3. Coronary artery disease, with 100% occlusion of the LAD requiring stenting. Acute hypoxic respiratory failure secondary to above, possibility of aspiration pneumonia is not entirely ruled out, but felt to be less likely. Chest x-ray is pointing mostly to atelectasis. Remote smoking history, quit in 1998. Degenerative joint disease and previous left hip replacement and left knee arthroplasty. History of basal cell carcinoma. Paroxysmal atrial fibrillation, presently on heparin and amiodarone being addressed by cardiology. acute CVA and left lacunar infarct, being addressed by neurology. Recommendation: Continue present supportive care measures. Continue cardiac meds as per cardiology. Discontinue antibiotics. Continue incentive spirometry and aggressive pulmonary toileting. Continue to monitor neuro status. MRI report was reviewed. Continue GI and DVT prophylaxis. Transfer to monitor bed today on selective.once a bed is available. Time with Patient: Less than 30
--- NOTE | 2019-11-10 13:07 | P.PN ---
Subjective Progress Note Date: 11/10/19 Patient is a 64-year-old male, with history of witnessed cardiac arrest on 11/03/2019, in which patient had 8 minutes of cardiac arrest with no CPR and 20 minutes of CPR once EMS arrived before patient has return of spontaneous circulation. Patient was intubated, started showing signs of meani ngful response on day 2, was extubated. Patient at present is doing great, as per examination below. Today patient was laying in the bed, very comfortable, offers no complaints. Yesterday he had more chest wall pain, likely due to CPR related myofascial trauma, but today was not complaining. Speech is less dysarthric. Offers no new complaints. Patient had low back surgery 2 months ago. Patient underwent cardiac catheterization and underwent placement of stents for 100% blockage of the LAD. Patient denies any history of diabetes hypertension or tobacco use.. Patient's 2-D echo showed EF 35-40%, mid anterior left ventricular wall motion is hypokinetic. Mid lateral left ventricle wall motion is hypokinetic. Mid anterior septal left ventricle wall motion is hypokinetic. Apical anterior left ventricle wall motion is akinetic. Apical lateral left ventricle wall motion is akinetic. Apical septum left ventricle wall motion is akinetic. Patient had an MRI of the brain today, which revealed diffuse white matter disease around the lateral ventricles could be related to demyelinating disease. Chronic small vessel ischemia is also possible. Diffusion images show punctate high signal scattered foci in the parietal lobes that could be acute lacunar infarct. Most prominent is on the right high parietal subcortical region. Ethmoid and frontal sinusitis. Objective - Vital Signs Vital signs: Vital Signs Temp 98.7 F 11/10/19 04:00 Pulse 84 11/10/19 11:13 Resp 14 11/10/19 08:00 BP 155/91 11/10/19 08:00 Pulse Ox 96 11/10/19 08:00 Intake & Output 11/09/19 11/10/19 11/10/19 18:59 06:59 18:59 Intake Total 1610 Output Total 551 652 Balance 1059 -652 Weight 98 kg Intake: IV 890 Piperacillin-Tazobactam 3 200 .375 gm In Sodium Chloride 0.9% 100 ml @ 25 mls/hr IVPB Q8HR [facility] Rx# :[id number] Sodium Chloride 0.9% 1, 190 000 ml @ 75 mls/hr IV . [id number] [facility] Rx#:[id number] Vancomycin 1,750 mg In 500 Sodium Chloride 0.9% 500 ml 500 ml @ 167 mls/hr IVPB Q8H [facility] Rx#: [id number] Oral 720 Output: Urine 550 650 Stool 1 2 Other: Voiding Method Urinal Urinal ABP, PAP, CO, CI - Last Documented Arterial Blood Pressure 119/55 - Exam Patient's mental status appears fairly intact. Patient states it is , November 10, but thought was ear 2019. He knows that he is in [facility]. Speech is much more clear. No dysarthria or aphasia. Attention and concentration appears intact. Patient is not stuttering. On cranial examination pupils are round and reacting, visual villanueva are full with no ne glect. Face is symmetric and tongue protrudes the midline. On muscle strength testing patient has left pronator drift. The strength is normal in the right arm. On the left upper limb, deltoid is 4+, biceps, triceps and waist cutter are normal. Ankles are normal. Hip flexion is slightly weaker on the left. Sensations are equal, with no neglect. No ataxia. - Labs CBC & Chem 7: 11/10/19 04:54 11/10/19 04:54 Labs: Abnormal Lab Results - Last 24 Hours (Table) 11/10/19 11/10/19 Range/Units 04:54 04:54 RBC 3.84 L (4.30-5.90) m/uL Hgb 11.9 L (13.0-17.5) gm/dL Hct 36.9 L (39.0-53.0) % Chloride 115 H (98-107) mmol/L Carbon Dioxide 18 L (22-30) mmol/L Glucose 100 H (74-99) mg/dL Microbiology - Last 24 Hours (Table) 11/04/19 19:42 Blood Culture - Preliminary Blood No Growth after 120 hours 11/04/19 18:30 Blood Culture - Preliminary Blood No Growth after 120 hours Assessment and Plan Assessment: * Status post cardiac arrest with fairly long down time, but remarkable clinical improvement. Patient is fairly well oriented. Patient has mild dysarthria and mild left hemiparesis, which seems to be improving. MRI of the brain revealed small vessel ischemic change, some acute in the bilateral parietal region, possibly related to hypoperfusion related to cardiac arrest. * Acute DE, status post cardiac stenting for 100% occlusion of the LAD. * History of low back surgery 2 months ago. Plan: * Neurologically, patient has further improved as compared to yesterday. * Patient had normal carotid Doppler with no significant stenosis. * Patient's hemoglobin A1c 5.0, total cholesterol 176, LDL 119, HDL 30 and triglycerides 137. * Patient now placed on Plavix 75 mg (after receiving Plavix load), also on aspirin 81 mg daily and Apixaban 2.5 mg twice a day. Patient is off Brilinta. * Patient also on Lipitor 80 mg daily. * PT OT evaluate * Neurology will sign off. Please call neurology if any other concerns. * Clear for discharge from neurology point.
[2019-11-10] MEDS: CARVEDILOL 6.25 MG TAB PO SCH (16:59)
[2019-11-10] MEDS ORDERED: POTASSIUM CHLORIDE ER 20 MEQ TAB.ER PO SCH (17:00)
[2019-11-10] MEDS ORDERED: CLOPIDOGREL 75 MG TAB PO ONE (21:00)
[2019-11-10] MEDS: ATORVASTATIN 80 MG TAB PO SCH (22:15)
[2019-11-11] MEDS: PIPERACILLIN-TAZOBACTAM 3.375 GM in SODIUM CHLORIDE 0.9% 100 ML IVPB SCH ×2 (01:47→18:33)
[2019-11-11] MEDS: CARVEDILOL 6.25 MG TAB PO SCH ×2 (06:28→17:35)
[2019-11-11] MEDS: PANTOPRAZOLE 40 MG TABLET PO SCH ×2 (06:28→17:35)
[2019-11-11] MEDS: VANCOMYCIN 1,750 MG in SODIUM CHLORIDE 0.9% 500 ML 500 ML IVPB SCH (06:28)
[2019-11-11 07:11] LABS: African American GFR (CKD) >90 (>60 ml/min/1.73 sqM); Anion Gap 9 mmol/L; Blood Urea Nitrogen 11 mg/dL (9-20); Calcium 8.5 mg/dL (8.4-10.2); Carbon Dioxide 20 mmol/L (22-30); Chloride 114 mmol/L (98-107); Glucose 95 mg/dL (74-99); Non-African American GFR(CKD) >90 (>60 ml/min/1.73 sqM); Potassium 3.4 mmol/L (3.5-5.1); Sodium 143 mmol/L (137-145)
[2019-11-11] MEDS: AMIODARONE 200 MG TAB PO SCH ×3 (07:51→21:49)
[2019-11-11] MEDS: SPIRONOLACTONE 25 MG TAB PO SCH (07:52)
[2019-11-11] MEDS: LISINOPRIL 5 MG TAB PO SCH (07:52)
[2019-11-11] MEDS: ASPIRIN 81 MG PO SCH (07:52)
[2019-11-11] MEDS: APIXABAN 2.5 MG TABLET PO SCH ×2 (07:52→21:49)
[2019-11-11] MEDS: FUROSEMIDE 20 MG TAB PO SCH (07:52)
[2019-11-11] MEDS: CLOPIDOGREL 75 MG TAB PO SCH (07:52)
[2019-11-11] MEDS ORDERED: Potassium Replacement Protocol 1 EACH MISC MISCELLANE PRN (07:54)
[2019-11-11] MEDS: IPRATROPIUM-ALBUTEROL 3 ML NEB INHALATION SCH ×4 (08:32→20:30)
[2019-11-11] MEDS: POTASSIUM CHLORIDE ER 20 MEQ TAB.ER PO SCH ×2 (10:40→11:48)
[2019-11-11] MEDS: SULFAMETHOX-TMP 800-160MG 1 EACH TAB PO SCH ×2 (11:48→21:49)
--- NOTE | 2019-11-11 12:13 | P.DS ---
Providers Date of admission: 11/03/19 09:31 Attending physician: Rell Harrington Consults: 11/03/19 09:20 Consult Physician Stat Consulting Provider: [facility] Consult Reason/Comments: STEMI ACTIVATION COMPLETE Do you want consulting provider notified?: Yes 11/03/19 10:14 Consult Physician Routine Consulting Provider: [facility] Consult Reason/Comments: Post Interventional patient Do you want consulting provider notified?: Already Contacted 11/03/19 10:16 Consult Physician Routine Consulting Provider: Aruna Ha Consult Reason/Comments: stemi Do you want consulting provider notified?: Yes 11/04/19 11:17 Consult Physician Routine Consulting Provider: Maria Esther Mendoza Consult Reason/Comments: Cardiac arrest, hypoxic encephalopathy Do you want consulting provider notified?: Yes 11/08/19 18:41 Consult Physician Routine Consulting Provider: Terence Arellano Consult Reason/Comments: stroke and possible [place] Do you want consulting provider notified?: Yes Primary care physician: Stated None Hospital Course: Diagnoses: acute ST elevation myocardial infarction, status post cardiac arrest8 status post coronary angiogram and stent placement in the LAD acute systolic congestive heart failure, ejection fraction 20-25% paroxysmal atrial fibrillation Right lower lobe pneumonia with MRSA. Possible aspiration pneumonitis Acute right parieto-occipital ischemic stroke with left hemiparesis Possible upper GI bleed Recent history of cardiac arrest status post resuscitation with possible hypoxic encephalopathy Acute hypoxic respiratory failure, present on admission. Patient needed temporal intubation and mechanical ventilation status post extubation on 11/06 GERD Primary osteoarthritis chronic low back pain with recent laminectomy and decompression in September of this year. Hospital course: this is a pleasant 64 years old male with past medical history of GERD, osteoarthritis, skin cancer with basal cell carcinoma.chronic low back pain with recent laminectomy and decompression in September of this year. patient presents on 11/03/2019 with unresponsiveness where he dropped on to home in the down time was 8 minutes. EMS found to be in V. fib and was defibrillated 3 times and received epinephrine. He pulse did return. Patient was intubated and patient was presented to the ER showed ST segment elevation myocardial infarction.patient underwent emergent cardiac cath with stent placed in the LAD, patient also found to have acute congestive heart failure with systolic decompensation shown ejection fraction of 20-25%. This hospital course was complicated with possible upper GI bleed however his hemoglobin remains stable, he had acute right parieto-occipital ischemic stroke with left hemiparesis , MRI of the brain howing acute lacunar infarct with periventricular disease to rule out demyelinating disease or some chronic small vessel disease. carotid Dopplers showing no significant stenosis. pt had right lower lobe pneumonia with MRSA suspected to be aspirated. Patient also developed paroxysmal atrial fibrillation. Eventually patient got extubated and with mean more stable he was transferred to the general medical floor. Patient is being followed by several consults including fws faculty assistant, neurologist, batch operator and partnership marketing manager. Over the last few days patient remains fully awake and oriented with no chest pain or dyspnea. He remains stable with mild left hemiparesis and mild slurred speech. Patient denies new symptoms. Hysterectomy that well. No nausea vomiting. No change in bowel habits. He has no problem or difficulty with urination. No fever. Patient was cleared for discharge by all consultants including fws faculty assistant, neurologist, partnership marketing manager and batch operator. Patient will be discharged to subacute rehab and he is prescribed aspirin and Plavix for his coronary artery disease, he was started on Eliquis 2.5 mg for his history of A. fib. He finished his course of IV antibiotics with vancomycin and Zosyn and he does not need any more antibiotics upon discharge. Also he is on amiodarone and Coreg. Problems and management plan were discussed with the patient and he verbalized understanding and acceptance Patient was found stable and can be discharged home however he needs follow-up as an outpatient. Patient was instructed to follow up with PCP within one week and patient agrees. Patient also instructed to follow up with batch operator, fws faculty assistant in 1-2 weeks. And to follow up with a neurologist in 2 weeks for his stroke. Patient and agree with follow-up and ECF/family will call to make appointments Gen: patient is a AAOx3, no distress CVS: S1-S2, RRR, no murmur Lungs: B/L CTA, no wheezing Abdomen: soft, no distention, no tenderness, positive bowel sounds Extremity: no leg edema or induration -Neuro: Cranial nerves are grossly intact except for slurred speech. Strength: Mild left hemiparesis. Sensation is intact Time spent more than 35 minutes Patient Condition at Discharge: Serious Plan - Discharge Summary Discharge Rx Participant: No New Discharge Prescriptions: New Spironolactone [Aldactone] 25 mg PO DAILY tab Zolpidem [Ambien] 5 mg PO HS PRN tab PRN Reason: Insomnia Aspirin 81 mg PO DAILY chew Sulfamethox-Tmp 800-160Mg [Bactrim DS 800-160 mg] 1 each PO BID 7 Days #13 tab Amiodarone [Cordarone] 200 mg PO TID tab Carvedilol [Coreg] 6.25 mg PO BID-W/MEALS tab Ipratropium-Albuterol Nebulize [Duoneb 0.5 mg-3 mg/3 ml Soln] 3 ml INHALATION RT-QID ampul.neb Ipratropium-Albuterol Nebulize [Duoneb 0.5 mg-3 mg/3 ml Soln] 3 ml INHALATION RT-Q2H PRN ampul.neb PRN Reason: Shortness Of Breath Or Wheezing Apixaban [Eliquis] 2.5 mg PO BID tablet Furosemide [Lasix] 20 mg PO DAILY tab Atorvastatin [Lipitor] 80 mg PO HS tab Mag Hydrox/Al Hydrox/Simeth [Maalox] 30 ml PO Q4HR PRN cup PRN Reason: Heartburn Nitroglycerin Sl Tabs [Nitrostat] 0.4 mg SUBLINGUAL Q5M PRN tab PRN Reason: Chest Pain Clopidogrel [Plavix] 75 mg PO DAILY tab Lisinopril [Zestril] 5 mg PO DAILY tab Continue Pantoprazole Sodium [Protonix] 40 mg PO QAM Acetaminophen [Tylenol] 1,000 mg PO Q4-6H PRN PRN Reason: Pain Tamsulosin HCl [Flomax] 0.4 mg PO DAILY Changed Sennosides-Docusate Sodium [Senokot-S] 1 tab PO BID PRN #0 PRN Reason: Constipation Discontinued HYDROcodone/APAP 5-325MG [[place] 5-325] 1 - 2 tab PO Q6HR PRN #56 tab PRN Reason: Pain Discharge Medication List Pantoprazole Sodium [Protonix] 40 mg PO QAM 03/29/15 [History] Acetaminophen [Tylenol] 1,000 mg PO Q4-6H PRN 09/15/19 [History] Tamsulosin HCl [Flomax] 0.4 mg PO DAILY 11/03/19 [History] Amiodarone [Cordarone] 200 mg PO TID tab 11/11/19 [Rx] Apixaban [Eliquis] 2.5 mg PO BID tablet 11/11/19 [Rx] Aspirin 81 mg PO DAILY chew 11/11/19 [Rx] Atorvastatin [Lipitor] 80 mg PO HS tab 11/11/19 [Rx] Carvedilol [Coreg] 6.25 mg PO BID-W/MEALS tab 11/11/19 [Rx] Clopidogrel [Plavix] 75 mg PO DAILY tab 11/11/19 [Rx] Furosemide [Lasix] 20 mg PO DAILY tab 11/11/19 [Rx] Ipratropium-Albuterol Nebulize [Duoneb 0.5 mg-3 mg/3 ml Soln] 3 ml INHALATION RT-Q2H PRN ampul.neb 11/11/19 [Rx] Ipratropium-Albuterol Nebulize [Duoneb 0.5 mg-3 mg/3 ml Soln] 3 ml INHALATION RT-QID ampul.neb 11/11/19 [Rx] Lisinopril [Zestril] 5 mg PO DAILY tab 11/11/19 [Rx] Mag Hydrox/Al Hydrox/Simeth [Maalox] 30 ml PO Q4HR PRN cup 11/11/19 [Rx] Nitroglycerin Sl Tabs [Nitrostat] 0.4 mg SUBLINGUAL Q5M PRN tab 11/11/19 [Rx] Sennosides-Docusate Sodium [Senokot-S] 1 tab PO BID PRN #0 11/11/19 [Rx] Spironolactone [Aldactone] 25 mg PO DAILY tab 11/11/19 [Rx] Sulfamethox-Tmp 800-160Mg [Bactrim DS 800-160 mg] 1 each PO BID 7 Days #13 tab 11/11/19 [Rx] Zolpidem [Ambien] 5 mg PO HS PRN tab 11/11/19 [Rx] Follow up Appointment(s)/Referral(s): None,Stated [Primary Care Provider] - 1-2 days Fredis Hester MD [STAFF PHYSICIAN] - 2 Weeks (f/u in 1-2 weeks) Aruna Ha MD [STAFF PHYSICIAN] - 2 Weeks (f/u in 1-2 weeks) Elier Borges DO [STAFF PHYSICIAN] - 2 Weeks (neurologist , please call to make appointment for follow up of your stroke) Neyda Richards MD [STAFF PHYSICIAN] - 2 Weeks (neurologist , please call to make appointment for follow up of your stroke) Activity/Diet/Wound Care/Special Instructions: Cardiac diet Activities Limited till you see your doctor Please monitor his creatinine and serum electrolytes every 2-3 days, as he will be discharged on Bactrim as well as other medications like lisinopril, spironolactone and others Discharge Disposition: TRANSFER TO SNF/ECF
--- NOTE | 2019-11-11 12:34 | P.PN ---
Subjective Progress Note Date: 11/11/19 Principal diagnosis: Acute ST elevated myocardial infarction on 11/07/2019 the patient is extubated awake and a 2. Left upper extremity is weak in the left lower extremity is weaker. He still has a positive Babinski in the left lower extremity. Nevertheless, he is alert and his communicating and is answering questions. He did have a good sense of humor this morning. The patient overnight went into atrial fibrillation with rapid ventricular response. Currently is on amiodarone drip. He was started also on IV heparin. He remains on a combination of aspirin and Brilinta. His rhythm is back to normal sinus rhythm. Note that the A. fib did not affect his hemodynamics. He is afebrile. Chest x-ray from today shows some mild pulmonary vascular congestion. Sputum sample was collected showed MRSA and I added vancomycin to go along with the Zosyn that he was already on. He is afebrile. No nausea. No emesis.No pressors for now. He was started on Coreg a dose of 3.125 mg 1 tablet twice a day. He has adequate urine output. Adequate pulses in lower extremities bilaterally. No signs of any GI bleeding. Hemoglobin stable at 11.2. No other significant events overnight otherwise. Patient was reevaluated today on 11/08/2019, remains in the ICU, patient is presently on room air, remains on heparin drip and amiodarone and these are about to be discontinued by cardiology. Chest x-ray showed minimal bibasilar infiltrates/atelectasis. Patient is doing well overall, asymptomatic, mental status is a bit slow, and he is scheduled to have MRI of the brain. His electrodes are normal BUN is normal creatinine is normal, CBC is relatively normal. Echocardiogram this morning showed LV dysfunction and ejection fraction of 35-40%. Reevaluated today on 11/09/2019, patient remains in the ICU, however he is an overflow. Patient is doing quite well, asymptomatic.awake, alert oriented 3, patient denies any shortness of breath, continues to have a minimal left-sided weakness especially in the left lower extremity. He is on room air. O2 saturation is 95%. MRI of the brain yesterday showed acute lacunar infarct with periventricular disease, and that is being addressed by neurology on the case. Overall the patient is doing fairly well, remains on multiple medications for his cardiac issues. Including antiplatelet therapy and Eliquis. Reevaluated today on 11/10/2019, patient remains as an overflow in the ICU, doing well from the pulmonary perspective, he is hemodynamically stable, denies any cough wheezing or shortness of breath. Continues to have left-sided weakness. Patient is being considered for possible rehab referral sometime in the next couple of days. Remains on empiric antibiotics, remains on Eliquis, and his last chest x-ray showed some chronic parenchymal changes at the right base, suspect to be mostly atelectasis, possibility of infiltrate is not entirely ruled out but felt to be less likely based on his clinical findings. WBC count is 7.7 hemoglobin is 11.9 electrolytes are normal renal profile is normal On 11/11/2019 patient seen in follow-up on selective care unit. She is awake and alert, in no acute distress. 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 Remains in A. fib, with a controlled rate he is on Eliquis for anticoagulation, on antiplatelet agents status post LAD stenting. Complains of chest pain, shortness of breath, sputum cultures are positive for MRSA and stenotrophomonas maltophilia, patient has been treated with Zosyn and vancomycin, we'll switch antibiotic coverage to Ba ctrim DS twice daily for 14 days. No other acute issues overnight. No new chest x-rays, physical therapy is following and patient to subacute rehab after discharge. Objective - Vital Signs Vital signs: Vital Signs Temp 98.0 F 11/11/19 07:47 Pulse 80 11/11/19 08:48 Resp 18 11/11/19 07:47 BP 133/85 11/11/19 07:47 Pulse Ox 94 L 11/11/19 07:47 Intake & Output 11/10/19 11/11/19 11/11/19 18:59 06:59 18:59 Intake Total 1320 Output Total 1050 300 Balance -1050 -300 1320 Weight 99 kg Intake: IV 1200 Piperacillin-Tazobactam 3 200 .375 gm In Sodium Chloride 0.9% 100 ml @ 25 mls/hr IVPB Q8HR [facility] Rx# :[id number] Vancomycin 1,750 mg In 1000 Sodium Chloride 0.9% 500 ml 500 ml @ 167 mls/hr IVPB Q8H [facility] Rx#: [id number] Oral 120 Output: Urine 1050 300 Other: Voiding Method Urinal Urinal # Voids 1 1 1 ABP, PAP, CO, CI - Last Documented Arterial Blood Pressure 119/55 - Exam GENERAL EXAM: Alert, very pleasant, 64-year-old white male, comfortable in no apparent distress. HEAD: Normocephalic/atraumatic. EYES: Normal reaction of pupils, equal size. Conjunctiva pink, sclera white. NOSE: Clear with pink turbinates. THROAT: No erythema or exudates. NECK: No masses, no JVD, no thyroid enlargement, no adenopathy. CHEST: No chest wall deformity. Symmetrical expansion. LUNGS: Equal air entry with no crackles, wheeze, rhonchi or dullness. CVS: Regular rate and rhythm, normal S1 and S2, no gallops, no murmurs, no rubs ABDOMEN: Soft, nontender. No hepatosplenomegaly, normal bowel sounds, no guarding or rigidity. EXTREMITIES: No clubbing, no edema, no cyanosis, 2+ pulses and upper and lower extremities. MUSCULOSKELETAL: Muscle strength and tone normal. SPINE: No scoliosis or deformity SKIN: No rashes CENTRAL NERVOUS SYSTEM: Alert and oriented -3. 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 PSYCHIATRIC: Alert and oriented -3. Appropriate affect. Intact judgment and insight. - Labs CBC & Chem 7: 11/10/19 04:54 11/11/19 05:55 Labs: Abnormal Lab Results - Last 24 Hours (Table) 11/11/19 Range/Units 05:55 Potassium 3.4 L (3.5-5.1) mmol/L Chloride 114 H (98-107) mmol/L Carbon Dioxide 20 L (22-30) mmol/L Microbiology - Last 24 Hours (Table) 11/05/19 05:19 Gram Stain - Final Sputum Sputum Culture - Final Methicillin resist S. aureus Stenotrophomonas maltophilia 11/04/19 19:42 Blood Culture - Final Blood No Growth after 144 hours 11/04/19 18:30 Blood Culture - Final Blood No Growth after 144 hours Assessment and Plan Plan: Assessment: #1. Acute ST elevated myocardial infarction and cardiac arrest requiring def ibrillation 3, with return of spontaneous circulation #2. Coronary artery disease with 100% occlusion of the LAD requiring PCI and stenting #3. Acute hypoxic rest or a failure secondary to the above, sputum cultures positive for MRSA and stenotrophomonas maltophilia #4. Acute cerebrovascular accident and left lacunar infarct, old by neurology #5. A. fib with RVR, currently in sinus rhythm, on Eliquis for anticoagulation #7. Ischemic cardiomyopathy, with impaired left ventricular systolic function with an EF of 35-40%, and hypokinesis of anterior, lateral, septal and apical wall #8. Remote history of smoking, quit in 1998 #9. Degenerative joint disease and previous left hip replacement and left knee arthroplasty Plan: We'll switch antibiotic coverage from Zosyn and vancomycin to oral Bactrim DS twice daily for 2 more weeks, continue antiplatelet agents continue anticoagul ation, clinically patient is stable, increase activity as tolerated, denies any shortness of breath denies any chest pain, vital signs are stable, no acute issues overnight, neurologically patient has recovered with some residual left- sided hemiparesis. Patient is stable for discharge to subacute rehab today and he will need outpatient follow-up with Dr. Ha in the office in one to 2 weeks I performed a history & physical examination of the patient and discussed their management with my nurse practitioner, Tran Phan. I reviewed the nurse practitioner's note and agree with the documented findings and plan of care. Lung sounds are positive for diminished breath sounds. The findings and the impression was discussed with the patient. I attest to the documentation by the nurse practitioner. Time with Patient: Less than 30
[2019-11-11 13:44] VITALS: BMI 28.0
[2019-11-11] MEDS: ATORVASTATIN 80 MG TAB PO SCH (21:49)
[2019-11-12] MEDS: IPRATROPIUM-ALBUTEROL 3 ML NEB INHALATION SCH ×4 (07:05→21:49)
[2019-11-12] MEDS: CLOPIDOGREL 75 MG TAB PO SCH (09:44)
[2019-11-12] MEDS: PANTOPRAZOLE 40 MG TABLET PO SCH ×2 (09:44→17:14)
[2019-11-12] MEDS: APIXABAN 2.5 MG TABLET PO SCH ×2 (09:44→21:23)
[2019-11-12] MEDS: AMIODARONE 200 MG TAB PO SCH ×3 (09:44→21:23)
[2019-11-12] MEDS: FUROSEMIDE 20 MG TAB PO SCH (09:44)
[2019-11-12] MEDS: SPIRONOLACTONE 25 MG TAB PO SCH (09:44)
[2019-11-12] MEDS: SULFAMETHOX-TMP 800-160MG 1 EACH TAB PO SCH ×2 (09:44→21:23)
[2019-11-12] MEDS: LISINOPRIL 5 MG TAB PO SCH (09:44)
[2019-11-12] MEDS: ASPIRIN 81 MG PO SCH (09:44)
[2019-11-12] MEDS: CARVEDILOL 6.25 MG TAB PO SCH ×2 (09:44→17:14)
[2019-11-12] MEDS: ATORVASTATIN 80 MG TAB PO SCH (21:23)
--- NOTE | 2019-11-12 21:39 | P.PN ---
Subjective on-call hospitalist covering starting approximately 01/09/2019 this is a pleasant 64 years old male with past medical history of GERD, os teoarthritis, skin cancer with basal cell carcinoma.chronic low back pain with recent laminectomy and decompression in September of this year. patient presents on 11/03/2019 with unresponsiveness where he dropped on to home in the down time was 8 minutes. EMS found to be in V. fib and was defibrillated 3 times and received epinephrine. He pulse did return. Patient was intubated and patient was presented to the ER showed ST segment elevation myocardial infarction.patient underwent emergent cardiac cath with stent placed in the LAD, patient also found to have acute congestive heart failure with systolic decompensation shown ejection fraction of 20-25%. This hospital course was complicated with possible upper GI bleed however his hemoglobin remains stable, he had acute right parieto-occipital ischemic stroke with left hemiparesis and right lower lobe pneumonia with MRSA suspected to be aspirated. Patient also developed paroxysmal atrial fibrillation. Eventually patient got extubated however he remains in the ICU for further management 11/09/2019 Patient is awake and oriented with no chest pain or dyspnea, he sitting in the chair today, distal complaining from some weakness in his left side especially left leg and mild slurred speech.is slightly tachypneic at 21-26, saturating 95% on room air and other vitals are stable. MRI of the brain done yesterday showing acute lacunar infarct with periventricular disease to rule out demyelinating disease or some chronic small vessel diseasepreoperative carotid Dopplers today showing no significant stenosis.x-ray showing chronic changes with bibasilar opacities more on the right side.patient has been evaluated by neurologist and workforce analyst today. Patient to continue with aspirin, brilinta and , Eliquis 11/10/2019 Patient is selective overflow. He has chest pain, denies dyspnea. No other new complaints. He is hemodynamically stable. Labs are stable. Patient has been evaluated by Dr. Arellano. Patient will need ECF upon discharge for rehab, social work instructor is on consult. Patient currently on Eliquis 2.5 mg, on Zosyn and IV vancomycin. Patient to continue with aspirin and brillinta 11/12/2019 pt is improving clinically , pt is cleared medically for discharge since yesterday pending insurance authorization pulmonary team recommended bactrim for 2 week , we will check cbc and bmp tomorrow Objective - Vital Signs Vital signs: Vital Signs Temp 98.2 F 11/12/19 20:00 Pulse 95 11/12/19 20:00 Resp 18 11/12/19 20:00 BP 135/66 11/12/19 20:00 Pulse Ox 97 11/12/19 20:00 Intake & Output 11/12/19 11/12/19 11/13/19 06:59 18:59 06:59 Intake Total 740 Output Total 278 500 202 Balance 462 -500 -202 Weight 96.5 kg Intake: IV 500 Vancomycin 1,750 mg In 500 Sodium Chloride 0.9% 500 ml 500 ml @ 167 mls/hr IVPB Q8H [facility] Rx#: [id number] Oral 240 Output: Urine 275 500 200 Stool 3 2 Other: Voiding Method Urinal Urinal Urinal # Voids 1 ABP, PAP, CO, CI - Last Documented Arterial Blood Pressure 119/55 - Exam GENERAL: The patient is alert and oriented x3, not in any acute distress. Well developed, well nourished. HEENT: Pupils are round and equally reacting to light. EOMI. No scleral icterus. No conjunctival pallor. Normocephalic, atraumatic. No pharyngeal erythema. No thyromegaly. CARDIOVASCULAR: S1 and S2 present. No murmurs, rubs, or gallops. PULMONARY: Chest is clear to auscultation, no wheezing or crackles. ABDOMEN: Soft, nontender, nondistended, normoactive bowel sounds. No palpable organomegaly. MUSCULOSKELETAL: No joint swelling or deformity. EXTREMITIES: No cyanosis, clubbing, or pedal edema. -NEUROLOGICAL: Gross neurological examination did not reveal any focal deficits. left hemiparesis SKIN: No rashes. no petechiae. - Labs CBC & Chem 7: 11/10/19 04:54 11/11/19 05:55 Assessment and Plan Assessment: acute ST elevation myocardial infarction, status post cardiac arrest8 status post coronary angiogram and stent placement in the LAD acute systolic congestive heart failure, ejection fraction 20-25% paroxysmal atrial fibrillation Right lower lobe pneumonia with MRSA. Possible aspiration pneumonitis Acute right parieto-occipital ischemic stroke with left hemiparesis Possible upper GI bleed Recent history of cardiac arrest status post resuscitation with possible hypoxic encephalopathy Acute hypoxic respiratory failure, present on admission. Patient needed temporal intubation and mechanical ventilation status post extubation on 11/06 GERD Primary osteoarthritis chronic low back pain with recent laminectomy and decompression in September of this year. Plan: this is a pleasant 64 years old male who presents with multiple medical problems including STEMI, CHF, stroke and possible pneumonia. Continue with amiodarone and Cardizem as per cardiology's recommendation. Continue with anticoagulation as per technical sales advisor. Continue with antibiotics in the form of Zosyn and IV vancomycin. Continue with IV fluids. Pain management. Follow-up recommendation by consult is occluding cardiology, pulmonary, neurology and gastroenterology. Continue with aspirin and Brillinta , and eliquis Labs and medication were reviewed.. Continue same treatment. Continue with symptomatic treatment. Resume home medication. Monitor lytes and vitals. DVT and GI prophylaxis. Further recommendations of the clinical course of the patient DVT prophylaxis: Eliquis GI Prophylaxis: Pepcid PT/OT: Pending Prognosis is guarded medically clear for discharge pending placement
[2019-11-13 06:59] LABS: Basophils # (A) 0.1 k/uL (0-0.2); Basophils % (A) 1 %; Eosinophils # (A) 0.1 k/uL (0-0.7); Eosinophils % (A) 2 %; HCT 36.5 % (39.0-53.0); HGB 11.9 gm/dL (13.0-17.5); Lymphocytes # (A) 1.7 k/uL (1.0-4.8); Lymphocytes % (A) 23 %; MCH 31.2 pg (25.0-35.0); MCHC 32.5 g/dL (31.0-37.0); MCV 96.2 fL (80.0-100.0); Mean Platelet Volume 7.2; Monocytes # (A) 0.5 k/uL (0-1.0); Monocytes % (A) 6 %; Neutrophils # (A) 5.1 k/uL (1.3-7.7); Neutrophils % (A) 66 %; Platelet Count 413 k/uL (150-450); RDW 13.4 % (11.5-15.5); WBC 7.7 k/uL (3.8-10.6)
[2019-11-13] MEDS: PANTOPRAZOLE 40 MG TABLET PO SCH ×2 (06:59→15:59)
[2019-11-13] MEDS: CARVEDILOL 6.25 MG TAB PO SCH ×2 (07:00→15:59)
[2019-11-13 07:19] LABS: Potassium 3.6 mmol/L (3.5-5.1)
[2019-11-13] MEDS: IPRATROPIUM-ALBUTEROL 3 ML NEB INHALATION SCH ×4 (08:56→20:13)
[2019-11-13] MEDS: FUROSEMIDE 20 MG TAB PO SCH (09:18)
[2019-11-13] MEDS: ASPIRIN 81 MG PO SCH (09:18)
[2019-11-13] MEDS: LISINOPRIL 5 MG TAB PO SCH (09:18)
[2019-11-13] MEDS: CLOPIDOGREL 75 MG TAB PO SCH (09:18)
[2019-11-13] MEDS: SPIRONOLACTONE 25 MG TAB PO SCH (09:18)
[2019-11-13] MEDS: APIXABAN 2.5 MG TABLET PO SCH ×2 (09:18→21:31)
[2019-11-13] MEDS: SULFAMETHOX-TMP 800-160MG 1 EACH TAB PO SCH ×2 (09:18→21:31)
[2019-11-13] MEDS: AMIODARONE 200 MG TAB PO SCH ×3 (09:18→21:34)
[2019-11-13 09:21] VITALS: RESP 16
--- NOTE | 2019-11-13 09:45 | P.PN ---
Subjective on-call hospitalist covering starting approximately 01/09/2019 this is a pleasant 64 years old male with past medical history of GERD, os teoarthritis, skin cancer with basal cell carcinoma.chronic low back pain with recent laminectomy and decompression in September of this year. patient presents on 11/03/2019 with unresponsiveness where he dropped on to home in the down time was 8 minutes. EMS found to be in V. fib and was defibrillated 3 times and received epinephrine. He pulse did return. Patient was intubated and patient was presented to the ER showed ST segment elevation myocardial infarction.patient underwent emergent cardiac cath with stent placed in the LAD, patient also found to have acute congestive heart failure with systolic decompensation shown ejection fraction of 20-25%. This hospital course was complicated with possible upper GI bleed however his hemoglobin remains stable, he had acute right parieto-occipital ischemic stroke with left hemiparesis and right lower lobe pneumonia with MRSA suspected to be aspirated. Patient also developed paroxysmal atrial fibrillation. Eventually patient got extubated however he remains in the ICU for further management 11/09/2019 Patient is awake and oriented with no chest pain or dyspnea, he sitting in the chair today, distal complaining from some weakness in his left side especially left leg and mild slurred speech.is slightly tachypneic at 21-26, saturating 95% on room air and other vitals are stable. MRI of the brain done yesterday showing acute lacunar infarct with periventricular disease to rule out demyelinating disease or some chronic small vessel diseasepreoperative carotid Dopplers today showing no significant stenosis.x-ray showing chronic changes with bibasilar opacities more on the right side.patient has been evaluated by neurologist and semiconductor testing group leader today. Patient to continue with aspirin, brilinta and , Eliquis 11/10/2019 Patient is selective overflow. He has chest pain, denies dyspnea. No other new complaints. He is hemodynamically stable. Labs are stable. Patient has been evaluated by Dr. Arellano. Patient will need ECF upon discharge for rehab, social service liaison is on consult. Patient currently on Eliquis 2.5 mg, on Zosyn and IV vancomycin. Patient to continue with aspirin and brillinta 11/12/2019 pt is improving clinically , pt is cleared medically for discharge since yesterday pending insurance authorization pulmonary team recommended bactrim for 2 week , we will check cbc and bmp tomorrow 11/13/2019 Patient is clinically stable, no new complaints. Vitals stable. Labs including CBC and BMP checked from today showing no significant abnormalities since he was started on Bactrim Patient pending authorization for placement Objective - Vital Signs Vital signs: Vital Signs Temp 97.1 F L 11/13/19 08:00 Pulse 80 11/13/19 09:07 Resp 16 11/13/19 08:00 BP 103/66 11/13/19 08:00 Pulse Ox 95 11/13/19 08:00 Intake & Output 11/12/19 11/13/19 11/13/19 18:59 06:59 18:59 Intake Total 600 118 Output Total 500 680 425 Balance -500 -80 -307 Weight 90.8 kg Intake: Oral 600 118 Output: Urine 500 675 425 Stool 5 Other: Voiding Method Urinal Urinal # Voids 1 ABP, PAP, CO, CI - Last Documented Arterial Blood Pressure 119/55 - Exam GENERAL: The patient is alert and oriented x3, not in any acute distress. Well developed, well nourished. HEENT: Pupils are round and equally reacting to light. EOMI. No scleral icterus. No conjunctival pallor. Normocephalic, atraumatic. No pharyngeal erythema. No thyromegaly. CARDIOVASCULAR: S1 and S2 present. No murmurs, rubs, or gallops. PULMONARY: Chest is clear to auscultation, no wheezing or crackles. ABDOMEN: Soft, nontender, nondistended, normoactive bowel sounds. No palpable organomegaly. MUSCULOSKELETAL: No joint swelling or deformity. EXTREMITIES: No cyanosis, clubbing, or pedal edema. -NEUROLOGICAL: Gross neurological examination did not reveal any focal deficits. left hemiparesis SKIN: No rashes. no petechiae. - Labs CBC & Chem 7: 11/13/19 06:13 11/13/19 06:13 Labs: Abnormal Lab Results - Last 24 Hours (Table) 11/13/19 11/13/19 Range/Units 06:13 06:13 RBC 3.80 L (4.30-5.90) m/uL Hgb 11.9 L (13.0-17.5) gm/dL Hct 36.5 L (39.0-53.0) % Chloride 109 H (98-107) mmol/L Assessment and Plan Assessment: acute ST elevation myocardial infarction, status post cardiac arrest8 status post coronary angiogram and stent placement in the LAD acute systolic congestive heart failure, ejection fraction 20-25% paroxysmal atrial fibrillation Right lower lobe pneumonia with MRSA. Possible aspiration pneumonitis Acute right parieto-occipital ischemic stroke with left hemiparesis Possible upper GI bleed Recent history of cardiac arrest status post resuscitation with possible hypoxic encephalopathy Acute hypoxic respiratory failure, present on admission. Patient needed temporal intubation and mechanical ventilation status post extubation on 11/06 GERD Primary osteoarthritis chronic low back pain with recent laminectomy and decompression in September of this year. Plan: this is a pleasant 64 years old male who presents with multiple medical problems including STEMI, CHF, stroke and possible pneumonia. Continue with amiodarone and Cardizem as per cardiology's recommendation. Continue with anticoagulation as per mailroom coordinator. Continue with antibiotics in the form of Zosyn and IV vancomycin. Continue with IV fluids. Pain management. Follow-up recommendation by consult is occluding cardiology, pulmonary, neurology and gastroenterology. Continue with aspirin and Brillinta , and eliquis Labs and medication were reviewed.. Continue same treatment. Continue with symptomatic treatment. Resume home medication. Monitor lytes and vitals. DVT and GI prophylaxis. Further recommendations of the clinical course of the patient DVT prophylaxis: Eliquis GI Prophylaxis: Pepcid PT/OT: Pending Prognosis is guarded medically clear for discharge pending placement
--- NOTE | 2019-11-13 14:23 | XR ---
EXAMINATION TYPE: XR lumbar spine 2 or 3V DATE OF EXAM: 11/13/2019 COMPARISON: 06/14/2013 HISTORY: Fall. Back pain. TECHNIQUE: Findings Vertebra have fairly normal alignment. There is a few millimeter anterior subluxation of L4 in relati on L5 unchanged. There is posterior fusion from L3 to S1. There is disc prosthesis at L4-5 and L5-S1. Sacroiliac joints are intact. There is no compression fracture. IMPRESSION: Posterior multilevel fusion surgery. No acute bony abnormality. No adverse change compare d to old exam.
--- NOTE | 2019-11-13 15:10 | P.PN ---
Subjective Progress Note Date: 11/13/19 Principal diagnosis: cardiac arrest/CAD status post PCI to LAD. PROGRESS NOTE: 11/13/19 Patient doing well and sitting up in chair with no acute distress. Patient has no current complaints of chest pain, chest pressure, shortness of breath or palpitations. Ejection fraction has improved to 35-40%. No need for LifeVest. Patient awaiting authorization at extended care facility/rehab, possibly [facility]. Pt needs assistance with ambulation to due generalized weakness. Continues SR on monitors, HR 60's. Continues with Eliquis 2.5 mg twice daily for anticoagulation protection. PHYSICAL EXAMINATION: HEENT: Head is atraumatic, normocephalic. Pupils are equal, round. Sclerae anicteric. Conjunctivae are clear. Mucous membranes of the mouth are moist. Neck is supple. There is no jugular venous distention. No carotid bruit is heard. No thyromegaly. LUNGS: Bilateral wheezes, rales or rhonchi. No chest wall tenderness is noted on palpation or with deep breathing. HEART: Regular rate and rhythm without murmurs, rubs or gallops. S1 and S2 heard. ABDOMEN: Abdominal exam revealed normal bowel sounds. The abdomen was soft, non- tender, and without masses, organomegaly, or appreciable enlargement of the abdominal aorta. EXTREMITIES: Examination of the extremities revealed easily palpable radial, femoral and pedal pulses. There was no cyanosis, clubbing or edema. No calf tenderness noted. VASCULAR: Radial and dorsalis pedis pulses palpated, no evidence of clubbing. NEUROLOGIC: Patient is awake, alert and oriented x3. There were no obvious focal neurologic abnormalities. FINAL IMPRESSION: 1. PAF - resolved currently SR with controlled rate. 2. cardiac arrest 3. [facility] 4. ischemic cardiomyopathy 5. hypertension PLAN: Continue amiodarone 200 mg 3 times daily and in 7 days reduced to twice daily. Continue same all other medical/medication regime. Objective - Vital Signs Vital signs: Vital Signs Temp 97.1 F L 11/13/19 08:00 Pulse 66 11/13/19 12:21 Resp 16 11/13/19 12:00 BP 109/74 11/13/19 12:00 Pulse Ox 98 11/13/19 12:00 Intake & Output 11/12/19 11/13/19 11/13/19 18:59 06:59 18:59 Intake Total 600 118 Output Total 500 680 425 Balance -500 -80 -307 Weight 90.8 kg Intake: Oral 600 118 Output: Urine 500 675 425 Stool 5 Other: Voiding Method Urinal Urinal Urinal # Voids 1 ABP, PAP, CO, CI - Last Documented Arterial Blood Pressure 119/55 - Labs CBC & Chem 7: 11/13/19 06:13 11/13/19 06:13 Labs: Abnormal Lab Results - Last 24 Hours (Table) 11/13/19 11/13/19 Range/Units 06:13 06:13 RBC 3.80 L (4.30-5.90) m/uL Hgb 11.9 L (13.0-17.5) gm/dL Hct 36.5 L (39.0-53.0) % Chloride 109 H (98-107) mmol/L
[2019-11-13] MEDS: ATORVASTATIN 80 MG TAB PO SCH (21:34)
[2019-11-14] MEDS: PANTOPRAZOLE 40 MG TABLET PO SCH (06:27)
[2019-11-14] MEDS: CARVEDILOL 6.25 MG TAB PO SCH (06:27)
[2019-11-14 06:32] VITALS: TEMP 98.3
[2019-11-14] MEDS: CLOPIDOGREL 75 MG TAB PO SCH (09:17)
[2019-11-14] MEDS: APIXABAN 2.5 MG TABLET PO SCH (09:17)
[2019-11-14] MEDS: SPIRONOLACTONE 25 MG TAB PO SCH (09:17)
[2019-11-14] MEDS: ASPIRIN 81 MG PO SCH (09:17)
[2019-11-14] MEDS: AMIODARONE 200 MG TAB PO SCH (09:17)
[2019-11-14] MEDS: LISINOPRIL 5 MG TAB PO SCH (09:17)
[2019-11-14] MEDS: SULFAMETHOX-TMP 800-160MG 1 EACH TAB PO SCH (09:17)
[2019-11-14] MEDS: FUROSEMIDE 20 MG TAB PO SCH (09:17)
[2019-11-14 09:21] VITALS: BP 101/59
[2019-11-14] MEDS: IPRATROPIUM-ALBUTEROL 3 ML NEB INHALATION SCH ×2 (09:44→12:06)
--- NOTE | 2019-11-14 11:06 | P.DS ---
Providers Date of admission: 11/03/19 09:31 Attending physician: Rell Harrington Consults: 11/03/19 09:20 Consult Physician Stat Consulting Provider: [facility] Consult Reason/Comments: STEMI ACTIVATION COMPLETE Do you want consulting provider notified?: Yes 11/03/19 10:14 Consult Physician Routine Consulting Provider: [facility] Consult Reason/Comments: Post Interventional patient Do you want consulting provider notified?: Already Contacted 11/03/19 10:16 Consult Physician Routine Consulting Provider: Aruna Ha Consult Reason/Comments: stemi Do you want consulting provider notified?: Yes 11/04/19 11:17 Consult Physician Routine Consulting Provider: Maria Esther Mendoza Consult Reason/Comments: Cardiac arrest, hypoxic encephalopathy Do you want consulting provider notified?: Yes 11/08/19 18:41 Consult Physician Routine Consulting Provider: Terence Arellano Consult Reason/Comments: stroke and possible [place] Do you want consulting provider notified?: Yes Primary care physician: Stated None Hospital Course: Diagnoses: acute ST elevation myocardial infarction, status post cardiac arrest8 status post coronary angiogram and stent placement in the LAD acute systolic congestive heart failure, ejection fraction 20-25% paroxysmal atrial fibrillation Right lower lobe pneumonia with MRSA. Possible aspiration pneumonitis Acute right parieto-occipital ischemic stroke with left hemiparesis Possible upper GI bleed Fall on 11/13/2019 Recent history of cardiac arrest status post resuscitation with possible hypoxic encephalopathy Acute hypoxic respiratory failure, present on admission. Patient needed temporal intubation and mechanical ventilation status post extubation on 11/06 GERD Primary osteoarthritis chronic low back pain with recent laminectomy and decompression in September of this year. Hospital course: this is a pleasant 64 years old male with past medical history of GERD, osteoarthritis, skin cancer with basal cell carcinoma.chronic low back pain with recent laminectomy and decompression in September of this year. patient presents on 11/03/2019 with unresponsiveness where he dropped on to home in the down time was 8 minutes. EMS found to be in V. fib and was defibrillated 3 times and received epinephrine. He pulse did return. Patient was intubated and patient was presented to the ER showed ST segment elevation myocardial infarction.patient underwent emergent cardiac cath with stent placed in the LAD, patient also found to have acute congestive heart failure with systolic decompensation shown ejection fraction of 20-25%. This hospital course was complicated with possible upper GI bleed however his hemoglobin remains stable, he had acute right parieto-occipital ischemic stroke with left hemiparesis , MRI of the brain howing acute lacunar infarct with periventricular disease to rule out demyelinating disease or some chronic small vessel disease. carotid Dopplers showing no significant stenosis. pt had right lower lobe pneumonia with MRSA suspected to be aspirated. Patient also developed paroxysmal atrial fibrillation. Eventually patient got extubated and with mean more stable he was transferred to the general medical floor. Patient is being followed by several consults including coil builder, neurologist, truck supervisor and petroleum refinery laborer. Over the last few days patient remains fully awake and oriented with no chest pain or dyspnea. He remains stable with mild left hemiparesis and mild slurred speech. Patient fell on 11/13/2019, he hurt his back but x-ray was negative, he has mild bruise in his left upper extremity with no active bleeding, continue with local care. Patient monitored for next day with no change in her mental status, no other new complaints. Patient was counseled and he agrees to stop getting out of bed by himself. Patient denies new symptoms. Hysterectomy that well. No nausea vomiting. No change in bowel habits. He has no problem or difficulty with urination. No fever. Patient was cleared for discharge by all consultants including coil builder, neurologist, petroleum refinery laborer and truck supervisor. Patient will be discharged to subacute rehab and he is prescribed aspirin and P lavix for his coronary artery disease, he was started on Eliquis 2.5 mg for his history of A. fib. He finished his course of IV antibiotics with vancomycin and Zosyn and he is going to be discharged on Bactrim for 2 weeks as per pulmonology team recommendation, please check BMP every 23 days while on Bactrim. Also he is on amiodarone and Coreg. Problems and management plan were discussed with the patient and he verbalized understanding and acceptance Patient was found stable and can be discharged home however he needs follow-up as an outpatient. Patient was instructed to follow up with PCP within one week and patient agrees. Patient also instructed to follow up with truck supervisor, coil builder in 1-2 weeks. And to follow up with a neurologist in 2 weeks for his stroke. Patient and agree with follow-up and ECF/family will call to make appointments Gen: patient is a AAOx3, no distress CVS: S1-S2, RRR, no murmur Lungs: B/L CTA, no wheezing Abdomen: soft, no distention, no tenderness, positive bowel sounds Extremity: no leg edema or induration -Neuro: Cranial nerves are grossly intact except for slurred speech. Strength: Mild left hemiparesis. Sensation is intact Time spent more than 35 minutes Patient Condition at Discharge: Serious Plan - Discharge Summary Discharge Rx Participant: No New Discharge Prescriptions: New Spironolactone [Aldactone] 25 mg PO DAILY tab Zolpidem [Ambien] 5 mg PO HS PRN tab PRN Reason: Insomnia Aspirin 81 mg PO DAILY chew Amiodarone [Cordarone] 200 mg PO TID tab Carvedilol [Coreg] 6.25 mg PO BID-W/MEALS tab Ipratropium-Albuterol Nebulize [Duoneb 0.5 mg-3 mg/3 ml Soln] 3 ml INHALATION RT-QID ampul.neb Ipratropium-Albuterol Nebulize [Duoneb 0.5 mg-3 mg/3 ml Soln] 3 ml INHALATION RT-Q2H PRN ampul.neb PRN Reason: Shortness Of Breath Or Wheezing Apixaban [Eliquis] 2.5 mg PO BID tablet Furosemide [Lasix] 20 mg PO DAILY tab Atorvastatin [Lipitor] 80 mg PO HS tab Mag Hydrox/Al Hydrox/Simeth [Maalox] 30 ml PO Q4HR PRN cup PRN Reason: Heartburn Nitroglycerin Sl Tabs [Nitrostat] 0.4 mg SUBLINGUAL Q5M PRN tab PRN Reason: Chest Pain Clopidogrel [Plavix] 75 mg PO DAILY tab Lisinopril [Zestril] 5 mg PO DAILY tab Sulfamethox-Tmp 800-160Mg [Bactrim DS 800-160 mg] 1 tab PO Q12HR 13 Days #25 tab Continue Pantoprazole Sodium [Protonix] 40 mg PO QAM Acetaminophen [Tylenol] 1,000 mg PO Q4-6H PRN PRN Reason: Pain Tamsulosin HCl [Flomax] 0.4 mg PO DAILY Changed Sennosides-Docusate Sodium [Senokot-S] 1 tab PO BID PRN #0 PRN Reason: Constipation Discontinued HYDROcodone/APAP 5-325MG [[place] 5-325] 1 - 2 tab PO Q6HR PRN #56 tab PRN Reason: Pain Discharge Medication List Pantoprazole Sodium [Protonix] 40 mg PO QAM 03/29/15 [History] Acetaminophen [Tylenol] 1,000 mg PO Q4-6H PRN 09/15/19 [History] Tamsulosin HCl [Flomax] 0.4 mg PO DAILY 11/03/19 [History] Amiodarone [Cordarone] 200 mg PO TID tab 11/11/19 [Rx] Apixaban [Eliquis] 2.5 mg PO BID tablet 11/11/19 [Rx] Aspirin 81 mg PO DAILY chew 11/11/19 [Rx] Atorvastatin [Lipitor] 80 mg PO HS tab 11/11/19 [Rx] Carvedilol [Coreg] 6.25 mg PO BID-W/MEALS tab 11/11/19 [Rx] Clopidogrel [Plavix] 75 mg PO DAILY tab 11/11/19 [Rx] Furosemide [Lasix] 20 mg PO DAILY tab 11/11/19 [Rx] Ipratropium-Albuterol Nebulize [Duoneb 0.5 mg-3 mg/3 ml Soln] 3 ml INHALATION RT-Q2H PRN ampul.neb 11/11/19 [Rx] Ipratropium-Albuterol Nebulize [Duoneb 0.5 mg-3 mg/3 ml Soln] 3 ml INHALATION RT-QID ampul.neb 11/11/19 [Rx] Lisinopril [Zestril] 5 mg PO DAILY tab 11/11/19 [Rx] Mag Hydrox/Al Hydrox/Simeth [Maalox] 30 ml PO Q4HR PRN cup 11/11/19 [Rx] Nitroglycerin Sl Tabs [Nitrostat] 0.4 mg SUBLINGUAL Q5M PRN tab 11/11/19 [Rx] Sennosides-Docusate Sodium [Senokot-S] 1 tab PO BID PRN #0 11/11/19 [Rx] Spironolactone [Aldactone] 25 mg PO DAILY tab 11/11/19 [Rx] Zolpidem [Ambien] 5 mg PO HS PRN tab 11/11/19 [Rx] Sulfamethox-Tmp 800-160Mg [Bactrim DS 800-160 mg] 1 tab PO Q12HR 13 Days #25 tab 11/12/19 [Rx] Follow up Appointment(s)/Referral(s): Concha Ruiz, [NON-STAFF] - As Needed None,Stated [Primary Care Provider] - 1-2 days Elier Borges DO [STAFF PHYSICIAN] - 2 Weeks (neurologist , please call to make appointment for follow up of your stroke) Aruna Ha MD [STAFF PHYSICIAN] - 2 Weeks (f/u in 1-2 weeks) Salas Carranza MD [STAFF PHYSICIAN] - 2 Weeks (Office will call with follow up appointment. ) Activity/Diet/Wound Care/Special Instructions: Cardiac diet Activities Limited till you see your doctor Please monitor his creatinine and serum electrolytes every 2-3 days, as he will be discharged on Bactrim as well as other medications like lisinopril, spironolactone and others Discharge Disposition: TRANSFER TO SNF/ECF
[2019-11-14 12:09] VITALS: PULSE 76
--- NOTE | 2019-11-14 15:57 | PN ---
PROGRESS NOTE Mr. Johnson is comfortable, resting. He is in sinus rhythm. Ejection fraction is more than 35%. He will be discharged tomorrow to rehab facility. Gradually moved and he walked to the bathroom and back with assistance. Vitals are stable. JVD 1 cm. No carotid bruit. S1-S2 heard normally. Short systolic murmur. Lungs reveal diminished air entry. Abdomen and lower extremity exam unchanged. MMODL / IJN: [id number] /
== END 2019-11-14 13:17 | DRG 246 ==
LOC: EC 09:00 → 2SICU 09:31 → 3SCARD 09:54 → 2SICU 10:05 → 5NMEDONC 17:29 → 2SICU 17:36 → 3SCARD 11-10 17:32
PROVIDERS: ADMIT Hospitalist; ATTEND Hospitalist
PROC: 5A1945Z Respiratory Ventilation, 24-96 Consecutive Hours (ICD-10-PCS; 2019-11-03)
PROC: 0BH17EZ Insertion of Endotracheal Airway into Trachea, Via Natural or Artificial Opening (ICD-10-PCS; 2019-11-03)
PROC: 4A133B1 Monitoring of Arterial Pressure, Peripheral, Percutaneous Approach (ICD-10-PCS; 2019-11-03)
PROC: 4A133J1 Monitoring of Arterial Pulse, Peripheral, Percutaneous Approach (ICD-10-PCS; 2019-11-03)
PROC: 027034Z Dilation of Coronary Artery, One Artery with Drug-eluting Intraluminal Device, Percutaneous Approach (ICD-10-PCS; principal; 2019-11-03 09:20)
PROC: B2111ZZ Fluoroscopy of Multiple Coronary Arteries using Low Osmolar Contrast (ICD-10-PCS; 2019-11-03 09:20)
PROC: 02HV33Z Insertion of Infusion Device into Superior Vena Cava, Percutaneous Approach (ICD-10-PCS; 2019-11-04)
PROC: 4A133B1 Monitoring of Arterial Pressure, Peripheral, Percutaneous Approach (ICD-10-PCS; 2019-11-04)
PROC: 4A133J1 Monitoring of Arterial Pulse, Peripheral, Percutaneous Approach (ICD-10-PCS; 2019-11-04)
DX: I21.02 ST elevation (STEMI) myocardial infarction involving left anterior descending coronary artery (principal); I46.2 Cardiac arrest due to underlying cardiac condition; I50.23 Acute on chronic systolic (congestive) heart failure; J15.212 Pneumonia due to Methicillin resistant Staphylococcus aureus; J69.0 Pneumonitis due to inhalation of food and vomit; I49.01 Ventricular fibrillation; I63.81 Other cerebral infarction due to occlusion or stenosis of small artery; J96.01 Acute respiratory failure with hypoxia; E87.2 Acidosis; G81.94 Hemiplegia, unspecified affecting left nondominant side; G93.1 Anoxic brain damage, not elsewhere classified; K92.2 Gastrointestinal hemorrhage, unspecified; Z99.11 Dependence on respirator [ventilator] status; I25.10 Atherosclerotic heart disease of native coronary artery without angina pectoris; F32.9 Major depressive disorder, single episode, unspecified; G47.00 Insomnia, unspecified; I25.5 Ischemic cardiomyopathy; H53.2 Diplopia; I48.0 Paroxysmal atrial fibrillation; K21.9 Gastro-esophageal reflux disease without esophagitis; M19.91 Primary osteoarthritis, unspecified site; N40.0 Benign prostatic hyperplasia without lower urinary tract symptoms; Z96.642 Presence of left artificial hip joint; Z96.652 Presence of left artificial knee joint; I25.2 Old myocardial infarction; Z79.01 Long term (current) use of anticoagulants; Z79.02 Long term (current) use of antithrombotics/antiplatelets; Z79.82 Long term (current) use of aspirin; Z79.899 Other long term (current) drug therapy; Z80.9 Family history of malignant neoplasm, unspecified; Z85.828 Personal history of other malignant neoplasm of skin; Z87.19 Personal history of other diseases of the digestive system; Z86.73 Personal history of transient ischemic attack (TIA), and cerebral infarction without residual deficits; Z87.891 Personal history of nicotine dependence
CPT/HCPCS: 31500; 36600; 70450; 70551; 71045; 72100; 80048; 80053; 80061; 80202; 81001; 82272; 82805; 83036; 83605; 83735; 84132; 84484; 85025; 85610; 85730; 87040; 87070; 87077; 87186; 87205; 93005; 93306; 93308; 93458; 93880; 94002; 94003; 94640; 94760; 96374; 96375; 99285; C1874

== ENCOUNTER 2019-12-29 07:45 | Inpatient (IN) | payer BC ==
--- NOTE | 2019-12-29 08:29 | ED ---
Weakness HPI - General Source: patient, EMS Mode of arrival: EMS Limitations: physical limitation <Linda Marinelli - Last Filed: 12/29/19 08:28> - General Source: RN notes reviewed <Seun Benson - Last Filed: 12/29/19 10:36> - General Chief complaint: Weakness Stated complaint: Left leg weakness Time Seen by Provider: 12/29/19 07:52 - History of Present Illness Initial comments: Patient is a pleasant 64-year-old male presenting to the emergency Department with complaints of left leg weakness. Onset was noticed when patient awoke this morning. Patient does have history of stroke just a couple of months ago with left-sided weakness. Patient states symptoms have essentially resolved prior to this morning. Patient does have chronic back pain. Patient does have chronic left hip pain. Patient did have physical therapy aggressively yesterday and questions if that could be related to his symptoms. Patient states his back and hip pain are not significantly worse than normal. No speech problems. No arm or facial weakness. No change in sensation. (Seun Benson) - Related Data Home Medications Medication Instructions Recorded Confirmed Pantoprazole Sodium [Protonix] 40 mg PO QAM 03/29/15 12/29/19 Tamsulosin HCl [Flomax] 0.4 mg PO DAILY 11/03/19 12/29/19 Lisinopril [Zestril] 5 mg PO HS 12/29/19 12/29/19 Previous Rx's Medication Instructions Recorded Aspirin 81 mg PO DAILY chew 11/11/19 Atorvastatin [Lipitor] 80 mg PO HS tab 11/11/19 Carvedilol [Coreg] 6.25 mg PO BID-W/MEALS tab 11/11/19 Clopidogrel [Plavix] 75 mg PO DAILY tab 11/11/19 Furosemide [Lasix] 20 mg PO DAILY tab 11/11/19 Nitroglycerin Sl Tabs [Nitrostat] 0.4 mg SUBLINGUAL Q5M PRN tab 11/11/19 Spironolactone [Aldactone] 25 mg PO DAILY tab 11/11/19 Amiodarone [Cordarone] 200 mg PO BID #60 tab 11/14/19 Allergies Allergy/AdvReac Type Severity Reaction Status Date / Time No Known Allergies Allergy Verified 12/29/19 07:56 Review of Systems ROS Other: All systems not noted in ROS Statement are negative. <Linda Marinelli - Last Filed: 12/29/19 08:28> ROS Other: All systems not noted in ROS Statement are negative. Constitutional: Denies: fever Eyes: Denies: eye pain ENT: Denies: ear pain Respiratory: Denies: cough Cardiovascular: Denies: chest pain Endocrine: Denies: fatigue Gastrointestinal: Denies: abdominal pain Genitourinary: Denies: urgency Musculoskeletal: Reports: as per HPI Skin: Denies: as per HPI Neurological: Reports: as per HPI <MarcelinoSeun - Last Filed: 12/29/19 10:36> ROS Statement: Those systems with pertinent positive or pertinent negative responses have been documented in the HPI. Past Medical History Past Medical History: Cancer, GERD/Reflux, Osteoarthritis (OA) Additional Past Medical History / Comment(s): HISTORY OF COLON POLYPS, HX SKIN CANCER -BASAL CELL. Last Myocardial Infarction Date:: 11/03/19 History of Any Multi-Drug Resistant Organisms: MRSA Date of last positivie culture/infection: 11/05/19 MDRO Source:: Sputum Past Surgical History: Joint Replacement, Orthopedic Surgery Additional Past Surgical History / Comment(s): SKIN LESIONS REMOVED, LEFT KNEE ARTHROSCOPY, left hip replacement. Past Anesthesia/Blood Transfusion Reactions: No Reported Reaction Date of Last Stent Placement:: 11/03/19 Past Psychological History: No Psychological Hx Reported Smoking Status: Former smoker Past Alcohol Use History: Occasional Past Drug Use History: None Reported - Past Family History Father Family Medical History: Cancer Mother History Unknown: Yes <Linda Marinelli - Last Filed: 12/29/19 08:28> General Exam Limitations: physical limitation <Linda Marinelli - Last Filed: 12/29/19 08:28> Limitations: physical limitation General appearance: alert Head exam: Present: normocephalic Eye exam: Present: normal appearance, PERRL, EOMI. Absent: nystagmus ENT exam: Present: normal oropharynx Neck exam: Present: normal inspection Respiratory exam: Present: normal lung sounds bilaterally Cardiovascular Exam: Present: regular rate, normal rhythm Expanded Peripheral pulses: 2+: Dorsalis Pedis (R), Dorsalis Pedis (L) GI/Abdominal exam: Present: soft. Absent: distended, tenderness Extremities exam: Present: normal inspection. Absent: tenderness Back exam: Present: tenderness (Mild tenderness lumbar region which patient states is normal) Neurological exam: Present: alert, oriented X3, CN II-XII intact Expanded Neurological exam: Present: protecting the airway Patient oriented to: Present: person, place, time Speech: Present: fluid speech Cranial nerves: EOM's Intact: Normal, Facial Sensation: Normal Sensory exam: Upper Extremity Light Touch: Normal, Lower Extremity Light Touch: Normal Motor strength exam: RUE: 5, LUE: 5, RLE: 5, LLE: 3 Eye Response: (4) open spontaneously Motor Response: (6) obeys commands Verbal Response: (5) oriented Psychiatric exam: Present: normal affect, normal mood Skin exam: Present: normal color <Seun Benson - Last Filed: 12/29/19 10:36> - General Exam Comments Initial Comments: Rectal Exam: Normal rectal tone, no blood or lesion noted. (Linda Marinelli) Course <Seun Benson - Last Filed: 12/29/19 10:36> Vital Signs 12/29/19 12/29/19 12/29/19 07:48 08:30 08:53 Temperature 99.6 F Pulse Rate 67 Respiratory 18 18 Rate Blood Pressure 98/67 86/55 87/57 O2 Sat by Pulse 96 Oximetry 12/29/19 12/29/19 12/29/19 09:31 09:38 10:00 Temperature Pulse Rate 78 78 Respiratory 18 18 Rate Blood Pressure 87/56 88/56 105/61 O2 Sat by Pulse Oximetry 12/29/19 10:30 Temperature Pulse Rate 79 Respiratory 18 Rate Blood Pressure 101/63 O2 Sat by Pulse Oximetry - Reevaluation(s) Reevaluation #1: 12/29/19 08:38 Onset of symptoms is unknown and therefore patient is not a TPA candidate. Case was discussed in detail with Dr. Hein who is in agreement with this. He does recommend admission with MRI and MRI. He states patient is also not a thrombectomy candidate. 12/29/19 10:36 Patient is not a TPA candidate secondary to last known well greater than 4.5 hours, as well as not clear-cut diagnosis at this time. (Seun Benson) EKG Findings - EKG Comments: EKG Findings:: Normal sinus rhythm at 80. KS 172. QRS 64. QT 352. QTC 405. Normal axis. Low QRS voltage. No acute ST change. <Seun Benson - Last Filed: 12/29/19 10:36> Medical Decision Making - Lab Data Result diagrams: 12/29/19 09:00 12/29/19 09:00 - Radiology Data Radiology results: report reviewed (Computed tomography scan of the brain shows no acute hemorrhage. Mild degenerative changes.), image reviewed (Chest x-ray shows no acute process) <Seun Benson - Last Filed: 12/29/19 10:36> - Medical Decision Making Case earlier discussed with Dr. Hylton who did recommend admission with neurology evaluation and MRI/MRA of the brain. Patient reevaluated and unchanged. Case was also discussed in detail with Dr. Harrington, who will admit covering for Dr. Patel. He also requests consult with Dr. Boss, hip x-ray, and lumbosacral spine MRI. (Seun Benson) - Lab Data Lab Results 12/29/19 12/29/19 12/29/19 Range/Units 09:00 09:00 09:00 WBC 12.3 H (3.8-10.6) k/uL RBC 4.09 L (4.30-5.90) m/uL Hgb 12.7 L (13.0-17.5) gm/dL Hct 38.0 L (39.0-53.0) % MCV 92.9 (80.0-100.0) fL MCH 31.1 (25.0-35.0) pg MCHC 33.4 (31.0-37.0) g/dL RDW 14.1 (11.5-15.5) % Plt Count 223 (150-450) k/uL Neutrophils % 88 % Lymphocytes % 5 % Monocytes % 6 % Eosinophils % 0 % Basophils % 0 % Neutrophils # 10.8 H (1.3-7.7) k/uL Lymphocytes # 0.6 L (1.0-4.8) k/uL Monocytes # 0.7 (0-1.0) k/uL Eosinophils # 0.0 (0-0.7) k/uL Basophils # 0.0 (0-0.2) k/uL PT (9.0-12.0) sec INR (<1.2) APTT (22.0-30.0) sec Sodium 135 L (137-145) mmol/L Potassium 4.1 (3.5-5.1) mmol/L Chloride 106 (98-107) mmol/L Carbon Dioxide 21 L (22-30) mmol/L Anion Gap 8 mmol/L BUN 18 (9-20) mg/dL Creatinine 0.95 (0.66-1.25) mg/dL Est GFR (CKD-EPI)AfAm >90 (>60 ml/min/1.73 sqM) Est GFR (CKD-EPI)NonAf 85 (>60 ml/min/1.73 sqM) Glucose 105 H (74-99) mg/dL Plasma Lactic Acid Arnold 1.4 (0.7-2.0) mmol/L Calcium 8.9 (8.4-10.2) mg/dL Phosphorus 3.2 (2.5-4.5) mg/dL Magnesium 1.9 (1.6-2.3) mg/dL Total Bilirubin 0.9 (0.2-1.3) mg/dL AST 42 (17-59) U/L ALT 45 (4-49) U/L Alkaline Phosphatase 136 H (38-126) U/L Total Protein 6.4 (6.3-8.2) g/dL Albumin 3.5 (3.5-5.0) g/dL 12/29/19 Range/Units 09:00 WBC (3.8-10.6) k/uL RBC (4.30-5.90) m/uL Hgb (13.0-17.5) gm/dL Hct (39.0-53.0) % MCV (80.0-100.0) fL MCH (25.0-35.0) pg MCHC (31.0-37.0) g/dL RDW (11.5-15.5) % Plt Count (150-450) k/uL Neutrophils % % Lymphocytes % % Monocytes % % Eosinophils % % Basophils % % Neutrophils # (1.3-7.7) k/uL Lymphocytes # (1.0-4.8) k/uL Monocytes # (0-1.0) k/uL Eosinophils # (0-0.7) k/uL Basophils # (0-0.2) k/uL PT 10.5 (9.0-12.0) sec INR 1.0 (<1.2) APTT 24.5 (22.0-30.0) sec Sodium (137-145) mmol/L Potassium (3.5-5.1) mmol/L Chloride (98-107) mmol/L Carbon Dioxide (22-30) mmol/L Anion Gap mmol/L BUN (9-20) mg/dL Creatinine (0.66-1.25) mg/dL Est GFR (CKD-EPI)AfAm (>60 ml/min/1.73 sqM) Est GFR (CKD-EPI)NonAf (>60 ml/min/1.73 sqM) Glucose (74-99) mg/dL Plasma Lactic Acid Arnold (0.7-2.0) mmol/L Calcium (8.4-10.2) mg/dL Phosphorus (2.5-4.5) mg/dL Magnesium (1.6-2.3) mg/dL Total Bilirubin (0.2-1.3) mg/dL AST (17-59) U/L ALT (4-49) U/L Alkaline Phosphatase (38-126) U/L Total Protein (6.3-8.2) g/dL Albumin (3.5-5.0) g/dL Disposition <Linda Marinelli - Last Filed: 12/29/19 08:28> Is patient prescribed a controlled substance at d/c from ED?: No Decision Time: 10:36 <Seun Benson - Last Filed: 12/29/19 10:36> Clinical Impression: Leg weakness Disposition: ADMITTED IP TO THIS HOSP Referrals: Ruslan Patel MD [Primary Care Provider] - 1-2 days
[2019-12-29] MEDS ORDERED: SODIUM CHLORIDE 0.9% 1,000 ML IV STA (08:33)
[2019-12-29] MEDS ORDERED: MORPHINE SULFATE 4 MG/ML SYRINGE IV STA (08:33)
[2019-12-29] MEDS ORDERED: SODIUM CHLORIDE 0.9% 500 ML 500 ML IV ONE (08:57)
[2019-12-29 09:28] LABS: Basophils % (A) 0 %; Eosinophils % (A) 0 %; HGB 12.7 gm/dL (13.0-17.5); Lymphocytes # (A) 0.6 k/uL (1.0-4.8); Lymphocytes % (A) 5 %; MCH 31.1 pg (25.0-35.0); MCHC 33.4 g/dL (31.0-37.0); MCV 92.9 fL (80.0-100.0); Mean Platelet Volume 6.8; Monocytes # (A) 0.7 k/uL (0-1.0); Monocytes % (A) 6 %; Neutrophils # (A) 10.8 k/uL (1.3-7.7); Neutrophils % (A) 88 %; Platelet Count 223 k/uL (150-450); RBC 4.09 m/uL (4.30-5.90); RDW 14.1 % (11.5-15.5); WBC 12.3 k/uL (3.8-10.6)
--- NOTE | 2019-12-29 09:35 | XR ---
EXAMINATION TYPE: XR chest 2V DATE OF EXAM: 12/29/2019 COMPARISON: 11/09/2019 HISTORY: Weakness TECHNIQUE: Frontal and lateral views of the chest are obtained. FINDINGS: There is no focal air space opacity, pleural effusion, or pneumothorax seen. The cardiac silhouette size is within normal limits. Moderate degenerative change of the spine. Diffuse osseous d emineralization. IMPRESSION: No acute cardiopulmonary process.
[2019-12-29 09:37] LABS: ALT 45 U/L (4-49); AST 42 U/L (17-59); African American GFR (CKD) >90 (>60 ml/min/1.73 sqM); Albumin 3.5 g/dL (3.5-5.0); Alkaline Phosphatase 136 U/L (38-126); Anion Gap 8 mmol/L; Blood Urea Nitrogen 18 mg/dL (9-20); Calcium 8.9 mg/dL (8.4-10.2); Carbon Dioxide 21 mmol/L (22-30); Chloride 106 mmol/L (98-107); Glucose 105 mg/dL (74-99); Magnesium 1.9 mg/dL (1.6-2.3); Non-African American GFR(CKD) 85 (>60 ml/min/1.73 sqM); Phosphorus 3.2 mg/dL (2.5-4.5); Potassium 4.1 mmol/L (3.5-5.1); Sodium 135 mmol/L (137-145); Total Bilirubin 0.9 mg/dL (0.2-1.3); Total Protein 6.4 g/dL (6.3-8.2)
[2019-12-29 09:38] LABS: Prothrombin Time 10.5 sec (9.0-12.0)
[2019-12-29 09:39] LABS: Partial Thromboplastin Time 24.5 sec (22.0-30.0)
[2019-12-29] MEDS ORDERED: SODIUM CHLORIDE 0.9% 1,000 ML IV ONE (09:41)
--- NOTE | 2019-12-29 09:49 | CT ---
EXAMINATION TYPE: CT brain wo con DATE OF EXAM: 12/29/2019 COMPARISON: 11/04/2019 HISTORY: weakness CT DLP: 1092.4 mGycm Automated exposure control for dose reduction was used. FINDINGS: There is no acute intracranial hemorrhage or midline shift identified. No midline shift or mass effec t. Mild generalized degenerative change. No acute hemorrhage. Calvarium. The globes are intact and mi ld chronic sinusitis noted. Nasal septum deviated to right of midline. Faint low-attenuation in the p eriventricular white matter is stable from the prior exam and most typical remote microvascular ische marcia. IMPRESSION: NO ACUTE HEMORRHAGE OR MASS EFFECT. MILD GENERALIZED DEGENERATIVE CHANGE. IF THERE IS CONCERN FOR ACU TE ISCHEMIA CORRELATE WITH MRI CLINICALLY WARRANTED
[2019-12-29] MEDS ORDERED: ASPIRIN 325 MG TAB PO STA (10:44)
--- NOTE | 2019-12-29 11:52 | MR ---
EXAMINATION TYPE: MR angio head wo con DATE OF EXAM: 12/29/2019 COMPARISON: CT brain dated 12/29/2019 HISTORY: Left leg weakness TECHNIQUE: Time of flight images focusing on the [place] were performed without contrast.. 2-D and 3-D postprocessing imaging is performed. FINDINGS: The left vertebral artery is dominant. Basilar artery is patent and unremarkable, however the basilar artery terminates in the suprasellar cistern without branching into posterior cerebral arteries as b oth posterior cerebral arteries have congenital normal variant persistent circulation. Diminuti ve but patent posterior to indicating arteries still remain despite the origin of the posterior cerebral arteries. Anterior circulation is intact and unremarkable. No sizable intracranial aneurysm , large vessel occlusion, or dissection. IMPRESSION: No MRA evidence of intracranial aneurysm, large vessel vascular occlusion, focal stenosis or dissection. Congenital normal variant anatomy.
--- NOTE | 2019-12-29 12:19 | MR ---
EXAMINATION TYPE: MR brain wo con DATE OF EXAM: 12/29/2019 COMPARISON: 11/08/2019 MRI brain HISTORY: Left leg weakness TECHNIQUE: Multiplanar, multisequence images of the brain and brainstem is performed without intravenous contras t. FINDINGS: Diffusion weighted images demonstrate a mildly DWI hyperintense 6 mm focus of the left cere bellar peduncle with T2/FLAIR hyperintensity and very subtle hypointensity on ADC map. There is a foc al area of gliosis on the prior exam of 11/08/2019 at this location. Given the below findings this li michelle represents an active area of demyelination. There are scattered foci of T2 shine through in the deep white matter of the frontal and parietal lobes near the vertex. On FLAIR/T2 imaging is correspon d to numerous foci of nonspecific white matter change. Some of these radiate from the pericallosal re gion with one of the largest in the left periatrial white matter being linear measuring 1.6 x 0.5 cm. In the right frontal white matter there is an ovoid 1.1 x 0.6 cm deep white matter focus. Again nume timoteo other T2/FLAIR hyperintense foci are seen within the pericallosal, juxtacortical, and periventri cular white matter. The ventricular system and cisternal spaces are symmetrically prominent compatible with age-related a trophy. Midline structures demonstrate normal morphology. The craniocervical junction appears withi n normal limits. The dural venous sinuses appear patent. Mucosal thickening is seen in the ethmoid s inuses. The remaining visualized sinuses are clear and the globes are intact. IMPRESSION: 1. A 6 mm white matter focus in the left cerebellar peduncle demonstrates mild restricted diffusion b ut was present on the prior exam of 11/08/2019. Given the below findings this likely represents an ac tive area of demyelination. Involving subacute lacunar injury would be less likely given its presence on the prior. 2. Moderate burden nonspecific white matter change. Considering the distribution multiple sclerosis s hould be consideration or other demyelinating disease versus less likely vasculitis or sequela of chr onic microangiopathy.
--- NOTE | 2019-12-29 12:28 | XR ---
EXAMINATION TYPE: XR Hip LT and AP Pelvis DATE OF EXAM: 12/29/2019 COMPARISON: None HISTORY: Left hip pain TECHNIQUE: A single AP view of the pelvis is obtained. Two views of the left hip are obtained. FINDINGS: There is no acute fracture/dislocation evident in the pelvis. The hip and sacroiliac join ts remarkable for postop change the left hip status post left hip arthroplasty. The overlying soft t issue appears unremarkable. Two views of left hip show no acute fracture or dislocation. No focal lytic or sclerotic lesion seen in the proximal left femur. The overlying soft tissue is unremarkable. Postop changes are noted in the lower lumbar spine. Osteoarthritic changes are present in the right hip. IMPRESSION: There is no acute fracture or dislocation in the pelvis or left hip, postop change, oste oarthritis right hip.
[2019-12-29] MEDS: SODIUM CHLORIDE 0.9% 1,000 ML IV SCH ×2 (12:39→22:21)
[2019-12-29] MEDS ORDERED: ACETAMINOPHEN TAB 500 MG TAB PO STA (12:41)
--- NOTE | 2019-12-29 12:57 | MR ---
EXAMINATION TYPE: MR lumbar spine wo con DATE OF EXAM: 12/29/2019 COMPARISON: None HISTORY: Left leg weakness TECHNIQUE: Multiplanar, multisequence images of the lumbar spine were acquired. FINDINGS: There is surgical fixation of the L3-L5 vertebral bodies with intervertebral disc cages. Mu ltilevel disc desiccation is seen. There is a mild levoscoliosis of the lumbar spine. Very minimal gr suman 1 anterolisthesis of L4 on L5 is unchanged. Vertebral body heights are maintained. Bone marrow si gnal is unremarkable. T2 hyperintense and T1 hypointense possible subcentimeter left renal cyst is se en next to be further evaluated with ultrasound. L1-L2: There is a broad-based disc bulge with disc desiccation without spinal canal stenosis or neura l foraminal narrowing. L2-L3: Broad-based disc bulge and mild facet arthropathy results in mild left neural foraminal narrow ing. Spinal canal and right neural foramen are patent. L3-L4: Ligamentum flavum buckling and facet arthropathy slightly narrow the right lateral recess and have slight mass effect on the posterior forming L4 nerve root. Left neural foramen and spinal canal are overall patent. L4-L5: Suboptimal visualization of the neural foramen however they are grossly patent. No spinal wendy l stenosis. L5-S1: Broad-based disc bulge and facet arthropathy are seen with no spinal canal stenosis or foramin al narrowing. IMPRESSION: 1. Ligamentum flavum buckling and facet arthropathy on the right at L3-L4 creating slight mass effect on the posterior aspect of the forming right L4 nerve root. 2. Stable grade 1 anterolisthesis of L4 on L5. No new malalignment. 3. Mild degenerative disc disease of the lumbar spine as detailed age level with no spinal canal sten osis.
[2019-12-29 13:14] LABS: Appearance,Urine Clear (Clear); Bilirubin,Urine Negative (Negative); Blood,Urine Negative (Negative); Color,Urine Yellow; Glucose,Urine (UA) Negative (Negative); Ketones,Urine Negative (Negative); Leukocyte Esterase,Urine Negative (Negative); Nitrite,Urine Negative (Negative); PH, Urine 6.5 (5.0-8.0); Protein,Urine Negative (Negative); Specific Gravity,Urine 1.022 (1.001-1.035); Urobilinogen,Urine <2.0 mg/dL (<2.0)
--- NOTE | 2019-12-29 13:40 | P.CNOR ---
History of Present Illness - HPI Consult date: 12/29/19 Consult reason: other (Left lower extremity weakness) History of present illness: Patient is very pleasant 64-year-old male who is well known to our service. He presented to the emergency room today with left lower extremity weakness. The patient has history of lumbar spine issues in the past and had spinal s tenosis with lower extremity radiculopathy. The patient had failed conservative treatment and underwent surgical intervention with minimally invasive decompression and fusion L3 4 and L4 5 in the beginning of September 2019. Initially had an immediate postoperative period patient did well and was able to return home and start making progress with his recovery however he sustained major medical issues with cardiac incident. He required resuscitation and was in the intensive care unit for several weeks following this. This occurred back in October and into November. He was eventually making good progress and was able to be discharged home and I saw him back in the office just couple weeks ago. He was having weakness at his lower extremity is easily more on the left and the right was making progress with therapy and ambulating. His wound site at the lumbar surgery area was healing well. His hardware has remained stable. His pain was still present but was diminishing and he was managing adequately home. He is continued physical therapy this point until he says that this morning he try to get up out of bed but was unable to walk more than just a few steps. He unfortunate fell to the floor and his was unable to get him up off the floor. He says he was unable to move his left leg and felt significantly weak in the left lower extremity. He denied new pain. He denied any changes in bowel bladder function. He says that yesterday he had heavier work out with his physical therapist is not sure if that has anything to do with his problems today. He denies any specific problem yesterday but feels that he was very weak in the left side more so than usual and was unable ambulate today. He says he generally has problems in his left leg but is not having any further problems or pain until today. He denies any pain. He denies any fevers chills night sweats. Denies any changes in his bowel or bladder function. Denies any changes in his speech or vision. Review of Systems As stated per HPI. Past Medical History Past Medical History: Cancer, GERD/Reflux, Osteoarthritis (OA) Additional Past Medical History / Comment(s): HISTORY OF COLON POLYPS, HX SKIN CANCER -BASAL CELL., Recent myocardial infarction October 2019 Last Myocardial Infarction Date:: 11/03/19 History of Any Multi-Drug Resistant Organisms: MRSA Year Discovered:: 11/05/19 MDRO Source:: Sputum Past Surgical History: Joint Replacement, Orthopedic Surgery Additional Past Surgical History / Comment(s): SKIN LESIONS REMOVED, LEFT KNEE ARTHROSCOPY, left hip replacement. Past Anesthesia/Blood Transfusion Reactions: No Reported Reaction Date of Last Stent Placement:: 11/03/19 Past Psychological History: No Psychological Hx Reported Smoking Status: Former smoker Past Alcohol Use History: Occasional Past Drug Use History: None Reported - Past Family History Father Family Medical History: Cancer Mother History Unknown: Yes Medications and Allergies Home Medications Medication Instructions Recorded Confirmed Type Pantoprazole Sodium [Protonix] 40 mg PO QAM 03/29/15 12/29/19 History Tamsulosin HCl [Flomax] 0.4 mg PO DAILY 11/03/19 12/29/19 History Aspirin 81 mg PO DAILY chew 11/11/19 12/29/19 Rx Atorvastatin [Lipitor] 80 mg PO HS tab 11/11/19 12/29/19 Rx Carvedilol [Coreg] 6.25 mg PO BID-W/MEALS tab 11/11/19 12/29/19 Rx Clopidogrel [Plavix] 75 mg PO DAILY tab 11/11/19 12/29/19 Rx Furosemide [Lasix] 20 mg PO DAILY tab 11/11/19 12/29/19 Rx Nitroglycerin Sl Tabs [Nitrostat] 0.4 mg SUBLINGUAL Q5M PRN tab 11/11/19 12/29/19 Rx Spironolactone [Aldactone] 25 mg PO DAILY tab 11/11/19 12/29/19 Rx Amiodarone [Cordarone] 200 mg PO BID #60 tab 11/14/19 12/29/19 Rx Lisinopril [Zestril] 5 mg PO HS 12/29/19 12/29/19 History Allergies Allergy/AdvReac Type Severity Reaction Status Date / Time No Known Allergies Allergy Verified 12/29/19 07:56 Physical Examination Osteopathic Statement: *. No significant issues noted on an osteopathic structural exam other than those noted in the History and Physical/Consult. - L Spine: dermatomal strength & reflexes left Strength: hip flexion: 3/5 (His back incision sites are healing properly. His right lower extremity has good strength wrist flexion plantar flexion and EHL. He is able to lift his right leg up off the bed independently. His left leg he struggles with lifting his leg off the bed but he is able to do so for short period time. He does not have ability to keep his leg lifted off the bed against resistance other than gravity. He has sustained dorsal to plantar flexion and EHL with about 4 minus out of 5 strength on the left. There is no pain with internal/external rotation of his hip.Nontender. His abdomen soft nontender. His back incision sites are clear.) Results - Labs Labs: Abnormal Lab Results - Last 24 Hours (Table) 12/29/19 12/29/19 Range/Units 09:00 09:00 WBC 12.3 H (3.8-10.6) k/uL RBC 4.09 L (4.30-5.90) m/uL Hgb 12.7 L (13.0-17.5) gm/dL Hct 38.0 L (39.0-53.0) % Neutrophils # 10.8 H (1.3-7.7) k/uL Lymphocytes # 0.6 L (1.0-4.8) k/uL Sodium 135 L (137-145) mmol/L Carbon Dioxide 21 L (22-30) mmol/L Glucose 105 H (74-99) mg/dL Alkaline Phosphatase 136 H (38-126) U/L H & H 12/29/19 Range/Units 09:00 Hgb 12.7 L (13.0-17.5) gm/dL Hct 38.0 L (39.0-53.0) % Coagulation 12/29/19 Range/Units 09:00 INR 1.0 (<1.2) Result Diagrams: 12/29/19 09:00 12/29/19 09:00 - Diagnostic results Hip x-ray: image reviewed (Pelvis x-rays also reviewed which shows the hardware intact and lumbar spine shows loss shows a left hip at total hip arthroplasty which appears to be intact and stable. There is no evidence of loosening or dislocation.) Lumbar MRI with contrast: report reviewed, image reviewed (His lumbar MRI was done today. He has prior laminectomy decompression and fusion L3 4 and L4 5. The hardware appears to be intact without any evidence of loosening. There is good decompression L3 4 and L4 5 without any evidence of recurrent stenosis or recurrent herniation. I do not see further herniation or stenosis above the fusion at his lumbar areas. There is no evidence of any fracture. There is no significant fluid collection. The report is not yet complete but I was able to review the images.) Assessment and Plan Assessment: Left lower extremity weakness Inability to ambulate Currently being evaluated for possible sural vascular accident versus TIA Recent history of lumbar fusion L3 4 and L4 5 which appears stable Recent history of myocardial infarction October 2019 No new specific pain left lower extremity Plan: Left lower extremity weakness Inability to ambulate Currently being evaluated for possible sural vascular accident versus TIA Recent history of lumbar fusion L3 4 and L4 5 which appears stable Recent history of myocardial infarction October 2019 No new specific pain left lower extremity In regard to the patient's lumbar spine fusion at L3 4 and L4 5. Be stable. There is no evidence of any motion or disruption fusion. There is no evidence of any fracture. I do not see any new stenosis or disc herniation. The decompression appears to be well maintained at L3 4 and L4 5 facet of his fusion and decompression. I do not think that his lumbar spinous a specific cause of his new left lower extremity issues today. He does have some chronic problems in his low back and in his extremities due to his lumbar spine but he is not having a new incision today. I do not plan on further imaging of the lumbar spine at this point and I do not have specific plans of surgical intervention for his lumbar spine. He is currently being worked up for possible neurologic issue or CVA versus TIA. He does have significant recent issue with this and recent myocardial infarction. He is being appropriate workup with medicine and they're bring him in today for further observation and monitoring. I think it is okay for him to mobilize in terms of stability for his lumbar spine and his left hip. He does not need any specific root restriction from an orthopedic standpoint and can increase his mobility as he is able tolerate. From an orthopedic standpoint is okay for him to continue management with medicine and to follow-up on an outpatient basis as scheduled. I discussed this with him and answered his questions best my ability and he is agreeable.
--- NOTE | 2019-12-29 17:41 | P.CNNES ---
History of Present Illness Consult date: 12/29/19 Requesting physician: Seun Benson Reason for Consult: Left leg weakness History of Present Illness: Patient is a 64-year-old male, well known to me from previous admission to the hospital, when he had presented with cardiac arrest in October 2019. Patient has recovered very well. Patient has history of back surgery and left hip surgery in the past. He has history of some baseline left leg weakness. Patient states that he received intense physical therapy yesterday for an hour, and he was doing well. He even went to his appointment to the sales manager [place]. Patient was using a cane and was able to walk with a cane, get in and out of the car. Patient went to sleep last night. This morning he woke up and was not able to get out of bed. He finally made it to his walker, but the left leg gave out and he fell. His could not get him up therefore she called the ambulance and patient was brought to the ER, and arrived at 7:45 AM. Patient was not a candidate for TPA, as he came outside the window for TPA. Patient feels weakness in the left leg. Denies any symptoms attributed to the upper extremities. Denies any slurred speech facial droop. Patient denies any pain in the left leg, or any back pain or radicular symptoms. Patient underwent chest x-ray which revealed no acute cardiopulmonary process. Computed tomography scan of head revealed no acute hemorrhage or mass effect. Mild generalized degenerative changes. EKG shows normal sinus rhythm with low voltage QRS. Septal infarct, age undetermined. MRI of the brain was performed, which revealed a 6 mm white matter focus in the left cerebellar peduncle demonstrate mild restricted diffusion but was present on the prior exam of 11/08/2019. Given the below findings, this likely represents an active 80 of demyelination. Involving subacute lacunar injury would be less likely given its presence on the prior. Moderate burden nonspecific white matter change. Considering the distribution, multiple sclerosis should be consideration or other demyelinating disease versus less likely vasculitis or sequela of chronic microangiopathy. MRA of the brain is normal with no evidence of intracranial aneurysm, large vessel vascular occlusion, focal stenosis or dissection. Congenital normal variant anatomy. Patient had MRI of the lumbar spine, which revealed ligamentum flavum buckling and facet arthropathy on the right at L3 4, creating slight mass effect on the posterior aspect of the forearm and right L4 nerve root. Stable grade 1 anterolisthesis of L4 on L5. No new malalignment. Mild degenerative disc disease of the lumbar spine. No spinal stenosis. X-ray of the pelvis and left hip showed no acute fracture or dislocation in the pelvis or left hip. Postop change, osteoarthritis of the right hip. Patient has history of smoking less than one pack per day for 20 years, quit in 1999. Review of Systems As above in detail. Denies headache, problem with the vision, hoarseness or throat dysphagia. Denies symptoms in the upper extremities. Patient does have back issues, left hip issues from previous surgeries. Past Medical History Past Medical History: Cancer, GERD/Reflux, Osteoarthritis (OA) Additional Past Medical History / Comment(s): HISTORY OF COLON POLYPS, HX SKIN CANCER -BASAL CELL., Recent myocardial infarction October 2019 Last Myocardial Infarction Date:: 11/03/19 History of Any Multi-Drug Resistant Organisms: MRSA Date of last positivie culture/infection: 11/05/19 MDRO Source:: Sputum Past Surgical History: Joint Replacement, Orthopedic Surgery Additional Past Surgical History / Comment(s): SKIN LESIONS REMOVED, LEFT KNEE ARTHROSCOPY, left hip replacement. Past Anesthesia/Blood Transfusion Reactions: No Reported Reaction Date of Last Stent Placement:: 11/03/19 Past Psychological History: No Psychological Hx Reported Smoking Status: Former smoker Past Alcohol Use History: Occasional Past Drug Use History: None Reported - Past Family History Father Family Medical History: Cancer Mother History Unknown: Yes Medications and Allergies Home Medications Medication Instructions Recorded Confirmed Type Pantoprazole Sodium [Protonix] 40 mg PO QAM 03/29/15 12/29/19 History Tamsulosin HCl [Flomax] 0.4 mg PO DAILY 11/03/19 12/29/19 History Aspirin 81 mg PO DAILY chew 11/11/19 12/29/19 Rx Atorvastatin [Lipitor] 80 mg PO HS tab 11/11/19 12/29/19 Rx Carvedilol [Coreg] 6.25 mg PO BID-W/MEALS tab 11/11/19 12/29/19 Rx Clopidogrel [Plavix] 75 mg PO DAILY tab 11/11/19 12/29/19 Rx Furosemide [Lasix] 20 mg PO DAILY tab 11/11/19 12/29/19 Rx Nitroglycerin Sl Tabs [Nitrostat] 0.4 mg SUBLINGUAL Q5M PRN tab 11/11/19 12/29/19 Rx Spironolactone [Aldactone] 25 mg PO DAILY tab 11/11/19 12/29/19 Rx Amiodarone [Cordarone] 200 mg PO BID #60 tab 11/14/19 12/29/19 Rx Lisinopril [Zestril] 5 mg PO HS 12/29/19 12/29/19 History Allergies Allergy/AdvReac Type Severity Reaction Status Date / Time No Known Allergies Allergy Verified 12/29/19 07:56 Physical Examination - Vital Signs Vital Signs: Vital Signs Temp Pulse Resp BP Pulse Ox 12/29/19 15:37 71 16 113/66 97 12/29/19 14:05 65 16 99/64 97 12/29/19 12:37 98.5 F 75 16 99/64 96 12/29/19 10:49 80 18 110/62 12/29/19 10:30 79 18 101/63 12/29/19 10:00 78 18 105/61 12/29/19 09:38 88/56 12/29/19 09:31 78 18 87/56 12/29/19 08:53 18 87/57 12/29/19 08:30 86/55 12/29/19 07:48 99.6 F 67 18 98/67 96 Intake and Output 12/29/19 12/29/19 12/29/19 06:59 14:59 22:59 Other: Weight 85.729 kg On examination patient is an elderly male, in no distress. Patient's mental status, speech and language functions are normal. Attention and concentration fund of knowledge is adequate. Detail testing deferred. On cranial examination pupils are round and reactive to light, visual villanueva are full, extraocular muscles are intact. Face is symmetric and tongue protrudes the midline. Palatal elevation and sensation normal. On muscle strength testing there is no pronator drift and the strength is normal in both arms and the right lower limb. Patient's left lower extremity revealed strength of about 2 to 3+ at the left hip flexion, left knee extension is normal. Ankle dorsiflexion is 5-. Patient has decreased endurance in the left lower extremity. Reflexes are brisk in the lower limbs and patient has bilateral Babinski. No ataxia for [id number] testing. Tone and bulk of muscles normal. Gait deferred. There is no carotid bruit or murmur. Peripheral pulses present. Results - Laboratory Findings CBC and BMP: 12/29/19 09:00 12/29/19 09:00 Abnormal Lab Findings: Abnormal Labs 12/29/19 12/29/19 09:00 09:00 WBC 12.3 H RBC 4.09 L Hgb 12.7 L Hct 38.0 L Neutrophils # 10.8 H Lymphocytes # 0.6 L Sodium 135 L Carbon Dioxide 21 L Glucose 105 H Alkaline Phosphatase 136 H Assessment and Plan Assessment: * 64-year-old male, with history of chronic left leg weakness related to previous history of back surgery, left hip replacement, came to the hospital with worsening of his baseline left leg weakness. Exact cause is uncertain. MRI of the brain revealed evidence of possible demyelinating disease, suspicious for multiple sclerosis. Slightly higher signal on diffusion- weighted images is likely due to T2 shine through. It is somewhat unusual for MS to present in 60s. Patient denies any previous history of transient neurological deficits like optic neuritis, vertigo, or any transient focal deficits of demyelination. Rule out TIA/CVA. * History of cardiac arrest with prolonged downtime 11/03/2019, with remarkable clinical recovery. * Coronary artery disease, status post TX, status post cardiac stenting for 100% occlusion of LAD in October 2019. Plan: * Patient will be continued on aspirin, Plavix and statins. * We will check 2-D echo with bubble study to rule out PFO. Patient's last 2-D echo from 11/09/2019 showed significant abnormalities but that was after cardiac arrest. Need to rule out any left ventricular thrombus. * Patient has a normal carotid Doppler on 11/09/2019. No need to repeat it. Her last hemoglobin A1c was 5.0 on 11/16/2019. * Regarding abnormalities in the MRI of brain, we will check B12, folate, methylmalonic acid, LLOYD, Lyme titer, homocystine level. Lumbar puncture could be considered to evaluate for oligoclonal bands to rule out MS. However patient is on Plavix, therefore carries risk. Patient may benefit from short course of Solu-Medrol 500 mg IV for 3 days. * Patient's MRI of the lumbar spine does not reveal significant abnormalities at this point. * PT OT.
[2019-12-29] MEDS ORDERED: NITROGLYCERIN SL TABS 0.4 MG TAB SUBLINGUAL PRN (21:56)
[2019-12-29] MEDS ORDERED: LISINOPRIL 5 MG TAB PO SCH (22:00)
[2019-12-29] MEDS: ATORVASTATIN 80 MG TAB PO SCH (22:22)
[2019-12-29] MEDS: ENOXAPARIN 40 MG/0.4 ML SYRINGE SQ SCH (22:22)
[2019-12-29] MEDS: AMIODARONE 200 MG TAB PO SCH (22:22)
[2019-12-29] MEDS: CARVEDILOL 6.25 MG TAB PO SCH (22:23)
--- NOTE | 2019-12-29 22:42 | P.HPIM ---
History of Present Illness H&P Date: 12/29/19 Chief Complaint: Left leg weakness History of presenting complaint: This is a 64-year-old patient of Dr. Patel. Chronic stable medical conditions include GERD, Albertina arthritis, coronary artery disease, chronic low back pain with laminectomy and decompression in September 2019. In October 2019 patient was found to be in V. fib at home and had to be intubated was found to have 100% occlusion of the LAD was successfully stented. Patient that there was also found to have acute ischemia of the right parietal occipital region. Also aspiration pneumonia growing MRSA. Also treated for BPH. EF was 20-25%. Patient did get home therapy yesterday and according to patient was somewhat aggressive. Patient was made to different exercise tightness. Patient now presents with increasing weakness on the left leg. No other change neurologically. No change in bowel or urine pattern. No trouble with vision headache or speech or left arm weakness. Admitted for the same Review of systems: GEN.: Tired EYES: None HEENT: None NECK: None RESPIRATORY: None CARDIOVASCULAR: None GASTROINTESTINAL: None GENITOURINARY: None MUSCULOSKELETAL: Chronic back pain LYMPHATICS: None HEMATOLOGICAL: None PSYCHIATRY: None NEUROLOGICAL: As above Past medical history to include: Cardiac arrest with stent to the LAD in October 2019, congestive heart failure EF 25-30%-right parietal occipital stroke causing left-sided weakness in October 2019, GERD, BPH, laminectomy L3-L4 and L5 with lower extremity radiculopathy Social history: , smoked till 1998. 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 EYES: Pupils equal. Conjunctiva normal. HEENT: External appearance of nose and ears normal, oral cavity grossly normal. NECK: JVD not raised; masses not palpable. HEART: First and second heart sounds are normal; no edema. LUNGS: Respiratory rate normal; clear to auscultation. ABDOMEN: Soft, nontender, liver spleen not palpable, no masses palpable. PSYCH: Alert and oriented x3; mood and affect normal. NEUROLOGICAL: [Cranial nerves grossly intact; no facial asymmetry, left leg power 4/5, decreased need a flex on the left LYMPHATICS: No lymph nodes palpable in the axilla and neck INVESTIGATIONS, reviewed in the clinical context: White count 12.3 hemoglobin 12.7 platelets 223 potassium 4.1 creatinine 0.95 UA negative Chest x-ray film personally reviewed by me-questionable infiltrate EKG tracing personally reviewed by me-sinus rhythm with nonspecific T-wave changes in anterior leads Computed tomography scan brain-nonspecific Head MRA-negative MRI brain-some evidence of demyelination with moderate but no white matter changes Lumbar spine MRI-some changes at L3 to L5 area. Assessment: --This is a patient is stroke in October 2019 affecting the right parieto-oc cipital area. With residual left-sided weakness. Patient did receive significant physical therapy yesterday. Now presents with weakness on the left leg. Not that the patient's left knee reflex is decreased compared to the right. Which consist suggest a lesion at the L3 to L4 level possibly this could have been precipitated by the exercise physical therapy yesterday. I do not see a acute stroke on the MRI. The significant white matter changes suggestive of demyelination and that could explain by itself or weakness of the left leg. 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 Home medications resumed. Care was discussed with the patient. Neuro checks will be done. Lovenox for DVT prophylaxis. Patient also will be given antiplatelet agents and Lipitor for possibly a stroke but appears to be less likely. Consultation also made to Dr. Boss from orthopedic spine Past Medical History Past Medical History: Cancer, GERD/Reflux, Osteoarthritis (OA) Additional Past Medical History / Comment(s): HISTORY OF COLON POLYPS, HX SKIN CANCER -BASAL CELL., Recent myocardial infarction October 2019 Last Myocardial Infarction Date:: 11/03/19 History of Any Multi-Drug Resistant Organisms: MRSA Date of last positivie culture/infection: 11/05/19 MDRO Source:: Sputum Past Surgical History: Joint Replacement, Orthopedic Surgery Additional Past Surgical History / Comment(s): SKIN LESIONS REMOVED, LEFT KNEE ARTHROSCOPY, left hip replacement. Past Anesthesia/Blood Transfusion Reactions: No Reported Reaction Date of Last Stent Placement:: 11/03/19 Past Psychological History: No Psychological Hx Reported Smoking Status: Former smoker Past Alcohol Use History: Occasional Additional Past Alcohol Use History / Comment(s): QUIT SMOKING IN 1998. Past Drug Use History: None Reported - Past Family History Father Family Medical History: Cancer Mother History Unknown: Yes Medications and Allergies Home Medications Medication Instructions Recorded Confirmed Type Pantoprazole Sodium [Protonix] 40 mg PO QAM 03/29/15 12/29/19 History Tamsulosin HCl [Flomax] 0.4 mg PO DAILY 11/03/19 12/29/19 History Aspirin 81 mg PO DAILY chew 11/11/19 12/29/19 Rx Atorvastatin [Lipitor] 80 mg PO HS tab 11/11/19 12/29/19 Rx Carvedilol [Coreg] 6.25 mg PO BID-W/MEALS tab 11/11/19 12/29/19 Rx Clopidogrel [Plavix] 75 mg PO DAILY tab 11/11/19 12/29/19 Rx Furosemide [Lasix] 20 mg PO DAILY tab 11/11/19 12/29/19 Rx Nitroglycerin Sl Tabs [Nitrostat] 0.4 mg SUBLINGUAL Q5M PRN tab 11/11/19 12/29/19 Rx Spironolactone [Aldactone] 25 mg PO DAILY tab 11/11/19 12/29/19 Rx Amiodarone [Cordarone] 200 mg PO BID #60 tab 11/14/19 12/29/19 Rx Lisinopril [Zestril] 5 mg PO HS 12/29/19 12/29/19 History Allergies Allergy/AdvReac Type Severity Reaction Status Date / Time No Known Allergies Allergy Verified 12/29/19 07:56 Physical Exam Vitals: Vital Signs Temp Pulse Pulse Resp BP BP Pulse Ox 12/29/19 21:56 98.8 F 72 16 94/61 98 12/29/19 20:42 98.7 F 68 18 85/55 97 12/29/19 15:37 71 16 113/66 97 12/29/19 14:05 65 16 99/64 97 12/29/19 12:37 98.5 F 75 16 99/64 96 12/29/19 10:49 80 18 110/62 12/29/19 10:30 79 18 101/63 12/29/19 10:00 78 18 105/61 12/29/19 09:38 88/56 12/29/19 09:31 78 18 87/56 12/29/19 08:53 18 87/57 12/29/19 08:30 86/55 12/29/19 07:48 99.6 F 67 18 98/67 96 Intake and Output 12/29/19 12/29/19 12/29/19 06:59 14:59 22:59 Other: Weight 85.729 kg 85.729 kg Results CBC & Chem 7: 12/29/19 09:00 12/29/19 09:00 Labs: Abnormal Lab Results - Last 24 Hours (Table) 12/29/19 12/29/19 Range/Units 09:00 09:00 WBC 12.3 H (3.8-10.6) k/uL RBC 4.09 L (4.30-5.90) m/uL Hgb 12.7 L (13.0-17.5) gm/dL Hct 38.0 L (39.0-53.0) % Neutrophils # 10.8 H (1.3-7.7) k/uL Lymphocytes # 0.6 L (1.0-4.8) k/uL Sodium 135 L (137-145) mmol/L Carbon Dioxide 21 L (22-30) mmol/L Glucose 105 H (74-99) mg/dL Alkaline Phosphatase 136 H (38-126) U/L Thrombosis Risk Factor Assmnt - Choose All That Apply Other Risk Factors: Yes Each Risk Factor Represents 2 Points: Age 61-74 years Thrombosis Risk Factor Assessment Total Risk Factor Score: 2 Thrombosis Risk Factor Assessment Level: Low Risk
[2019-12-30] MEDS: CARVEDILOL 6.25 MG TAB PO SCH (06:26)
[2019-12-30 07:38] LABS: Cholesterol 76 mg/dL (<200); HDL Cholesterol 34 mg/dL (40-60); LDL Cholesterol,Calculated 31 mg/dL (0-99); Triglycerides 54 mg/dL (<150)
[2019-12-30] MEDS: SODIUM CHLORIDE 0.9% 1,000 ML IV SCH ×2 (07:39→11:21)
[2019-12-30] MEDS ORDERED: ASPIRIN 325 MG TAB PO SCH (09:00)
--- NOTE | 2019-12-30 10:41 | P.CRDCN ---
History of Present Illness Consult date: 12/30/19 Requesting physician: Rell Harrington Consult reason: hypotension Chief complaint: Left leg weakness History of present illness: This is a 64-year-old gentleman who presented to the hospital in October 2019 with cardiac arrest, ventricular fibrillation requiring defibrillation, anterior lateral ST elevation myocardial infarction, he underwent a cardiac catheterization on that admission with subsequent stenting of an LAD that was 100% occluded, down to 0% at that time. He had an echo performed on that admission admission which revealed an ejection fraction of 25- 30%. Prior to his discharge he had a repeat echo performed which revealed an ejection fraction of 35-40% and patient was not discharged with a LifeVest. Prior history of smoking, paroxysmal atrial fibrillation, history of CVA. The CVA that the patient had affected the left side, he has been going to physical therapy and overall stated that his strength on the left side of head almost fully recovered. He does have chronic back pain which she's had all the way along. The patient states that he went to physical therapy appointment, had quite an aggressive physical therapy treatment according to him, on the day he states that his leg on the left side was so weak he could hardly walk, and actually had to lower himself to the ground otherwise he felt as though he would fall. He came to the hospital for further evaluation and treatment. His chest x-ray on admission did not reveal any acute card iopulmonary process. CAT scan of the brain did not reveal any acute hemorrhage or mass effect. EKG on presentation shows a normal sinus rhythm with nonspecific ST-T wave changes. CT of the brain does not reveal any evidence of intracranial aneurysm large vessel occlusion or dissection. Blood pressure this morning 80/40 with a heart rate in the 60s to 70s. Blood cell count 12.3, hemoglobin 12.7, platelet count 223. Sodium 135, potassium 4.1, BUN 18, creatinine 0.9. MAg 1.9. At the time of my examination this morning, patient feels weak but states that his left leg is feeling better than on presentation yesterday, he does feel somewhat stronger today. Denies any dizziness or lightheadedness, no chest discomfort or difficulty in breathing. His home medications included Flomax 0.4 mg daily, Aldactone 25 mg daily, Protonix, Zestril 5 mg daily, Lasix 20 mg daily, Plavix 75 mg daily, Coreg 6.25 mg twice a day, Lipitor 80 mg daily, aspirin 81 mg daily, amiodarone 200 mg twice a day. Past Medical History Past Medical History: Cancer, GERD/Reflux, Osteoarthritis (OA) Additional Past Medical History / Comment(s): HISTORY OF COLON POLYPS, HX SKIN CANCER -BASAL CELL., Recent myocardial infarction October 2019 Last Myocardial Infarction Date:: 11/03/19 History of Any Multi-Drug Resistant Organisms: MRSA Date of last positivie culture/infection: 11/05/19 MDRO Source:: Sputum Past Surgical History: Joint Replacement, Orthopedic Surgery Additional Past Surgical History / Comment(s): SKIN LESIONS REMOVED, LEFT KNEE ARTHROSCOPY, left hip replacement. Past Anesthesia/Blood Transfusion Reactions: No Reported Reaction Date of Last Stent Placement:: 11/03/19 Past Psychological History: No Psychological Hx Reported Smoking Status: Former smoker Past Alcohol Use History: Occasional Additional Past Alcohol Use History / Comment(s): QUIT SMOKING IN 1998. Past Drug Use History: None Reported - Past Family History Father Family Medical History: Cancer Mother History Unknown: Yes Medications and Allergies Home Medications Medication Instructions Recorded Confirmed Type Pantoprazole Sodium [Protonix] 40 mg PO QAM 03/29/15 12/29/19 History Tamsulosin HCl [Flomax] 0.4 mg PO DAILY 11/03/19 12/29/19 History Aspirin 81 mg PO DAILY chew 11/11/19 12/29/19 Rx Atorvastatin [Lipitor] 80 mg PO HS tab 11/11/19 12/29/19 Rx Carvedilol [Coreg] 6.25 mg PO BID-W/MEALS tab 11/11/19 12/29/19 Rx Clopidogrel [Plavix] 75 mg PO DAILY tab 11/11/19 12/29/19 Rx Furosemide [Lasix] 20 mg PO DAILY tab 11/11/19 12/29/19 Rx Nitroglycerin Sl Tabs [Nitrostat] 0.4 mg SUBLINGUAL Q5M PRN tab 11/11/19 12/29/19 Rx Spironolactone [Aldactone] 25 mg PO DAILY tab 11/11/19 12/29/19 Rx Amiodarone [Cordarone] 200 mg PO BID #60 tab 11/14/19 12/29/19 Rx Lisinopril [Zestril] 5 mg PO HS 12/29/19 12/29/19 History Allergies Allergy/AdvReac Type Severity Reaction Status Date / Time No Known Allergies Allergy Verified 12/29/19 07:56 Physical Exam Vitals: Vital Signs Temp Pulse Pulse Pulse Resp BP BP 12/30/19 08:52 12/30/19 08:00 97.7 F 69 16 91/47 12/30/19 07:20 98.5 F 110 H 20 12/30/19 06:25 12/30/19 03:29 98.7 F 74 17 12/30/19 00:00 67 16 12/29/19 21:56 98.8 F 72 16 12/29/19 20:42 98.7 F 68 18 12/29/19 15:37 71 16 113/66 12/29/19 14:05 65 16 99/64 12/29/19 12:37 98.5 F 75 16 99/64 12/29/19 10:49 80 18 110/62 12/29/19 10:30 79 18 101/63 12/29/19 10:00 78 18 105/61 BP Pulse Ox 12/30/19 08:52 80/40 12/30/19 08:00 96 12/30/19 07:20 116/79 97 12/30/19 06:25 116/68 12/30/19 03:29 94/47 97 12/30/19 00:00 86/54 99 12/29/19 21:56 94/61 98 12/29/19 20:42 85/55 97 12/29/19 15:37 97 12/29/19 14:05 97 12/29/19 12:37 96 12/29/19 10:49 12/29/19 10:30 12/29/19 10:00 Intake and Output 12/29/19 12/30/19 12/30/19 22:59 06:59 14:59 Intake Total 350 1160 Balance 350 1160 Intake: IV 350 800 Sodium Chloride 0.9% 1, 350 800 000 ml @ 100 mls/hr IV . Q10H [facility] Rx#:[id number] Oral 360 Other: Weight 85.729 kg 86.5 kg PHYSICAL EXAMINATION: GENERAL: 64-year-old gentleman in no acute distress at the time of my examination HEENT: Head is atraumatic, normocephalic. Pupils equal, round. Sclera anicteric. Conjunctiva are clear. Mucous membranes of the mouth are moist. Neck is supple. There is no elevated jugular venous pressure. No carotid bruit is heard. HEART EXAMINATION: Heart S1, S2 normal. No murmur or gallop heard. CHEST EXAMINATION: Lungs are clear to auscultation and precussion. No chest wall tenderness is noted on palpation or with deep breathing. ABDOMEN: Soft, nontender. Bowel sounds are heard. No organomegaly noted. EXTREMITIES: 2+ peripheral pulses with no evidence of peripheral edema and no calf tenderness noted. There is weakness to the left lower extremity. NEUROLOGIC patient is awake, alert and oriented X3. . Results 12/29/19 09:00 12/29/19 09:00 Lipids 12/30/19 Range/Units 06:33 Triglycerides 54 (<150) mg/dL Cholesterol 76 (<200) mg/dL HDL Cholesterol 34 L (40-60) mg/dL Current Medications Generic Name Dose Route Start Last Admin Trade Name Slyq PRN Reason Stop Dose Admin Amiodarone HCl 200 mg 12/29/19 22:00 12/29/19 22:22 Cordarone PO 200 mg BID [facility] Administration Aspirin 325 mg 12/30/19 09:00 Aspirin PO DAILY [facility] Atorvastatin Calcium 80 mg 12/29/19 22:00 12/29/19 22:22 Lipitor PO 80 mg HS [facility] Administration Carvedilol 6.25 mg 12/29/19 22:00 12/30/19 06:26 Coreg PO 6.25 mg BID-W/MEALS [facility]E Administration Clopidogrel Bisulfate 75 mg 12/30/19 09:00 Plavix PO DAILY [facility] Enoxaparin Sodium 40 mg 12/29/19 22:00 12/29/19 22:22 Lovenox SQ 40 mg DAILY [facility] Administration Furosemide 20 mg 12/30/19 09:00 Lasix PO DAILY [facility] Sodium Chloride 1,000 mls @ 100 mls/hr 12/29/19 10:45 12/30/19 07:39 Saline 0.9% IV 100 mls/hr .Q10H [facility] Administration Lisinopril 5 mg 12/29/19 22:00 12/29/19 22:23 Zestril PO Not Given HS [facility] Nitroglycerin 0.4 mg 12/29/19 21:56 Nitrostat SUBLINGUAL Q5M PRN Chest Pain Pantoprazole Sodium 40 mg 12/30/19 09:00 Protonix PO QAM [facility] Spironolactone 25 mg 12/30/19 09:00 Aldactone PO DAILY [facility] Tamsulosin HCl 0.4 mg 12/30/19 09:00 Flomax PO DAILY [facility] Intake and Output 12/29/19 12/30/19 12/30/19 22:59 06:59 14:59 Intake Total 350 1160 Balance 350 1160 Intake: IV 350 800 Sodium Chloride 0.9% 1, 350 800 000 ml @ 100 mls/hr IV . Q10H [facility] Rx#:[id number] Oral 360 Other: Weight 85.729 kg 86.5 kg 12/29/19 09:00 12/29/19 09:00 EKG Interpretations (text) EKG shows normal sinus rhythm with nonspecific ST-T wave changes Assessment and Plan Plan: Assessment and Plan #1 left lower extremity weakness #2 hypotension #3 history of CVA in October 2019 affecting the right os apical area #4 history of cardiac arrest, ventricular fibrillation, anterior wall STEMI in October of this year status post stenting of the LAD #5 ischemic cardiomyopathy repeat limited echo performed in October showed an ejection fraction of 35-40% #6 GERD #7 hypertension history #8 hyperlipidemia #9 chronic lower back pain Plan Will obtain an echocardiogram with Doppler. Decrease aspirin to 81 mg daily, continue Lipitor 80, decrease Coreg to 3.125 mg by mouth twice a day, decrease lisinopril to 2-1/2 mg at at bedtime. was also receiving IV fluids at 100 mL per hour and had received 3500 mL of fluid bolus, we'll decrease the IV fluids to KVO. Further recommendations to follow. DNP note has been reviewed, I agree with a documented findings and plan of care. Patient was seen and examined.
[2019-12-30] MEDS: AMIODARONE 200 MG TAB PO SCH ×2 (10:42→21:26)
[2019-12-30] MEDS: TAMSULOSIN 0.4 MG CAP.ER.24H PO SCH (10:43)
[2019-12-30] MEDS: SPIRONOLACTONE 25 MG TAB PO SCH (10:43)
[2019-12-30] MEDS: FUROSEMIDE 20 MG TAB PO SCH (10:43)
[2019-12-30] MEDS: PANTOPRAZOLE 40 MG TABLET PO SCH (11:20)
[2019-12-30] MEDS: ENOXAPARIN 40 MG/0.4 ML SYRINGE SQ SCH (11:20)
[2019-12-30] MEDS: CLOPIDOGREL 75 MG TAB PO SCH (11:20)
[2019-12-30] MEDS: ASPIRIN 81 MG PO SCH (11:20)
[2019-12-30] MEDS ORDERED: methylPREDNISolone SOD SUCCI 125 MG/2 ML VIAL IV SCH (11:30)
--- NOTE | 2019-12-30 11:52 | ECHOF ---
Referral Reason:?TIA. Abnormal echo in past. Rule out LV thrombus MEASUREMENTS -------- HEIGHT: 180.3 cm WEIGHT: 86.2 kg BP: RVIDd: 2.3 cm (< 3.3) IVSd: 0.9 cm (0.6 - 1.1) LVIDd: 4.6 cm (3.9 - 5.3) LVPWd: 1.1 cm (0.6 - 1.1) IVSs: 1.2 cm LVIDs: 3.0 cm LVPWs: 1.5 cm Ao Diam: 3.3 cm (2.0 - 3.7) AV Cusp: 2.0 cm (1.5 - 2.6) LA Diam: 3.0 cm (2.7 - 3.8) MV EXCURSION: 17.354 mm (> 18.000) MV EF SLOPE: 115 mm/s (70 - 150) EPSS: 1.7 cm MV E Josh: 0.70 m/s MV DecT: 227 ms MV A Josh: 0.63 m/s MV E/A Ratio: 1.12 RAP: 5.00 mmHg RVSP: 12.04 mmHg FINDINGS -------- Sinus rhythm. This was a technically good study. The left ventricular size is normal. Left ventricular wall thickness is normal. Overall left vent ricular systolic function is normal with, an EF between 55 - 60 %. The diastolic filling pattern is normal for the age of the patient 6.55. The right ventricle is normal in size. The left atrial size is normal. The right atrial size is normal. Contrast study was performed with 1 iv injection of 8 ccs of agitated normal saline at rest. Bubble study to rule out shunt. No shunt seen. The aortic valve is trileaflet and appears structurally normal. The mitral valve is normal. There is trace mitral regurgitation. The tricuspid valve appears structurally normal. Trace tricuspid regurgitation present. Right brian tricular systolic pressure is normal at < 35 mmHg. There is no pulmonic regurgitation present. The aortic root size is normal. Normal inferior vena cava with normal inspiratory collapse consistent with estimated right atrial pre ssure of 5 mmHg. There is no pericardial effusion. CONCLUSIONS -------- 1. Sinus rhythm. 2. This was a technically good study. 3. The left ventricular size is normal. 4. Left ventricular wall thickness is normal. 5. Overall left ventricular systolic function is normal with, an EF between 55 - 60 %. 6. The diastolic filling pattern is normal for the age of the patient 6.55 7. The right ventricle is normal in size. 8. The left atrial size is normal. 9. The right atrial size is normal. 10. Contrast study was performed with 1 iv injection of 8 ccs of agitated normal saline at rest. 11. Bubble study to rule out shunt. No shunt seen. 12. The aortic valve is trileaflet and appears structurally normal. 13. The mitral valve is normal. 14. There is trace mitral regurgitation. 15. The tricuspid valve appears structurally normal. 16. Trace tricuspid regurgitation present. 17. Right ventricular systolic pressure is normal at < 35 mmHg. 18. There is no pulmonic regurgitation present. 19. The aortic root size is normal. 20. Normal inferior vena cava with normal inspiratory collapse consistent with estimated right atrial pressure of 5 mmHg. 21. There is no pericardial effusion. FISHING INSTRUCTOR: Anahi Mcgarry RDCS
--- NOTE | 2019-12-30 14:33 | P.PN ---
Subjective Progress Note Date: 12/30/19 Patient states his left leg is getting better. No new focal symptoms. Denies headache problem with the vision, hoarseness, sore throat or dysphagia. Objective - Vital Signs Vital signs: Vital Signs Temp 97.7 F 12/30/19 11:22 Pulse 73 12/30/19 12:00 Resp 16 12/30/19 12:00 BP 100/61 12/30/19 11:22 Pulse Ox 96 12/30/19 11:22 Intake & Output 12/29/19 12/30/19 12/30/19 18:59 06:59 18:59 Intake Total 350 1360 Output Total 250 Balance 350 1110 Weight 85.729 kg 86.5 kg Intake: IV 350 800 Sodium Chloride 0.9% 1, 350 800 000 ml @ 20 mls/hr IV . Q24H [facility] Rx#:[id number] Oral 560 Output: Urine 250 - Exam Patient's mental status, speech and language functions normal. Cranial nerves normal. Muscle strength normal in both arms and the right leg. Patient's left leg appears better. Ankle dorsiflexion is almost 5. Hip flexion also improved 3+ to 4-. Patient has bilateral Babinski. - Labs CBC & Chem 7: 12/29/19 09:00 12/29/19 09:00 Labs: Abnormal Lab Results - Last 24 Hours (Table) 12/30/19 Range/Units 06:33 HDL Cholesterol 34 L (40-60) mg/dL Assessment and Plan Assessment: * 64-year-old male, with history of chronic left leg weakness related to previous history of back surgery, left hip replacement, and right parietal CVA (10/2019) came to the hospital with worsening of his baseline left leg weakness. Exact cause is uncertain. MRI of the brain revealed evidence of possible demyelinating disease, suspicious for multiple sclerosis. Slightly higher signal on diffusion-weighted images is likely due to T2 shine through. It is somewhat unusual for MS to present in 60s. Patient denies any previous history of transient neurological deficits like optic neuritis, vertigo, or any transient focal deficits of demyelination. Rule out TIA/CVA. * History of cardiac arrest with prolonged downtime 11/03/2019, with remarkable clinical recovery. * History of right parietal CVA noted on MRI of the brain October 2019. * Coronary artery disease, status post TX, status post cardiac stenting for 100% occlusion of LAD in October 2019. Plan: * Patient has improved clinically as compared to yesterday. Patient will be continued on aspirin, Plavix and statins. * 2-D echo with bubble study was performed, which revealed EF 55-60%. Bubble study revealed no evidence of shunt. Trace MR. * Patient's lipid panel showed cholesterol 76, LDL 31, HDL 34 and triglycerides 54. * Patient has a normal carotid Doppler on 11/09/2019. No need to repeat it. His last hemoglobin A1c was 5.0 on 11/16/2019. * Regarding abnormalities in the MRI of brain, blood tests were performed, and B12 is 417, folate 7.0, methylmalonic acid, LLOYD, Lyme titer, homocystine level are still pending. Lumbar puncture could be considered to evaluate for oligoclonal bands to rule out MS. However patient is on Plavix, therefore carries risk. Patient will be receiving Solu-Medrol 500 mg IV for 3 days. * Patient's MRI of the lumbar spine does not reveal significant abnormalities at this point. * PT OT.
[2019-12-30 15:48] LABS: DNA Double-Stranded NEGATIVE (NEGATIVE)
[2019-12-30 16:46] LABS: Glucose,Whole Blood 119 mg/dL (75-99)
[2019-12-30] MEDS: CARVEDILOL 3.125 MG TAB PO SCH (16:46)
[2019-12-30] MEDS: INSULIN ASPART (NovoLOG) 100 UNIT/ML VIAL SQ SCH ×2 (16:47→21:31)
[2019-12-30] MEDS: LISINOPRIL 2.5 MG TAB PO SCH (20:03)
[2019-12-30 20:46] LABS: Glucose,Whole Blood 193 mg/dL (75-99)
[2019-12-30] MEDS: ATORVASTATIN 80 MG TAB PO SCH (21:31)
--- NOTE | 2019-12-30 22:51 | P.PN ---
Subjective Progress Note Date: 12/30/19 Principal diagnosis: Left lower extremity weakness This is a 64-year-old patient of Dr. Patel. Chronic stable medical conditions include GERD, Albert[place] arthritis, coronary artery disease, chronic low back pain with laminectomy and decompression in September 2019. In October 2019 patient was found to be in V. fib at home and had to be intubated was found to have 100% occlusion of the LAD was successfully stented. Patient that there was also found to have acute ischemia of the right parietal occipital region. Also aspiration pneumonia growing MRSA. Also treated for BPH. EF was 20-25%. Patient did get home therapy yesterday and according to patient was somewhat aggressive. Patient was made to different exercise tightness. Patient now presents with increasing weakness on the left leg. No other change neurologically. No change in bowel or urine pattern. No trouble with vision headache or speech or left arm weakness. 12/30/2019 Patient says that his left lower exudate weakness is slightly better than yesterday. No complaints of headache or dizziness or lightheadedness. No visual changes. No slurred speech. No commerce of dizziness or lightheadedness . No nausea vomiting or abdominal pain or diarrhea. Blood pressure is on the lower side. Coreg dose and lisinopril dose was decreased. Continued on telemetry monitoring. Cardiology and neurology is following. Patient is being continued on IV steroids 5 mg daily for 3 days. Current medications reviewed. Objective - Vital Signs Vital signs: Vital Signs Temp 97.8 F 12/30/19 16:37 Pulse 73 12/30/19 16:37 Resp 16 12/30/19 16:37 BP 120/78 12/30/19 16:37 Pulse Ox 96 12/30/19 16:37 Intake & Output 12/29/19 12/30/19 12/30/19 18:59 06:59 18:59 Intake Total 350 1360 Output Total 450 Balance 350 910 Weight 85.729 kg 86.5 kg Intake: IV 350 800 Sodium Chloride 0.9% 1, 350 800 000 ml @ 20 mls/hr IV . Q24H DARLENE Rx#:[id number] Oral 560 Output: Urine 450 Other: # Voids 1 - Exam GENERAL: [BMI 24.9, laying in bed, awake. EYES: Pupils equal. Conjunctiva normal. HEENT: External appearance of nose and ears normal, oral cavity grossly normal. NECK: JVD not raised; masses not palpable. HEART: First and second heart sounds are normal; no edema. LUNGS: Respiratory rate normal; clear to auscultation. ABDOMEN: Soft, nontender, liver spleen not palpable, no masses palpable. PSYCH: Alert and oriented x3; mood and affect normal. NEUROLOGICAL: [Cranial nerves grossly intact; no facial asymmetry, left leg power 4/5, decreased need a flex on the left LYMPHATICS: No lymph nodes palpable in the axilla and neck - Labs CBC & Chem 7: 12/29/19 09:00 12/29/19 09:00 Labs: Abnormal Lab Results - Last 24 Hours (Table) 12/30/19 12/30/19 12/30/19 Range/Units 06:33 06:33 16:39 POC Glucose (mg/dL) 119 H (75-99) mg/dL HDL Cholesterol 34 L (40-60) mg/dL LLOYD Screen POSITIVE H (NEGATIVE) - Imaging and Cardiology INVESTIGATIONS, reviewed in the clinical context: White count 12.3 hemoglobin 12.7 platelets 223 potassium 4.1 creatinine 0.95 UA negative Chest x-ray film personally reviewed by me-questionable infiltrate EKG tracing personally reviewed by me-sinus rhythm with nonspecific T-wave changes in anterior leads Computed tomography scan brain-nonspecific Head MRA-negative MRI brain-some evidence of demyelination with moderate but no white matter changes Lumbar spine MRI-some changes at L3 to L5 area. Assessment and Plan Assessment: --Left lower extremity weakness with history of acute stroke in October 2019 affecting the right parieto-occipital area. With residual left-sided weakness. Patient did receive significant physical therapy yesterday. Now presents with weakness on the left leg. Not that the patient's left knee reflex is decreased compared to the right. Which consist suggest a lesion at the L3 to L4 level possibly this could have been precipitated by the exercise physical therapy yesterday. no acute stroke on the MRI. The significant white matter changes suggestive of demyelination and that could explain by itself or weakness of the left leg. A lumbar puncture would help delineate MS Patient was started on IV Solu-Medrol 5 mg daily for 3 days. Neurology is following. Patient was seen by orthopedic surgery. MRI of the lumbar spine showed no acute changes. No further intervention by orthopedic surgery. He is -GERD -Primary osteoarthritis -Coronary artery disease with stent to LAD -Chronic low back pain with laminectomy and decompression September 2019 -BPH -Ischemic cardio myopathy EF 20-24% -Hx of recent cardiac arrest Plan: Patient will be started on telemetry monitoring. Blood pressure medication dose was decreased. Continue with IV steroids. Care was discussed with the patient. Neuro checks will be done. Lovenox for DVT prophylaxis. Patient also will be given antiplatelet agents and Lipitor for possibly a stroke but appears to be less likely. Consultation also made to Dr. Boss from orthopedic spine. Time with Patient: Greater than 30
[2019-12-31 06:16] LABS: Glucose,Whole Blood 133 mg/dL (75-99)
[2019-12-31] MEDS: CARVEDILOL 3.125 MG TAB PO SCH ×3 (06:27→17:34)
[2019-12-31] MEDS: INSULIN ASPART (NovoLOG) 100 UNIT/ML VIAL SQ SCH ×4 (06:27→20:44)
[2019-12-31 06:45] LABS: Basophils % (A) 0 %; Eosinophils % (A) 0 %; HCT 32.1 % (39.0-53.0); HGB 11.3 gm/dL (13.0-17.5); Lymphocytes # (A) 0.8 k/uL (1.0-4.8); Lymphocytes % (A) 14 %; MCH 32.9 pg (25.0-35.0); MCHC 35.2 g/dL (31.0-37.0); MCV 93.5 fL (80.0-100.0); Mean Platelet Volume 7.1; Monocytes # (A) 0.1 k/uL (0-1.0); Monocytes % (A) 1 %; Neutrophils # (A) 4.8 k/uL (1.3-7.7); Neutrophils % (A) 84 %; Platelet Count 212 k/uL (150-450); RBC 3.43 m/uL (4.30-5.90); RDW 13.9 % (11.5-15.5); WBC 5.7 k/uL (3.8-10.6)
[2019-12-31 07:00] LABS: African American GFR (CKD) >90 (>60 ml/min/1.73 sqM); Anion Gap 10 mmol/L; Blood Urea Nitrogen 13 mg/dL (9-20); Calcium 8.6 mg/dL (8.4-10.2); Carbon Dioxide 17 mmol/L (22-30); Chloride 110 mmol/L (98-107); Glucose 140 mg/dL (74-99); Non-African American GFR(CKD) >90 (>60 ml/min/1.73 sqM); Potassium 3.9 mmol/L (3.5-5.1); Sodium 137 mmol/L (137-145)
[2019-12-31] MEDS: CLOPIDOGREL 75 MG TAB PO SCH (08:03)
[2019-12-31] MEDS: PANTOPRAZOLE 40 MG TABLET PO SCH (08:03)
[2019-12-31] MEDS: ASPIRIN 81 MG PO SCH (08:03)
[2019-12-31] MEDS: AMIODARONE 200 MG TAB PO SCH ×2 (08:03→20:43)
[2019-12-31] MEDS: FUROSEMIDE 20 MG TAB PO SCH (08:03)
[2019-12-31] MEDS: SPIRONOLACTONE 25 MG TAB PO SCH (08:03)
[2019-12-31] MEDS: TAMSULOSIN 0.4 MG CAP.ER.24H PO SCH (08:03)
[2019-12-31] MEDS: ENOXAPARIN 40 MG/0.4 ML SYRINGE SQ SCH (08:04)
[2019-12-31] MEDS: SODIUM CHLORIDE 0.9% 1,000 ML IV SCH (08:04)
[2019-12-31] MEDS ORDERED: ASPIRIN 81 MG PO SCH (09:00)
[2019-12-31 10:22] LABS: ANA Pattern Homogeneous
[2019-12-31] MEDS ORDERED: ACETAMINOPHEN TAB 325 MG TAB PO PRN (11:30)
[2019-12-31 11:38] LABS: Glucose,Whole Blood 133 mg/dL (75-99)
--- NOTE | 2019-12-31 15:25 | P.PN ---
Subjective Progress Note Date: 12/31/19 This is a 63-year-old gentleman who was admitted to the hospital about several weeks ago with cardiac arrest and anterior wall OK and had stent placement of the LAD. Initial LV function was poor but gradually it has improved and recent echo Cardigan showed normal LV function. Patient is admitted with a left leg weakness, etiology is unclear. It seemed to gradually improving. He denies any chest pain or shortness of breath. From Cardec standpoint patient is stable. Patient could be discharged home when medically fit. Follow-up as an outpatient with the Dr. Rodriguez Objective - Vital Signs Vital signs: Vital Signs Temp 98.2 F 12/31/19 11:41 Pulse 76 12/31/19 11:41 Resp 18 12/31/19 11:42 BP 105/65 12/31/19 11:41 Pulse Ox 96 12/31/19 11:41 Intake & Output 12/30/19 12/31/19 12/31/19 18:59 06:59 18:59 Intake Total 1720 560 970 Output Total 450 2014 Balance 1270 -1455 970 Weight 89 kg Intake: IV 800 160 170 Invasive Line 2 10 Sodium Chloride 0.9% 1, 800 160 160 000 ml @ 20 mls/hr IV . Q24H DARLENE Rx#:[id number] Oral 920 400 800 Output: Urine 450 2014 Other: # Voids 1 2 - Exam GENERAL EXAM: Patient is alert and oriented and doesn't appear to be in any acute distress HEENT: Normocephalic. Normal reaction of pupils, equal size, normal range of extraocular motion. No erythema or exudates in the throat. NECK: No masses, no nuchal rigidity. CHEST: No chest wall deformity. LUNGS: Equal air entry with no crackles or wheeze. HEART: S1 and S2 normal with no audible mumurs or gallops. Regular rhythm, femorals equal on both sides.. ABDOMEN: No hepatosplenomegaly, normal bowel sounds, no guarding or rigidity. SKIN: No rashes CENTRAL NERVOUS SYSTEM: No focal deficits. EXTREMITIES: No cyanosis, clubbing or edema. - Labs CBC & Chem 7: 12/31/19 06:21 12/31/19 06:21 Labs: Abnormal Lab Results - Last 24 Hours (Table) 12/30/19 12/30/19 12/30/19 Range/Units 06:33 16:39 20:44 RBC (4.30-5.90) m/uL Hgb (13.0-17.5) gm/dL Hct (39.0-53.0) % Lymphocytes # (1.0-4.8) k/uL Chloride (98-107) mmol/L Carbon Dioxide (22-30) mmol/L Glucose (74-99) mg/dL POC Glucose (mg/dL) 119 H 193 H (75-99) mg/dL LLOYD Screen POSITIVE H (NEGATIVE) 12/31/19 12/31/19 12/31/19 Range/Units 06:13 06:21 06:21 RBC 3.43 L (4.30-5.90) m/uL Hgb 11.3 L (13.0-17.5) gm/dL Hct 32.1 L (39.0-53.0) % Lymphocytes # 0.8 L (1.0-4.8) k/uL Chloride 110 H (98-107) mmol/L Carbon Dioxide 17 L (22-30) mmol/L Glucose 140 H (74-99) mg/dL POC Glucose (mg/dL) 133 H (75-99) mg/dL LLOYD Screen (NEGATIVE) 12/31/19 Range/Units 11:36 RBC (4.30-5.90) m/uL Hgb (13.0-17.5) gm/dL Hct (39.0-53.0) % Lymphocytes # (1.0-4.8) k/uL Chloride (98-107) mmol/L Carbon Dioxide (22-30) mmol/L Glucose (74-99) mg/dL POC Glucose (mg/dL) 133 H (75-99) mg/dL LLOYD Screen (NEGATIVE) Assessment and Plan (1) History of myocardial infarction Current Visit: Yes Status: Acute Code(s): I25.2 - OLD MYOCARDIAL INFARCTION SNOMED Code(s): 860751381 (2) Leg weakness Current Visit: Yes Status: Acute Code(s): R29.898 - OTH SYMPTOMS AND SIGNS INVOLVING THE MUSCULOSKELETAL SYSTEM SNOMED Code(s): 961916928 (3) History of cardiomyopathy Current Visit: Yes Status: Acute Code(s): Z86.79 - PERSONAL HISTORY OF OTHER DISEASES OF THE CIRCULATORY SYSTEM SNOMED Code(s): 806964207964482 (4) History of cardiac arrest Current Visit: Yes Status: Acute Code(s): Z86.74 - PERSONAL HISTORY OF SUDDEN CARDIAC ARREST SNOMED Code(s): 278829358 Plan: From cardiac standpoint, patient appears to be stable. LV function normalized . Patient to have outpatient follow-up with Dr. Rodriguez
[2019-12-31 16:40] LABS: Glucose,Whole Blood 176 mg/dL (75-99)
--- NOTE | 2019-12-31 17:06 | P.PN ---
Subjective Progress Note Date: 12/31/19 Patient was sitting in a recliner, states is doing much better. Patient states his left leg is getting better. He can lift his left leg up and down with some endurance. No new focal symptoms. Denies headache problem with the vision, hoarseness, sore throat or dysphagia. Patient has received a dose of Solu- Medrol 500 mg yesterday, and today. Patient is tolerating Solu-Medrol very well. In fact his back pain has also improved. Objective - Vital Signs Vital signs: Vital Signs Temp 97.7 F 12/31/19 15:05 Pulse 79 12/31/19 15:33 Resp 18 12/31/19 15:33 BP 85/55 12/31/19 15:05 Pulse Ox 96 12/31/19 15:05 Intake & Output 12/30/19 12/31/19 12/31/19 18:59 06:59 18:59 Intake Total 1720 560 980 Output Total 450 2014 Balance 1270 -1455 980 Weight 89 kg Intake: IV 800 160 180 Invasive Line 2 20 Sodium Chloride 0.9% 1, 800 160 160 000 ml @ 20 mls/hr IV . Q24H DARLENE Rx#:[id number] Oral 920 400 800 Output: Urine 450 2014 Other: # Voids 1 2 - Exam Patient's mental status, speech and language functions normal. Cranial nerves normal. Muscle strength normal in both arms and the right leg. Patient's left leg appears better. Ankle dorsiflexion is 5. Hip flexion also improved 4+. Patient has bilateral Babinski. - Labs CBC & Chem 7: 12/31/19 06:21 12/31/19 06:21 Labs: Abnormal Lab Results - Last 24 Hours (Table) 12/30/19 12/31/19 12/31/19 Range/Units 20:44 06:13 06:21 RBC 3.43 L (4.30-5.90) m/uL Hgb 11.3 L (13.0-17.5) gm/dL Hct 32.1 L (39.0-53.0) % Lymphocytes # 0.8 L (1.0-4.8) k/uL Chloride (98-107) mmol/L Carbon Dioxide (22-30) mmol/L Glucose (74-99) mg/dL POC Glucose (mg/dL) 193 H 133 H (75-99) mg/dL 12/31/19 12/31/19 12/31/19 Range/Units 06:21 11:36 16:39 RBC (4.30-5.90) m/uL Hgb (13.0-17.5) gm/dL Hct (39.0-53.0) % Lymphocytes # (1.0-4.8) k/uL Chloride 110 H (98-107) mmol/L Carbon Dioxide 17 L (22-30) mmol/L Glucose 140 H (74-99) mg/dL POC Glucose (mg/dL) 133 H 176 H (75-99) mg/dL Assessment and Plan Assessment: * 64-year-old male, with history of chronic left leg weakness related to previous history of back surgery, left hip replacement, and right parietal CVA (10/2019) came to the hospital with worsening of his baseline left leg weakness. Exact cause is uncertain. MRI of the brain revealed evidence of possible demyelinating disease, suspicious for multiple sclerosis. Slightly higher signal on diffusion-weighted images is likely due to T2 shine through. It is somewhat unusual for MS to present in 60s. Patient denies any previous history of transient neurological deficits like optic neuritis, vertigo, or any transient focal deficits of demyelination. Rule out TIA/CVA. * History of cardiac arrest with prolonged downtime 11/03/2019, with remarkable clinical recovery. * History of right parietal CVA noted on MRI of the brain October 2019. * Coronary artery disease, status post WI, status post cardiac stenting for 100% occlusion of LAD in October 2019. Plan: * Patient has further improved clinically as compared to yesterday. Patient will be continued on aspirin, Plavix and statins. * Patient will complete 3 day treatment with Solu-Medrol 500 mg IV. Thereafter he can be discharged. * 2-D echo with bubble study was performed, which revealed EF 55-60%. Bubble study revealed no evidence of shunt. Trace MR. * Patient's lipid panel showed cholesterol 76, LDL 31, HDL 34 and triglycerides 54. * Patient has a normal carotid Doppler on 11/09/2019. No need to repeat it. His last hemoglobin A1c was 5.0 on 11/16/2019. * Regarding abnormalities in the MRI of brain, blood tests were performed, and B12 is 417, folate 7.0, LLOYD is +320, homogenous pattern, dsDNA negative. Homocystine level is normal 11.25 (4-14), Lyme titer negative. Methylmalonic acid still pending. Lumbar puncture could be considered to evaluate for oligoclonal bands to rule out MS. However patient is on Plavix, therefore carries risk. * Patient's MRI of the lumbar spine does not reveal significant abnormalities at this point. * PT OT. * Possible discharge in a.m.
[2019-12-31] MEDS: CARVEDILOL 1.563 MG TAB PO SCH (19:36)
[2019-12-31 19:57] LABS: Glucose,Whole Blood 126 mg/dL (75-99)
[2019-12-31] MEDS: ATORVASTATIN 80 MG TAB PO SCH (20:43)
[2019-12-31] MEDS: LISINOPRIL 2.5 MG TAB PO SCH (20:44)
[2019-12-31 21:07] VITALS: RESP 16
[2020-01-01 06:19] LABS: Glucose,Whole Blood 122 mg/dL (75-99)
[2020-01-01] MEDS: INSULIN ASPART (NovoLOG) 100 UNIT/ML VIAL SQ SCH ×2 (06:36→11:57)
[2020-01-01] MEDS: CARVEDILOL 1.563 MG TAB PO SCH (06:41)
[2020-01-01] MEDS: AMIODARONE 200 MG TAB PO SCH (08:33)
[2020-01-01] MEDS: TAMSULOSIN 0.4 MG CAP.ER.24H PO SCH (08:33)
[2020-01-01] MEDS: ASPIRIN 81 MG PO SCH (08:33)
[2020-01-01] MEDS: CLOPIDOGREL 75 MG TAB PO SCH (08:33)
[2020-01-01] MEDS: FUROSEMIDE 20 MG TAB PO SCH (08:33)
[2020-01-01] MEDS: ENOXAPARIN 40 MG/0.4 ML SYRINGE SQ SCH (08:33)
[2020-01-01] MEDS: PANTOPRAZOLE 40 MG TABLET PO SCH (08:33)
[2020-01-01] MEDS: SPIRONOLACTONE 25 MG TAB PO SCH (08:33)
[2020-01-01 12:05] LABS: Glucose,Whole Blood 110 mg/dL (75-99)
[2020-01-01 12:32] VITALS: BP 111/74; PULSE 67; TEMP 97.7
--- NOTE | 2020-01-01 14:57 | PN ---
PROGRESS NOTE Mr. Johnson is in sinus rhythm, comfortable, resting. He came with prior left lower extremity weakness and there was some episode of hypotension. However, I am recommending that he can be discharged today. He is asymptomatic, ambulating without symptoms. He will be discharged on a small dose of Coreg 3.125 mg in the morning and a half a tablet in the evening and lisinopril 2.5 mg daily. All other medications will be continued including dual antiplatelet therapy and he will see Dr. Rodriguez in one week. Vitals are stable. No JVD. S1, S2 heard normally. Short systolic murmur noted. Lungs revealed decent air entry. Abdomen and lower extremity exam are unchanged. Patient will be discharged today. MMODL / IJN: [id number] /
== END 2020-01-01 15:22 | disposition home health service (06) | DRG 59 ==
LOC: EC 07:45 → 3SCARD 10:54 → OBSVTOIN 12-31 09:05
PROVIDERS: ADMIT Hospitalist; ATTEND Hospitalist
DX: G37.9 Demyelinating disease of central nervous system, unspecified (principal); I69.354 Hemiplegia and hemiparesis following cerebral infarction affecting left non-dominant side; I25.10 Atherosclerotic heart disease of native coronary artery without angina pectoris; I95.9 Hypotension, unspecified; M43.16 Spondylolisthesis, lumbar region; M51.36 Other intervertebral disc degeneration, lumbar region; M47.816 Spondylosis without myelopathy or radiculopathy, lumbar region; M16.11 Unilateral primary osteoarthritis, right hip; G89.29 Other chronic pain; I10 Essential (primary) hypertension; E78.5 Hyperlipidemia, unspecified; I48.0 Paroxysmal atrial fibrillation; I25.5 Ischemic cardiomyopathy; R40.2362 Coma scale, best motor response, obeys commands, at arrival to emergency department; R40.2142 Coma scale, eyes open, spontaneous, at arrival to emergency department; R40.2252 Coma scale, best verbal response, oriented, at arrival to emergency department; N40.0 Benign prostatic hyperplasia without lower urinary tract symptoms; K21.9 Gastro-esophageal reflux disease without esophagitis; I25.2 Old myocardial infarction; Z79.02 Long term (current) use of antithrombotics/antiplatelets; Z79.82 Long term (current) use of aspirin; Z79.899 Other long term (current) drug therapy; Z86.74 Personal history of sudden cardiac arrest; Z95.5 Presence of coronary angioplasty implant and graft; Z87.891 Personal history of nicotine dependence; Z86.010 Personal history of colon polyps; Z86.14 Personal history of Methicillin resistant Staphylococcus aureus infection; Z96.642 Presence of left artificial hip joint; Z85.828 Personal history of other malignant neoplasm of skin; Z98.890 Other specified postprocedural states; W18.30XA Fall on same level, unspecified, initial encounter; Z80.9 Family history of malignant neoplasm, unspecified
CPT/HCPCS: 36415; 70450; 70544; 70551; 71046; 72148; 73502; 80048; 80053; 80061; 81003; 82607; 82746; 83090; 83605; 83735; 83921; 84100; 84207; 84425; 85025; 85610; 85730; 86038; 86039; 86225; 86618; 93005; 93306; 96360; 96361; 99285

== ENCOUNTER 2020-07-27 18:43 | Observation (INO) | payer BC ==
--- NOTE | 2020-07-27 19:12 | ED ---
Dizziness HPI - General Chief Complaint: Syncope Stated Complaint: Syncope Time Seen by Provider: 07/27/20 18:43 Source: patient, EMS, RN notes reviewed Mode of arrival: EMS - History of Present Illness Initial Comments: This is a 65-year-old male with a history of [place] in the past who just after eating dinner he began feeling nauseated and lightheaded hot and he apparently passed out for about a minute or so her EMS. He was diaphoretic flush and warm per responders. He had no idea he is a passed out he had no palpitations no other preceding symptoms. He was brought in by EMS. He is feeling improved at this time though tired. He has no chest pain and report no cough or other symptoms. MD Complaint: dizziness, lightheadedness - Related Data Home Medications Medication Instructions Recorded Confirmed Pantoprazole Sodium [Protonix] 40 mg PO QAM 03/29/15 12/29/19 Tamsulosin HCl [Flomax] 0.4 mg PO DAILY 11/03/19 12/29/19 Previous Rx's Medication Instructions Recorded Aspirin 81 mg PO DAILY chew 11/11/19 Atorvastatin [Lipitor] 80 mg PO HS tab 11/11/19 Clopidogrel [Plavix] 75 mg PO DAILY tab 11/11/19 Furosemide [Lasix] 20 mg PO DAILY tab 11/11/19 Nitroglycerin Sl Tabs [Nitrostat] 0.4 mg SUBLINGUAL Q5M PRN tab 11/11/19 Spironolactone [Aldactone] 25 mg PO DAILY tab 11/11/19 Amiodarone [Cordarone] 200 mg PO BID #60 tab 11/14/19 Carvedilol [Coreg] 3.125 mg PO QAM #60 tablet 01/01/20 carvediloL [Coreg] 1.563 mg PO HS #60 dose 01/01/20 lisinopriL [Zestril] 2.5 mg PO HS #30 tab 01/01/20 Allergies Allergy/AdvReac Type Severity Reaction Status Date / Time No Known Allergies Allergy Verified 12/29/19 07:56 Review of Systems ROS Statement: Those systems with pertinent positive or pertinent negative responses have been documented in the HPI. ROS Other: All systems not noted in ROS Statement are negative. Past Medical History Past Medical History: Cancer, GERD/Reflux, Osteoarthritis (OA) Additional Past Medical History / Comment(s): HISTORY OF COLON POLYPS, HX SKIN CANCER -BASAL CELL., Recent myocardial infarction October 2019 Last Myocardial Infarction Date:: 11/03/19 History of Any Multi-Drug Resistant Organisms: MRSA Date of last positivie culture/infection: 11/05/19 MDRO Source:: Sputum Past Surgical History: Joint Replacement, Orthopedic Surgery Additional Past Surgical History / Comment(s): SKIN LESIONS REMOVED, LEFT KNEE ARTHROSCOPY, left hip replacement. Past Anesthesia/Blood Transfusion Reactions: No Reported Reaction Date of Last Stent Placement:: 11/03/19 Past Psychological History: No Psychological Hx Reported Past Alcohol Use History: Occasional Additional Past Alcohol Use History / Comment(s): QUIT SMOKING IN 1998. Past Drug Use History: None Reported - Past Family History Father Family Medical History: Cancer Mother History Unknown: Yes General Exam - General Exam Comments Initial Comments: This is a well-developed well-nourished awake alert oriented 3 male General appearance: alert, in no apparent distress Head exam: Present: atraumatic, normocephalic, normal inspection Eye exam: Present: normal appearance, PERRL, EOMI. Absent: scleral icterus, conjunctival injection, periorbital swelling ENT exam: Present: normal exam, mucous membranes moist Neck exam: Present: normal inspection, full ROM, other (No stridor JVD or bruits). Absent: tenderness, meningismus, lymphadenopathy Respiratory exam: Present: normal lung sounds bilaterally. Absent: respiratory distress, wheezes, rales, rhonchi, stridor Cardiovascular Exam: Present: regular rate, normal rhythm, normal heart sounds. Absent: systolic murmur, diastolic murmur, rubs, gallop, clicks GI/Abdominal exam: Present: soft, normal bowel sounds. Absent: distended, tenderness, guarding, rebound, rigid, bruit, pulsatile mass Extremities exam: Present: normal inspection, full ROM, normal capillary refill. Absent: tenderness, pedal edema, joint swelling, calf tenderness Back exam: Present: normal inspection Neurological exam: Present: alert, oriented X3, CN II-XII intact Psychiatric exam: Present: normal affect, normal mood Skin exam: Present: warm, dry, intact, normal color. Absent: rash Course Vital Signs 07/27/20 07/27/20 07/27/20 18:46 19:25 19:39 Temperature 97.7 F Pulse Rate 62 63 68 Respiratory 18 20 20 Rate Blood Pressure 100/77 105/69 105/72 O2 Sat by Pulse 96 99 97 Oximetry - Reevaluation(s) Reevaluation #1: 07/27/20 20:32 Reevaluation patient reveals in the awake alert oriented 3 with no complaints he did state that he had a slight neck supple headache when he first arrived here which is now gone this was not initially related. Medical Decision Making - Medical Decision Making I did discuss findings with the patient and his was present. Patient essentially feels back to normal however he does not have any initial findings to explain his syncopal or so today. After discussion the patient be admitted for inpatient evaluation and neurological consultation. I did discuss this with Kike who is covering for Dr. Duckworth. - Lab Data Result diagrams: 07/27/20 19:10 07/27/20 19:10 Lab Results 07/27/20 07/27/20 07/27/20 Range/Units 19:10 19:10 19:10 WBC 6.6 (3.8-10.6) k/uL RBC 4.47 (4.30-5.90) m/uL Hgb 14.4 (13.0-17.5) gm/dL Hct 43.0 (39.0-53.0) % MCV 96.3 (80.0-100.0) fL MCH 32.3 (25.0-35.0) pg MCHC 33.6 (31.0-37.0) g/dL RDW 13.2 (11.5-15.5) % Plt Count 250 (150-450) k/uL Neutrophils % 53 % Lymphocytes % 35 % Monocytes % 7 % Eosinophils % 1 % Basophils % 1 % Neutrophils # 3.5 (1.3-7.7) k/uL Lymphocytes # 2.3 (1.0-4.8) k/uL Monocytes # 0.5 (0-1.0) k/uL Eosinophils # 0.1 (0-0.7) k/uL Basophils # 0.1 (0-0.2) k/uL Sodium 135 L (137-145) mmol/L Potassium 3.7 (3.5-5.1) mmol/L Chloride 106 (98-107) mmol/L Carbon Dioxide 19 L (22-30) mmol/L Anion Gap 10 mmol/L BUN 12 (9-20) mg/dL Creatinine 1.01 (0.66-1.25) mg/dL Est GFR (CKD-EPI)AfAm >90 (>60 ml/min/1.73 sqM) Est GFR (CKD-EPI)NonAf 78 (>60 ml/min/1.73 sqM) Glucose 100 H (74-99) mg/dL Calcium 8.4 (8.4-10.2) mg/dL Magnesium 1.9 (1.6-2.3) mg/dL Total Bilirubin 0.5 (0.2-1.3) mg/dL AST 22 (17-59) U/L ALT 14 (4-49) U/L Alkaline Phosphatase 78 (38-126) U/L Creatine Kinase 54 L (55-170) U/L Troponin I <0.012 (0.000-0.034) ng/mL Total Protein 6.2 L (6.3-8.2) g/dL Albumin 3.6 (3.5-5.0) g/dL - EKG Data -: EKG Interpreted by Me EKG shows normal: sinus rhythm EKG Comments: EKG shows normal sinus rhythm a 63. Interval 174 QRS duration 64 QT since QTC 414/423 low-voltage no acute ST-T wave changes - Radiology Data Radiology results: report reviewed (I did review the imaging and report no acute findings.), image reviewed Disposition Clinical Impression: Syncope and collapse Disposition: ADMITTED IP TO THIS [facility] Condition: Stable Referrals: Ruslan Patel MD [Primary Care Provider] - 1-2 days
[2020-07-27 19:21] LABS: Basophils # (A) 0.1 k/uL (0-0.2); Basophils % (A) 1 %; Eosinophils # (A) 0.1 k/uL (0-0.7); Eosinophils % (A) 1 %; HGB 14.4 gm/dL (13.0-17.5); Lymphocytes # (A) 2.3 k/uL (1.0-4.8); Lymphocytes % (A) 35 %; MCH 32.3 pg (25.0-35.0); MCHC 33.6 g/dL (31.0-37.0); MCV 96.3 fL (80.0-100.0); Mean Platelet Volume 6.7; Monocytes # (A) 0.5 k/uL (0-1.0); Monocytes % (A) 7 %; Neutrophils # (A) 3.5 k/uL (1.3-7.7); Neutrophils % (A) 53 %; Platelet Count 250 k/uL (150-450); RBC 4.47 m/uL (4.30-5.90); RDW 13.2 % (11.5-15.5); WBC 6.6 k/uL (3.8-10.6)
[2020-07-27 19:30] LABS: ALT 14 U/L (4-49); AST 22 U/L (17-59); African American GFR (CKD) >90 (>60 ml/min/1.73 sqM); Albumin 3.6 g/dL (3.5-5.0); Alkaline Phosphatase 78 U/L (38-126); Anion Gap 10 mmol/L; Blood Urea Nitrogen 12 mg/dL (9-20); Calcium 8.4 mg/dL (8.4-10.2); Carbon Dioxide 19 mmol/L (22-30); Chloride 106 mmol/L (98-107); Creatine Kinase 54 U/L (55-170); Glucose 100 mg/dL (74-99); Magnesium 1.9 mg/dL (1.6-2.3); Non-African American GFR(CKD) 78 (>60 ml/min/1.73 sqM); Potassium 3.7 mmol/L (3.5-5.1); Sodium 135 mmol/L (137-145); Total Bilirubin 0.5 mg/dL (0.2-1.3); Total Protein 6.2 g/dL (6.3-8.2)
--- NOTE | 2020-07-27 19:38 | XR ---
EXAMINATION TYPE: XR chest 2V DATE OF EXAM: 07/27/2020 COMPARISON: 12/29/2019 HISTORY: Weakness TECHNIQUE: Single view FINDINGS: There is no heart failure nor confluent pneumonic infiltrate. There is slight coarsening of interstitial markings. There are no hilar masses. Heart size is normal. There are chest leads. IMPRESSION: Mild pulmonary fibrotic changes. Normal heart. No adverse change overall compared to old exam.
[2020-07-27] MEDS ORDERED: NALOXONE 0.4 MG/ML 1 ML VIAL IV PRN (20:36)
[2020-07-27] MEDS ORDERED: NITROGLYCERIN SL TABS 0.4 MG TAB SUBLINGUAL PRN (20:39)
[2020-07-27] MEDS ORDERED: SODIUM CHLORIDE 0.9% 1,000 ML IV SCH (20:45)
[2020-07-27 20:52] LABS: D-Dimer 0.29 mg/L FEU (<0.60); Partial Thromboplastin Time 21.4 sec (22.0-30.0); Prothrombin Time 10.1 sec (9.0-12.0)
--- NOTE | 2020-07-27 21:09 | CT ---
EXAMINATION TYPE: CT brain wo con DATE OF EXAM: 07/27/2020 COMPARISON: None HISTORY: Syncope. Altered mental status. CT DLP: 1119.4 mGycm Automated exposure control for dose reduction was used. There is cerebral atrophy. There is no mass effect nor midline shift. There is no sign of intracrania l hemorrhage. The calvarium is intact. IMPRESSION: Mild cerebral atrophy. No acute intracranial abnormality.
[2020-07-27] MEDS ORDERED: SODIUM CHLORIDE 0.9% 1,000 ML IV ONE (21:26)
[2020-07-27 22:53] LABS: Appearance,Urine Clear (Clear); Bilirubin,Urine Negative (Negative); Blood,Urine Negative (Negative); Color,Urine Light Yellow; Glucose,Urine (UA) Negative (Negative); Ketones,Urine Negative (Negative); Leukocyte Esterase,Urine Negative (Negative); Nitrite,Urine Negative (Negative); PH, Urine 5.5 (5.0-8.0); Protein,Urine Negative (Negative); Specific Gravity,Urine 1.008 (1.001-1.035); Urobilinogen,Urine <2.0 mg/dL (<2.0)
[2020-07-28 08:07] VITALS: RESP 16
--- NOTE | 2020-07-28 08:08 | US ---
EXAMINATION TYPE: US carotid duplex BILAT DATE OF EXAM: 07/28/2020 COMPARISON: Prior exam 11/09/2019 CLINICAL HISTORY: Syncope. Patient states passing out last night at dinner. Patient states having a heart attack and stroke October 2019 EXAM MEASUREMENTS: RIGHT: Peak Systolic Velocity (PSV) cm/sec ----- Right CCA: 115 ----- Right ICA: 116.0 ----- Right ECA: 115.0 ICA/CCA ratio: 1.0 RIGHT: End Diastole cm/sec ----- Right CCA: 35.7 ----- Right ICA: 40.3 ----- Right ECA: 21.4 LEFT: Peak Systolic Velocity (PSV) cm/sec ----- Left CCA: 113.0 ----- Left ICA: 112.0 ----- Left ECA: 87.7 ICA/CCA ratio: 1.0 LEFT: End Diastole cm/sec ----- Left CCA: 29.3 ----- Left ICA: 35.1 ----- Left ECA: 14.3 VERTEBRALS (direction of flow): Right Vertebral: Antegrade Left Vertebral: Antegrade Rhythm: Normal Grayscale, color Doppler, spectral Doppler imaging performed of the carotid arteries, waveform analys is does not show significant stenosis of the internal carotid arteries. No elevated velocities, signi ficant stenosis or wall thickening. Plaque visualized in left bulb. IMPRESSION: No hemodynamic significant stenosis of the proximal internal carotid arteries by Doppler criteria, an indirect measurement of carotid stenosis Criteria for Assigning % of Stenosis / Diameter reduction (Estimation based on the indirect measurements of the internal carotid artery velocities (ICA PSV). 1. Normal (no stenosis)=ICA PSV < 125 cm/s: ratio < 2.0: ICA EDV<40 cm/s. 2. Less than 50% stenosis=ICA PSV < 125 cm/s: ratio < 2.0: ICA EDV<40 cm/s. 3. 50 to 69% stenosis=ICA PSV of 125 to 230 cm/s: ration 2.0 ? 4.0: ICA EDV 40-100 cm/s. 4. Greater than 70% stenosis to near occlusion= ICA PSV > 230 cm/s: ratio > 4.0: ICA EDV > 100 cm/s. 5. Near occlusion= ICA PSV velocities may be low or undetectable: variable ratio and ICA EDV. 6. Total occlusion=unable to detect flow.
--- NOTE | 2020-07-28 08:47 | P.HPIM ---
History of Present Illness This is a pleasant 65 years old male with Left lower extremity weakness with history of acute stroke in October 2019 affecting the right parieto-occipital area. With residual left-sided weakness. Other medical history including GERD, primary osteoarthritis, coronary artery disease with stent to LAD, chronic low back pain, BPH, ischemic cardiomyopathy with ejection fraction 35-40 % and history of cardiac arrest. Previous MRI revealed evidence of possible demyelinating disease suspicious for multiple sclerosis. He is a patient of Dr. Patel. Also used to see Dr. Carranza as he has history of stents in the heart and stents in the carotid arteries. Presents because of syncope. Patient was having dinner sitting on the table last night when he felt lightheadedness and in a well and shortly he collapsed on the floor, he had urine incontinence but no bowel incontinence or tongue biting, he wasn't sure for how long she was on the floor, he wasn't sure there was any seizure-like activity, he woke up on the chair on the way EMS staff taking him to the ambulance, he wasn't sure for how long he was confused He denies chest pain or dyspnea, no headache or weakness or numbness, no blurred vision, no change in urine or bowel movement He vomited once in the ambulance He denies smoking, alcohol or illicit drugs, he quit smoking many years ago do serial Vitals looks stable. D-dimer is negative at 0.29, CBC, INR, BMP and liver enzymes were unremarkable, serial troponins are negative less than 0.012. And UA is no suspicious for infection. Chest x-ray: No acute process, with mild pulmonary fibrotic changes. CT of the brain: No acute process. EKG showing normal sinus rhythm at [address]-T changes and QTC is 423. In the emergency room and received 1 L of normal saline and continue with an 8 mL per hour Neurologist has been consulted to emergency room Review of Systems CONSTITUTIONAL: No fever, no malaise, no fatigue. HEENT: No recent visual problems or hearing problems. Denied any sore throat. CARDIOVASCULAR: No orthopnea, PND, no palpitations, no syncope. PULMONARY: No shortness of breath, no cough, no hemoptysis. GASTROINTESTINAL: No diarrhea, no nausea, no vomiting, no abdominal pain. Normoactive bowel sounds. NEUROLOGICAL: No headaches, no weakness, no numbness. HEMATOLOGICAL: Denies any bleeding or petechiae. GENITOURINARY: Denies any burning micturition, frequency, or urgency. MUSCULOSKELETAL/RHEUMATOLOGICAL: Denies any joint pain, swelling, or any muscle pain. ENDOCRINE: Denies any polyuria or polydipsia. Past Medical History Past Medical History: Cancer, GERD/Reflux, Osteoarthritis (OA) Additional Past Medical History / Comment(s): HISTORY OF COLON POLYPS, HX SKIN CANCER -BASAL CELL., Recent myocardial infarction October 2019 Last Myocardial Infarction Date:: 11/03/19 History of Any Multi-Drug Resistant Organisms: MRSA Date of last positivie culture/infection: 11/05/19 MDRO Source:: Sputum Past Surgical History: Joint Replacement, Orthopedic Surgery Additional Past Surgical History / Comment(s): SKIN LESIONS REMOVED, LEFT KNEE ARTHROSCOPY, left hip replacement. Past Anesthesia/Blood Transfusion Reactions: No Reported Reaction Date of Last Stent Placement:: 11/03/19 Past Psychological History: No Psychological Hx Reported Smoking Status: Former smoker Past Alcohol Use History: Occasional Additional Past Alcohol Use History / Comment(s): QUIT SMOKING IN 1998. Past Drug Use History: None Reported - Past Family History Father History Unknown: Yes Family Medical History: Cancer Mother History Unknown: Yes Medications and Allergies Home Medications Medication Instructions Recorded Confirmed Type Pantoprazole Sodium [Protonix] 40 mg PO DAILY 03/29/15 07/27/20 History Tamsulosin HCl [Flomax] 0.4 mg PO DAILY 11/03/19 07/27/20 History Clopidogrel [Plavix] 75 mg PO DAILY tab 11/11/19 07/27/20 Rx Furosemide [Lasix] 20 mg PO DAILY tab 11/11/19 07/27/20 Rx Nitroglycerin Sl Tabs [Nitrostat] 0.4 mg SUBLINGUAL Q5M PRN tab 11/11/19 07/27/20 Rx Spironolactone [Aldactone] 25 mg PO DAILY tab 11/11/19 07/27/20 Rx Carvedilol [Coreg] 3.125 mg PO QAM #60 tablet 01/01/20 07/27/20 Rx lisinopriL [Zestril] 2.5 mg PO HS #30 tab 01/01/20 07/27/20 Rx Amiodarone [Cordarone] 200 mg PO DAILY 07/27/20 07/27/20 History Atorvastatin [Lipitor] 80 mg PO DAILY 07/27/20 07/27/20 History Ipratropium-Albuterol Nebulize 3 ml INHALATION RT-QID PRN 07/27/20 07/27/20 History [Duoneb 0.5 mg-3 mg/3 ml Soln] Warfarin [Coumadin] 5 mg PO SUWE 07/27/20 07/27/20 History carvediloL [Coreg] 1.5625 mg PO HS 07/27/20 07/27/20 History Apixaban [Eliquis] 5 mg PO BID #60 tab 07/28/20 Rx Allergies Allergy/AdvReac Type Severity Reaction Status Date / Time No Known Allergies Allergy Verified 07/27/20 20:39 Physical Exam Vitals: Vital Signs Temp Pulse Pulse Resp BP BP Pulse Ox 07/28/20 03:00 97.9 F 74 18 107/72 97 07/27/20 21:11 97.7 F 86 18 144/94 98 07/27/20 19:39 68 20 105/72 97 07/27/20 19:25 63 20 105/69 99 07/27/20 18:46 97.7 F 62 18 100/77 96 Intake and Output 07/27/20 07/28/20 07/28/20 22:59 06:59 14:59 Output Total 1000 Balance -1000 Output: Urine 1000 Other: Voiding Method Urinal # Voids 0 2 Weight 90.718 kg GENERAL: The patient is alert and oriented x3, not in any acute distress. Well developed, well nourished. HEENT: Pupils are round and equally reacting to light. EOMI. No scleral icterus. No conjunctival pallor. Normocephalic, atraumatic. No pharyngeal erythema. No thyromegaly. CARDIOVASCULAR: S1 and S2 present. No murmurs, rubs, or gallops. PULMONARY: Chest is clear to auscultation, no wheezing or crackles. ABDOMEN: Soft, nontender, nondistended, normoactive bowel sounds. No palpable organomegaly. MUSCULOSKELETAL: No joint swelling or deformity. EXTREMITIES: No cyanosis, clubbing, or pedal edema. NEUROLOGICAL: Gross neurological examination did not reveal any focal deficits. SKIN: No rashes. No petechiae Results CBC & Chem 7: 07/27/20 19:10 07/27/20 19:10 Labs: Abnormal Lab Results - Last 24 Hours (Table) 07/27/20 07/27/20 Range/Units 19:10 19:10 APTT 21.4 L (22.0-30.0) sec Sodium 135 L (137-145) mmol/L Carbon Dioxide 19 L (22-30) mmol/L Glucose 100 H (74-99) mg/dL Creatine Kinase 54 L (55-170) U/L Total Protein 6.2 L (6.3-8.2) g/dL Thrombosis Risk Factor Assmnt - Choose All That Apply Any of the Below Risk Factors Present?: No Each Risk Factor Represents 2 Points: Age 61-74 years Other congenital or acquired thrombophilia - If yes, enter type in comment: No Thrombosis Risk Factor Assessment Total Risk Factor Score: 2 Thrombosis Risk Factor Assessment Level: Low Risk Assessment and Plan Assessment: Syncope, rule out seizure Primary osteoarthritis History of coronary artery disease status post stent in the LAD, Peripheral vascular disease status post stent in the carotid arteries Chronic low back pain BPH Ischemic cardiomyopathy with ejection fraction 35-40% with history of cardiac arrest Previous MRI was suspicious for demyelinating disease and multiple sclerosis Plan: This is a pleasant 65 years old male who presents because of syncope. we will do serial troponin. Cardiology consult. Neurology consult already called Labs and medication were reviewed.. Continue same treatment. Continue with symptomatic treatment. Resume home medication. Monitor lytes and vitals. DVT and GI prophylaxis. Further recommendations of the clinical course of the patient DVT prophylaxis: Subcutaneous heparin GI Prophylaxis: Pepcid
[2020-07-28] MEDS ORDERED: CLOPIDOGREL 75 MG TAB PO SCH (09:00)
[2020-07-28] MEDS ORDERED: ATORVASTATIN 80 MG TAB PO SCH (09:00)
[2020-07-28] MEDS ORDERED: FUROSEMIDE 20 MG TAB PO SCH (09:00)
[2020-07-28] MEDS ORDERED: HEPARIN SODIUM,PORCINE 5,000 UNIT/ML 1 ML VIAL SQ SCH (09:00)
[2020-07-28] MEDS ORDERED: AMIODARONE 200 MG TAB PO SCH (09:00)
[2020-07-28] MEDS ORDERED: carvediloL 3.125 MG TAB PO SCH (09:00)
[2020-07-28] MEDS ORDERED: PANTOPRAZOLE 40 MG TABLET PO SCH (09:00)
[2020-07-28] MEDS ORDERED: FAMOTIDINE 20 MG/2 ML VIAL IV SCH (09:00)
[2020-07-28] MEDS ORDERED: TAMSULOSIN 0.4 MG CAP.ER.24H PO SCH (09:00)
[2020-07-28] MEDS ORDERED: SPIRONOLACTONE 25 MG TAB PO SCH (09:00)
[2020-07-28] MEDS ORDERED: CAFFEINE CITRATE 60 MG/3 ML VIAL IV PRN (09:59)
[2020-07-28] MEDS ORDERED: AMINOPHYLLINE 500 MG/20 ML VIAL IV PRN (09:59)
[2020-07-28] MEDS ORDERED: REGADENOSON 0.4 MG/5 ML SYRINGE IV ONE (10:00)
--- NOTE | 2020-07-28 10:40 | P.CRDCN ---
History of Present Illness History of present illness: HISTORY OF PRESENTING ILLNESS This is a pleasant 65-year-old occasion male past medical history significant for coronary artery disease in the setting of an acute ST elevated myocardial infarction 10/2019, V. fib arrest, ischemic cardiomyopathy, hypertension, dyslipidemia, CVA, paroxysmal atrial fibrillation on Coumadin, former nicotine dependence and gastroesophageal reflux disease. He follows in the office with Dr. Carranza. We have been asked to see in consultation for syncope. He states yesterday he was sitting down having dinner with his when all of a sudden out of nowhere he started feeling acutely lightheaded and he passed out on the table. He did urinate on himself during this episode. He denies having symptoms of chest pain, shortness of breath or palpitations. He was not diaphoretic or nauseated. He has had no further symptoms since arriving at the hospital. EKG on arrival revealed sinus mechanism with no acute ST or T wave abnormalities noted. Chest x-ray was negative for an acute cardiopulmonary process. Telemetry tracings have been unremarkable. Laboratory data reviewed, CBC unremarkable, INR 1.0, d-dimer 0.29, sodium 135, potassium 3.7, creatinine 1.01, cardiac enzymes negative 3. Currently maintained on Coumadin, amiodarone 200 mg daily, atorvastatin 80 mg daily, carvedilol 3.125 mg in the morning and 1.565 mg at bedtime, Plavix 75 mg daily, Lasix 20 mg daily, Aldactone 25 mg daily and lisinopril 2.5 mg daily. At the time of his myocardial infarction his ejection fraction was down to 25%. Before discharge on that admission repeat ec ho revealed improved LV systolic function with ejection fraction 35-40%. In December of this year he returned to the hospital secondary to a CVA and had a repeat echocardiogram at that time revealing normal LV systolic function with ejection fraction 55-60%. Cardiac catheterization from October 2019 revealed 100% occluded LAD with slow filling of the distal LAD antegrade flow, circumflex and RCA are normal. REVIEW OF SYSTEMS At the time of my exam: CONSTITUTIONAL: Denies fever or chills. CARDIOVASCULAR: Denies chest pain, shortness of breath, orthopnea, PND or palpitations. RESPIRATORY: Denies cough. GASTROINTESTINAL: Denies abdominal pain, diarrhea, constipation, nausea or vomiting. MUSCULOSKELETAL: Denies myalgias. NEUROLOGIC: Denies numbness, tingling or weakness. ENDOCRINE: Denies fatigue, weight change, polydipsia or polyurina. GENITOURINARY: Denies burning, hematuria or urgency with micturation. HEMATOLOGIC: Denies history of anemia or bleeding. PHYSICAL EXAMINATION Blood pressure 107/72 heart rate 74 afebrile and maintaining oxygen saturation on room air. CONSTITUTIONAL: No apparent distress. HEENT: Head is normocephalic. Pupils are equal, round. Sclerae anicteric. Mucous membranes of the mouth are moist. No JVD. No carotid bruit. CHEST EXAMINATION: Lungs are clear to auscultation. No chest wall tenderness is noted on palpation or with deep breathing. HEART EXAMINATION: Regular rate and rhythm. S1, S2 heard. No murmurs, gallops or rub. ABDOMEN: Soft, nontender. Positive bowel sounds. EXTREMITIES: 2+ peripheral pulses, no lower extremity edema and no calf t enderness. NEUROLOGIC EXAMINATION: Patient is awake, alert and oriented x3. ASSESSMENT Syncope Coronary artery disease status post PCI of the 100% occluded LAD in the setting of ST elevated myocardial infarction Ischemic cardiomyopathy, improved LV function on recent echocardiogram Chronic systolic heart failure History of V. fib arrest Paroxysmal atrial fibrillation on long-term anticoagulation History of CVA with residual left-sided weakness Hypertension Dyslipidemia PLAN Symptoms are concerning for possible arrhythmia. The patient states he is compliant with his medications however his INR is only 1.0 on Coumadin which questions the fact of compliance. An acute coronary event has been ruled out. Obtain 2-D echocardiogram and Doppler study to assess cardiac structure and function. Perform Lexiscan stress test to assess for reversible cardiac ischemia. We will ask the case assistant to check the cost of Eliquis 5 mg twice a day in place of Coumadin. Ongoing telemetry monitoring. Thank you kindly for this consultation. Nurse Practitioner note has been reviewed, I agree with a documented findings and plan of care. Patient was seen and examined. Past Medical History Past Medical History: Cancer, GERD/Reflux, Osteoarthritis (OA) Additional Past Medical History / Comment(s): HISTORY OF COLON POLYPS, HX SKIN CANCER -BASAL CELL., Recent myocardial infarction October 2019 Last Myocardial Infarction Date:: 11/03/19 History of Any Multi-Drug Resistant Organisms: MRSA Date of last positivie culture/infection: 11/05/19 MDRO Source:: Sputum Past Surgical History: Joint Replacement, Orthopedic Surgery Additional Past Surgical History / Comment(s): SKIN LESIONS REMOVED, LEFT KNEE ARTHROSCOPY, left hip replacement. Past Anesthesia/Blood Transfusion Reactions: No Reported Reaction Date of Last Stent Placement:: 11/03/19 Past Psychological History: No Psychological Hx Reported Smoking Status: Former smoker Past Alcohol Use History: Occasional Additional Past Alcohol Use History / Comment(s): QUIT SMOKING IN 1998. Past Drug Use History: None Reported - Past Family History Father History Unknown: Yes Family Medical History: Cancer Mother History Unknown: Yes Medications and Allergies Home Medications Medication Instructions Recorded Confirmed Type Pantoprazole Sodium [Protonix] 40 mg PO DAILY 03/29/15 07/27/20 History Tamsulosin HCl [Flomax] 0.4 mg PO DAILY 11/03/19 07/27/20 History Clopidogrel [Plavix] 75 mg PO DAILY tab 11/11/19 07/27/20 Rx Furosemide [Lasix] 20 mg PO DAILY tab 11/11/19 07/27/20 Rx Nitroglycerin Sl Tabs [Nitrostat] 0.4 mg SUBLINGUAL Q5M PRN tab 11/11/19 07/27/20 Rx Spironolactone [Aldactone] 25 mg PO DAILY tab 11/11/19 07/27/20 Rx Carvedilol [Coreg] 3.125 mg PO QAM #60 tablet 01/01/20 07/27/20 Rx lisinopriL [Zestril] 2.5 mg PO HS #30 tab 01/01/20 07/27/20 Rx Amiodarone [Cordarone] 200 mg PO DAILY 07/27/20 07/27/20 History Atorvastatin [Lipitor] 80 mg PO DAILY 07/27/20 07/27/20 History Ipratropium-Albuterol Nebulize 3 ml INHALATION RT-QID PRN 07/27/20 07/27/20 H istory [Duoneb 0.5 mg-3 mg/3 ml Soln] Warfarin [Coumadin] 5 mg PO SUWE 07/27/20 07/27/20 History carvediloL [Coreg] 1.5625 mg PO HS 07/27/20 07/27/20 History Apixaban [Eliquis] 5 mg PO BID #60 tab 07/28/20 Rx Allergies Allergy/AdvReac Type Severity Reaction Status Date / Time No Known Allergies Allergy Verified 07/27/20 20:39 Physical Exam Vitals: Vital Signs Temp Pulse Pulse Resp BP BP Pulse Ox 07/28/20 03:00 97.9 F 74 18 107/72 97 07/27/20 21:11 97.7 F 86 18 144/94 98 07/27/20 19:39 68 20 105/72 97 07/27/20 19:25 63 20 105/69 99 07/27/20 18:46 97.7 F 62 18 100/77 96 Intake and Output 07/27/20 07/28/20 07/28/20 22:59 06:59 14:59 Output Total 1000 Balance -1000 Output: Urine 1000 Other: Voiding Method Urinal # Voids 0 2 Weight 90.718 kg Results 07/27/20 19:10 07/27/20 19:10 Cardiac Enzymes 07/27/20 07/27/20 07/27/20 Range/Units 19:10 19:10 22:28 AST 22 (17-59) U/L Troponin I <0.012 <0.012 (0.000-0.034) ng/mL 07/28/20 Range/Units 02:11 AST (17-59) U/L Troponin I <0.012 (0.000-0.034) ng/mL Coagulation 07/27/20 Range/Units 19:10 PT 10.1 (9.0-12.0) sec APTT 21.4 L (22.0-30.0) sec CBC 07/27/20 Range/Units 19:10 WBC 6.6 (3.8-10.6) k/uL RBC 4.47 (4.30-5.90) m/uL Hgb 14.4 (13.0-17.5) gm/dL Hct 43.0 (39.0-53.0) % Plt Count 250 (150-450) k/uL Comprehensive Metabolic Panel 07/27/20 Range/Units 19:10 Sodium 135 L (137-145) mmol/L Potassium 3.7 (3.5-5.1) mmol/L Chloride 106 (98-107) mmol/L Carbon Dioxide 19 L (22-30) mmol/L BUN 12 (9-20) mg/dL Creatinine 1.01 (0.66-1.25) mg/dL Glucose 100 H (74-99) mg/dL Calcium 8.4 (8.4-10.2) mg/dL AST 22 (17-59) U/L ALT 14 (4-49) U/L Alkaline Phosphatase 78 (38-126) U/L Total Protein 6.2 L (6.3-8.2) g/dL Albumin 3.6 (3.5-5.0) g/dL Current Medications Generic Name Dose Route Start Last Admin Trade Name Freq PRN Reason Stop Dose Admin Amiodarone HCl 200 mg 07/28/20 09:00 Amiodarone 200 Mg Tab PO DAILY [facility] Atorvastatin Calcium 80 mg 07/28/20 09:00 Atorvastatin 80 Mg Tab PO DAILY [facility] Carvedilol 3.125 mg 07/28/20 09:00 Carvedilol 3.125 Mg Tab PO QAM [facility] Carvedilol 1.563 mg 07/27/20 21:00 07/27/20 22:35 Carvedilol 1.563 Mg Tab PO 1.563 mg HS DARLENE Administration Clopidogrel Bisulfate 75 mg 07/28/20 09:00 Clopidogrel 75 Mg Tab PO DAILY [facility] Famotidine 20 mg 07/28/20 09:00 Famotidine 20 Mg/2 Ml Vial IV Q12HR [facility] Furosemide 20 mg 07/28/20 09:00 Furosemide 20 Mg Tab PO DAILY [facility] Heparin Sodium (Porcine) 5,000 unit 07/28/20 09:00 Heparin Sodium,Porcine 5,000 Unit/Ml 1 Ml Vial SQ Q12HR [facility] Sodium Chloride 1,000 mls @ 80 mls/hr 07/27/20 20:45 07/27/20 21:13 Saline 0.9% IV 80 mls/hr .[id number] DARLENE Administration Lisinopril 2.5 mg 07/27/20 21:00 07/27/20 22:35 Lisinopril 2.5 Mg Tab PO 2.5 mg HS [facility] Administration Naloxone HCl 0.2 mg 07/27/20 20:36 Naloxone 0.4 Mg/Ml 1 Ml Vial IV Q2M PRN Opioid Reversal Nitroglycerin 0.4 mg 07/27/20 20:39 Nitroglycerin Sl Tabs 0.4 Mg Tab SUBLINGUAL Q5M PRN Chest Pain Pantoprazole Sodium 40 mg 07/28/20 09:00 Pantoprazole 40 Mg Tablet PO QAM [facility] Spironolactone 25 mg 07/28/20 09:00 Spironolactone 25 Mg Tab PO DAILY [facility] Tamsulosin HCl 0.4 mg 07/28/20 09:00 Tamsulosin 0.4 Mg Cap.Er.24h PO DAILY [facility] Intake and Output 07/27/20 07/28/20 07/28/20 22:59 06:59 14:59 Output Total 1000 Balance -1000 Output: Urine 1000 Other: Voiding Method Urinal # Voids 0 2 Weight 90.718 kg 07/27/20 19:10 07/27/20 19:10
--- NOTE | 2020-07-28 10:55 | P.CNNES ---
History of Present Illness Consult date: 07/28/20 Requesting physician: Rogelio Ivan Reason for Consult: Syncope History of Present Illness: Patient is a 65-year-old male came to the hospital by ambulance yesterday at 6:45 PM for a syncopal spell. Patient states that yesterday he was sitting down for dinner at around 6 PM. He had just finished dinner, but he felt strange, lightheaded dizzy, told his that he was not feeling well and then he passed out. Apparently he slumped back in the chair and passed out. He was out almost for 1 minute. There was no convulsive activity documented. Patient did not bite his tongue although he did lose control of urine with this spell. When he came to, he was on the floor and his standing by his side, who told him that EMS has been called and there has just pulled up. Patient's vitals at the scene was blood pressure 112/74, pulse rate 75 saturation 98% and temperature 97.5. As per EMS flow sheet patient was laying on the floor alert and oriented. He was complaining of nausea. He had mentioned that prior to passing out he was feeling "flushed and hot". Patient was brought to the ER. His Vital signs on arrival was blood pressure 100/77, pulse rate 62, temperature 97.7. CT head showed mild cerebral atrophy. No acute intracranial process. Carotid Doppler revealed no hemodynamic significant stenosis of the proximal ICA. Antegrade flow in both vertebral arteries. Plaque visualized in the left bulb. EKG shows normal sinus rhythm. Chest x-ray with mild pulmonary fibrotic changes. Normal heart. No adverse change overall compared to old exam. Patient has history of cardiac arrest on 11/03/2019 when he had prolonged downtime of about 15-20 minutes. Fortunately he recovered very well from this cardiac arrest. Patient also has history of left leg weakness, which was felt to be related to a small right parietal stroke as per MRI of the brain from 11/10/2019. Patient currently on Plavix 75 mg daily and Coumadin 5 mg. Patient's INR is subtherapeutic 1.0. Review of Systems Patient complains of left leg weakness, which is chronic from stroke. Denies an y headache problem with the vision hoarseness or throat or dysphagia. Denies chest pain shortness of breath wheezing or cough. Denies abnormal pain. Denies back pain. Patient has some peripheral neuropathy. All other review of systems reviewed and noncontributory. Past Medical History Past Medical History: Cancer, GERD/Reflux, Osteoarthritis (OA) Additional Past Medical History / Comment(s): HISTORY OF COLON POLYPS, HX SKIN CANCER -BASAL CELL., Recent myocardial infarction October 2019 Last Myocardial Infarction Date:: 11/03/19 History of Any Multi-Drug Resistant Organisms: MRSA Date of last positivie culture/infection: 11/05/19 MDRO Source:: Sputum Past Surgical History: Joint Replacement, Orthopedic Surgery Additional Past Surgical History / Comment(s): SKIN LESIONS REMOVED, LEFT KNEE ARTHROSCOPY, left hip replacement. Past Anesthesia/Blood Transfusion Reactions: No Reported Reaction Date of Last Stent Placement:: 11/03/19 Past Psychological History: No Psychological Hx Reported Smoking Status: Former smoker Past Alcohol Use History: Occasional Additional Past Alcohol Use History / Comment(s): QUIT SMOKING IN 1998. Past Drug Use History: None Reported - Past Family History Father History Unknown: Yes Family Medical History: Cancer Mother History Unknown: Yes Medications and Allergies Home Medications Medication Instructions Recorded Confirmed Type Pantoprazole Sodium [Protonix] 40 mg PO DAILY 03/29/15 07/27/20 History Tamsulosin HCl [Flomax] 0.4 mg PO DAILY 11/03/19 07/27/20 History Clopidogrel [Plavix] 75 mg PO DAILY tab 11/11/19 07/27/20 Rx Furosemide [Lasix] 20 mg PO DAILY tab 11/11/19 07/27/20 Rx Nitroglycerin Sl Tabs [Nitrostat] 0.4 mg SUBLINGUAL Q5M PRN tab 11/11/19 07/27/20 Rx Spironolactone [Aldactone] 25 mg PO DAILY tab 11/11/19 07/27/20 Rx Carvedilol [Coreg] 3.125 mg PO QAM #60 tablet 01/01/20 07/27/20 Rx lisinopriL [Zestril] 2.5 mg PO HS #30 tab 01/01/20 07/27/20 Rx Amiodarone [Cordarone] 200 mg PO DAILY 07/27/20 07/27/20 History Atorvastatin [Lipitor] 80 mg PO DAILY 07/27/20 07/27/20 History Ipratropium-Albuterol Nebulize 3 ml INHALATION RT-QID PRN 07/27/20 07/27/20 History [Duoneb 0.5 mg-3 mg/3 ml Soln] carvediloL [Coreg] 1.5625 mg PO HS 07/27/20 07/27/20 History Apixaban [Eliquis] 5 mg PO BID #60 tab 07/28/20 Rx Allergies Allergy/AdvReac Type Severity Reaction Status Date / Time No Known Allergies Allergy Verified 07/27/20 20:39 Physical Examination - Vital Signs Vital Signs: Vital Signs Temp Pulse Pulse Resp BP BP Pulse Ox 07/28/20 08:29 16 07/28/20 08:06 98.1 F 73 16 130/84 99 07/28/20 03:00 97.9 F 74 18 107/72 97 07/27/20 21:11 97.7 F 86 18 144/94 98 07/27/20 19:39 68 20 105/72 97 07/27/20 19:25 63 20 105/69 99 07/27/20 18:46 97.7 F 62 18 100/77 96 Intake and Output 07/27/20 07/28/20 07/28/20 22:59 06:59 14:59 Output Total 1000 Balance -1000 Output: Urine 1000 Other: Voiding Method Urinal Urinal # Voids 0 2 Weight 90.718 kg On examination patient is an elderly male, in no acute distress he is alert and awake fully oriented. His speech and language functions are normal. Attention and concentration fund of knowledge is adequate. On cranial nerve examination pupils are round and reactive to light, visual villanueva are full on confrontation, extraocular muscles are intact with no nystagmus. Face is symmetric, tongue protrudes to the midline. Palatal elevation and sensation normal. Hearing and shoulder shrug normal. On muscle strength testing there is no pronator drift and the strength is normal in arms and legs distally and proximally except left hip flexion, which is 4+ to 5-. Reflexes are (right/left) biceps 2+/1+, brachioradialis 2+/2, knees 3/2+ ankle 2+/2 and plantars are upgoing bilaterally. Sensory touch is equal. No ataxia for ozpdth-ki-khag testing. Tone and bulk of muscles normal. Gait deferred. He has mild peripheral edema. There is no obvious bruit, S1 and S2 was audible. Abdomen soft nontender chest is clear. Results - Laboratory Findings CBC and BMP: 07/27/20 19:10 07/27/20 19:10 Abnormal Lab Findings: Abnormal Labs 07/27/20 07/27/20 19:10 19:10 APTT 21.4 L Sodium 135 L Carbon Dioxide 19 L Glucose 100 H Creatine Kinase 54 L Total Protein 6.2 L Assessment and Plan Assessment: * Syncopal spell, that occurred while he was sitting in the chair, had just completed dinner. Exact etiology is unclear. Differential is between arrhythmia, vasovagal syncope versus seizure. * History of cardiac arrest 11/03/2019 with prolonged downtime with excellent recovery. * History of right parietal CVA. * Coronary artery disease, history of SC. Plan: * Patient will undergo EEG to rule out any epileptiform activity. * Carotid Doppler showed no stenosis. * Cardiology on board to rule out arrhythmia. * 2-D echo showed normal left-ventricular size. Borderline concentric LVH. EF is 60-65%. * Patient was on Coumadin, but INR is subtherapeutic. Patient being switched to Apixaban. * We will follow. Addendum: EEG was performed, which was reviewed and normal. No epileptiform activity was seen. Patient undergoing stress test. Patient also undergoing placement of event monitor to rule out arrhythmia. Neurologically clear, no other neurological workup indicated.
--- NOTE | 2020-07-28 11:56 | ECHOF ---
Referral Reason:syncope MEASUREMENTS -------- HEIGHT: 185.4 cm WEIGHT: 90.7 kg BP: 107/72 RVIDd: 2.8 cm (< 3.3) IVSd: 1.2 cm (0.6 - 1.1) LVIDd: 4.2 cm (3.9 - 5.3) LVPWd: 1.0 cm (0.6 - 1.1) IVSs: 1.9 cm LVIDs: 2.5 cm LVPWs: 1.3 cm LA Diam: 3.3 cm (2.7 - 3.8) LAESV Index (A-L): 20.97 ml/m Ao Diam: 3.6 cm (2.0 - 3.7) AV Cusp: 2.5 cm (1.5 - 2.6) MV EXCURSION: 12.842 mm (> 18.000) MV EF SLOPE: 64 mm/s (70 - 150) EPSS: 0.8 cm MV E Josh: 0.85 m/s MV DecT: 217 ms MV A Josh: 0.94 m/s MV E/A Ratio: 0.91 FINDINGS -------- Sinus rhythm. This was a technically adequate study. The left ventricular size is normal. There is borderline concentric left ventricular hypertrophy. Overall left ventricular systolic function is normal with, an EF between 60 - 65 %. The right ventricle is normal in size. Normal LA size by volume 22+/-6 ml/m2. The right atrium is normal in size. Interatrial and interventricular septum intact. The aortic valve is trileaflet and appears structurally normal. The mitral valve is normal. The tricuspid valve appears structurally normal. There is no pulmonic regurgitation present. The aortic root size is normal. There is no pericardial effusion. CONCLUSIONS -------- 1. The left ventricular size is normal. 2. There is borderline concentric left ventricular hypertrophy. 3. Overall left ventricular systolic function is normal with, an EF between 60 - 65 %. 4. There is no pericardial effusion. CRITICAL POWER INSTALL TECHNICIAN: Kate Link RD
--- NOTE | 2020-07-28 13:06 | NM ---
EXAMINATION TYPE: NM stress lexiscan cardiolite DATE OF EXAM: 07/28/2020 COMPARISON: NONE HISTORY: Syncope TECHNIQUE: After the intravenous administration of 9.8 mCi Tc 99m Sestamibi - Cardiolite resting SPE CT images acquired 45 minutes post injection. The patient received 0.4mg Lexiscan, 24.8 mCi Tc 99m Sestamibi - Stress images obtained [address] injection FINDINGS: Review of stress and rest SPECT images demonstrates decreased uptake along the apex on stress and res t images. Gated analysis shows normal wall motion with an estimated left ventricular ejection fracti on of 62 %. IMPRESSION: No scintigraphic evidence for reversible ischemia, difficult to exclude prior apical infarct.
[2020-07-28] MEDS ORDERED: APIXABAN 5 MG TAB PO SCH (13:30)
--- NOTE | 2020-07-28 15:38 | EEG ---
ELECTROENCEPHALOGRAM REPORT DATE OF SERVICE: 07/28/2020 PREAMBLE: This is a 65-year-old male with syncopal spell. This study is performed to evaluate for any epileptiform activity. EEG FINDINGS: This is a 21-channel routine EEG recording in a patient utilizing 10-20 international system with referential and bipolar montages. Background consists of well developed, well regulated, moderate voltage activity in 8-9 hertz alpha. Background is posterior- dominant and reactive to eye opening and closing. Photic driving response was not seen. Drowsiness and then stage II sleep was seen with presence of vertex waves and sleep spindles. Some occasional wicket spikes were seen over the left hemispheric region. No definitive focal or generalized epileptiform activity was seen. EKG rhythm lead revealed no obvious arrhythmia. IMPRESSION: This is a normal EEG during wakefulness, drowsiness and stage II sleep. If your suspicion for seizures is high, suggest prolonged, sleep-deprived EEG. MMPRAFULL / KAYLANN: [id number] /
[2020-07-28 16:16] VITALS: BP 106/68; PULSE 77; TEMP 97.8
--- NOTE | 2020-07-31 09:46 | CDI ---
Documentation Clarification Form Date: 07/31/20 From: Ramona Banks CCS Phone: If you have a question about this query, please contact Nicky Chaudhari, Mental Health Program Specialist at [phone] between 8am and 5pm. Admit Date: 07/28/20 Discharge Date: 07/28/20 Patient Name: Jerrell Johnson Visit Number: [id number] ATTENTION: The Clinical Documentation Specialists (CDI) and [facility] Coding Staff appreciate your assistance in clarifying documentation. Please respond to the clarification below the line at the bottom and electronically sign. The CDI & [facility] Coding staff will review the response and follow-up if needed. Please note: Queries are made part of the Legal Health Record. If you have any questions, please contact the author of this message via ITS. Dear Dr. Monique, Syncope, rule out seizure is documented in the H&P. Consult documents: Differential is between arrhythmia, vasovagal syncope versus seizure Patient C/O: Syncope with urinary incontinence Patient history/risk factors: CAD, Carotid stents, HTN, CHF, HX CVA w/ left side weakness Clinical Indicators: Syncope Labs: APTT 21.4 Stress: No scintigraphic evidence for reversible ischemia, difficult to exclude prior apical infarc EEG: This is a normal EEG during wakefulness, drowsiness and stage II sleep.If your suspicion for seizures is high, suggest prolonged, sleep-deprived EEG. Carotid US: No hemodynamic significant stenosis of the proximal internal carotid arteries by Doppler criteria, an indirect measurement of carotid stenosis CT Head: Mild cerebral atrophy.No acute intracranial abnormality. Echocardiogram: EKG: The left ventricular size is normal.There is borderline concentric left ventricular hypertrophy.Overall left ventricular systolic function is normal with, an EF between 60 - 65 %. Treatment: New home med- Narcan 0.2 mg IV PRN, Eliquis 5 mg, Coumadin discontinued In your professional opinion, can you please clarify the cause of the syncope, if known? Orthostatic Hypotension due to/type Arrhythmia, specify type Carotid Sinus Syncope Vasovagal Psychogenic Syncope Seizure Other, please specify Unable to determine Unable to determine, could be orthostatic vs vasovagal MTDD
--- NOTE | 2020-07-31 14:23 | EST ---
EXERCISE STRESS AGE: 65 SEX: M HT: 6 ft. 1 in. WT: 200 lbs. 5 oz. PROTOCOL: Lexiscan STAGE: DURATION OF EXERCISE: HEART RATE REST: 68 BLOOD PRESSURE REST: 108/74 MAXIMUM HEART RATE ACHIEVED: 95 MAXIMUM BLOOD PRESSURE: 113/78 85% MPHR: 133 100% MPHR: 156 METS: INDICATIONS: Syncope. CLINICAL INFORMATION: Baseline rhythm is sinus mechanism. rate of 68, normal axis and intervals. Normal echocardiogram. Baseline blood pressure 108/74 mmHg. Patient received an injection of Lexiscan. Electrocardiograph monitoring revealed no evidence of diagnostic ischemic ST deviation, rare PVCs were noted. Cardiolite was injected per protocol. CONCLUSION: 1. Nondiagnostic electrocardiograph stress testing with rare PVCs. 2. Normal stress echocardiogram with no evidence of stress-induced ischemia. MMODL / IJN: [id number] /
--- NOTE | 2020-08-22 12:43 | EM ---
EVENT MONITOR INDICATION: Cardiac arrhythmia. The patient was monitored for 21 days. The baseline rhythm seems to be sinus mechanism. The patient did have multiple episodes of narrow complex tachycardia consistent with paroxysmal atrial tachycardia with the resting heart rate below 100 beats per minute. No evidence of any advanced AV block seen. No evidence of any sinus pause or sinus arrest seen. No symptoms were reported. CONCLUSION: 1. This is a 21 day event monitor. 2. Sinus rhythm as a baseline mechanism. 3. The patient did have multiple episodes of narrow complex tachycardia consistent of atrial tachycardia. 4. The patient did not have any symptoms during these episodes. MMODL / IJN: [id number] /
== END 2020-07-28 18:03 | disposition home or self-care (01) ==
LOC: EC 18:43 → 3NCARDOBS 20:36 → OBSVTOIN 07-28 14:51 → INTOOBSV 07-28 14:51 → UNDODISIN 07-28 18:03
PROVIDERS: ADMIT Hospitalist; ATTEND Hospitalist
DX: R55 Syncope and collapse (principal); I25.10 Atherosclerotic heart disease of native coronary artery without angina pectoris; Z95.5 Presence of coronary angioplasty implant and graft; I73.9 Peripheral vascular disease, unspecified; Z95.820 Peripheral vascular angioplasty status with implants and grafts; I25.2 Old myocardial infarction; I48.0 Paroxysmal atrial fibrillation; Z98.890 Other specified postprocedural states; I69.354 Hemiplegia and hemiparesis following cerebral infarction affecting left non-dominant side; E78.5 Hyperlipidemia, unspecified; M19.91 Primary osteoarthritis, unspecified site; G89.29 Other chronic pain; M54.5 Low back pain; N40.0 Benign prostatic hyperplasia without lower urinary tract symptoms; I25.5 Ischemic cardiomyopathy; K21.9 Gastro-esophageal reflux disease without esophagitis; M19.90 Unspecified osteoarthritis, unspecified site; Z86.74 Personal history of sudden cardiac arrest; Z86.010 Personal history of colon polyps; Z85.828 Personal history of other malignant neoplasm of skin; Z86.14 Personal history of Methicillin resistant Staphylococcus aureus infection; Z96.642 Presence of left artificial hip joint; Z87.891 Personal history of nicotine dependence; Z80.9 Family history of malignant neoplasm, unspecified; Z79.01 Long term (current) use of anticoagulants; Z79.02 Long term (current) use of antithrombotics/antiplatelets; Z79.899 Other long term (current) drug therapy; I11.0 Hypertensive heart disease with heart failure; I50.22 Chronic systolic (congestive) heart failure
CPT/HCPCS: 99285; 36415; 95816; 93005; 93017; 93306; 93270; 85379; 80053; 82550; 83735; 84484 ×2; 85025; 85610; 85730; 81003; 71046; 93880; 70450; 78452; G0378 ×2; A9500; J2785

== ENCOUNTER → 2021-07-05 | Outpatient (CLI) | payer MEDICARE | END | disposition home or self-care (01) | LOC: LABWHC1 14:58 | PROVIDERS: ATTEND Psychiatry & Neurology Pain Medicine | DX: G35 Multiple sclerosis (principal); F03.90 Unspecified dementia, unspecified severity, without behavioral disturbance, psychotic disturbance, mood disturbance, and anxiety | CPT/HCPCS: 36415; 82040; 82042; 82784; 83916 ==

== ENCOUNTER → 2021-09-17 | Outpatient (CLI) | payer MEDICARE | END | disposition home or self-care (01) | LOC: LABWHC1 13:51 | PROVIDERS: ATTEND Psychiatry & Neurology Neurology | DX: Z01.812 Encounter for preprocedural laboratory examination (principal); Z20.822 Contact with and (suspected) exposure to COVID-19 | CPT/HCPCS: U0003; C9803 ==

== ENCOUNTER → 2021-10-01 | Outpatient (CLI) | payer MEDICARE | END | disposition home or self-care (01) | LOC: LABWHC1 10:40 | PROVIDERS: ATTEND Psychiatry & Neurology Neurology | DX: Z01.812 Encounter for preprocedural laboratory examination (principal); Z20.822 Contact with and (suspected) exposure to COVID-19 | CPT/HCPCS: U0003; C9803; U0005 ==

== ENCOUNTER → 2022-07-24 | Outpatient (CLI) | payer MEDICARE ==
--- NOTE | 2022-07-26 16:25 | CT ---
EXAMINATION TYPE: CT cervical spine wo con CT DLP: 489 mGycm, Automated exposure control for dose reduction was used. DATE OF EXAM: 07/24/2022 12:04 PM COMPARISON: THIS EXAM WAS READ DURING PACS DOWNTIME, NO PRIORS AVAILABLE.. 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 Coronal and sagittal reformatted images were also reviewed. FINDINGS: Fracture: None. Osseous structures: Multilevel degenerative disc disease changes with endplate spurring and disc oste ophyte complex's. Congenital nonfusion of the posterior arch of C1. Vertebral alignment: Alignment within normal limits. Spinal canal/Neural Foramina: Disc osteophyte complexes at C5-C6 and C6-C7 with at least mild spinal canal stenosis. Facet joint uncovertebral joint arthropathy scattered throughout the cervical spine w ith varying degrees of neural foraminal stenosis. Moderate right C3-C4, moderate to severe left and m ild right C5-C6, moderate to severe left and mild right C6-C7. Neck soft tissues: Prevertebral soft tissues are within normal limits. Other: The airway is patent. Apical scarring on the right with paraseptal emphysema changes. Carotid bifurcation carotid artery calcified atherosclerosis. IMPRESSION: 1. No evidence of cervical spine fracture. 2. Multilevel degenerative disc disease with neural foraminal stenosis worse at left C5-C6 and C6-C7 with moderate to severe neural foraminal stenosis. 3. Paraseptal emphysema changes.
== END | disposition home or self-care (01) ==
LOC: RADCTMAIN 11:44
PROVIDERS: ATTEND Psychiatry & Neurology Neurology
DX: M47.12 Other spondylosis with myelopathy, cervical region (principal); M50.022 Cervical disc disorder at C5-C6 level with myelopathy; M50.023 Cervical disc disorder at C6-C7 level with myelopathy; M48.02 Spinal stenosis, cervical region; J43.9 Emphysema, unspecified; M99.71 Connective tissue and disc stenosis of intervertebral foramina of cervical region
CPT/HCPCS: 72125

== ENCOUNTER → 2023-08-06 | Outpatient (CLI) | payer MEDICARE ==
--- NOTE | 2023-08-06 22:04 | CT ---
EXAMINATION TYPE: CT lumbar spine wo con DATE OF EXAM: 08/06/2023 3:00 PM COMPARISON: MRI lumbar spine December 29, 2019 HISTORY: chronic low back pain, intervertebral disc degeneration, spondylosis, spondylolisthesis, art hrodesis status. CT DLP: 1045 mGycm Automated exposure control for dose reduction was used. Unenhanced CT of the lumbar spine was performed. Bone and soft tissue window settings are submitted as well as coronal and sagittal reconstructions. There are 5 lumbar type vertebra identified. There is levoconvex scoliosis centered at L3 level. [place] llic disc cage material seen at L3-L4 and L4-L5 levels. Posterior interpedicular rods and screws are seen bilaterally at L3-L5 levels. There is additional spinal stimulator accessing the spinal canal th ere are the thoracolumbar junction extending cranially outside the field of view. There is slight gra de 1 anterolisthesis of L4 on L5 redemonstrated. Vertebral body heights are preserved. Disc space hei ghts are fairly well maintained above and below surgical levels. Axial images show T12-L1 level to remain within normal limits. Axial images at L1-L2 level demonstrate mild facet arthropathy bilaterally. No significant disc herni ation. Axial images at L2-L3 level show streak artifact from surgical change. There is mild facet arthropath y bilaterally. No new large disc herniation is seen. Axial images at L3-L4 and L4-L5 levels show streak artifact from surgical change. Axial images at L5-S1 level demonstrates mild facet arthropathy bilaterally. Paraspinal muscle bulk is preserved. A few thin-walled small cysts are noted scattered throughout the portion of the visualized left kidney. IMPRESSION: Postsurgical changes L3-L5 levels redemonstrated. L4-L5 spondylolisthesis is stable. Multilevel facet arthropathy redemonstrated. No significant change from prior MRI.
== END | disposition home or self-care (01) ==
LOC: RADCTMAIN 14:27
PROVIDERS: ATTEND Orthopaedic Surgery Orthopaedic Surgery of the Spine
DX: Z48.89 Encounter for other specified surgical aftercare (principal); M51.16 Intervertebral disc disorders with radiculopathy, lumbar region; M47.27 Other spondylosis with radiculopathy, lumbosacral region; M43.16 Spondylolisthesis, lumbar region; E66.3 Overweight; G89.29 Other chronic pain; Z98.1 Arthrodesis status
CPT/HCPCS: 72131

== ENCOUNTER → 2023-09-04 | Outpatient (CLI) | payer MEDICARE ==
--- NOTE | 2023-09-04 14:25 | P.PAINPG ---
PQRS Measure Charge Sheet Comment: HISTORY OF PRESENT ILLNESS: A 68 yr old wheelchair bound male as a referral from Dr Boss presents today w severe and chronic LBP x 4 yrs secondary to L3-L5 decompression/ fusion w hardware for evaluation. Pt states pain level is provoked at 7 /10 in intensity, constant, localized in the lumbar spine, achy in character w shooting pain towards the BLEs. Pain is provoked by standing, bending and cold weather. Pain is alleviated by PT x 6 wks which he is currently in, heat, medications (Tyl), topical, use of a walker or wheelchair for ambulatory assistance, repositioning and rest. Oswestry axial pain score at 28. PMH: OA, Skin CA, GERD, SD (2019), BPH, HTN, Hyperlipidemia PSH: Cardiac Cath w Stent x2, L3-L5 decompression/ fusion w hardware (2019), SCS placement, L Knee Arthroscopy, L Hip Arthroplasty (2017), Skin CA Removal SH: Former tobacco user, Occasional ETOH use, No illicit drug use FH: Fa- CA. Mo- Unknown. All: See list Meds: See list REVIEW OF ORGAN SYSTEMS: CONSTITUTIONAL: No fevers or chills. No recent weight loss. NEUROLOGICAL: + numbness and tingling along the distal extremities. No seizure disorders or headaches. MUSCULOSKELETAL: + pain PSYCHIATRIC: Denies current depression or suicidal thoughts. Physical Examinations : Constitutional : Cooperative , not in acute distress . Neurologic : Cranial nerve II to XII intact. No focal neurological deficits. Psychiatric : alert & oriented x 3. Matching mood & appropriate affect. Judgment & insight intact. Musculoskeletal : Cervical Spine Motor strength in the deltoid and biceps: Normal right side. Normal Left side Motor strength biceps and the wrist extensors: Normal right side . Normal left side Motor strength in the triceps muscle: Normal right side. Normal left side Deep tendon reflexes: Normal at the b iceps. Normal at Brachioradialis. Normal at triceps Vertebral body tenderness to deep palpation over Cervical facet loading test: positive bilaterally Spurling test: positive bilaterally Neck distraction test: positive bilaterally Shivani sign: positive bilaterally Lumbar spine Motor strength lower extremities ,thigh and legs 5/5 Right side , 5/5 Left side Deep tendon reflexes : Normal Knee Jerk. Normal Ankle Jerk Vertebral body tenderness over L5 Santana Test positive Lumbar facet Loading Test: positive Right / positive Left Range of motion of the lumbar spine Flexion 30 degrees, extension 10 degrees Straight Leg Raise test: Left/ Right positive at <35 degrees Mery test: positive right / positive left. Severe tenderness over the Sacroiliac joint on the Right / Left sides Gaenslen test: positive bilaterally Seated flexion test: positive bilaterally. Sacral spine : Severe tenderness over the Sacroiliac joint: right side / left side Range of motion: Flexion of the lumbar spine <60 degrees Range of motion: Extension of the lumbar spine <20 degrees Gaenslen's Test positive Chan's Test positive Mery test: positive right side / left side Thigh Thrust Test Sacral Thrust Test Imaging: CT noncontrast of the lumbar spine from 08/06/23 reviewed Assessment/ Plan : Post laminectomy syndrome Recommendation of TIMOTEO L5-S1 #1. May need a series of injections for optimal pain relief. Risks, benefits of procedure discussed and patient verbalized unders tanding. Admits to anti- coagulant use or medical history of diabetes. Protocol for discontinuation/ continuation of medications jaycob procedure discussed. Minimal anesthesia provided, if clinically indicated, consisting of Versed and Fentanyl. All questions answered. I have spent greater than 30 minutes on patient care today. Dr Spencer was available by phone for the evaluation of this patient. The time was used to review the medical records including relevant urine studies and Prescription history (MAPs), review of the available imaging, evaluation and examination of the patient, coordination of care with the medical staff and if applicable referring physicians, as well as creation of the medical record PQRS Narrative: Smoking Status Former smoker Home Medications: Ambulatory Orders Pantoprazole Sodium [Protonix] 40 mg PO DAILY 03/29/15 Tamsulosin HCl [Flomax] 0.4 mg PO DAILY 11/03/19 Clopidogrel [Plavix] 75 mg PO DAILY tab 11/11/19 Furosemide [Lasix] 20 mg PO DAILY tab 11/11/19 Nitroglycerin Sl Tabs [Nitrostat] 0.4 mg SUBLINGUAL Q5M PRN tab 11/11/19 Spironolactone [Aldactone] 25 mg PO DAILY tab 11/11/19 carvediloL [Coreg] 3.125 mg PO QAM #60 tablet 01/01/20 lisinopriL [Zestril] 2.5 mg PO HS #30 tab 01/01/20 Amiodarone [Cordarone] 200 mg PO DAILY 07/27/20 Atorvastatin [Lipitor] 80 mg PO DAILY 07/27/20 Ipratropium-Albuterol Nebulize [Duoneb 0.5 mg-3 mg/3 ml Soln] 3 ml INHALATION RT-QID PRN 07/27/20 carvediloL [Coreg] 1.5625 mg PO HS 07/27/20 Apixaban [Eliquis] 5 mg PO BID #60 tab 07/28/20 Controlled Substance Measures - Controlled Substance Measures Is patient prescribed a controlled substance at discharge?: No
[2023-09-04 14:35] VITALS: BP 106/70; PULSE 78; RESP 16; TEMP 98.2
== END ==
LOC: PNWHC3 13:43
PROVIDERS: ATTEND Specialist
DX: M96.1 Postlaminectomy syndrome, not elsewhere classified (principal); M19.90 Unspecified osteoarthritis, unspecified site; K21.9 Gastro-esophageal reflux disease without esophagitis; I10 Essential (primary) hypertension; N40.0 Benign prostatic hyperplasia without lower urinary tract symptoms; E78.5 Hyperlipidemia, unspecified; Z85.820 Personal history of malignant melanoma of skin; Z87.891 Personal history of nicotine dependence; Z79.899 Other long term (current) drug therapy; Z79.02 Long term (current) use of antithrombotics/antiplatelets; Z79.01 Long term (current) use of anticoagulants
CPT/HCPCS: 99211

== ENCOUNTER 2023-09-25 11:24 | Day surgery (SDC) | payer MEDICARE ==
[~2023-09-25 11:24] MED LIST changes: -BACITRACIN 50,000 UNIT, POLYMYXIN B 500,000 UNIT in SODIUM CHLORIDE 0.9% IRRIGATIO 1,00... IRRIGATION ONE; +LACTATED RINGERS 1,000 ML IV SCH; -LIDOCAINE 1% 20 ML VIAL (10MG/ML) FOR IV START INTRADERMA PRN; -ONDANSETRON 4 MG/2 ML VIAL IVP ONE
[2023-09-25 12:24] VITALS: TEMP 98.1
[2023-09-25] MEDS ORDERED: methylPREDNISolone ACETATE 80 MG/ML 1 ML VIAL ONE (12:38)
[2023-09-25] MEDS ORDERED: IOPAMIDOL M200 10 ML VIAL ONE (12:38)
--- NOTE | 2023-09-25 12:44 | P.PCN ---
Date of Procedure: 09/25/23 Procedure(s) Performed: PREOPERATIVE DIAGNOSIS: 1-Failed back surgery syndrome lumbar area POSTOPERATIVE DIAGNOSIS: 1-Failed back surgery syndrome lumbar area PROCEDURE 1. Lumbar epidural steroid injection under fluoroscopic guidance at the L5-S1 level. (Fluoroscopy imaging was available in radiology department) 2. Lumbar epidurogram. ANESTHESIA: Lidocaine 1% 3 and then only. EBL: Minimal PROCEDURE INDICATION: The patient with low back pain and radiculitis symptoms un responsive to conservative treatment. Fluoroscopy was used to optimize visualization of the needle placement and to maximize safety. PROCEDURE DESCRIPTION / TECHNIQUE: The patient was seen and identified in the preoperative area. Risks, benefits, complications including but not limited to infections ,bleeding ,allergic reaction to the medications ,nerve damage and not complete pain releife , and alternatives were discussed with the patient. The patient agreed to proceed with the procedure and signed the consent, and vital signs were stable. Patient was taken to the OR and time out was completed. The patient was placed in the prone position on procedure table and a pillow was placed under the abdomen to reduce lumbar lordosis. The lumbosacral area was prepped and draped in the usual sterile fashion.ere closely monitored during the procedure. Vital signs was monitered during the entire procedure. Using anterior-posterior fluoroscopy, the L5-S1 interlaminar space was identified and the skin over this site was marked and then infiltrated with 1% lidocaine subcutaneously. Subsequently, a 20-gauge Tuohy epidural needle was inserted and advanced toward the epidural space using the ``Loss of resistance technique and guided by AP and lateral fluoroscopy. The correct needle position in the epidural space was verified with the injection of 2 mL of the water soluble contrast dye Isovue 200 contrast and observing an excellent epidurogram with the epidural spread of the dye, after negative aspiration for blood and CSF and in the absence of paresthesias. Again after negative aspiration, a 6 ml mixture containing 60 mg of Depo-medrol ( Preservetive Free ), and 2 ml of preservative free Normal Saline, and 2 ml of preservative free lidocaine 1% solution was injected and a washout of epidurogram was seen. Needle was withdrawn intact, skin was cleansed, and bandages were applied. COMPLICATIONS: None DISPOSITION / PLANS: The patient was placed in a supine position and transferred to the recovery area in a stable condition for observation. There was no evidence of lower extremity motor or sensory deficit after the procedure. Patient was discharged from the recovery room after meeting discharge criteria. Home discharge instructions were given to the patient by the staff. The patient was reexamined prior to discharge. The patient will schedule a follow up in the clinic in 2-4 weeks.
--- NOTE | 2023-09-25 12:53 | FL ---
Intraoperative/procedural fluoroscopic services were provided for lumbar epidural steroid injection. Total fluoroscopy time is 2.0 seconds with a total of 1 submitted image to PACS. Total DAP [id number] mG ym2. Please see the operative note for further details.
[2023-09-25 13:12] VITALS: BP 105/73; PULSE 71; RESP 16
== END 2023-09-25 13:22 | disposition home or self-care (01) ==
LOC: ORPAIN 11:24
PROVIDERS: ATTEND Specialist
DX: M54.16 Radiculopathy, lumbar region (principal); Z79.02 Long term (current) use of antithrombotics/antiplatelets; Z79.01 Long term (current) use of anticoagulants
CPT/HCPCS: 62323; J1040; Q9966